=== PATIENT | male | born 1935 | race Caucasian/White ===

== ENCOUNTER → 2016-06-23 | Outpatient (CLI) | payer OTHER ==
[~2016-06-23] MED LIST: AGG PO; ATEN50TA8 PO; CLIN150C PO; EYE VITAMIN; FLUTICASONE; HYDR-5688 PO; HYDR25TA4 PO; MELA3TAB7 PO; METF1000 PO; MULTCAP33 PO; MULTTAB58 PO; NSP/500 PO; OMEG-112 PO; SIMV20TA5 PO; TAMS0.4C38 PO; WARF2TAB PO
== END | disposition home or self-care (01) ==
LOC: C.RDSM 14:56
PROVIDERS: ATTEND Physical Medicine & Rehabilitation Sports Medicine
DX: M16.9 Osteoarthritis of hip, unspecified (principal); Z96.643 Presence of artificial hip joint, bilateral

== ENCOUNTER → 2016-06-28 | Outpatient (CLI) | payer OTHER ==
[2016-06-28 10:27] LABS: BLOOD UREA NITROGEN 14 mg/dl (7-18); BUN/CREATININE RATIO 12.6 (10-20)
== END | disposition home or self-care (01) ==
LOC: C.LAB 09:27
PROVIDERS: ATTEND Urology
DX: N40.1 Benign prostatic hyperplasia with lower urinary tract symptoms (principal); R97.20 Elevated prostate specific antigen [PSA]

== ENCOUNTER 2016-07-24 15:08 | Emergency (ER) | payer OTHER ==
[~2016-07-24] VITALS: Ht 175.3 cm; Wt 89.2 kg
[~2016-07-24 15:08] MED LIST changes: -HYDR-5688 PO; -MULTCAP33 PO; -TAMS0.4C38 PO
[2016-07-24 15:12] VITALS: TEMP 36.3; Ht 175.3 cm; Wt 89.2 kg
[2016-07-24] MEDS ORDERED: TAMS0.4C38 PO (15:31)
[2016-07-24] MEDS ORDERED: MULTCAP33 PO (15:31)
--- NOTE | 2016-07-24 15:52 | DIAGNOSTIC IMAGING REPORT ---
RIGHT WRIST 2 VIEWS CLINICAL HISTORY: Fall with right wrist pain. FINDINGS: AP and lateral portable views of the right wrist are obtained. No prior studies are available for comparison at the time of dictation. The skeletal structures are osteopenic. There is an impacted and comminuted fracture of the distal radial metaphysis with intra-articular extension and posteriorly distracted fragments. There is apex volar angulation. There is also a small avulsion fracture of the ulnar styloid. No additional fracture is clearly seen. There is calcification of the triangular fibrocartilage. Arthritic change is noted at the first carpometacarpal articulation. Cystic degenerative change is seen in the scaphoid and capitate. Soft tissue swelling is present around the wrist. IMPRESSION: 1. There is an impacted, comminuted, and angulated fracture of the distal radial metaphysis with intra-articular extension and overlying soft tissue edema as above. 2. There is a small avulsion fracture of the ulnar styloid. Electronically signed by: Kevin Walker M.D. 07/24/2016 3:50 PM Dictated Date/Time: 07/24/2016 3:47 PM
--- NOTE | 2016-07-24 16:38 | EMERGENCY ROOM VISIT NOTE ---
ED Visit Note First contact with patient: 15:18 I saw this patient in conjunction with Jay Crawford PA-C. I agree with his decision-making and treatment plan.
[2016-07-24] MEDS ORDERED: XYLOCAINE 1%/SOD BICARB 20 ML VIAL INFIL ONE (16:45)
[2016-07-24] MEDS ORDERED: HYDR-5688 PO (17:35)
[2016-07-24 17:47] VITALS: BP 146/85; PULSE 87; O2SAT 94
--- NOTE | 2016-07-24 18:02 | ORTHOPEDIC CONSULTATION ---
DATE OF CONSULTATION: 07/24/2016 CHIEF COMPLAINT: Right wrist injury. HISTORY OF PRESENT ILLNESS: The patient is a 81-year-old male slipped and fell on the ice injuring his right wrist earlier today. He is right hand dominant. He has a prior history of thumb injury, but no wrist injuries. He has noticed numbness and tingling in the radial 3 digits. He denies other injury. He had a total hip done with Dr. Nagel about 4 years ago. 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 PAST SURGICAL HISTORY: Setting of a broken thumb, total hip and tonsils. ALLERGIES: None. MEDICATIONS: Aggrenox, atenolol, clindamycin, hydrochlorothiazide, Glucophage, multivitamin, niacin, omega-3, simvastatin, Flomax, PreserVision. PHYSICAL EXAMINATION: He is awake, alert and oriented and in no acute distress. The right upper extremity is examined. He is afebrile. His vital signs are stable. There is obvious deformity of the right wrist area. The elbow, forearm and hand are nontender. The wrist is tender. There is a superficial abrasion over the ulnar side of the wrist. There is a very minimal superficial break in the skin, but nothing that would constitute an open fracture. This is about 1 cm in diameter. He has decreased sensation, tingling and numbness rated 3/10 in the long, index and ring finger, normal sensation throughout the remainder of the hand. Radial pulses 1+. Cap refill is less than 2 seconds. Motor function is normal, perhaps a slight bit of weakness on finger abduction. DIAGNOSTIC IMAGING: Radiographs show a comminuted distal radius fracture with apex volar angulation. No intraarticular extension, no dislocation. Verbal informed consent is obtained, sterile technique is utilized to inject 10 mL of 1% lidocaine plain into the distal radius fracture site and distal ulna for a hematoma block. After adequate analgesia, a closed reduction maneuver was performed and then a well molded sugar tong splint was applied. Post-reduction radiographs show maintenance of radial height, neutral variance and neutral tilting, alignment generally is near anatomic. After reduction maneuver, numbness improved to a 2/10. IMPRESSION: Right ____ fracture, median nerve neuropraxia versus acute carpal tunnel syndrome. PLAN: Findings discussed with patient. If numbness and tingling and pain worsen dramatically, he should call the office or go to the Emergency Room. He is to follow up with someone in my office tomorrow either Dr. Nagel or his PA. Elevate, ice, sling, keep clean and dry, leave splint on. He can take Aleve for pain or Tylenol and the ER physician's nurse assistant Jay Arenas will give him a prescription for [place]. If there are any problems with severe pain, swelling, numbness and tingling, fevers or other issues, please call the office or go to the Emergency Room. He may wiggle his fingers. We discussed there may be a need for surgical treatment, but at this point, nonoperative management seems appropriate. We discussed the plan for care.
--- NOTE | 2016-07-24 21:20 | EMERGENCY ROOM VISIT NOTE ---
ED Visit Note First contact with patient: 15:18 Chief Complaint: Right wrist pain. History of Present Illness: Mr. Dinh is a 81-year-old white male who ambulates into the ED accompanied by his complaining of right wrist pain over the distal radius. Patient reports proximally 45 minutes ago he slipped on ice and fell onto his buttocks. As he was landing he reports he struck his wrist on the ground. Since that time he has noted pain and deformity of the distal radius. He does report at the time of the injury he did not strike his head, consciousness or any neurological symptoms since the injury. Currently he describes his wrist pain as a deep achy sensation. He rates his discomfort 2/10. The pain is nonradiating. Pain worsens with palpation and all attempts to flex, extend and read DVT the wrist. He has not identified any alleviating factors related to the pain. He has not taken any medications for pain prior to arrival at the hospital. He denies any associated symptoms including neck pain, shoulder pain, elbow pain, proximal forearm pain, buttocks pain, arm/hand weakness/numbness/tingling. Review of Systems: As noted above in history of present illness. 8 body systems were reviewed and found to be negative as noted above. 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 Current Medications: Medications Dose Route/Sig Max Daily Dose Days Date Category Dose Instructions Flomax (Tamsulosin Hcl) 0.4 Mg Cap 0.4 Mg PO DAILYBB 07/24/16 Reported Preservision Areds (Multiple Vitamins W/ Minerals) 1 Cap Cap 1 Cap PO BID 07/24/16 Reported Niaspan Ext Rel (Niacin) 500 Mg Tabcr 500 Mg PO DAILY 06/21/12 Reported Hctz (Hydrochlorothiazide) 25 Mg Tab 25 Mg PO DAILY 03/22/12 Reported Zocor (Simvastatin) 20 Mg Tab 20 Mg PO QPM 03/22/12 Reported [place]-3 (Unbut-0-Nxwa Ethyl Esters) 1 Cap Cap 1 Cap PO BID 03/22/12 Reported Multivitamin (Multiple Vitamin) 1 Tab Tab 1 Tab PO DAILY 03/22/12 Reported Glucophage (Metformin Hcl) 1,000 Mg Tab 1,000 Mg PO BID 03/22/12 Reported Cleocin (Clindamycin Hcl) 150 Mg Cap 4 Cap PO UD PRN 03/22/12 Reported Tenormin (Atenolol) 50 Mg Tab 50 Mg PO HS 03/22/12 Reported Aggrenox 200MG/25MG (Aspirin-Dipyridamole 25MG/200MG) 1 Cap Cap 1 Cap PO BID 03/22/12 Reported Allergies to Medications: Patient denies. Social History: Patient is currently retired and lives with his ; he feels safe in his home environment; he denies tobacco use. Physical Examination: Vital Signs: Date Time Temp Pulse Resp B/P Pulse Ox O2 Delivery O2 Flow Rate FiO2 07/24/16 17:47 87 18 146/85 94 07/24/16 15:12 36.3 86 18 151/82 93 Room Air GENERAL: 81-year-old male in mild distress due to pain, nontoxic-appearing, afebrile and hemodynamically stable. NEUROLOGICAL: Awake, alert and oriented to person, place and time. Answering questions appropriately and following commands. Normal gait. Good hand eye coordination. No focal motor sensory deficits. SKIN: Warm, dry and pink. Right Wrist: Superficial abrasion over the ulnar side of the wrist. This is not a deep wound and does not appear to be an open fracture. HEENT: Atraumatic and normocephalic. UPPER UPPER EXTREMITY: Obvious deformity noted over the right wrist. No tenderness throughout the shoulder, humerus, elbow, proximal wrist, hand and fingers. Soft tissue injury as noted above. With the risk stabilize patient has full range of motion in flexion and extension of the low in all movements of the shoulders. He was able to wiggle all the fingers against resistance. The fingers were warm and pink and capillary refill is brisk. He was able to distinguish light sensations through all dermatomes. ED Course: Patient is assessed as noted above. Patient was given ice for pain and swelling; he was offered pain medications and refused. Patient's abrasion was cleansed with antibacterial soap and water and cover with a bacitracin dressing. Left Wrist X-Rays: Were read by myself and the radiologist and shows an impacted , comminuted and angulated fracture of the distal radial metaphysis with intra- articular extension and localized swelling. There is also a small avulsion fracture on the ulnar styloid. Patient's case was reviewed with Dr. Zeng; she apparently assessed the patient we agreed on diagnostic approach, treatment, disposition and plan. Just before the arrival of orthopedics specialist patient reports he was started having some tingling sensations in the thumb, index and middle fingers. I did reassess him he was still able to distinguish light sensations, move his fingers at the MCP, PIP, DIP joint areas and capillary refill remained brisk.. Patient's case was consulted with Dr. Raygoza, [facility]; after reviewing his x-rays he came into the emergency department to improve anatomical alignment of the fracture and immobilize the fracture. Please see his notes and orders. Patient was educated about tonight's findings and instructed on his treatment plan; he verbalized understanding and agreement with this plan. Clinical Impression: Closed right radius fracture. Closed right ulnar styloid fracture. Disposition: Patient discharged home in stable condition accompanied by his ; prior to departure he was reassessed and subjectively reported he was pain and symptom-free. Plan: Comfort measures were discussed with the patient including rest, ice, elevation , splint and sling use and a sliding pain scale of acetaminophen and [place]; appropriate narcotic precautions were discussed with the patient. Patient was encouraged to follow-up with [facility] for definitive care and treatment. Patient was encouraged return the ED for uncontrolled pain, worsening swelling, worse this numbness/tingling of his fingers or any new/concerning symptoms.
--- NOTE | 2016-07-26 08:43 | DIAGNOSTIC IMAGING REPORT ---
RIGHT WRIST 2 VIEWS CLINICAL HISTORY: RIGHT WRIST FX Right trauma. Pain. COMPARISON: 07/24/2016 DISCUSSION: 2 image intensifier views show evidence for occlusion reduction there is a described fracture. Bony alignment is anatomic. There is no evidence for soft tissue swelling. IMPRESSION: Anatomic alignment status post closed reduction Electronically signed by: Turner Andino M.D. 07/26/2016 8:41 AM Dictated Date/Time: 07/26/2016 8:40 AM
== END 2016-07-24 17:48 | disposition home or self-care (01) ==
LOC: C.EDB 15:10 → C.EDD 17:48
DX: S52.501A Unspecified fracture of the lower end of right radius, initial encounter for closed fracture (principal); S52.611A Displaced fracture of right ulna styloid process, initial encounter for closed fracture; W00.0XXA Fall on same level due to ice and snow, initial encounter; I10 Essential (primary) hypertension; M19.90 Unspecified osteoarthritis, unspecified site; E11.9 Type 2 diabetes mellitus without complications; N40.0 Benign prostatic hyperplasia without lower urinary tract symptoms; E78.5 Hyperlipidemia, unspecified; Z96.641 Presence of right artificial hip joint; Z98.890 Other specified postprocedural states; Z79.02 Long term (current) use of antithrombotics/antiplatelets; Z79.82 Long term (current) use of aspirin; Z79.899 Other long term (current) drug therapy

== ENCOUNTER → 2016-07-28 | Outpatient (CLI) | payer OTHER ==
[~2016-07-28] MED LIST changes: -EYE VITAMIN; -FLUTICASONE; +HYDR-5688 PO; -MELA3TAB7 PO; +MULTCAP33 PO; +TAMS0.4C38 PO; -WARF2TAB PO
--- NOTE | 2016-07-28 14:16 | DIAGNOSTIC IMAGING REPORT ---
RIGHT WRIST MIN 3 VIEWS ROUTINE CLINICAL HISTORY: RIGHT WRIST PAIN Right pain. Trauma. COMPARISON: 2016. FINDINGS: Slight interval increase in impaction as well as an additional avulsed fragment from the metaphysis the distal radius. There continues to be no evidence of dislocation. All remaining osseous structures are remarkable for moderate degenerative change. IMPRESSION: Progressive impaction as well as bony distraction of the fracture of the distal radius. Study remains negative for dislocation. Electronically signed by: Turner Andino M.D. 07/28/2016 2:14 PM Dictated Date/Time: 07/28/2016 2:12 PM
== END ==
LOC: C.RDSM 13:45
PROVIDERS: ATTEND Physical Medicine & Rehabilitation Sports Medicine
DX: M25.531 Pain in right wrist (principal)

== ENCOUNTER → 2016-08-09 | Outpatient (CLI) | payer OTHER | END | disposition home or self-care (01) | LOC: C.RDSM 13:50 | PROVIDERS: ATTEND Physical Medicine & Rehabilitation Sports Medicine | DX: M25.531 Pain in right wrist (principal) ==

== ENCOUNTER → 2016-08-17 | Outpatient (CLI) | payer OTHER | END | disposition home or self-care (01) | LOC: C.RDSM 14:05 | PROVIDERS: ATTEND Physical Medicine & Rehabilitation Sports Medicine | DX: S52.531D Colles' fracture of right radius, subsequent encounter for closed fracture with routine healing (principal); X58.XXXD Exposure to other specified factors, subsequent encounter ==

== ENCOUNTER → 2016-09-09 | Outpatient (CLI) | payer OTHER | END | disposition home or self-care (01) | LOC: C.RDSM 10:05 | PROVIDERS: ATTEND Physical Medicine & Rehabilitation Sports Medicine | DX: S52.531D Colles' fracture of right radius, subsequent encounter for closed fracture with routine healing (principal); X58.XXXD Exposure to other specified factors, subsequent encounter ==

== ENCOUNTER → 2016-11-29 | Outpatient (CLI) | payer OTHER | END | disposition home or self-care (01) | LOC: C.RDSM 14:15 | PROVIDERS: ATTEND Physical Medicine & Rehabilitation Sports Medicine | DX: G56.01 Carpal tunnel syndrome, right upper limb (principal) ==

== ENCOUNTER → 2017-05-05 | Outpatient (CLI) | payer OTHER ==
[~2017-05-05] MED LIST changes: -HYDR-5688 PO
--- NOTE | 2017-05-05 11:18 | DIAGNOSTIC IMAGING REPORT ---
R HIP UNILATERAL MIN 2 VIEWS HISTORY: 82 years-old Male RIGHT HIP PAIN/DRAINAGE history of prior right hip arthroplasty 4 years ago. Patient reports new drainage from the chronic incision. COMPARISON: Pelvis and right hip radiographs 06/23/2016 TECHNIQUE: 2 views of the right hip FINDINGS: Right hip arthroplasty noted without periprosthetic fracture or malalignment. Imaged right hemipelvis appears intact. Heterotopic ossifications about the right hip redemonstrated. Peripheral vascular disease. Mild soft tissue prominence is suggested within the soft tissues superior to the right hip. IMPRESSION: 1. Right hip arthroplasty without complication identified. No acute fracture or dislocation. 2. Soft tissue prominence superior to the right proximal femur may be projectional. If concern for periarticular collection, ultrasound may be considered. 3. Peripheral vascular disease. The above report was generated using voice recognition software. It may contain grammatical, syntax or spelling errors. Electronically signed by: Giles Conner M.D. 05/05/2017 11:16 AM Dictated Date/Time: 05/05/2017 11:14 AM
== END | disposition home or self-care (01) ==
LOC: C.RDSM 13:27
PROVIDERS: ATTEND Physician Assistant
DX: M25.551 Pain in right hip (principal); Z96.641 Presence of right artificial hip joint; M79.9 Soft tissue disorder, unspecified; I73.9 Peripheral vascular disease, unspecified

== ENCOUNTER → 2017-05-30 | Day surgery (SDC) | payer OTHER ==
[2017-05-24 08:31] VITALS: Ht 177.8 cm; Wt 90.9 kg
[~2017-05-30] VITALS: Ht 177.8 cm; Wt 90.9 kg
[~2017-05-30] MED LIST changes: +ALLO300T2 PO; +ATROPINE SULFATE 0.1 MG/ML 5ML SYR IV PRN; +CEFAZOLIN 2000MG IV PUSH 10 ML IV SCH; +CEFTRIAXONE SOD 1 GM VIAL ONE; +CEFTRIAXONE SOD INJ 1,000 MG in DEXTROSE 5% 50ML 50 ML IV ONE; +DEXAMETHASONE SOD INJ 4 MG/ML VIAL ONE; +EpHEDrine SULFATE INJ 50 MG/ML AMP IV PRN; +EpHEDrine SULFATE INJ 50 MG/ML AMP ONE; +FENTANYL CITRATE INJ 50 MCG/1 ML 2 ML VIAL IV PRN; +FENTANYL CITRATE INJ 50 MCG/1 ML 2 ML VIAL ONE; +GLYCOPYRROLATE INJ 0.2 MG/ML VIAL ONE; +HYDROCODONE/ACETAMOPHEN 5/325MG TAB PO PRN; +LACTATED RINGER'S 1000ML 1,000 ML IV SCH; +LIDOCAINE HCL 2% 2 ML VIAL (20MG/ML) ONE; +NEOSTIGMINE METHYLSULFATE 5 MG/5 ML SYR ONE; +NIAC500T83 PO; -NSP/500 PO; +ONDANSETRON INJ 2 MG/ML 2 ML VIAL IV PRN; +ONDANSETRON INJ 2 MG/ML 2 ML VIAL ONE; +PROPOFOL IV EMULSION 10 MG/ML 20 ML VIAL IV ONE; +ROCURONIUM BROMIDE 10 MG/ML 5 ML VIAL IV ONE; +SODIUM CHLORIDE 0.9% 1000ML 1,000 ML IV SCH; +SODIUM CHLORIDE 0.9% INJ 10 ML VIAL ONE
--- NOTE | 2017-05-30 10:19 | History & Physical Bridge Note ---
H&P Re-Evaluation Bridge Note: I have examined the patient, reviewed the History & Physical and in the interval since the performance of the History & Physical I have noted the following changes of clinical significance:consent obtained. No changes noted
--- NOTE | 2017-05-30 10:21 | Discharge Instructions ---
Discharge Instructions Date of Service May 30, 2017. Visit Reason for Visit: Right Hip Chronic Bursitis Discharge Discharge Diagnosis / Problem: same Discharge Goals Goal(s): Improve function, Improve disease control Medications Stopped Medications Name(s): Metformin Restart Stopped Medication(s): resume all meds/check glucoses carefully. Activity Recommendations Activity Limitations: resume your previous activity Lifting Limitations: until after follow-up appointment Exercise/Sports Limitations: until after follow-up appointment May Resume Sexual Activity: after follow-up appointment Shower/Bathe: keep incision dry Driving or Machine Use: resume 1 day after discharge Weightbearing Status: Right weightbearing (as tolerated) Anesthesia . Post Anesthesia Instructions: If you have had General Anesthesia or IV Sedation: * Do not drive today. * Resume driving when surgeon permits. * Do not make important decisions or sign legal documents today. * Call surgeon for: 1. Temperature elevations greater than 101 degrees F. 2. Uncontrollable pain. 3. Excessive bleeding. 4. Persistent nausea and vomiting. 5. Medication intolerance (nausea, vomiting or rash). * For nausea and vomiting use only clear liquids such as: tea, soda, bouillon until nausea subsides, then gradually increase diet as tolerated. * If you have any concerns or questions, call your surgeon's office. If physician is unavailable and it is an emergency, call 911 or go to the nearest emergency room. . Instructions / Follow-Up Instructions / Follow-Up DIET: * Resume previous diet. MEDICATIONS: * Please take your prescriptions as instructed at your pre-op appointment and/ or see medication discharge instructions listed above. * If concerns develop, call your physician's office at . SPECIAL CARE INSTRUCTIONS: * Ice/Elevate as instructed. * Keep dressing clean, dry, intact. * Your surgical extremity may be discolored due to prepping agents used on the skin. A bluish-green tint is a normal variant and should not cause alarm. Call your doctor at [phone] if: * Temperature above 101 degrees * Pain not relieved by pain medicine ordered * There is increased drainage or redness from any incision * You have any unanswered questions, problems or concerns. FOLLOW UP VISIT: * If not already scheduled, please call the office at to schedule a follow-up appointment. Diet Recommendations Recommended Home Diet: resume previous diet Procedures Procedures Performed: see op note Pending Studies Studies pending at discharge: yes List of pending studies: [place] Medical Emergencies . Who to Call and When: Medical Emergencies: If at any time you feel your situation is an emergency, please call 911 immediately. . Non-Emergent Contact Non-Emergency issues call your: Specialist Call Non-Emergent contact if: temperature is above 101.5, wound has increased drainage, wound has increased redness, wound has increased pain, you have any medication questions . . "Provider Documentation" section prepared by Cooper Nagel. .
--- NOTE | 2017-05-30 11:27 | [facility] Post Operative Brief Note ---
Immediate Operative Summary Operative Date May 30, 2017. Pre-Operative Diagnosis Right hip open draining trochanteric bursitis Post-Operative Diagnosis Same as preop Procedure(s) Performed Right Hip Open Greater Trochanter Bursectomy Surgeon Dr. Nagel Final Dressing Cutter Surgeon(s) Brian Orona PA-C Estimated Blood Loss Trace Findings soft tissue mass possible crystalline vs infection/previous cultures negative Fluids (cc crystalloids) 700cc Specimens Culture #1 - right hip tissue for stat gram stain, aerobic and anaerobic and crystal analysis/pathology Drains none Anesthesia GET Complication(s) None Disposition Recovery Room / PACU
--- NOTE | 2017-05-30 11:46 | OPERATIVE REPORT ---
DATE OF OPERATION: 05/30/2017 Surgeon: Dr. Nagel. DIESEL LOCOMOTIVE FIRER: Yeyo. PREOPERATIVE DIAGNOSIS: Spontaneously draining wound following heavy friction massage PT for trochanteric bursitis, 4+ years out from total hip replacement. POSTOPERATIVE DIAGNOSIS: Permanent pathology pending, unclear diagnosis.bursitis r hip OPERATION PERFORMED: Excision of bursa of right hip. PERIOPERATIVE SITUATION: Medically cleared male with comorbidities ASA 3 who has presented with a several week history of a spontaneously draining wound following some heavy PT friction massage for trochanteric bursitis. He has never had no fever or chills, nausea, vomiting, his glucose has never really been out of control. He notes no hip pain. The area spontaneously started to drain. It was cultured immediately and the cultures did not grow anything after 5 days, so it was elected to follow this carefully with follow up every few days and then ultimately as it did not clear up, we elected to proceed with open bursectomy. He was informed that this could still represent infection and could require multiple procedures to eradicate the infection. OPERATION: bursectomy, right hip. PROCEDURE: The patient appropriately identified, site verified, consent verified, 2 grams of Ancef confirmed as being given. The right lower extremity was prepped and draped in usual routine fashion with the patient in left lateral decubitus position. The old distal third of the incision was opened where there was a small draining area. Immediately encountered with that was a significant bulky whitish amor tissue, which was all excised. This did extend into the fascial region which was all debrided. Following this, there was a hole into the fascia, this was all irrigated. This was all sent for permanent pathology including crystals, including culture and sensitivity, aerobic, anaerobic and fungal, including pathology to look for formed particles, etc. The wound was irrigated and closed with #1 Vicryl for the fascial layer, 2-0 plain for the subcutaneous layer and 3-0 Prolene for skin. A compressive soft tissue dressing applied. Permanent pathology is pending. Estimated blood loss was trace. Crystalloid was 900 mL. Ultimately, this may require additional procedures, the patient and family were made aware of that. Will proceed with caution based on culture and tissue pathology results. Empirically treat at this point in time with routine prophylactic antibiotic coverage until cultures are negative. If positive, he will go to inpatient surgery with appropriate excisional arthroplasty, etc. No DVT prophylaxis required for this procedure; weightbearing to tolerance. I attest to the content of the Intraoperative Record and any orders documented therein. Any exceptions are noted below. MTDD
--- NOTE | 2017-05-30 11:52 | [facility] Operative Report ---
Operative Report Operative Date May 30, 2017. Pre-Operative Diagnosis Right hip open draining trochanteric bursitis Post-Operative Diagnosis Right hip Same as preop Procedure(s) Performed Right Hip Open Greater Trochanter Bursectomy Surgeon Dr. Nagel Manager Revenue Surgeon(s) Brian Orona PA-C Estimated Blood Loss Trace Findings Bursal tissue Fluids (cc crystalloids) 700cc Specimens Culture #1 - right hip tissue for stat gram stain, aerobic and anaerobic and crystal analysis/pathology Drains none Complication(s) None Disposition Recovery Room / PACU Indications This 82-year-old white male presented to the office with complaints of an open wound over his previous total hip arthroplasty scar. Symptoms developed after having tissue massage for trochanteric bursitis. He failed conservative management including pressure dressings, oral prednisone, and activity modification. He did receive oral antibiotics as well without resolution of the drainage. He elected to proceed with surgical intervention after being educated about potential risks and outcomes. Preoperative wound cultures were negative for bacteria. Description of Procedure Patient was taken to the operating room where he was given general anesthesia. He was prepped and draped in usual sterile fashion. Please see Dr. Nagel's operative report for specifics of the procedure. I was present for the entire case from initial patient positioning through final wound closure. Assistance was provided in patient positioning, tissue traction, hemostasis, and final wound closure. Patient was taken to the recovery room in satisfactory condition. I attest to the content of the Intraoperative Record and any orders documented therein. Any exceptions are noted below.
--- NOTE | 2017-05-30 12:28 | Anesthesiology Progress Note ---
Anesthesia Post Op Note Date & Time May 30, 2017 at 12:27 Vital Signs Pain Intensity: 0 Vital Signs Past 12 Hours Date Time Temp Pulse Resp B/P (MAP) Pulse Ox O2 Delivery O2 Flow Rate FiO2 05/30/17 12:10 143/92 05/30/17 12:08 69 16 05/30/17 12:08 68 16 92 05/30/17 12:07 73 24 05/30/17 12:07 73 24 91 05/30/17 12:06 36.6 68 20 129/86 94 Room Air 05/30/17 12:05 129/86 05/30/17 12:02 68 18 05/30/17 12:02 67 18 93 05/30/17 12:01 151/80 05/30/17 11:59 72 14 05/30/17 11:59 71 14 94 05/30/17 11:55 117/83 05/30/17 11:54 70 17 05/30/17 11:54 70 17 91 05/30/17 11:52 154/82 05/30/17 11:50 144/108 05/30/17 11:49 69 20 98 05/30/17 11:49 70 20 05/30/17 11:46 145/86 05/30/17 11:44 71 18 98 05/30/17 11:44 71 18 05/30/17 11:40 160/93 05/30/17 11:39 73 18 05/30/17 11:39 73 18 98 05/30/17 11:35 173/103 05/30/17 11:34 79 14 05/30/17 11:34 79 14 98 05/30/17 11:34 36.6 80 16 179/98 97 Diffusion Mask 6 05/30/17 09:56 36.5 68 16 156/82 (106) 96 Room Air Notes Mental Status: alert / awake / arousable, participated in evaluation Pt Amnestic to Procedure: Yes Nausea / Vomiting: adequately controlled Pain: adequately controlled Airway Patency, RR, SpO2: stable & adequate BP & HR: stable & adequate Hydration State: stable & adequate Anesthetic Complications: no major complications apparent
[2017-05-30 12:55] VITALS: BP 154/86; PULSE 63; TEMP 36.6; O2SAT 94
== END | disposition home or self-care (01) ==
LOC: X.SURG 09:39
PROVIDERS: ATTEND Physical Medicine & Rehabilitation Sports Medicine
DX: T84.51XA Infection and inflammatory reaction due to internal right hip prosthesis, initial encounter (principal); Y83.1 Surgical operation with implant of artificial internal device as the cause of abnormal reaction of the patient, or of later complication, without mention of misadventure at the time of the procedure; M70.61 Trochanteric bursitis, right hip; I10 Essential (primary) hypertension; E11.9 Type 2 diabetes mellitus without complications; M19.90 Unspecified osteoarthritis, unspecified site; M10.9 Gout, unspecified; H35.30 Unspecified macular degeneration; Z96.643 Presence of artificial hip joint, bilateral; Z98.890 Other specified postprocedural states; Z79.899 Other long term (current) drug therapy

== ENCOUNTER 2017-06-21 10:26 | Emergency (ER) | payer OTHER ==
[~2017-06-21] VITALS: Ht 177.8 cm; Wt 88.0 kg
[~2017-06-21 10:26] MED LIST changes: -ATROPINE SULFATE 0.1 MG/ML 5ML SYR IV PRN; -CEFAZOLIN 2000MG IV PUSH 10 ML IV SCH; -CEFTRIAXONE SOD 1 GM VIAL ONE; -CEFTRIAXONE SOD INJ 1,000 MG in DEXTROSE 5% 50ML 50 ML IV ONE; -DEXAMETHASONE SOD INJ 4 MG/ML VIAL ONE; -EpHEDrine SULFATE INJ 50 MG/ML AMP IV PRN; -EpHEDrine SULFATE INJ 50 MG/ML AMP ONE; -FENTANYL CITRATE INJ 50 MCG/1 ML 2 ML VIAL IV PRN; -FENTANYL CITRATE INJ 50 MCG/1 ML 2 ML VIAL ONE; -GLYCOPYRROLATE INJ 0.2 MG/ML VIAL ONE; -HYDROCODONE/ACETAMOPHEN 5/325MG TAB PO PRN; -LACTATED RINGER'S 1000ML 1,000 ML IV SCH; -LIDOCAINE HCL 2% 2 ML VIAL (20MG/ML) ONE; -NEOSTIGMINE METHYLSULFATE 5 MG/5 ML SYR ONE; -ONDANSETRON INJ 2 MG/ML 2 ML VIAL IV PRN; -ONDANSETRON INJ 2 MG/ML 2 ML VIAL ONE; -PROPOFOL IV EMULSION 10 MG/ML 20 ML VIAL IV ONE; -ROCURONIUM BROMIDE 10 MG/ML 5 ML VIAL IV ONE; -SODIUM CHLORIDE 0.9% 1000ML 1,000 ML IV SCH; -SODIUM CHLORIDE 0.9% INJ 10 ML VIAL ONE
[2017-06-21 10:30] VITALS: TEMP 36.3; Ht 177.8 cm; Wt 88.0 kg
--- NOTE | 2017-06-21 11:16 | EMERGENCY ROOM VISIT NOTE ---
History Report prepared by Lona: Nona Bowling Under the Supervision of: Dr. Dewayne Diaz M.D. First contact with patient: 10:36 Chief Complaint: URINARY SYMPTOMS Stated Complaint: HICCUPS, URINATING Nursing Triage Summary: Pt states, "Mon night I developed a hiccup sx that comes and goes. I am on prednisone and Dr. Montes thinks it elevated by sugar and makes me urinate more often. They are running a culture, but I haven't heard anything. I have been up the past two nights hiccuping. I have burning when I urinate and sometimes nothing comes out. I have a wound vac." Decreased appetite, generalized weakness. History of Present Illness The patient is a 82 year old male who presents to the Emergency Room with complaints of worsening urinary symptoms for the past week. The patient had a right hip replacement 5 years ago. He recently had bursitis and gout in the hip which caused an infection. He currently has wound VAC in place and is following up with Dr. Nagel of [facility]. He is currently on prednisone and antibiotics prescribed by the orthopedist. He reports that for the past week he has increased urinary frequency and no hematuria or dysuria. PCP's office did a urine culture last week which revealed some hematuria. They still have not been called with the final results of the urine culture. Pt denies chest pain, shortness of breath, abdominal pain, melena, and hematuria. The patient also reports that for the past 2 days he has been experiencing hiccups intermittently. Each episode lasts for about 1 hour and then resolves on its own. Source of History: patient, spouse/significant other Onset: 1 week ago Position: abdomen (urinary) Timing: worsening Associated Symptoms: + urinary symptoms (increased frequency, dysuria, hematuria), No chest pain, No SOB, No abdominal pain, No melena, No hematochezia Note: Pt reports hiccups. Review of Systems See HPI for pertinent positives and negatives. A total of ten systems were reviewed and were otherwise negative. Past Medical & Surgical Medical Problems: (1) Bursitis (2) Gout Surgical Problems: (1) History of right hip replacement Family History Non-pertinent due to advanced age. Social History Smoking Status: Former Smoker Marital Status: Housing Status: lives with significant other Occupation Status: retired Current/Historical Medications Scheduled Allopurinol (Zyloprim), 300 MG PO QAM Amoxicillin (Amoxil), 500 MG PO DAILY Aspirin-Dipyridamole 25MG/200MG (Aggrenox 200MG/25MG), 1 CAP PO BID Atenolol (Tenormin), 50 MG PO HS Hydrochlorothiazide (Hctz), 25 MG PO QAM Melatonin (Melatonin), 3 MG PO HS Metformin Hcl (Glucophage), 1,000 MG PO BID Multiple Vitamin (Multivitamin), 1 TAB PO DAILY Niacin (Niaspan Ext Rel), 500 MG PO DAILY [id number] Ethyl Esters (Sterling-3), 1 CAP PO BID Rifampin (Rifampin), 300 MG PO DAILY Simvastatin (Zocor), 20 MG PO QPM Tamsulosin Hcl (Flomax), 0.4 MG PO QPM Scheduled PRN Chlorpromazine HCl (Chlorpromazine HCl), 25 MG OR TID PRN for Documentation Clindamycin Hcl (Cleocin), 4 CAP PO UD PRN for prior to dental work Allergies Coded Allergies: No Known Allergies (Unverified , 06/21/17) Physical Exam Vital Signs Date Time Temp Pulse Resp B/P (MAP) Pulse Ox O2 Delivery O2 Flow Rate FiO2 06/21/17 12:44 91 18 134/74 96 06/21/17 12:06 89 18 143/92 93 Room Air 06/21/17 10:30 36.3 97 16 130/78 95 Room Air Physical Exam Physical Exam GENERAL: He is oriented to person, place, and time. He appears well-developed and well-nourished. He does not appear distressed. HENT: Exam performed. Head: Normocephalic and atraumatic. Right Ear: External ear normal. No mastoid tenderness. Left Ear: External ear normal. No mastoid tenderness. Mouth/Throat: The oropharynx is clear and moist. No trismus in the jaw. No dental abscesses or uvula swelling. No oropharyngeal exudate or tonsillar abscesses. EYES: Conjunctivae and EOM are normal. Pupils are equal, round, and reactive to light. Right eye exhibits no discharge. Left eye exhibits no discharge. No scleral icterus. NECK: Normal range of motion. Neck supple. No JVD present. No spinous process tenderness present. No carotid bruit present. No rigidity. No tracheal deviation and normal range of motion present. No Brudzinski's sign and no Kernig 's sign noted. CV: Normal rate, regular rhythm, normal heart sounds and intact distal pulses. There is no peripheral edema. Palpable radial pulses bue. PULM/CHEST: Effort normal and breath sounds normal. No respiratory distress. No stridor. He has no wheezes. He has no rales. Chest Wall: He exhibits no tenderness. ABD: The abdomen is soft. Bowel sounds are normal. He has no distension. No mass is present. There is no tenderness. There is no rebound, no guarding, no Ribeiro's sign and no tenderness at McBurney's point. Rovsig negative MUSC/SKEL: Normal range of motion. There is no peripheral edema, tenderness or deformity. Wound VAC on right hip. Wound VAC is draining straw colored fluid, no purulence or blood, no erythema surrounding the wound VAC, no purulent drainage from the wound VAC. LYMPH: No cervical adenopathy. NEURO: He is alert and oriented to person, place, and time. He has normal strength. No cranial nerve deficit or sensory deficit. Coordination and gait normal. GCS eye subscore is 4. GCS verbal subscore is 5. GCS motor subscore is 6. cerbellar tests wnl. SKIN: Skin is warm and dry. He is not diaphoretic. PSYCH: He has a normal mood and affect. His behavior is normal. Judgment and thought content normal. Medical Decision & Procedures Laboratory Results 06/21/17 11:19 Red Blood Count 4.70, Mean Corpuscular Volume 87.9, Mean Corpuscular Hemoglobin 30.0, Mean Corpuscular Hemoglobin Concent 34.1, Mean Platelet Volume 9.9, Neutrophils (%) (Auto) 85.4, Lymphocytes (%) (Auto) 7.4, Monocytes (%) (Auto) 3.8, Eosinophils (%) (Auto) 2.7, Basophils (%) (Auto) 0.2, Neutrophils # (Auto) 12.74, Lymphocytes # (Auto) 1.10, Monocytes # (Auto) 0.57, Eosinophils # (Auto) 0.40, Basophils # (Auto) 0.03 06/21/17 11:19 Test 06/21/17 10:47 06/21/17 10:54 06/21/17 11:19 Urine Color DK YELLOW Urine Appearance CLEAR (CLEAR) Urine pH 5.5 (4.5-7.5) Urine Specific [place] 1.014 (1.000-1.030) Urine Protein 2+ (NEG) Urine Glucose (UA) NEG (NEG) Urine Ketones NEG (NEG) Urine Occult Blood NEG (NEG) Urine Nitrite NEG (NEG) Urine Bilirubin NEG (NEG) Urine Urobilinogen NEG (NEG) Urine Leukocyte Esterase NEG (NEG) Urine WBC (Auto) 1-5 /hpf (0-5) Urine RBC (Auto) 0-4 /hpf (0-4) Urine Hyaline Casts (Auto) 1-5 /lpf (0-5) Urine Epithelial Cells (Auto) 10-20 /lpf (0-5) Urine Bacteria (Auto) NEG (NEG) Bedside Glucose 188 mg/dl (70-99) White Blood Count 14.91 K/uL (4.8-10.8) Red Blood Count 4.70 M/uL (4.7-6.1) Hemoglobin 14.1 g/dL (14.0-18.0) Hematocrit 41.3 % (42-52) Mean Corpuscular Volume 87.9 fL (80-100) Mean Corpuscular Hemoglobin 30.0 pg (25-34) Mean Corpuscular Hemoglobin Concent 34.1 g/dl (32-36) Platelet Count 377 K/uL (130-400) Mean Platelet Volume 9.9 fL (7.4-10.4) Neutrophils (%) (Auto) 85.4 % Lymphocytes (%) (Auto) 7.4 % Monocytes (%) (Auto) 3.8 % Eosinophils (%) (Auto) 2.7 % Basophils (%) (Auto) 0.2 % Neutrophils # (Auto) 12.74 K/uL (1.4-6.5) Lymphocytes # (Auto) 1.10 K/uL (1.2-3.4) Monocytes # (Auto) 0.57 K/uL (0.11-0.59) Eosinophils # (Auto) 0.40 K/uL (0-0.5) Basophils # (Auto) 0.03 K/uL (0-0.2) RDW Standard Deviation 46.8 fL (36.4-46.3) RDW Coefficient of Variation 14.4 % (11.5-14.5) Immature Granulocyte % (Auto) 0.5 % Immature Granulocyte # (Auto) 0.07 K/uL (0.00-0.02) Anion Gap 10.0 mmol/L (3-11) Est Creatinine Clear Calc Drug Dose 56.3 ml/min Estimated GFR () 67.8 Estimated GFR (Non- 58.5 BUN/Creatinine Ratio 16.2 (10-20) Calcium Level 9.6 mg/dl (8.5-10.1) Laboratory results reviewed by me. ED Course 1036: The patient was evaluated in room C3. A complete history and physical exam was performed. 1103: I discussed the case with Dr. Navarro of [facility]. If the patient is admitted, he will see the patient as a consult in the hospital. If he is discharged, Dr. Navarro will see the patient for follow-up tomorrow as an outpatient. 1147: I updated the patient and his on his results. 1212: I spoke with Dr. Crews, the patient's PCP. He did not start the patient on prednisone and states that most likely the orthopedist group did. He recommends holding off on prednisone. He will follow-up with the patient in the office later this week. 1222: I reassessed the patient at this time. He is feeling better and resting comfortably. I discussed the results and treatment plan with the patient. I answered all pertaining questions that he had. He expressed understanding and verbalized agreement. The patient will be discharged home with medications for hiccups. Medical Decision Vital signs stable. His labs show a mildly elevated WBC most likely due to recent prednisone. Urine negative. Metabolic profile shows sodium 127. Patient is completely asymptomatic, neurologically intact. Discussed the patient's PCP, Dr. Crews, he states that he did not start the patient on prednisone and states that most likely the orthopedist group did. He recommends holding off on prednisone. He will follow-up with the patient in the office later this week. Patient will be discharged home with medications for hiccups. Medication Reconcilliation Current Medication List: was personally reviewed by me Blood Pressure Screening Patient's blood pressure: Elevated blood pressure Blood pressure disposition: Elevated BP felt to be situational Consults Time Called: 1100 Consulting Physician: Dr. Navarro Returned Call: 1103 I discussed the case with Dr. Navarro of [facility]. If the patient is admitted, he will see the patient as a consult in the hospital. If he is discharged, Dr. Navarro will see the patient for follow-up tomorrow as an outpatient. Additional Consults: Time Called: 1207 Consulted Physician: Dr. Crews Returned Call: 1212 Additional Comments: I spoke with Dr. Crews, the patient's PCP. He did not start the patient on prednisone and states that most likely the orthopedist group did. He recommends holding off on prednisone. He will follow-up with the patient in the office later this week. Impression Primary Impression: Polyuria Additional Impressions: Hyponatremia Hiccups Scribe Attestation The scribe's documentation has been prepared under my direction and personally reviewed by me in its entirety. I confirm that the note above accurately reflects all work, treatment, procedures, and medical decision making performed by me. The scribe's documentation has been prepared under my direction and personally reviewed by me in its entirety. I confirm that the note above accurately reflects all work, treatment, procedures, and medical decision making performed by me. Departure Information Dispostion Being Evaluated By Hospitalist Prescriptions Chlorpromazine HCl (Chlorpromazine HCl) 25 Mg Tab 25 MG OR TID Y for Documentation, #7 TABS take TID PRN hiccups Prov: Dewayne Diaz M.D. 06/21/17 Referrals Bobby Schuler D.O. (PCP) Cooper Nagel M.D. Forms HOME CARE DOCUMENTATION FORM, IMPORTANT VISIT INFORMATION Patient Instructions ED Hiccups, Hyponatremia Dc, My [facility] Additional Instructions stop taking prednisone Problem Qualifiers
[2017-06-21 11:27] LABS: BASO % 0.2 %; BASO ABS # 0.03 K/uL (0-0.2); EOS % 2.7 %; HEMATOCRIT 41.3 % (42-52); HEMOGLOBIN 14.1 g/dL (14.0-18.0); IG# 0.07 K/uL (0.00-0.02); LYMPH % 7.4 %; MEAN CELL VOLUME 87.9 fL (80-100); MEAN CORPUSCULAR HGB CONC 34.1 g/dl (32-36); MEAN PLATELET VOLUME 9.9 fL (7.4-10.4); MONO % 3.8 %; MONO ABS # 0.57 K/uL (0.11-0.59); NEUT % 85.4 %; NEUT ABS # 12.74 K/uL (1.4-6.5); PLATELET COUNT 377 K/uL (130-400); RED CELL DISTRIBUTION WIDTH CV 14.4 % (11.5-14.5); RED CELL DISTRIBUTION WIDTH SD 46.8 fL (36.4-46.3); WHITE BLOOD COUNT 14.91 K/uL (4.8-10.8)
[2017-06-21] MEDS ORDERED: PRED-301 PO (11:31)
[2017-06-21] MEDS ORDERED: MELA3TAB PO (11:31)
[2017-06-21] MEDS ORDERED: RFM300 PO (11:31)
[2017-06-21] MEDS ORDERED: AMOX500C3 PO (11:31)
[2017-06-21 11:43] LABS: CALCIUM 9.6 mg/dl (8.5-10.1); CREATININE 1.17 mg/dl (0.60-1.40); POTASSIUM 3.5 mmol/L (3.5-5.1)
[2017-06-21] MEDS ORDERED: THR25X OR (12:36)
[2017-06-21 12:44] VITALS: BP 134/74; PULSE 91; O2SAT 96
== END 2017-06-21 12:44 | disposition home or self-care (01) ==
LOC: C.EDB 10:29 → C.EDC 12:44
DX: R35.8 Other polyuria (principal); E87.1 Hypo-osmolality and hyponatremia; R06.6 Hiccough; Z96.641 Presence of right artificial hip joint; Z79.82 Long term (current) use of aspirin; Z79.84 Long term (current) use of oral hypoglycemic drugs; Z87.891 Personal history of nicotine dependence

== ENCOUNTER → 2017-06-26 | Outpatient (CLI) | payer OTHER ==
[~2017-06-26] MED LIST changes: +AMOX500C3 PO; +MELA3TAB PO; -MULTCAP33 PO; +RFM300 PO; +THR25X OR
[2017-06-26 16:08] LABS: BLOOD UREA NITROGEN 18 mg/dl (7-18); CREATININE 1.16 mg/dl (0.60-1.40)
== END | disposition home or self-care (01) ==
LOC: C.LAB1850 14:47
PROVIDERS: ATTEND Urology
DX: N40.1 Benign prostatic hyperplasia with lower urinary tract symptoms (principal)

== ENCOUNTER → 2017-07-10 | Outpatient (CLI) | payer OTHER | END | disposition home or self-care (01) | LOC: C.LABSPEC 11:59 | PROVIDERS: ATTEND Physical Medicine & Rehabilitation Sports Medicine | DX: M70.61 Trochanteric bursitis, right hip (principal) ==

== ENCOUNTER → 2017-07-12 | Outpatient (CLI) | payer OTHER ==
[2017-07-12 14:37] LABS: BASO % 0.1 %; BASO ABS # 0.02 K/uL (0-0.2); EOS % 0.1 %; EOS ABS # 0.02 K/uL (0-0.5); HEMATOCRIT 38.1 % (42-52); HEMOGLOBIN 12.7 g/dL (14.0-18.0); IG# 0.08 K/uL (0.00-0.02); LYMPH % 7.4 %; LYMPH ABS # 1.03 K/uL (1.2-3.4); MEAN CELL VOLUME 88.8 fL (80-100); MEAN CORPUSCULAR HEMOGLOBIN 29.6 pg (25-34); MEAN CORPUSCULAR HGB CONC 33.3 g/dl (32-36); MEAN PLATELET VOLUME 9.8 fL (7.4-10.4); MONO % 4.7 %; MONO ABS # 0.66 K/uL (0.11-0.59); NEUT % 87.1 %; NEUT ABS # 12.19 K/uL (1.4-6.5); PLATELET COUNT 325 K/uL (130-400); RED CELL DISTRIBUTION WIDTH SD 48.3 fL (36.4-46.3)
[2017-07-12 14:38] LABS: HEMOGLOBIN A1C 8.5 % (4.5-5.6)
[2017-07-12 14:50] LABS: INR 1.5 (0.9-1.1)
[2017-07-12 14:53] LABS: BLOOD UREA NITROGEN 22 mg/dl (7-18); CALCIUM 9.9 mg/dl (8.5-10.1); CARBON DIOXIDE 28 mmol/L (21-32); GLUCOSE 157 mg/dl (70-99); POTASSIUM 3.8 mmol/L (3.5-5.1); SODIUM 129 mmol/L (136-145)
[2017-07-12 15:10] LABS: PTT PATIENT 47.3 SECONDS (21.0-31.0)
== END | disposition home or self-care (01) ==
LOC: C.LAB1850 12:30
PROVIDERS: ATTEND Physician Assistant
DX: Z01.812 Encounter for preprocedural laboratory examination (principal); T84.51XA Infection and inflammatory reaction due to internal right hip prosthesis, initial encounter; X58.XXXA Exposure to other specified factors, initial encounter

== ENCOUNTER 2017-07-13 06:23 | Inpatient (IN) | payer OTHER ==
[2017-07-12 10:01] VITALS: BMI 26.0
--- NOTE | 2017-07-12 17:01 | HISTORY & PHYSICAL EXAMINATION ---
DATE OF ADMISSION: 07/13/2017 PREOPERATIVE HISTORY AND PHYSICAL CHIEF COMPLAINT: Right hip wound drainage. HISTORY OF PRESENT ILLNESS: This 82-year-old white male presents with his and son for his preoperative history and physical. He is scheduled to undergo a right hip irrigation and debridement, poly liner and femoral head exchange versus cement spacer placement, and application of antibiotic beads on 07/13/2017. The patient has been experiencing drainage from his hip wound since 05/04/2017. 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 He had done very well until this April. He was experiencing some trochanteric bursitis type symptoms in February and March and did receive some physical therapy. At one point, friction massage was performed over the bursa. He developed a draining wound on his hip while driving home on May 04. He was seen in the office on May 05. He denies any fevers until yesterday evening. His temperature at home was reportedly 100. He has been seen extensively in the office and has never had an elevated temperature. He does complain of some chills today. No numbness or tingling. He has been having increasing discomfort in the right hip since this past weekend. He did undergo a wound VAC application as well as a trial alginate dressing application along with surgical debridement of the bursa and fibrin on 05/30/2017, all without lasting improvement. He is on 7 weeks of oral antibiotics including rifampin, Cipro, Augmentin, and Levaquin, which was just started this past Monday. He does use occasional Aleve. Of note, the patient did have extensive dental surgery done last spring. He is unsure if this is related. He also has a history of heart murmur. There is also a recent history of UTI in May. He and his family elected to proceed with surgical intervention in hopes of alleviating his current pain. They understand the risks and benefits. Preoperative imaging has been obtained. PAST MEDICAL HISTORY: Significant for heart murmur, hypertension, osteoarthritis, enlarged prostate, poor dentition, diabetes, gout, macular degeneration, elevated cholesterol. PREVIOUS SURGERIES: Tonsillectomy, carpal tunnel release, right thumb ORIF, left hip ANIYA 2001, right hip ANIYA 06/21/2012, bilateral cataract surgery 2016, extensive dental surgery, previous colonoscopy x2, herniorrhaphy, shave biopsies. ALLERGIES: NKDA. CURRENT MEDICATIONS: Aggrenox 25/200 mg b.i.d., allopurinol 300 mg daily, atenolol 50 mg p.o. daily, chlorpromazine 25 mg p.o. t.i.d. p.r.n., cyclobenzaprine 5 mg p.o. t.i.d. p.r.n., fish oil 2000 mg p.o. b.i.d., Glucophage 1000 mg p.o. b.i.d., HCTZ 25 mg p.o. daily, Levaquin 750 mg p.o. daily, rifampin 300 mg p.o. daily, multivitamin daily, Niaspan ER 500 mg p.o. daily, PreserVision oral tablet b.i.d., simvastatin 20 mg p.o. at bedtime, and triamcinolone 0.1% cream topically b.i.d. FAMILY HISTORY: Significant for cirrhosis. Parents are . SOCIAL HISTORY: The patient is retired. . No tobacco use, quit in 2000. No ETOH use. REVIEW OF SYSTEMS: Significant for above-stated conditions, otherwise unremarkable. PHYSICAL EXAMINATION: VITAL SIGNS: Temperature is 98.1, orally. GENERAL: Well-developed, well-nourished elderly white male in no acute distress. Sitting on a bed. Alert and oriented. Does not appear toxic. SKIN: Warm and dry with fair turgor. No rashes. No ecchymosis or erythema. No edema. The patient does have an open wound present over his right greater trochanter. There is a surgical scar present as well. Part of the scar has and he now has a wound of approximately 1.5 cm long by 1 cm wide x 1.5 cm deep. There is purulent material draining from the wound. Fibrin is also visible. A pocket is palpable distal and anterior and does express further pus. HEENT: Normocephalic, atraumatic. Eyes PERRLA, EOMI. Nares patent bilaterally without turbinate enlargement. Oropharynx without erythema or exudate. No lesions noted. Uvula midline. Oral mucosa moist. Fair dentition. Dental caps are noted. Lower bridge is noted. EARS: Hearing aides are intact. Upon removal, TMs are intact with good light reflexes. No erythema or bulging. HEART: A 2/6 systolic ejection murmur noted. No gallops or rubs. Regular rhythm. LUNGS: Clear to auscultation bilaterally. No crackles, rhonchi or wheezing. Good air movement. ABDOMEN: Mildly obese. Bowel sounds present x4, soft, nontender. No organomegaly. No masses. MUSCULOSKELETAL: Right hip has intact motion for active flexion as well as internal and external rotation. He has right hip pain with weightbearing. Ambulates minimally and does require assistance with standing. No pain with palpation over the anterior flexion crease. He describes discomfort with palpation over the anterior thigh and around the wound opening. NEUROLOGIC: Gross sensation is intact across the lower extremities by soft touch. Peripheral pulses are 2+. DATA: Radiographic imaging obtained today of the hip shows a well-seated implant with no evidence of loosening. Subcutaneous area was present from the hip wound. 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 PLAN: Postoperative prescriptions for Percocet and Coumadin as well as an antibiotic will be provided at discharge from the hospital. He would like to go to [facility], postoperatively. He understands that this will be somewhat dictated by his insurance. Second option of home health for multiple days per week was also discussed. He already has a walker. Preoperative lab work and chest x-ray have been ordered. He already has an EKG from May. Wound cultures from 2 days ago shows Citrobacter koseri with broad sensitivity. He will need a PICC line. I have spoken with his PCP and they will be involved in his postoperative care. He will also require infectious disease consultation once admitted. Wound VAC was changed today. N.p.o. after midnight. He is aware of this. JERONIMO
[~2017-07-13] VITALS: Ht 177.8 cm; Wt 84.0 kg
[2017-07-13] VITALS (14 sets, daily range): BP systolic 81–135; BP diastolic 51–74; PULSE 81–103; TEMP 36.4–37.7; O2SAT 92–98; BMI 26.0
[~2017-07-13 06:23] MED LIST changes: +BUPIVACAINE 0.5 % 5 MG/1 ML PF 10ML VIAL ONE; +CEFAZOLIN 2000MG IV PUSH 15 ML IV SCH; +LACTATED RINGER'S 1000ML 1,000 ML IV SCH; +LACTATED RINGER'S 1000ML IV SCH; +TRANEXAMIC ACID INJ 1,000 MG x 1 Bag Preop IV SCH
--- NOTE | 2017-07-13 07:32 | History & Physical Bridge Note ---
H&P Re-Evaluation Bridge Note: I have examined the patient, reviewed the History & Physical and in the interval since the performance of the History & Physical I have noted the following changes of clinical significance:consent obtained...all questions answered.PT/INR pending. No changes noted
[2017-07-13] MEDS ORDERED: MIDAZOLAM HCL 1 MG/ML 2ML VIAL ONE (07:50)
[2017-07-13 08:01] LABS: INR 2.1 (0.9-1.1)
[2017-07-13] MEDS ORDERED: NEOSTIGMINE METHYLSULFATE 5 MG/5 ML SYR ONE (08:02)
[2017-07-13] MEDS ORDERED: DEXAMETHASONE SOD INJ 4 MG/ML VIAL ONE (08:02)
[2017-07-13] MEDS ORDERED: LIDOCAINE HCL 2% 2 ML VIAL (20MG/ML) ONE (08:02)
[2017-07-13] MEDS ORDERED: FENTANYL CITRATE INJ 50 MCG/1 ML 2 ML VIAL ONE ×2 (08:02→09:18)
[2017-07-13] MEDS ORDERED: ONDANSETRON INJ 2 MG/ML 2 ML VIAL ONE (08:02)
[2017-07-13] MEDS ORDERED: GLYCOPYRROLATE INJ 0.2 MG/ML VIAL ONE (08:02)
[2017-07-13] MEDS ORDERED: PROPOFOL IV EMULSION 10 MG/ML 20 ML VIAL IV ONE (08:02)
[2017-07-13] MEDS ORDERED: SUCCINYLCHOLINE CHLORIDE 20 MG/ML 10 ML VIAL IV ONE (08:04)
[2017-07-13] MEDS ORDERED: POVIDONE-IODINE OP SOLN 30 ML BTL ONE (08:05)
[2017-07-13] MEDS ORDERED: BUPIVACAINE/EPINEPHRINE 0.5% MPF 1:200,000 30 ML VIAL ONE (08:05)
[2017-07-13] MEDS ORDERED: BACITRACIN 50000 UNIT VIAL ONE (08:05)
[2017-07-13] MEDS ORDERED: VANCOMYCIN HCL 1000MG/20ML VIAL ONE ×2 (08:11→08:30)
[2017-07-13 08:14] LABS: CALCIUM 9.1 mg/dl (8.5-10.1); CREATININE 1.17 mg/dl (0.60-1.40); POTASSIUM 3.6 mmol/L (3.5-5.1)
[2017-07-13] MEDS ORDERED: GENTAMICIN SULFATE 40 MG/ML 2 ML VIAL ONE ×3 (08:17→08:36)
[2017-07-13] MEDS ORDERED: ALBUMIN HUMAN 5% 12.5 GM/250 ML VIAL IV ONE (08:30)
[2017-07-13] MEDS ORDERED: ATROPINE SULFATE 0.1 MG/ML 5ML SYR IV PRN (09:30)
[2017-07-13] MEDS ORDERED: NALOXONE HCL 0.4 MG/1 ML VIAL/CARP IV PRN (09:30)
[2017-07-13] MEDS ORDERED: FLUMAZENIL 0.1 MG/1 ML 10 ML VIAL IV PRN (09:30)
[2017-07-13] MEDS ORDERED: ONDANSETRON INJ 2 MG/ML 2 ML VIAL IV PRN ×2 (09:30→10:30)
[2017-07-13] MEDS ORDERED: LABETALOL HCL IV 5 MG/ML 20ML IV PRN (09:30)
[2017-07-13] MEDS ORDERED: EpHEDrine SULFATE INJ 50 MG/ML AMP IV PRN (09:30)
[2017-07-13] MEDS ORDERED: LARYING-O-JET KIT (LTA) ONE (09:55)
[2017-07-13] MEDS ORDERED: PHENYLEPHRINE 100MCG/ML 5ML SYR ONE (10:03)
--- NOTE | 2017-07-13 10:15 | [facility] Post Operative Brief Note ---
Immediate Operative Summary Operative Date Jul 13, 2017. 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 Nagel Industrial Locomotive Operator Surgeon(s) Brian Orona PA-C Estimated Blood Loss 100 ml Findings Consistent with Post-Op Diagnosis Fluids (cc crystalloids) 1350cc crystalloid/250cc albumin Specimens Microbiology 1. Right Hip Fluid- Routine culture and sensitivity, gram stain, aerobic and anerobic Permanent A. Explanted Hardware Drains None Anesthesia Type General Complication(s) none Disposition Accompanied Pt To Recover: no Disposition: Recovery Room / PACU
[2017-07-13] MEDS ORDERED: MAGNESIUM HYDROXIDE SUSP 30 ML UDC PO PRN (10:30)
[2017-07-13] MEDS ORDERED: DiphenhydrAMINE HCL 50 MG/ML VIAL IV PRN (10:30)
[2017-07-13] MEDS ORDERED: SOD PHOSPHATE/SOD BIPHOSPHATE ENEMA 132 ML BTL PR PRN (10:30)
[2017-07-13] MEDS ORDERED: ALUMINUM/MAGNESIUM/SIMETH (MAALOX MAX) 30 ML UDC PO PRN (10:30)
[2017-07-13] MEDS ORDERED: METOCLOPRAMIDE HCL INJ 5 MG/ML 2 ML VIAL IV PRN (10:30)
[2017-07-13] MEDS ORDERED: MoRPHine SULFATE 2 MG/ML CARP IV PRN (10:30)
[2017-07-13] MEDS ORDERED: BISACODYL 10 MG SUPP PR PRN (10:30)
[2017-07-13] MEDS ORDERED: KETOROLAC TROMETHAMINE 15 MG/ML VIAL IV. PRN (10:30)
--- NOTE | 2017-07-13 10:38 | OPERATIVE REPORT ---
DATE OF OPERATION: 07/13/2017 SURGEON: Dr. Nagel. SALES ROUTE DRIVER: Yeyo. No resident or fellow available. PREOPERATIVE DIAGNOSIS: Septic right total hip placement. POSTOPERATIVE DIAGNOSIS: Same. OPERATION PERFORMED: Irrigation and extensive debridement of right hip with poly exchange, hole eliminator exchange and femoral head exchange. Utilization of peroxide, Betadine and Versajet. PERIOPERATIVE SITUATION: Medically cleared male who has been followed very carefully almost on an every other day basis for a bursitic type process that occurred after heavy PT session with marked friction massage. He is roughly 5 years out from a hip replacement and had no prior problems. He does give a history of having dental cleaning done and dental work done 6-9 months prior. He had no real issues after that immediately. He has never been febrile. He just noted that the area of his lateral hip started to have a leaking area. He was treated conservatively with a culture, pathology, I&D locally in the outpatient center and antibiotics. He has not cured. At this point in time, he is here for definitive treatment when his third set of cultures finally grew bacteria, citrobacter. It was discussed in detail with him and his family regarding options including hip preservation with debridement, poly exchange, head exchange, antibiotic beads versus complete extraction of the hip that looked like it was loose. Of note, is that his x-rays looked like things were nice and stable. DESCRIPTION OF PROCEDURE: The patient was identified, site verified, consent verified, 2 grams of Ancef given by anesthesia without observation of the order that was placed to hold. The patient was placed in the left lateral decubitus position with the right lower extremity prepped and draped in usual routine fashion. The area of the draining area was marked in the incision sandy. Once it was prepped and draped, the area was opened up, the area of the drainage area was elliptically excised. The fascia was then opened. Things were quite fibrotic; however, of note is that there was a definite abductor tendonopathy lesion with a high grade partial tear to almost virtually complete tear posterior 2/3. This is consistent with his long history of gout as well as his diabetes. This area was all debrided of any bursitic tissue. There was light gross purulence noted throughout the wound. This was all debrided with a rongeur, irrigation Versajet. A complete capsulectomy was performed. Once this was done, the hip was dislocated, the femoral head was removed. There was some minimal trunnion type changes, this area was then Versajeted and cleaned with Betadine and cleaned with a diluted peroxide all around the prosthesis. All the membrane that was there that could be seen was removed. The liner was then removed using the extractor device. The hole eliminator was removed. The biomembrane all along the cup was then debrided with both gross removal, irrigation with Pulsavac cleaning with curette and cleaning with a Betadine-soaked sponge and a peroxide-soaked sponge and then irrigation again. All the membrane was removed. The hole eliminator was then reseated, the new liner exchange was then seated, the head was then seated and then the hip reduced, stimulon beads that had vancomycin and gentamicin in it were placed deep all around the hip joint and deep to the fascia. There was no placement in the subcutaneous layer since he is so thin. The fascial layer was then closed with #2 Vicryl [id number] sutures with excellent closure. It was elected not to use the drain based on the Stimulan beads trying to contain the antibiotics. The subcutaneous layer was then closed with 2-0 Vicryl and skin with horizontal 2-0 mattress Prolene sutures. The wound was then appropriately dressed. The patient will have a wound VAC placed on tomorrow. He has a regular soft dressing placed and also a drain into that. ESTIMATED BLOOD LOSS: Roughly 100 mL. IV FLUIDS: Crystalloid was roughly 1350 mL crystalloid and 250 mL of albumin. RECOMMENDATIONS: The stimulon beads was a 20 mL bead package that will need to be watched for hypercalcemia. We will place him on appropriate antibiotics per ID consult. We will give him either vancomycin or Rocephin to start with until they decide what they want to use. This will be decided per ID. Discussed in detail with the family, both preoperatively and postoperatively. Everyone is aware that this has a high failure rate. However, due to his comorbidities including soft tissue abductor issues and the potential for marked disability, it was elected to try to get this hip salvage. It is unclear exactly when the deep infection started as previous cultures and pathology were completely negative. The last 72 hours, things escalated and was acted upon quickly. Intraoperative culture pending. No other pathology really noted other than removal of the hardware. I attest to the content of the Intraoperative Record and any orders documented therein. Any exceptions are noted below. MTDD
[2017-07-13] MEDS: HYDROmorphone INJ 1 MG/ML SYR IV PRN ×2 (10:44→10:50)
--- NOTE | 2017-07-13 10:46 | [facility] Operative Report ---
Operative Report Operative Date Jul 13, 2017. 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 Nagel Applications Engineering Manager Surgeon(s) Brian Orona PA-C Estimated Blood Loss 100 ml Findings See operative report Fluids 1350cc crystalloid/250cc albumin Specimens Microbiology 1. Right Hip Fluid- Routine culture and sensitivity, gram stain, aerobic and anerobic Permanent A. Explanted Hardware Drains None Anesthesia Type General Complication(s) none Disposition no Recovery Room / PACU Indications This 82-year-old white male presented the office complaints of a draining right hip wound 5 years after previous right total hip arthroplasty. Conservative measures were attempted but were unsuccessful in managing the infection. Patient and his family elected to proceed with surgical intervention after extensive efforts at non-surgical management. Risks and benefits were discussed. Pre-operative imaging was obtained. Description of Procedure Patient was taken to the operating room where he was administered general anesthesia. He was prepped and draped in usual sterile fashion. Please see Dr. Nagel's operative report for specifics of the procedure. I was present for the entire case from initial patient positioning through final wound closure. Assistance was provided in tissue traction, hemostasis, hardware removal, hardware placement, and final wound closure. Patient was taken to the recovery room in satisfactory condition. I attest to the content of the Intraoperative Record and any orders documented therein. Any exceptions are noted below.
[2017-07-13] MEDS ORDERED: MEPERIDINE HCL 25 MG/ML CARP ONE (10:57)
[2017-07-13] MEDS ORDERED: GLUCOSE 10 TABS/TUBE PO PRN (11:00)
[2017-07-13] MEDS ORDERED: DEXTROSE 50% 50 ML SYR IV PRN (11:00)
[2017-07-13] MEDS ORDERED: GLUCOSE 40% GEL 15 GM TUBE PO PRN (11:00)
[2017-07-13] MEDS ORDERED: MEPERIDINE HCL 25 MG/ML CARP IV PRN (11:00)
[2017-07-13] MEDS ORDERED: GLUCAGON FOR INJ 1 MG VIAL SQ PRN (11:00)
--- NOTE | 2017-07-13 11:01 | PROGRESS NOTE ---
DATE: 07/13/2017 SUBJECTIVE: Postop check ,status post I&D poly exchange, head removal, hole eliminator removal of his septic right total hip replacement, remote from index procedure. At this point in time, he has tolerated the procedure well. He notes that he has no chest pain, shortness of breath, fever, chills, nausea, vomiting or headache. OBJECTIVE: Vital signs are stable. He is afebrile. Neurovascular check femoral sciatic nerve is normal. DATA: Postop x-rays are pending. ASSESSMENT AND PLAN: Doing well from the procedure. At this point in time, we will treat with IV Rocephin 2 grams q. 24 hours as the bug was sensitive to that based on previous specimens and will follow with ID consult and recommendations. Of note, had Stimulan beads with gentamicin and vancomycin placed. His liver functions are elevated, will need to have that worked up as well. Also, his PSA is high and need to have that worked up. It is unclear the source of this bacteria, but like it is a GI or oral source. JERONIMO
[2017-07-13] MEDS ORDERED: METOPROLOL TARTRATE 1 MG/ML VIAL ONE (11:27)
[2017-07-13] MEDS ORDERED: METOPROLOL TARTRATE 1 MG/ML VIAL IV STA (11:27)
--- NOTE | 2017-07-13 11:34 | DIAGNOSTIC IMAGING REPORT ---
PELVIS 1 OR 2 VIEW ROUTINE HISTORY: 82 years-old Male s/p Right hip head/liner exchange status post placement of right hip antibiotic beads COMPARISON: Right hip and pelvis radiographs 07/12/2017 TECHNIQUE: Single AP view of the pelvis FINDINGS: Bilateral hip arthroplasties redemonstrated with satisfactory alignment. No acute fracture or subluxation identified. The pelvic ring appears intact. Bilateral periarticular ossifications are unchanged. Peripheral vascular disease. Interval placement of antibiotic beats about the right hip with soft tissue swelling and deep tissue air noted about the right hip. IMPRESSION: 1. Status post placement of antibiotic beads about the right hip. 2. Bilateral hip arthroplasties in satisfactory alignment. The above report was generated using voice recognition software. It may contain grammatical, syntax or spelling errors. Electronically signed by: Giles Conner M.D. 07/13/2017 11:32 AM Dictated Date/Time: 07/13/2017 11:30 AM
[2017-07-13 12:10] LABS: HEMATOCRIT 34.5 % (42-52); HEMOGLOBIN 11.6 g/dL (14.0-18.0); MEAN CORPUSCULAR HEMOGLOBIN 29.6 pg (25-34); MEAN PLATELET VOLUME 9.6 fL (7.4-10.4); PLATELET COUNT 265 K/uL (130-400); RED CELL DISTRIBUTION WIDTH SD 48.1 fL (36.4-46.3); WHITE BLOOD COUNT 13.44 K/uL (4.8-10.8)
[2017-07-13 12:15] LABS: MEAN CORPUSCULAR HGB CONC 33.6 g/dl (32-36)
--- NOTE | 2017-07-13 12:19 | Anesthesiology Progress Note ---
Anesthesia Post Op Note Date & Time Jul 13, 2017 at 12:19 Vital Signs Pain Intensity: 2 Vital Signs Past 12 Hours Date Time Temp Pulse Resp B/P (MAP) Pulse Ox O2 Delivery O2 Flow Rate FiO2 07/13/17 12:13 130/59 07/13/17 12:10 118 21 07/13/17 12:10 117 21 96 07/13/17 12:09 36.9 118 20 125/81 (98) 97 Nasal Cannula 2 07/13/17 12:07 143/77 07/13/17 12:05 117 27 98 07/13/17 12:05 118 27 07/13/17 12:00 112 19 07/13/17 12:00 112 19 96 07/13/17 11:58 125/81 07/13/17 11:55 110 20 07/13/17 11:55 109 20 97 07/13/17 11:52 114/83 07/13/17 11:50 108 25 93 07/13/17 11:50 108 25 07/13/17 11:49 108 96 07/13/17 11:49 108 07/13/17 11:46 136/73 07/13/17 11:44 103 07/13/17 11:44 103 99 07/13/17 11:41 134/75 07/13/17 11:39 104 07/13/17 11:39 105 100 07/13/17 11:36 156/75 07/13/17 11:34 107 100 07/13/17 11:34 107 07/13/17 11:33 107 155/85 100 07/13/17 11:33 107 07/13/17 11:32 157/131 07/13/17 11:28 113 100 07/13/17 11:28 113 07/13/17 11:27 177/94 07/13/17 11:23 114 18 202/96 99 07/13/17 11:23 114 18 07/13/17 11:21 212/127 07/13/17 11:18 107 27 99 07/13/17 11:18 107 27 07/13/17 11:13 109 27 99 07/13/17 11:13 109 27 07/13/17 11:12 208/117 07/13/17 11:09 238/109 07/13/17 11:08 117 29 99 07/13/17 11:08 117 29 07/13/17 11:07 205/119 07/13/17 11:04 180/106 07/13/17 11:03 117 26 100 07/13/17 11:03 117 26 07/13/17 11:02 151/111 07/13/17 10:59 129/101 07/13/17 10:58 115 29 100 07/13/17 10:58 115 29 07/13/17 10:53 23 07/13/17 10:53 109 23 07/13/17 10:52 108 27 07/13/17 10:52 107 27 07/13/17 10:47 94 23 07/13/17 10:47 87 23 07/13/17 10:46 119/89 07/13/17 10:43 80 30 07/13/17 10:43 82 30 90 07/13/17 10:38 75 18 07/13/17 10:38 74 18 87 07/13/17 10:36 141/76 07/13/17 10:33 83 21 96 07/13/17 10:33 84 21 07/13/17 10:32 125/69 07/13/17 10:28 82 14 97 07/13/17 10:28 81 14 07/13/17 10:26 125/71 07/13/17 10:24 119/76 07/13/17 10:23 36.5 84 12 119/76 (89) 100 Oxymask 10 07/13/17 06:58 36.9 97 22 122/74 94 Room Air Notes Mental Status: alert / awake / arousable, participated in evaluation Pt Amnestic to Procedure: Yes Nausea / Vomiting: adequately controlled Pain: adequately controlled Airway Patency, RR, SpO2: stable & adequate BP & HR: stable & adequate Hydration State: stable & adequate Anesthetic Complications: no major complications apparent
[2017-07-13 12:29] LABS: ALBUMIN 2.7 gm/dl (3.4-5.0); TOTAL PROTEIN 7.3 gm/dl (6.4-8.2)
[2017-07-13] MEDS ORDERED: CEFTRIAXONE SOD INJ 2,000 MG in DEXTROSE 5% 50ML 50 ML IV SCH (12:30)
[2017-07-13 12:40] LABS: BASO % 0.1 %; BASO ABS # 0.01 K/uL (0-0.2); EOS % 0.1 %; EOS ABS # 0.01 K/uL (0-0.5); IG# 0.08 K/uL (0.00-0.02); LYMPH ABS # 0.27 K/uL (1.2-3.4); MONO % 2.2 %; NEUT ABS # 12.77 K/uL (1.4-6.5)
[2017-07-13] MEDS ORDERED: MEPERIDINE HCL 25 MG/ML CARP IV ONE (13:10)
[2017-07-13 13:25] LABS: INR 2.1 (0.9-1.1); PTT PATIENT 42.7 SECONDS (21.0-31.0)
--- NOTE | 2017-07-13 14:11 | Progress Note ---
Progress Note Date of Service Jul 13, 2017. Progress Note ID Consult Dictated #[id number] A/P: 1. Infected right hip -continue rocephin, will likely need 4-6 weeks, weekly cbc,cmp, esr -will follow post d/c -thank you
[2017-07-13] MEDS ORDERED: PHYTONADIONE INJ 5 MG in SODIUM CHLORIDE 0.9% 50ML 50 ML IV ONE (14:15)
[2017-07-13] MEDS: SODIUM CHLORIDE 0.9% 1000ML 1,000 ML IV SCH ×2 (14:31→22:35)
[2017-07-13] MEDS: ACETAMINOPHEN IV 1,000 MG in EMPTY BAG 0 ML IV SCH ×2 (14:36→21:35)
[2017-07-13] MEDS: INSULIN ASPART 100 UNITS/ML 3 ML PEN SC SCH ×3 (14:56→21:12)
--- NOTE | 2017-07-13 15:14 | DIAGNOSTIC IMAGING REPORT ---
CHEST ONE VIEW PORTABLE CLINICAL HISTORY: Fever. COMPARISON STUDY: Chest radiograph July 12, 2017. FINDINGS: There is no pneumothorax or pleural effusion. Left lower lung linear opacities are unchanged since prior studies. There is no consolidation to suggest pneumonia. Cardiomediastinal silhouette is stable. There is no evidence for pulmonary edema. Incidental note is made of arthritis of the right glenohumeral joint. IMPRESSION: 1. No acute cardiopulmonary findings. 2. No change in linear left basilar opacity from earlier studies which favor scarring. Electronically signed by: Arun Robert M.D. 07/13/2017 3:13 PM Dictated Date/Time: 07/13/2017 3:12 PM
--- NOTE | 2017-07-13 15:38 | INFECT. DISEASE CONSULTATION ---
DATE OF CONSULTATION: 07/13/2017 HISTORY OF PRESENT ILLNESS: This is an 82-year-old gentleman who presented for an elective right hip surgery after he had wound dehiscence in late April. He has been on multiple antibiotics, but has not had significant improvement in his drainage. Per the H&P, he has been on rifampin, Cipro, Augmentin and Levaquin without significant relief. He also has had a VAC placement in May, which did not have significant improvement in his wound. His initial surgery was in 2012 and he did not have any complications previously. He denies any fevers or chills associated with this. He did have a wound culture done on 07/10/2017, which grew a pansensitive citrobacter. Previous cultures on 05/30/2017 are negative and final, including a fungal culture. He was seen by orthopedics and a decision was made to admit patient to the hospital and undergo either a poly exchange or wash out with cement spacer. He did go to the OR earlier today and did undergo poly exchange which was successful. Intraoperative cultures were obtained and are pending. AFB smear is negative. Fungal smear is negative. Routine culture is pending in addition to blood cultures which are also pending. The patient was placed empirically on Rocephin and he also received a dose of vancomycin. He is currently afebrile. His is at the bedside. He states he is having some discomfort in the right hip but denies any pain. He denies any fevers, chills or shakes. He has no chest pain, cough, shortness of breath, nausea, vomiting or diarrhea. His remaining review of systems is unremarkable. PAST MEDICAL HISTORY: Significant for hypertension, osteoarthritis, enlarged prostate, poor dentition, type 2 diabetes, gout, macular degeneration, and hyperlipidemia. PAST SURGICAL HISTORY: Significant for tonsillectomy, carpal tunnel release, right thumb surgery, left total hip replacement in 2001, right total hip replacement in 2012, cataract surgery, multiple dental surgeries, colonoscopies. ALLERGIES: He has no known drug allergies. FAMILY HISTORY: Noncontributory. SOCIAL HISTORY: Negative for tobacco use, alcohol use or drug use. CURRENT MEDICATIONS: Include Tylenol, Rocephin, Protonix, allopurinol, hydrochlorothiazide, multivitamins, niacin, Colace, Aggrenox, atenolol, Zocor, Flomax, iron, insulin, morphine, Roxicodone, Toradol, milk of magnesia, Dulcolax, Fleet enema, Benadryl, Maalox, Zofran, Reglan, Thorazine, Dilaudid, labetalol. PHYSICAL EXAMINATION: VITAL SIGNS: He is afebrile, pulse 101, respiratory rate 18, blood pressure 109/67, oxygen saturation is 97% to 98% on 2 liters nasal cannula. GENERAL: He is awake, alert and oriented x3. He is in no acute distress. HEENT: Mucous membranes are dry. Extraocular muscles are intact. HEART: Regular. LUNGS: Clear bilaterally. ABDOMEN: Soft. EXTREMITIES: There is no lower extremity edema. LABORATORY STUDIES: CBC today reveals a white blood cell count of 13.4, hemoglobin 11.6, platelets are 265. Chemistry panel reveals a sodium of 128, potassium 3.6, chloride 91, bicarbonate 26, BUN 21, creatinine 1.1, glucose is 274. LFTs are within normal limits. Urinalysis was unremarkable on the 07/12/2017. Cultures are pending. AFB and fungal smears are negative. Previous right hip culture which is labeled a deep drainage culture from 07/10/2017 is growing pansensitive citrobacter. Chest x-ray on the 07/12/2017 showed mild atelectasis. ASSESSMENT AND PLAN: Postoperative infection of the right hip with previous cultures growing citrobacter. I agree with continuing on Rocephin. Additional antibiotic recommendations will be made based on culture results; however, if these cultures are negative secondary to previous Levaquin prior to admission, I would continue him on Rocephin to treat the previously diagnosed citrobacter infection for likely range of 4 weeks. He can also follow with infectious diseases post-discharge from the hospital.
--- NOTE | 2017-07-13 17:14 | Medical Consult ---
Consultation Date of Consultation: Jul 13, 2017. Attending Physician: Cooper Nagel M.D. Reason for Consultation: Medical management following surgery History of Present Illness João is a pleasant 82-year-old male whom I know well from the outpatient office. He underwent a successful right hip irrigation and debridement, poly- liner and femoral head exchange with application of antibiotic beads earlier today. Asked to see the patient today in consultation for medical management. 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 Sometime this fall, he began to experience symptoms consistent with a trochanteric bursitis. In mid to late April he developed drainage from the wound. He did have a wound VAC application as well as a trial of alginate dressing application, surgical to the private of the bursa in mid May 2017. He's been on several antibiotics including rifampin, ciprofloxacin, Augmentin , and Levaquin. Other than the pain over the hip, the patient had been feeling generally well until the last 4 or 5 days. The patient reports that became much weaker over the last several days; the reports that the patient had a low-grade fever ( 99F to 100F) earlier this week, and a more substantial fever on the evening prior to admission. A deep wound culture taken in the outpatient office and it grew a pansensitive Citrobacter. Earlier this week the patient had preoperative blood work which demonstrated marked elevation of both his sedimentation rate sees greater than 90) and CRP (31.4). Also of note the patient had an elevated INR (he is not on warfarin) of 1.5. Postoperatively, the patient was initially taken to the general medical floor. I received a call from nursing noting that the patient was tachycardic. When I assessed the patient, was actually feeling well all considering. He was alert and oriented with both his and son at bedside. The patient denied any significant distress; he was monitored tachycardic but otherwise hemodynamic stable. Additional blood work done postoperatively showed elevated fibrin degradation products and fibrinogen. Given the patient's condition and associate comorbidities, then elected with the patient to telemetry floor. Past Medical/Surgical History Non-insulin dependent diabetes Osteoarthritis BPH Hypertension Gout Macular degeneration Hyperlipidemia Family History Family history is noncontributory Social History Nonsmoker Smoking Status: Former Smoker Marital Status: Housing Status: lives with significant other Occupation Status: retired Allergies Coded Allergies: No Known Allergies (Verified , 07/13/17) Home Medications Active Chlorpromazine HCl 25 Mg Tab 25 Mg OR TID PRN take TID PRN hiccups Reported Rifampin 300 Mg Cap 300 Mg PO DAILY Melatonin 3 Mg Tab 3 Mg PO HS Zyloprim (Allopurinol) 300 Mg Tab 300 Mg PO QAM Flomax (Tamsulosin Hcl) 0.4 Mg Cap 0.4 Mg PO QPM Niaspan Ext Rel (Niacin) 500 Mg Tabcr 500 Mg PO DAILY Hctz (Hydrochlorothiazide) 25 Mg Tab 25 Mg PO QAM Zocor (Simvastatin) 20 Mg Tab 20 Mg PO QPM Wells-3 (Csiln-0-Ltkx Ethyl Esters) 1 Cap Cap 1 Cap PO BID Multivitamin (Multiple Vitamin) 1 Tab Tab 1 Tab PO DAILY Glucophage (Metformin Hcl) 1,000 Mg Tab 1,000 Mg PO BID Cleocin (Clindamycin Hcl) 150 Mg Cap 4 Cap PO UD PRN Tenormin (Atenolol) 50 Mg Tab 50 Mg PO HS Aggrenox 200MG/25MG (Aspirin-Dipyridamole 25MG/200MG) 1 Cap Cap 1 Cap PO BID Current Inpatient Medications Current Inpatient Medications Medications (Trade) Dose Ordered Sig/Oswaldo Route Start Time Stop Time Status Last Admin Dose Admin Lactated Ringer's 1,000 ml @ 15 mls/hr Q24H IV 07/13/17 06:00 07/14/17 05:59 07/13/17 07:39 15 MLS/HR Lactated Ringer's 1,000 ml @ 60 mls/hr [id number] IV 07/13/17 06:00 07/13/17 22:39 Cefazolin Sodium 15 ml @ 3.75 mls/ min PREOP IV 07/13/17 06:00 07/13/17 18:00 07/13/17 08:21 3.75 MLS/MIN Sodium Chloride 1,000 ml @ 100 mls/hr Q10H IV 07/13/17 13:00 07/14/17 12:59 07/13/17 14:31 100 MLS/HR Ketorolac Tromethamine (Toradol Inj) 15 mg Q6H PRN IV. 07/13/17 10:30 07/14/17 10:29 Oxycodone HCl (Roxicodone Immediate Rel Tab) 1 TABLET FOR PAIN RATING... Q4H PRN PO 07/13/17 10:30 07/27/17 10:29 Morphine Sulfate (MoRPHine SULFATE INJ) give 2mg for pain 3-6 g... Q1H PRN IV 07/13/17 10:30 07/27/17 10:29 Acetaminophen 1000 mg/Empty Bag 100 ml @ 400 mls/hr Q8H IV 07/13/17 14:00 07/14/17 13:59 07/13/17 14:36 400 MLS/HR Acetaminophen (Tylenol Tab) 650 mg Q6H PRN PO 07/14/17 14:00 08/13/17 13:59 Magnesium Hydroxide (Milk Of Magnesia Susp) 30 ml Q6H PRN PO 07/13/17 10:30 08/12/17 10:29 Bisacodyl (Dulcolax Supp) 10 mg DAILY PRN ME 07/13/17 10:30 08/12/17 10:29 Sodium Biphosphate/ Sodium Phosphate (Fleet Enema) 132 ml DAILY PRN ME 07/13/17 10:30 08/12/17 10:29 Docusate Sodium (coLACE CAP) 100 mg BID PO 07/13/17 21:00 08/12/17 20:59 Diphenhydramine HCl (Benadryl Inj) 25 mg Q8H PRN IV 07/13/17 10:30 08/12/17 10:29 Al Hydrox/Mg Hydrox/Simethicone (Maalox Max Susp) 15 ml Q4H PRN PO 07/13/17 10:30 08/12/17 10:29 Ondansetron HCl (Zofran Inj) 4 mg Q6H PRN IV 07/13/17 10:30 08/12/17 10:29 Metoclopramide HCl (Reglan Inj) 10 mg Q6H PRN IV 07/13/17 10:30 08/12/17 10:29 Ferrous Gluconate (Ferrous Gluconate Tab) 324 mg TIDM PO 07/13/17 16:45 08/12/17 17:44 Pantoprazole Sodium (Protonix Tab) 40 mg QAM PO 07/14/17 09:00 07/18/17 08:59 Tranexamic Acid 1000 mg/Sodium Chloride 110 ml @ 660 mls/hr 1800 ONCE IV 07/13/17 18:00 07/13/17 18:09 Allopurinol (Zyloprim Tab) 300 mg QAM PO 07/14/17 09:00 08/13/17 08:59 Dipyridamole/ Aspirin (Aggrenox 200MG/ 25MG Cap) 1 cap BID PO 07/13/17 21:00 08/12/17 20:59 Atenolol (Tenormin Tab) 50 mg HS PO 07/13/17 21:00 08/12/17 20:59 Chlorpromazine HCl (Thorazine Tab) 25 mg TID PRN PO 07/13/17 10:30 08/12/17 10:29 Hydrochlorothiazide (Hydrochlorothiazide Tab) 25 mg QAM PO 07/14/17 09:00 08/13/17 08:59 Multivitamins (Multivitamin Tab) 1 tab DAILY PO 07/14/17 09:00 08/13/17 08:59 Niacin (Niaspan Extended Rel Tab) 500 mg DAILY PO 07/14/17 09:00 08/13/17 08:59 Simvastatin (Zocor Tab) 20 mg QPM PO 07/13/17 21:00 08/12/17 20:59 Tamsulosin HCl (Flomax Cap) 0.4 mg QPM PO 07/13/17 21:00 08/12/17 20:59 Insulin Aspart (novoLOG ASPART) SLIDING SCALE G... ACHS SC 07/13/17 16:15 08/12/17 17:14 07/13/17 14:56 6 UNITS Ceftriaxone Sodium 2000 mg/ Dextrose 70 ml @ 100 mls/hr Q24H IV 07/14/17 14:00 07/24/17 13:59 Glucose (Glucose 40% Gel) 15-30 GRAMS 15 GRAMS... UD PRN PO 07/13/17 11:00 08/12/17 10:59 Glucose (Glucose Chew Tab) 4-8 Tablets 4 Tabl... UD PRN PO 07/13/17 11:00 08/12/17 10:59 Dextrose (Dextrose 50% 50ML Syringe) 25-50ML OF 50% DW IV FOR... UD PRN IV 07/13/17 11:00 08/12/17 10:59 Glucagon (Glucagon Inj) 1 mg UD PRN SQ 07/13/17 11:00 08/12/17 10:59 Review of Systems Constitutional: + fever, + chills, + sweats Eyes: No problem reported ENT: + hearing loss Respiratory: No cough, No wheezing, No shortness of breath, No dyspnea on exertion, No dyspnea at rest Cardiovascular: No chest pain, No orthopnea Abdomen: No nausea, No vomiting, No diarrhea, No constipation Musculoskeletal: + joint pain, No calf pain Genitourinary - Male: + urinary frequency, + urinary hesitancy, No hematuria, No dysuria, No urinary urgency Neurologic: No memory loss Psychiatric: No depression symptoms, No anxiety, No insomnia, No substance abuse Endocrine: + fatigue Hematologic / Lymphatic: No abnormal bleeding/bruising, No clotting problems, No swollen lymph nodes Physical Exam Date Time Temp Pulse Resp B/P (MAP) Pulse Ox O2 Delivery O2 Flow Rate FiO2 07/13/17 16:45 36.5 89 18 81/55 (64) 96 Nasal Cannula 2.0 07/13/17 16:00 36.5 92 16 105/67 (80) 97 Room Air 07/13/17 15:30 37.1 95 16 101/63 (76) 92 Nasal Cannula 3.0 07/13/17 15:20 37.0 101 20 97 2.0 07/13/17 14:37 37.0 101 20 108/68 (81) 97 Nasal Cannula 2.0 07/13/17 13:50 101 18 109/67 (81) 97 07/13/17 13:15 103 20 110/70 (83) 96 2.0 07/13/17 12:45 Nasal Cannula 07/13/17 12:45 Nasal Cannula 2.0 07/13/17 12:45 37.7 103 20 110/70 (83) 97 Nasal Cannula 2.0 07/13/17 12:29 114 98 07/13/17 12:29 38.4 07/13/17 12:29 114 07/13/17 12:26 120/67 07/13/17 12:24 115 07/13/17 12:24 115 96 07/13/17 12:21 108/74 07/13/17 12:19 116 17 97 07/13/17 12:19 115 17 07/13/17 12:17 114/67 07/13/17 12:14 117 16 97 07/13/17 12:14 117 16 07/13/17 12:13 130/59 07/13/17 12:10 118 21 07/13/17 12:10 117 21 96 07/13/17 12:09 36.9 118 20 125/81 (98) 97 Nasal Cannula 2 07/13/17 12:07 143/77 07/13/17 12:05 117 27 98 07/13/17 12:05 118 27 07/13/17 12:00 112 19 07/13/17 12:00 112 19 96 07/13/17 11:58 125/81 07/13/17 11:55 110 20 07/13/17 11:55 109 20 97 07/13/17 11:52 114/83 07/13/17 11:50 108 25 93 07/13/17 11:50 108 25 07/13/17 11:49 108 96 07/13/17 11:49 108 07/13/17 11:46 136/73 07/13/17 11:44 103 07/13/17 11:44 103 99 07/13/17 11:41 134/75 07/13/17 11:39 104 07/13/17 11:39 105 100 07/13/17 11:36 156/75 07/13/17 11:34 107 100 07/13/17 11:34 107 07/13/17 11:33 107 155/85 100 07/13/17 11:33 107 07/13/17 11:32 157/131 07/13/17 11:28 113 100 07/13/17 11:28 113 07/13/17 11:27 177/94 07/13/17 11:23 114 18 202/96 99 07/13/17 11:23 114 18 07/13/17 11:21 212/127 07/13/17 11:18 107 27 99 07/13/17 11:18 107 27 07/13/17 11:13 109 27 99 07/13/17 11:13 109 27 07/13/17 11:12 208/117 07/13/17 11:09 238/109 07/13/17 11:08 117 29 99 07/13/17 11:08 117 29 07/13/17 11:07 205/119 07/13/17 11:04 180/106 07/13/17 11:03 117 26 100 07/13/17 11:03 117 26 07/13/17 11:02 151/111 07/13/17 10:59 129/101 07/13/17 10:58 115 29 100 07/13/17 10:58 115 29 07/13/17 10:53 23 07/13/17 10:53 109 23 07/13/17 10:52 108 27 07/13/17 10:52 107 27 07/13/17 10:47 94 23 07/13/17 10:47 87 23 07/13/17 10:46 119/89 07/13/17 10:43 80 30 07/13/17 10:43 82 30 90 07/13/17 10:38 75 18 07/13/17 10:38 74 18 87 07/13/17 10:36 141/76 07/13/17 10:33 83 21 96 07/13/17 10:33 84 21 07/13/17 10:32 125/69 07/13/17 10:28 82 14 97 07/13/17 10:28 81 14 07/13/17 10:26 125/71 07/13/17 10:24 119/76 07/13/17 10:23 36.5 84 12 119/76 (89) 100 Oxymask 10 07/13/17 06:58 36.9 97 22 122/74 94 Room Air General Appearance: no apparent distress (he is alert and oriented. He has no complaints at present. 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 with background noise.) Neck: supple, no adenopathy, thyroid normal, no JVD Respiratory/Chest: chest non-tender, lungs clear, normal breath sounds, no respiratory distress, no accessory muscle use Cardiovascular: regular rate, rhythm, + systolic murmur (2/6), + gallop/S3 Abdomen/GI: normal bowel sounds, non tender, soft Extremities/Musculoskelatal: normal inspection (tenderness; case postoperative , range of motion testing was not completed) Neurologic/Psych: no motor/sensory deficits, alert, normal mood/affect, oriented x 3 Skin: normal color, warm/dry, no rash Laboratory Results Last 24 Hours Test 07/13/17 07:08 07/13/17 07:40 07/13/17 10:49 07/13/17 11:29 Bedside Glucose 231 mg/dl 212 mg/dl Prothrombin Time 21.3 SECONDS 21.7 SECONDS Prothromb Time International Ratio 2.1 2.1 Sodium Level 128 mmol/L Potassium Level 3.6 mmol/L Chloride Level 91 mmol/L Carbon Dioxide Level 26 mmol/L Anion Gap 10.0 mmol/L Blood Urea Nitrogen 21 mg/dl Creatinine 1.17 mg/dl Est Creatinine Clear Calc Drug Dose 52.0 ml/min Estimated GFR () 67.8 Estimated GFR (Non- 58.5 BUN/Creatinine Ratio 18.0 Random Glucose 214 mg/dl Calcium Level 9.1 mg/dl White Blood Count 13.44 K/uL Red Blood Count 3.92 M/uL Hemoglobin 11.6 g/dL Hematocrit 34.5 % Mean Corpuscular Volume 88.0 fL Mean Corpuscular Hemoglobin 29.6 pg Mean Corpuscular Hemoglobin Concent 33.6 g/dl Platelet Count 265 K/uL Mean Platelet Volume 9.6 fL Neutrophils (%) (Auto) 95.0 % Lymphocytes (%) (Auto) 2.0 % Monocytes (%) (Auto) 2.2 % Eosinophils (%) (Auto) 0.1 % Basophils (%) (Auto) 0.1 % Neutrophils # (Auto) 12.77 K/uL Lymphocytes # (Auto) 0.27 K/uL Monocytes # (Auto) 0.30 K/uL Eosinophils # (Auto) 0.01 K/uL Basophils # (Auto) 0.01 K/uL RDW Standard Deviation 48.1 fL RDW Coefficient of Variation 15.0 % Immature Granulocyte % (Auto) 0.6 % Immature Granulocyte # (Auto) 0.08 K/uL Echinocytes 2+ Activated Partial Thromboplast Time 42.7 SECONDS Partial Thromboplastin Ratio 1.6 Fibrinogen 750 mg/dl Fibrin Degradation Products 10-40 mcg/ml D-Dimer 1730 ug/L FEU Total Bilirubin 1.0 mg/dl Direct Bilirubin 0.7 mg/dl Aspartate Amino Transf (AST/SGOT) 32 U/L Alanine Aminotransferase (ALT/SGPT) 28 U/L Alkaline Phosphatase 132 U/L Total Protein 7.3 gm/dl Albumin 2.7 gm/dl Test 07/13/17 12:26 07/13/17 14:27 07/13/17 16:15 Bedside Glucose 274 mg/dl 299 mg/dl Urine Color DK YELLOW Urine Appearance CLOUDY Urine pH 5.5 Urine Specific [place] 1.021 Urine Protein 3+ Urine Glucose (UA) TRACE Urine Ketones TRACE Urine Occult Blood 2+ Urine Nitrite NEG Urine Bilirubin NEG Urine Urobilinogen NEG Urine Leukocyte Esterase TRACE Assessment & Plan 82-year-old male with right hip wound, suspect infected total hip arthroplasty, status post successful right hip irrigation and debridement, poly-liner and femoral head exchange with application of antibiotic beads earlier today. Deep wound culture from outpatient setting growing pansensitive Citrobacter species. Patient with marked elevation of inflammatory markers, an element of anticoagulation in the setting of normal hepatic transaminases, elevated fibrin degradation products, fibrinogen, and d-dimer. Significant past medical history related to this admission includes diabetes and BPH. PLAN 1) 5 mg IV vitamin K now 2) Doppler examination of lower extremity is bilaterally; this can be done at the bedside 3) CBC, fibrinogen, and INR every 6 hours. Recheck ESR and CRP in two days, then weekly. 4) portal chest x-ray 5) blood culture and urine culture 6) move to telemetry 7) consult infectious disease 8) glycemic consult 9) continue Aggrenox 10) hold metformin 11) increase Flomax to 0.8 mg nightly, as this represents his current home dose 12) consider starting subcutaneous heparin and am. 13) resting echocardiogram.
[2017-07-13] MEDS ORDERED: PHARMACY GLYCEMIC MGMT CONSULT SCH (17:19)
--- NOTE | 2017-07-13 17:21 | PROGRESS NOTE ---
DATE: 07/13/2017 The patient was seen in room 208. The patient was transferred based on some concerns regarding some potential sepsis. He is afebrile. At this point in time, his blood pressure is stable. He denies chest pain or shortness of breath. Notes his neurovascular check of his right lower extremity is normal. He has minimal if any pain. His abdomen is soft and nontender. Calves nontender. His femoral sciatic nerve is normal. Postoperative hematocrit is stable in the 30s. White count has decreased from 14and change to 13 and change.. ASSESSMENT: Overall, doing reasonably well. Medical management appreciated. Needs better diabetes control. Bladder scan and insert Buenrostro if retained greater than 600 mL. Otherwise, try to get by without the Buenrostro. Please keep an abduction pillow between knees when rolling the patient side to side to prevent bedsores and do not get him straight lateral. Can be weightbearing to tolerance when he is finally able to get up. Appreciate ID input. Will continue with Rocephin. Of note is that the patient never received any IV vancomycin. He had vancomycin in the beads, but nothing parenterally given by IV or oral. MTDD
[2017-07-13] MEDS: FERROUS GLUCONATE 324 MG TAB PO SCH (17:27)
[2017-07-13] MEDS ORDERED: TRANEXAMIC ACID INJ 1,000 MG in SODIUM CHLORIDE 0.9% 100ML 100 ML IV ONE (18:00)
[2017-07-13] MEDS ORDERED: INSULIN GLARGINE SOLOSTAR 100 UNITS/ML 3 ML PEN SC ONE (18:00)
[2017-07-13 18:10] LABS: HEMATOCRIT 29.1 % (42-52); HEMOGLOBIN 9.9 g/dL (14.0-18.0); MEAN CELL VOLUME 86.9 fL (80-100); MEAN CORPUSCULAR HEMOGLOBIN 29.6 pg (25-34); MEAN PLATELET VOLUME 9.2 fL (7.4-10.4); PLATELET COUNT 220 K/uL (130-400); RED CELL DISTRIBUTION WIDTH CV 14.8 % (11.5-14.5); RED CELL DISTRIBUTION WIDTH SD 47.1 fL (36.4-46.3); WHITE BLOOD COUNT 14.67 K/uL (4.8-10.8)
[2017-07-13 18:38] LABS: BASO % 0.1 %; BASO ABS # 0.01 K/uL (0-0.2); IG# 0.05 K/uL (0.00-0.02); LYMPH % 2.8 %; LYMPH ABS # 0.41 K/uL (1.2-3.4); MONO ABS # 1.17 K/uL (0.11-0.59); NEUT % 88.8 %; NEUT ABS # 13.03 K/uL (1.4-6.5)
[2017-07-13 19:16] LABS: INR 1.5 (0.9-1.1)
[2017-07-13] MEDS: CHLORPROMAZINE HCL 25 MG TAB PO PRN (20:02)
[2017-07-13] MEDS ORDERED: INSULIN GLARGINE SOLOSTAR 100 UNITS/ML 3 ML PEN SC SCH (21:00)
[2017-07-13] MEDS ORDERED: TAMSULOSIN HCL 0.4 MG CAP PO SCH (21:00)
[2017-07-13] MEDS: DOCUSATE SODIUM 100 MG CAP PO SCH (21:06)
[2017-07-13] MEDS: TAMSULOSIN HCL 0.4 MG CAP PO SCH (21:07)
[2017-07-13] MEDS: SIMVASTATIN 20 MG TAB PO SCH (21:08)
--- NOTE | 2017-07-13 21:13 | Pharmacy Progress Note ---
Glycemic Control Intl Consult Date of Service Jul 13, 2017. Scope Glycemic Pharmacist consulted by Dr Schuler on 07/13/17 for glycemic control and to write orders per [facility] inpatient glycemic control protocol Objective Weight (Kilograms): 81.820 Accuchecks BSG (last 24hrs): Test 07/13/17 07:08 07/13/17 07:40 07/13/17 10:49 07/13/17 12:26 Bedside Glucose 231 mg/dl (70-99) 212 mg/dl (70-99) 274 mg/dl (70-99) Random Glucose 214 mg/dl (70-99) Test 07/13/17 14:27 07/13/17 16:12 07/13/17 20:22 Bedside Glucose 299 mg/dl (70-99) 257 mg/dl (70-99) 233 mg/dl (70-99) Laboratory Data (last 24hrs) Test 07/13/17 07:40 07/13/17 11:29 07/13/17 17:55 Anion Gap 10.0 mmol/L BUN/Creatinine Ratio 18.0 Blood Urea Nitrogen 21 mg/dl Creatinine 1.17 mg/dl Potassium Level 3.6 mmol/L Sodium Level 128 mmol/L White Blood Count 13.44 K/uL 14.67 K/uL Red Blood Count 3.92 M/uL 3.35 M/uL Hemoglobin 11.6 g/dL 9.9 g/dL Hematocrit 34.5 % 29.1 % Mean Corpuscular Volume 88.0 fL 86.9 fL Mean Corpuscular Hemoglobin 29.6 pg 29.6 pg Mean Corpuscular Hemoglobin Concent 33.6 g/dl 34.0 g/dl Platelet Count 265 K/uL 220 K/uL Mean Platelet Volume 9.6 fL 9.2 fL Neutrophils (%) (Auto) 95.0 % 88.8 % Lymphocytes (%) (Auto) 2.0 % 2.8 % Monocytes (%) (Auto) 2.2 % 8.0 % Eosinophils (%) (Auto) 0.1 % 0.0 % Basophils (%) (Auto) 0.1 % 0.1 % Neutrophils # (Auto) 12.77 K/uL 13.03 K/uL Lymphocytes # (Auto) 0.27 K/uL 0.41 K/uL Monocytes # (Auto) 0.30 K/uL 1.17 K/uL Eosinophils # (Auto) 0.01 K/uL 0.00 K/uL Basophils # (Auto) 0.01 K/uL 0.01 K/uL Recent Pertinent Medications Outpatient Anti-diabetic Regimen: * Metformin 1 gm BID * A1c = 8.5 % 07/12/17 Risk Factors for Insulin Resistance: * Steroids: Decadron 4 mg intraop * Infection: on Rocephin * Recent Surgery: POD 0 * Diet: type 1 diabetes Assessment & Plan ASSESSMENT: * 82 y/o male s/p R hip irrigation and debridement * BSGs elevated preop and received Decadron intraop * Patient only on metformin as an outpatient but will require high dose SQ insulin s/p steroids and infection * Will initially start with Lantus based on stress of 3 using insulin calculator estimates - full 24 hour dose now * Novolog CF and CR based upon stress of 3 as well. Will add overnight accuchecks for additional coverage. PLAN FOR INPATIENT GLYCEMIC CONTROL: * Lantus 40 units x 1 now, then 14 units BID starting 3/2 AM (20 units if BSG 150 or greater) * Novolog ACHS * Goal 110-150 * CF 20 * CR 7 * Please note that the plan above was derived based on current level of insulin resistance and hospital stress. These recommendations are appropriate for inpatient admission only. Plan of care upon discharge will need to be reassessed to avoid potential outpatient hypo/hyperglycemia. Thank you.
[2017-07-13] MEDS: OXYCODONE HCL IR 5 MG TAB (IMMEDIATE RELEASE) PO PRN (21:34)
--- NOTE | 2017-07-13 21:45 | DIAGNOSTIC IMAGING REPORT ---
VENOUS DOPPLER LWR EXT BILA CLINICAL HISTORY: 82 years-old Male presenting with fever, tachycardia. TECHNIQUE: Real-time grayscale and color and spectral Doppler ultrasound imaging of the veins of the bilateral lower extremities was performed. Compression and augmentation were also utilized. COMPARISON: None. FINDINGS: Right: Common femoral vein: Patent. Greater saphenous vein: Patent. Deep femoral vein: Patent. Femoral vein: Patent. Popliteal vein: Not visualized. Calf veins: Limited visualization. Left: Common femoral vein: Patent. Greater saphenous vein: Patent. Deep femoral vein: Patent. Femoral vein: Patent. Popliteal vein: Not visualized. Calf veins: Patent. Other: None. IMPRESSION: No evidence of deep venous thrombosis. Electronically signed by: Eldon Yan M.D. 07/13/2017 9:44 PM Dictated Date/Time: 07/13/2017 9:43 PM
[2017-07-13] MEDS: DIPYRIDAMOLE/ASPIRIN CAP PO SCH (22:02)
[2017-07-14] VITALS (22 sets, daily range): BP systolic 79–140; BP diastolic 41–91; PULSE 80–167; TEMP 36.5–37.1; O2SAT 95–96; Ht 177.8 cm; Wt 84.0 kg
[2017-07-14] MEDS: INSULIN ASPART 100 UNITS/ML 3 ML PEN SC SCH ×6 (00:04→21:13)
[2017-07-14 00:57] LABS: BASO % 0.1 %; BASO ABS # 0.01 K/uL (0-0.2); EOS % 0.5 %; EOS ABS # 0.05 K/uL (0-0.5); HEMATOCRIT 27.2 % (42-52); HEMOGLOBIN 9.1 g/dL (14.0-18.0); IG# 0.05 K/uL (0.00-0.02); LYMPH % 4.3 %; LYMPH ABS # 0.46 K/uL (1.2-3.4); MEAN CELL VOLUME 87.5 fL (80-100); MEAN CORPUSCULAR HEMOGLOBIN 29.3 pg (25-34); MEAN CORPUSCULAR HGB CONC 33.5 g/dl (32-36); MEAN PLATELET VOLUME 9.4 fL (7.4-10.4); MONO % 10.1 %; MONO ABS # 1.07 K/uL (0.11-0.59); NEUT % 84.5 %; NEUT ABS # 8.96 K/uL (1.4-6.5); PLATELET COUNT 228 K/uL (130-400); RED CELL DISTRIBUTION WIDTH CV 14.8 % (11.5-14.5); RED CELL DISTRIBUTION WIDTH SD 47.4 fL (36.4-46.3)
[2017-07-14 01:55] LABS: INR 1.2 (0.9-1.1)
[2017-07-14] MEDS: ACETAMINOPHEN IV 1,000 MG in EMPTY BAG 0 ML IV SCH (06:04)
[2017-07-14 06:37] LABS: BASO % 0.1 %; BASO ABS # 0.01 K/uL (0-0.2); EOS % 0.4 %; EOS ABS # 0.04 K/uL (0-0.5); HEMATOCRIT 27.8 % (42-52); HEMOGLOBIN 9.2 g/dL (14.0-18.0); IG# 0.05 K/uL (0.00-0.02); LYMPH % 6.3 %; LYMPH ABS # 0.57 K/uL (1.2-3.4); MEAN CORPUSCULAR HEMOGLOBIN 29.1 pg (25-34); MEAN CORPUSCULAR HGB CONC 33.1 g/dl (32-36); MEAN PLATELET VOLUME 9.4 fL (7.4-10.4); MONO % 7.9 %; MONO ABS # 0.71 K/uL (0.11-0.59); NEUT % 84.7 %; PLATELET COUNT 218 K/uL (130-400); RED CELL DISTRIBUTION WIDTH CV 14.9 % (11.5-14.5); RED CELL DISTRIBUTION WIDTH SD 48.3 fL (36.4-46.3); WHITE BLOOD COUNT 8.98 K/uL (4.8-10.8)
--- NOTE | 2017-07-14 06:47 | Progress Note ---
Progress Note Date of Service Jul 14, 2017. Progress Note Postop day #1 status post I&D debridement Stimulon bead insertion and exchange of mobile implants. This point of time the patient is lying in bed comfortable. He denies chest pain shortness of breath fever chills nausea vomiting or headache. Vital signs are stable. He is afebrile. Abdomen soft nontender. Wound dressing clean dry and intact. Femoral /sciatic nerve is normal. Calves nontender. Laboratory work is normalizing. Hematocrit drifting down based on hydration and multiple blood draws. There is no active bleeding. Fibrinogen is normalizing. Chest x-ray yesterday was without change. Assessment: Status post extensive debridement and exchange of femoral head hole eliminator and polyliner with insertion of Stimulon beats. At this point in time he is making progress. Will need to be on DVT prophylaxis per medicine. Continue subcu heparin or Lovenox 40 mg subcutaneously daily. I will leave that decision up to medicine. Can also use aspirin 81 mg twice daily. Will return later today to apply wound VAC dressing.
[2017-07-14 07:06] LABS: CALCIUM 8.2 mg/dl (8.5-10.1); CREATININE 1.01 mg/dl (0.60-1.40); POTASSIUM 3.3 mmol/L (3.5-5.1)
[2017-07-14 07:13] LABS: INR 1.1 (0.9-1.1); TOTAL PROTEIN 5.9 gm/dl (6.4-8.2)
[2017-07-14] MEDS: DIPYRIDAMOLE/ASPIRIN CAP PO SCH ×2 (08:00→21:11)
[2017-07-14] MEDS: NIASPAN 500 MG TABCR PO SCH (08:00)
[2017-07-14] MEDS: MULTIVITAMIN TAB PO SCH (08:00)
[2017-07-14] MEDS: ALLOPURINOL 300 MG TAB PO SCH (08:00)
[2017-07-14] MEDS: HYDROCHLOROTHIAZIDE 25 MG TAB PO SCH (08:01)
[2017-07-14] MEDS: DOCUSATE SODIUM 100 MG CAP PO SCH ×2 (08:01→21:11)
[2017-07-14] MEDS: PANTOprazole SOD 40 MG TAB PO SCH (08:01)
[2017-07-14] MEDS: FERROUS GLUCONATE 324 MG TAB PO SCH ×3 (08:01→17:07)
[2017-07-14] MEDS: SODIUM CHLORIDE 0.9% 1000ML 1,000 ML IV SCH (08:02)
[2017-07-14] MEDS: INSULIN GLARGINE SOLOSTAR 100 UNITS/ML 3 ML PEN SC SCH ×2 (08:06→21:12)
--- NOTE | 2017-07-14 08:17 | Anesthesiology Progress Note ---
Anesthesia Post Op Note Date & Time Jul 14, 2017 at 08:17 Vital Signs Pain Intensity: 0.0 Vital Signs Past 12 Hours Date Time Temp Pulse Resp B/P (MAP) Pulse Ox O2 Delivery O2 Flow Rate FiO2 07/14/17 08:06 37.1 82 20 89/48 (62) 96 07/14/17 04:00 Nasal Cannula 2.0 07/14/17 03:40 36.5 82 23 116/68 (84) 96 Nasal Cannula 2.0 07/14/17 00:00 Nasal Cannula 2.0 07/13/17 23:43 36.4 81 19 101/55 (70) 95 Nasal Cannula 1.0 07/13/17 21:30 91 15 135/63 (87) Notes Mental Status: alert / awake / arousable, participated in evaluation Pt Amnestic to Procedure: Yes Nausea / Vomiting: adequately controlled Pain: adequately controlled Airway Patency, RR, SpO2: stable & adequate BP & HR: stable & adequate Hydration State: stable & adequate Anesthetic Complications: no major complications apparent
[2017-07-14] MEDS ORDERED: MULTIVITAMIN TAB PO SCH (09:00)
[2017-07-14 12:15] LABS: BASO % 0.2 %; BASO ABS # 0.02 K/uL (0-0.2); EOS % 0.8 %; EOS ABS # 0.08 K/uL (0-0.5); HEMATOCRIT 29.7 % (42-52); IG# 0.04 K/uL (0.00-0.02); LYMPH % 7.9 %; LYMPH ABS # 0.81 K/uL (1.2-3.4); MEAN CELL VOLUME 88.1 fL (80-100); MEAN CORPUSCULAR HEMOGLOBIN 29.7 pg (25-34); MEAN CORPUSCULAR HGB CONC 33.7 g/dl (32-36); MEAN PLATELET VOLUME 9.2 fL (7.4-10.4); MONO % 6.1 %; MONO ABS # 0.63 K/uL (0.11-0.59); NEUT % 84.6 %; NEUT ABS # 8.73 K/uL (1.4-6.5); PLATELET COUNT 245 K/uL (130-400); RED CELL DISTRIBUTION WIDTH SD 48.6 fL (36.4-46.3); WHITE BLOOD COUNT 10.31 K/uL (4.8-10.8)
[2017-07-14 12:48] LABS: INR 1.1 (0.9-1.1)
--- NOTE | 2017-07-14 12:55 | ECHOCARDIOGRAM REPORT ---
*NOTICE TO RECEIVING [employer] [employer]ENCY This information is strictly Confidential and protected under [place] law. [place] law prohibits you from making any further disclosure of this information unless further disclosure is expressly permitted by the written consent of the person to whom it pertains or is authorized by law. A general authorization for the release of medical or other information is not sufficient for this purpose. Hospital accepts no responsibility if the information is made available to any other person, INCLUDING THE PATIENT. Interpretation Summary * Name: CAROLE COY Study Date: 07/14/2017 09:09 AM BP: 116/68 mmHg * Patient Location: [id number].3E\S\E306\S\1 HR: 82 * : 1935 (M/d/yyyy) Gender: Male Height: 70 in * Age: 82 yrs Ethnicity: CA Weight: 180 lb * Ordering Physician: Bobby Schuler * Referring Physician: Cooper Nagel * Performed By: Cassi Wright RDCS * * Reason For Study: Murmurs * BSA: 2.0 m2 * -- Conclusions -- * There is mild concentric left ventricular hypertrophy. * Left ventricular systolic function is low normal. * The left atrium is mildly dilated. * Mild to moderate aortic regurgitation. * Mild valvular aortic stenosis. Procedure Details * A complete two-dimensional transthoracic echocardiogram was performed (2D, M-mode, Doppler and color flow Doppler). Left Ventricle * The left ventricle is normal in size. * There is mild concentric left ventricular hypertrophy. * Ejection Fraction = 60-65%. * Left ventricular systolic function is low normal. * The left ventricular wall motion is normal. Right Ventricle * The right ventricle is normal in size and function. * The right ventricular systolic function is normal as assessed by tricuspid annular plane systolic excursion (TAPSE) (normal >1.5 cm). Atria * The left atrium is mildly dilated. * Right atrial size is normal. Mitral Valve * The mitral valve anatomy is normal. * Significant mitral regurgitation is absent. Tricuspid Valve * The tricuspid valve anatomy is normal. * Significant tricuspid regurgitation is absent. Aortic Valve * The right coronary cusp is immobile * Mild valvular aortic stenosis. * Mild to moderate aortic regurgitation. Great Vessels * The aortic root is normal size. Pericardium/Pleural * There is no pericardial effusion. MMode 2D Measurements and Calculations IVSd 1.4 cm IVSs 1.4 cm LVIDd 4.9 cm LVIDs 3.3 cm LVPWd 1.3 cm LVPWs 1.9 cm IVS/LVPW 1.1 FS 31.3 % EDV(Teich) 110.8 ml ESV(Teich) 45.4 ml EF(Teich) 59.0 % EDV(cubed) 114.9 ml ESV(cubed) 37.3 ml EF(cubed) 67.6 % % IVS thick 0.95 % % LVPW thick 46.0 % LV mass(C)d 270.2 grams LV mass(C)dI 135.4 grams/m\S\2 LV mass(C)s 220.5 grams LV mass(C)sI 110.5 grams/m\S\2 SV(Teich) 65.3 ml SI(Teich) 32.7 ml/m\S\2 SV(cubed) 77.6 ml SI(cubed) 38.9 ml/m\S\2 Ao root diam 3.2 cm Ao root area 8.1 cm\S\2 ACS 1.4 cm LA dimension 4.2 cm LA/Ao 1.3 LVOT diam 2.0 cm LVOT area 3.2 cm\S\2 LVAd ap4 35.0 cm\S\2 LVLd ap4 9.3 cm EDV(MOD-sp4) 111.0 ml EDV(sp4-el) 112.0 ml LVAs ap4 19.2 cm\S\2 LVLs ap4 8.5 cm ESV(MOD-sp4) 35.6 ml ESV(sp4-el) 36.6 ml EF(MOD-sp4) 67.9 % EF(sp4-el) 67.3 % LVAd ap2 38.1 cm\S\2 LVLd ap2 9.6 cm EDV(MOD-sp2) 132.3 ml EDV(sp2-el) 128.2 ml LVAs ap2 22.3 cm\S\2 LVLs ap2 8.6 cm ESV(MOD-sp2) 54.6 ml ESV(sp2-el) 48.9 ml EF(MOD-sp2) 58.7 % EF(sp2-el) 61.8 % LVLd %diff 3.2 % EDV(MOD-bp) 121.3 ml LVLs %diff 1.2 % ESV(MOD-bp) 42.2 ml EF(MOD-bp) 65.2 % SV(MOD-sp4) 75.4 ml SI(MOD-sp4) 37.8 ml/m\S\2 SV(MOD-sp2) 77.7 ml SI(MOD-sp2) 38.9 ml/m\S\2 SV(MOD-bp) 79.1 ml SI(MOD-bp) 39.6 ml/m\S\2 SV(sp4-el) 75.4 ml SI(sp4-el) 37.8 ml/m\S\2 SV(sp2-el) 79.3 ml SI(sp2-el) 39.7 ml/m\S\2 Doppler Measurements and Calculations MV E max chago 47.5 cm/sec MV A max chago 63.8 cm/sec MV E/A 0.74 MV dec time 0.36 sec Ao V2 max 288.6 cm/sec Ao max PG 33.3 mmHg Ao max PG (full) 29.1 mmHg Ao V2 mean 177.1 cm/sec Ao mean PG 14.9 mmHg Ao mean PG (full) 12.8 mmHg Ao V2 VTI 48.8 cm MIKAYLA(I,A) 1.3 cm\S\2 MIKAYLA(I,D) 1.3 cm\S\2 MIKAYLA(V,A) 1.2 cm\S\2 MIKAYLA(V,D) 1.2 cm\S\2 AI max chago 384.4 cm/sec AI max PG 59.1 mmHg AI dec slope 255.0 cm/sec\S\2 AI P1/2t 441.6 msec LV V1 max PG 4.2 mmHg LV V1 mean PG 2.1 mmHg LV V1 max 102.2 cm/sec LV V1 mean 66.9 cm/sec LV V1 VTI 20.1 cm SV(Ao) 395.6 ml SI(Ao) 198.2 ml/m\S\2 SV(LVOT) 65.4 ml SI(LVOT) 32.7 ml/m\S\2 PA V2 max 112.2 cm/sec PA max PG 5.0 mmHg
[2017-07-14] MEDS ORDERED: ENOXAPARIN 40 MG/0.4 ML SYR SQ ONE (14:00)
--- NOTE | 2017-07-14 14:26 | Pharmacy Progress Note ---
Pharmacy Glycemic Short Note 2 Date of Service Jul 14, 2017. OUTPATIENT ANTIDIABETIC REGIMEN: * Metformin 1,000mg PO BIDM * A1c = 8.5% on 07/12/17 ASSESSMENT: * 82 y/o male s/p R hip irrigation and debridement * BSGs elevated preop and post op secondary to infection, poor outpatient control, held oral agents prior to surgery, and decadron intraop * Patient only on metformin as an outpatient but requiring high dose SQ insulin s/p steroids and infection * Started with weight and high stress (level 3) for dexamethasone. Now that we are 24hrs past dexamethasone will start tapering insulin regimen but still strive for BSG <200 mg/dl (ideally BSG <150 mg/dl) to prevent post op infectious complications. * Pt has received ~67 units of insulin on 07/13/17 * BSGs 231, 212, 274, 257, 299, 233, 185, 165, 150, 160 * BSGs in goal range after the addition of SQ basal bolus insulin regimen PLAN FOR INPATIENT GLYCEMIC CONTROL: * Basal insulin * Lantus 10-15 units SQ BID based on BSG * If BSG below 180 mg/dl --> 10 units * If BSG 180mg.dl or above --> 15 units * Novolog ACHS * Goal 110-150 * CF 20 * CR 7
[2017-07-14] MEDS ORDERED: DILTIAZEM BOLUS / DRIP IV STA ×2 (15:35→15:38)
[2017-07-14] MEDS: CEFTRIAXONE SOD INJ 2,000 MG in DEXTROSE 5% 50ML 50 ML IV SCH (15:41)
[2017-07-14] MEDS ORDERED: DILTIAZEM HCL 5 MG/ML 5 ML VIAL ONE (15:47)
[2017-07-14] MEDS ORDERED: DILTIAZEM HCL 5 MG/ML 5 ML VIAL BOLUS/OMNI IV SCH (15:47)
--- NOTE | 2017-07-14 15:55 | DIAGNOSTIC IMAGING REPORT ---
CHEST ONE VIEW PORTABLE HISTORY: 82 years-old Male new onset AFib new onset atrial fibrillation COMPARISON: Chest radiograph 07/13/2017 TECHNIQUE: Portable AP view of the chest FINDINGS: Cardiomediastinal and hilar silhouettes are within normal limits. Atherosclerosis of the aorta. No pneumothorax, large pleural effusion or new focal airspace consolidation. Linear subsegmental lateral left midlung and left lung base opacities are noted. Severe degenerative changes about the right shoulder. IMPRESSION: 1. No acute process. 2. Unchanged linear subsegmental left basilar opacities suggesting atelectasis or scarring. The above report was generated using voice recognition software. It may contain grammatical, syntax or spelling errors. Electronically signed by: Giles Conner M.D. 07/14/2017 3:54 PM Dictated Date/Time: 07/14/2017 3:52 PM
[2017-07-14] MEDS: CHLORPROMAZINE HCL 25 MG TAB PO PRN (15:56)
[2017-07-14] MEDS: DILTIAZEM HCL INJ 125 MG in DEXTROSE 5% 100ML IV PRN ×2 (16:43→19:48)
--- NOTE | 2017-07-14 17:26 | Family Medicine Progress Note ---
Progress Note Date of Service Jul 14, 2017. Subjective Pt evaluation today including: conversation w/ patient, conversation w/ family , physical exam, chart review, lab review, review of studies, conversation w/ outbound sales consultant Pt seen and examined at bedside. Presently reports minimal pain in the right hip at rest and some with movement, but participated well in PT today. At bedside, tachycardia to the 180s on monitor without symptoms aside from some flushing. Family reports no h/o AF, patient reports ?remote history of irregular heartbeat without detail. Reports no QUINTANILLA, lightheadedness, CP/SOB, n/v/ d/c, vision/hearing changes. Constitutional: No fever, No chills, No sweats Eyes: No worsening of vision, No diplopia Respiratory: No cough, No wheezing, No shortness of breath Cardiovascular: No chest pain, No edema, No palpitations Abdomen: No pain, No nausea, No vomiting, No diarrhea Musculoskeletal: + joint pain, + muscle pain, + swelling Neurologic: No memory loss, No weakness, No numbness/tingling Medications Current Inpatient Medications Medications (Trade) Dose Ordered Sig/Oswaldo Route Start Time Stop Time Status Last Admin Dose Admin Oxycodone HCl (Roxicodone Immediate Rel Tab) 1 TABLET FOR PAIN RATING... Q4H PRN PO 07/13/17 10:30 07/27/17 10:29 07/13/17 21:34 5 MG Morphine Sulfate (MoRPHine SULFATE INJ) give 2mg for pain 3-6 g... Q1H PRN IV 07/13/17 10:30 07/27/17 10:29 Acetaminophen (Tylenol Tab) 650 mg Q6H PRN PO 07/14/17 14:00 08/13/17 13:59 Magnesium Hydroxide (Milk Of Magnesia Susp) 30 ml Q6H PRN PO 07/13/17 10:30 08/12/17 10:29 Bisacodyl (Dulcolax Supp) 10 mg DAILY PRN KS 07/13/17 10:30 08/12/17 10:29 Sodium Biphosphate/ Sodium Phosphate (Fleet Enema) 132 ml DAILY PRN KS 07/13/17 10:30 08/12/17 10:29 Docusate Sodium (coLACE CAP) 100 mg BID PO 07/13/17 21:00 3/31/18 20:59 07/14/17 08:01 100 MG Diphenhydramine HCl (Benadryl Inj) 25 mg Q8H PRN IV 07/13/17 10:30 08/12/17 10:29 Al Hydrox/Mg Hydrox/Simethicone (Maalox Max Susp) 15 ml Q4H PRN PO 07/13/17 10:30 08/12/17 10:29 Ondansetron HCl (Zofran Inj) 4 mg Q6H PRN IV 07/13/17 10:30 08/12/17 10:29 Metoclopramide HCl (Reglan Inj) 10 mg Q6H PRN IV 07/13/17 10:30 08/12/17 10:29 Ferrous Gluconate (Ferrous Gluconate Tab) 324 mg TIDM PO 07/13/17 16:45 08/12/17 17:44 07/14/17 17:07 324 MG Pantoprazole Sodium (Protonix Tab) 40 mg QAM PO 07/14/17 09:00 07/18/17 08:59 07/14/17 08:01 40 MG Allopurinol (Zyloprim Tab) 300 mg QAM PO 07/14/17 09:00 08/13/17 08:59 07/14/17 08:00 300 MG Dipyridamole/ Aspirin (Aggrenox 200MG/ 25MG Cap) 1 cap BID PO 07/13/17 21:00 08/12/17 20:59 07/14/17 08:00 1 CAP Atenolol (Tenormin Tab) 50 mg HS PO 07/13/17 21:00 08/12/17 20:59 07/13/17 21:34 50 MG Chlorpromazine HCl (Thorazine Tab) 25 mg TID PRN PO 07/13/17 10:30 08/12/17 10:29 07/14/17 15:56 25 MG Hydrochlorothiazide (Hydrochlorothiazide Tab) 25 mg QAM PO 07/14/17 09:00 08/13/17 08:59 07/14/17 08:01 25 MG Multivitamins (Multivitamin Tab) 1 tab DAILY PO 07/14/17 09:00 08/13/17 08:59 07/14/17 08:00 1 TAB Niacin (Niaspan Extended Rel Tab) 500 mg DAILY PO 07/14/17 09:00 08/13/17 08:59 07/14/17 08:00 500 MG Simvastatin (Zocor Tab) 20 mg QPM PO 07/13/17 21:00 08/12/17 20:59 07/13/17 21:08 20 MG Insulin Aspart (novoLOG ASPART) SLIDING SCALE G... ACHS SC 07/13/17 16:15 08/12/17 17:14 07/14/17 12:23 2 UNITS Ceftriaxone Sodium 2000 mg/ Dextrose 70 ml @ 100 mls/hr Q24H IV 07/14/17 14:00 07/24/17 13:59 07/14/17 15:41 100 MLS/HR Glucose (Glucose 40% Gel) 15-30 GRAMS 15 GRAMS... UD PRN PO 07/13/17 11:00 08/12/17 10:59 Glucose (Glucose Chew Tab) 4-8 Tablets 4 Tabl... UD PRN PO 07/13/17 11:00 08/12/17 10:59 Dextrose (Dextrose 50% 50ML Syringe) 25-50ML OF 50% DW IV FOR... UD PRN IV 07/13/17 11:00 08/12/17 10:59 Glucagon (Glucagon Inj) 1 mg UD PRN SQ 07/13/17 11:00 08/12/17 10:59 Miscellaneous Information (Consult Glycemic Management Pharmacy) 1 ea UD N/A 07/13/17 17:19 08/12/17 17:18 Tamsulosin HCl (Flomax Cap) 0.8 mg QPM PO 07/13/17 21:00 08/12/17 20:59 07/13/17 21:07 0.8 MG Insulin Glargine (Lantus Solostar Pen) SEE PROTOCOL TEXT BID SC 07/14/17 09:00 08/13/17 08:59 07/14/17 08:06 20 UNITS Enoxaparin Sodium (Lovenox Inj) 40 mg QAM SQ 07/15/17 09:00 08/14/17 08:59 Diltiazem HCl 125 mg/Dextrose 125 ml @ 0 mls/hr Q0M PRN IV 07/14/17 16:00 08/13/17 15:59 07/14/17 16:43 10 MLS/HR Objective Vital Signs Date Time Temp Pulse Resp B/P (MAP) Pulse Ox O2 Delivery O2 Flow Rate FiO2 07/14/17 12:00 Nasal Cannula 2.0 07/14/17 11:54 36.6 80 16 106/55 (72) 95 07/14/17 08:06 37.1 82 20 89/48 (62) 96 07/14/17 08:00 Nasal Cannula 2.0 07/14/17 04:00 Nasal Cannula 2.0 07/14/17 03:40 36.5 82 23 116/68 (84) 96 Nasal Cannula 2.0 07/14/17 00:00 Nasal Cannula 2.0 07/13/17 23:43 36.4 81 19 101/55 (70) 95 Nasal Cannula 1.0 07/13/17 21:30 91 15 135/63 (87) 07/13/17 20:00 93 Nasal Cannula 2.0 07/13/17 19:57 36.7 96 20 108/69 (82) 93 Nasal Cannula 2.0 07/13/17 17:28 86 19 100/51 (67) 95 Nasal Cannula 2.0 Physical Exam General Appearance: WD/WN, no apparent distress Eyes: normal inspection, PERRL, EOMI ENT: normal ENT inspection, hearing grossly normal Neck: supple, no adenopathy, thyroid normal Respiratory/Chest: chest non-tender, lungs clear, normal breath sounds Cardiovascular: regular rate, rhythm, no edema, no murmur Abdomen: normal bowel sounds, non tender, soft Neurologic/Psychiatric: deputy editor in chief II-XII nml as tested, alert, normal mood/affect, oriented x 3 Laboratory Results 07/14/17 12:00 Red Blood Count 3.37, Mean Corpuscular Volume 88.1, Mean Corpuscular Hemoglobin 29.7, Mean Corpuscular Hemoglobin Concent 33.7, Mean Platelet Volume 9.2, Neutrophils (%) (Auto) 84.6, Lymphocytes (%) (Auto) 7.9, Monocytes (%) (Auto) 6.1, Eosinophils (%) (Auto) 0.8, Basophils (%) (Auto) 0.2, Neutrophils # (Auto) 8.73, Lymphocytes # (Auto) 0.81, Monocytes # (Auto) 0.63, Eosinophils # (Auto) 0.08, Basophils # (Auto) 0.02 07/14/17 05:52 Test 07/13/17 17:55 07/14/17 05:52 07/14/17 12:00 07/14/17 16:02 Large Platelets 1+ Hypochromasia PRESENT Echinocytes 2+ Anion Gap 8.0 mmol/L (3-11) Est Creatinine Clear Calc Drug Dose 60.2 ml/min Estimated GFR () 81.0 Estimated GFR (Non- 69.9 BUN/Creatinine Ratio 14.5 (10-20) Calcium Level 8.2 mg/dl (8.5-10.1) Total Bilirubin 1.0 mg/dl (0.2-1) Aspartate Amino Transf (AST/SGOT) 49 U/L (15-37) Alanine Aminotransferase (ALT/SGPT) 34 U/L (12-78) Alkaline Phosphatase 143 U/L (45-117) Total Protein 5.9 gm/dl (6.4-8.2) Albumin 2.0 gm/dl (3.4-5.0) Globulin 3.9 gm/dl (2.5-4.0) Albumin/Globulin Ratio 0.5 (0.9-2) White Blood Count 10.31 K/uL (4.8-10.8) Red Blood Count 3.37 M/uL (4.7-6.1) Hemoglobin 10.0 g/dL (14.0-18.0) Hematocrit 29.7 % (42-52) Mean Corpuscular Volume 88.1 fL (80-100) Mean Corpuscular Hemoglobin 29.7 pg (25-34) Mean Corpuscular Hemoglobin Concent 33.7 g/dl (32-36) Platelet Count 245 K/uL (130-400) Mean Platelet Volume 9.2 fL (7.4-10.4) Neutrophils (%) (Auto) 84.6 % Lymphocytes (%) (Auto) 7.9 % Monocytes (%) (Auto) 6.1 % Eosinophils (%) (Auto) 0.8 % Basophils (%) (Auto) 0.2 % Neutrophils # (Auto) 8.73 K/uL (1.4-6.5) Lymphocytes # (Auto) 0.81 K/uL (1.2-3.4) Monocytes # (Auto) 0.63 K/uL (0.11-0.59) Eosinophils # (Auto) 0.08 K/uL (0-0.5) Basophils # (Auto) 0.02 K/uL (0-0.2) RDW Standard Deviation 48.6 fL (36.4-46.3) RDW Coefficient of Variation 15.0 % (11.5-14.5) Immature Granulocyte % (Auto) 0.4 % Immature Granulocyte # (Auto) 0.04 K/uL (0.00-0.02) Prothrombin Time 11.9 SECONDS (9.0-12.0) Prothromb Time International Ratio 1.1 (0.9-1.1) Fibrinogen 721 mg/dl (184-400) Troponin I 0.114 ng/ml (0-0.045) Thyroid Stimulating Hormone (TSH) 0.406 uIu/ml (0.300-4.500) Test 07/14/17 16:17 Bedside Glucose 160 mg/dl (70-99) Assessment and Plan 82 y/o male h/o w/ suspicion of right infected hip s/p arthroplasty and irrigation and debridement, poly-liner and femoral head exchange with application of antibiotic beads Atrial fibrillation - presently on lovenox 40mg SQ daily 2/ post-op bleeding risk - diltiazem drip - telemetry monitoring - repeat EKG in AM, echo pending Right hip infection - infectious disease consultation - continue IV rocephin, f/ u BCx/UCx - CBC, fibrinogen and INR stable. Repeat ESR/CRP on 07.15.17 DMII - glycemic consultation - hold home metformin HTN - stable at present, on dilt drip HLD - continue statin therapy On aggrenox FULL CODE VTE PPX - lovenox
[2017-07-14] MEDS: ACETAMINOPHEN 325 MG TAB PO PRN (17:55)
[2017-07-14] MEDS ORDERED: AMIODARONE IV BOLUS / DRIP IV STA (18:05)
[2017-07-14] MEDS ORDERED: AMIODARONE 150MG / 100ML D5W ONE (18:05)
[2017-07-14] MEDS ORDERED: AMIODARONE / D5W 200 ML IV SCH (18:30)
[2017-07-14] MEDS ORDERED: METOPROLOL TARTRATE 1 MG/ML VIAL IV STA (20:50)
[2017-07-14 20:58] LABS: BASO % 0.1 %; BASO ABS # 0.01 K/uL (0-0.2); EOS % 0.5 %; EOS ABS # 0.05 K/uL (0-0.5); HEMATOCRIT 28.8 % (42-52); HEMOGLOBIN 9.6 g/dL (14.0-18.0); IG# 0.04 K/uL (0.00-0.02); LYMPH % 8.1 %; LYMPH ABS # 0.87 K/uL (1.2-3.4); MEAN CELL VOLUME 87.5 fL (80-100); MEAN CORPUSCULAR HEMOGLOBIN 29.2 pg (25-34); MEAN CORPUSCULAR HGB CONC 33.3 g/dl (32-36); MEAN PLATELET VOLUME 9.5 fL (7.4-10.4); MONO % 6.9 %; MONO ABS # 0.74 K/uL (0.11-0.59); NEUT ABS # 9.06 K/uL (1.4-6.5); PLATELET COUNT 239 K/uL (130-400); RED CELL DISTRIBUTION WIDTH CV 14.8 % (11.5-14.5); RED CELL DISTRIBUTION WIDTH SD 47.5 fL (36.4-46.3); WHITE BLOOD COUNT 10.77 K/uL (4.8-10.8)
--- NOTE | 2017-07-14 20:59 | DIAGNOSTIC IMAGING REPORT ---
CHEST ONE VIEW PORTABLE HISTORY: 82 years-old Male a fibb acute atrial fibrillation COMPARISON: Chest radiograph 07/14/2017 and 07/13/2017 TECHNIQUE: Portable AP view of the chest FINDINGS: Cardiac silhouette is within normal limits in size. Atherosclerosis of the aorta. Unchanged linear subsegmental left lung base and lateral left midlung opacities. Blunting of the left costophrenic angle is unchanged. The right lung is generally clear. No pneumothorax or overt pulmonary edema. Degenerative changes are seen within the shoulders and spine. IMPRESSION: 1. No acute process of the chest. 2. Unchanged linear subsegmental lateral left midlung and left lung base opacities suggesting atelectasis or scarring. 3. Chronic blunting of the left costophrenic angle without large pleural effusion identified. The above report was generated using voice recognition software. It may contain grammatical, syntax or spelling errors. Electronically signed by: Giles Conner M.D. 07/14/2017 8:58 PM Dictated Date/Time: 07/14/2017 8:56 PM
[2017-07-14] MEDS: TAMSULOSIN HCL 0.4 MG CAP PO SCH (21:00)
[2017-07-14] MEDS ORDERED: DIGOXIN IV 250 MCG in SYRINGE 9 ML IV ONE (21:00)
[2017-07-14] MEDS: SIMVASTATIN 20 MG TAB PO SCH (21:11)
[2017-07-14 21:16] LABS: INR 1.2 (0.9-1.1)
[2017-07-14 21:18] LABS: CALCIUM 8.4 mg/dl (8.5-10.1); CREATININE 0.94 mg/dl (0.60-1.40); POTASSIUM 2.9 mmol/L (3.5-5.1)
[2017-07-14] MEDS ORDERED: SODIUM CHLORIDE 0.9% 500ML 500 ML IV ONE (21:30)
[2017-07-14] MEDS ORDERED: POTASSIUM CHLORIDE 20 MEQ TABCR PO ONE (21:30)
[2017-07-14] MEDS ORDERED: HEPARIN IV LOW DOSE NO BOLUS STA (21:33)
[2017-07-14] MEDS: MAGNESIUM SULFATE 1GM / D5W 1 GM in PREMIXED IN D5W 100 ML IV SCH ×2 (21:58→22:44)
[2017-07-14] MEDS: POTASSIUM CHLORIDE INJ 40 MEQ in SODIUM CHLORIDE 0.9% 1000ML 1,000 ML IV SCH (22:31)
[2017-07-14] MEDS: HEPARIN 25,000 UNIT/500ML D5W 500 ML IV PRN (22:32)
--- NOTE | 2017-07-14 23:30 | Progress Note ---
Progress Note Date of Service Jul 14, 2017. Progress Note contacted as the patient remained HR > 130 with BP in 80s systolic A fibb with RVR noted D/C diltiazem completely and did not tolerate 2.5 mg of Metoprolol 500 cc bolus and maintenance to 150 cc/h of NSS with 40 K, adjust accordingly with am labs 60 Meq of KCL PO for a K of 2.9 and 2 Gm of Mg for 1.5 mg - pm dose of Atenolol decreased to 25 mg and digoxin .25 IV and patient's bp remained 100 systolic and HR slightly improved - I do not feel the patient is currently septic and patient's MAP has been appropriate, if patient becomes hemodynamically unstable will send to ICU for cardioversion - did discuss case with Dr Nagel and will start heparin low dose no bolus in case of need for cardioversion; lovenox DVT prophylaxis held discussed case with Dr Kirkland and career technical education instructor
[2017-07-15] VITALS (7 sets, daily range): BP systolic 104–133; BP diastolic 61–90; PULSE 90–130; TEMP 36.5–37.1; O2SAT 91–95
[2017-07-15] MEDS: AMIODARONE / D5W 200 ML IV SCH ×3 (00:16→22:54)
[2017-07-15] MEDS: POTASSIUM CHLORIDE INJ 40 MEQ in SODIUM CHLORIDE 0.9% 1000ML 1,000 ML IV SCH ×2 (05:36→12:43)
[2017-07-15 06:57] LABS: PTT PATIENT 45.3 SECONDS (21.0-31.0)
[2017-07-15 07:04] LABS: ALBUMIN 1.9 gm/dl (3.4-5.0); CALCIUM 8.4 mg/dl (8.5-10.1); CREATININE 0.93 mg/dl (0.60-1.40); POTASSIUM 4.1 mmol/L (3.5-5.1)
[2017-07-15 07:14] LABS: TOTAL PROTEIN 6.2 gm/dl (6.4-8.2)
[2017-07-15] MEDS: DOCUSATE SODIUM 100 MG CAP PO SCH ×2 (08:17→20:04)
[2017-07-15] MEDS: ALLOPURINOL 300 MG TAB PO SCH (08:18)
[2017-07-15] MEDS: FERROUS GLUCONATE 324 MG TAB PO SCH ×3 (08:18→17:52)
[2017-07-15] MEDS: MULTIVITAMIN TAB PO SCH (08:19)
[2017-07-15] MEDS: PANTOprazole SOD 40 MG TAB PO SCH (08:19)
[2017-07-15] MEDS: NIASPAN 500 MG TABCR PO SCH (08:19)
[2017-07-15] MEDS: INSULIN GLARGINE SOLOSTAR 100 UNITS/ML 3 ML PEN SC SCH ×3 (08:20→17:56)
[2017-07-15] MEDS: HYDROCHLOROTHIAZIDE 25 MG TAB PO SCH (08:20)
[2017-07-15] MEDS: INSULIN ASPART 100 UNITS/ML 3 ML PEN SC SCH ×4 (08:26→21:33)
[2017-07-15 08:49] LABS: BASO % 0.1 %; BASO ABS # 0.01 K/uL (0-0.2); EOS % 0.7 %; EOS ABS # 0.08 K/uL (0-0.5); HEMATOCRIT 28.9 % (42-52); HEMOGLOBIN 9.8 g/dL (14.0-18.0); IG# 0.06 K/uL (0.00-0.02); LYMPH ABS # 0.46 K/uL (1.2-3.4); MEAN CORPUSCULAR HEMOGLOBIN 29.5 pg (25-34); MEAN CORPUSCULAR HGB CONC 33.9 g/dl (32-36); MEAN PLATELET VOLUME 9.9 fL (7.4-10.4); MONO % 9.2 %; MONO ABS # 1.06 K/uL (0.11-0.59); NEUT % 85.5 %; NEUT ABS # 9.83 K/uL (1.4-6.5); PLATELET COUNT 279 K/uL (130-400); RED CELL DISTRIBUTION WIDTH CV 15.1 % (11.5-14.5)
[2017-07-15] MEDS ORDERED: ENOXAPARIN 40 MG/0.4 ML SYR SQ SCH (09:00)
--- NOTE | 2017-07-15 09:44 | PROGRESS NOTE ---
DATE: 07/15/2017 SUBJECTIVE: Postop day #2. Orthopedics. At this point in time, the patient is resting comfortably. He notes he has no chest pain, shortness of breath, fever, chills, nausea, vomiting or headache. OBJECTIVE: VITAL SIGNS: His vital signs are improved. Pulse is now in the 90s. His temperature is below 37. His blood pressure is stable in the 105/80 range. His room air oxygenation is excellent. LABORATORY WORK: Reveals electrolytes to be stable. Potassium is 4.1, sodium 133. His random glucoses are well controlled. His troponin is decreased. His calcium is stable in the 8.4 range. His heparin drip is keeping him below 60, which is ideal. I would continue to not use any boluses. H&H is stable in the 29 range /hematocrit. Wound dressing is clean, dry and intact. Pump is working well, keeping good pressure on the wound. Neurovascular check femoral sciatic nerve is normal. Hip is located. Pain is well managed. ASSESSMENT: Overall, doing reasonably well. Plan is to continue maximum medical management, continue with Rocephin per ID recommendations. A PICC line per internal medicine and per ID recommendation. We will need chronic antibiotic management to try to salvage this hip. He will be high risk for any other types of procedure. His atrial fibrillation at this point in time is reasonably controlled. Anticoagulation per medicine on this. Please be cognizant of the recent surgery and do not over anticoagulate. PLAN: Plan is to follow up with inpatient type care based on social needs and inability to care for him independently. JERONIMO
[2017-07-15] MEDS: DIPYRIDAMOLE/ASPIRIN CAP PO SCH ×2 (11:14→21:27)
[2017-07-15] MEDS: CEFTRIAXONE SOD INJ 2,000 MG in DEXTROSE 5% 50ML 50 ML IV SCH (14:41)
[2017-07-15 15:21] LABS: PTT PATIENT 51.6 SECONDS (21.0-31.0)
--- NOTE | 2017-07-15 17:59 | Family Medicine Progress Note ---
Progress Note Date of Service Jul 15, 2017. Subjective Pt evaluation today including: conversation w/ patient, physical exam, chart review, lab review, review of inpatient medication list Pain: No pain reported PO Intake: Tolerating PO intake Voiding: cruz catheter in place Mr. Dinh reports he feels well today. He reports his right hip pain is well controlled. He denies feeling chest pain, palpitations or shortness of breath, even with his rapid afib. He had two bowel movements earlier today and reports he feels much better after that. Constitutional: No fever, No chills Respiratory: No cough, No sputum, No shortness of breath Cardiovascular: No chest pain, No edema, No palpitations Abdomen: No pain, No nausea, No vomiting All Other Systems: Reviewed and Negative Medications Current Inpatient Medications Medications (Trade) Dose Ordered Sig/Oswaldo Route Start Time Stop Time Status Last Admin Dose Admin Oxycodone HCl (Roxicodone Immediate Rel Tab) 1 TABLET FOR PAIN RATING... Q4H PRN PO 07/13/17 10:30 07/27/17 10:29 07/13/17 21:34 5 MG Morphine Sulfate (MoRPHine SULFATE INJ) give 2mg for pain 3-6 g... Q1H PRN IV 07/13/17 10:30 07/27/17 10:29 Acetaminophen (Tylenol Tab) 650 mg Q6H PRN PO 07/14/17 14:00 08/13/17 13:59 07/15/17 18:34 650 MG Magnesium Hydroxide (Milk Of Magnesia Susp) 30 ml Q6H PRN PO 07/13/17 10:30 08/12/17 10:29 Bisacodyl (Dulcolax Supp) 10 mg DAILY PRN NC 07/13/17 10:30 08/12/17 10:29 Sodium Biphosphate/ Sodium Phosphate (Fleet Enema) 132 ml DAILY PRN NC 07/13/17 10:30 08/12/17 10:29 Docusate Sodium (coLACE CAP) 100 mg BID PO 07/13/17 21:00 08/12/17 20:59 07/14/17 21:11 100 MG Diphenhydramine HCl (Benadryl Inj) 25 mg Q8H PRN IV 07/13/17 10:30 08/12/17 10:29 Al Hydrox/Mg Hydrox/Simethicone (Maalox Max Susp) 15 ml Q4H PRN PO 07/13/17 10:30 08/12/17 10:29 Ondansetron HCl (Zofran Inj) 4 mg Q6H PRN IV 07/13/17 10:30 08/12/17 10:29 Metoclopramide HCl (Reglan Inj) 10 mg Q6H PRN IV 07/13/17 10:30 08/12/17 10:29 Ferrous Gluconate (Ferrous Gluconate Tab) 324 mg TIDM PO 07/13/17 16:45 08/12/17 17:44 07/15/17 17:52 324 MG Pantoprazole Sodium (Protonix Tab) 40 mg QAM PO 07/14/17 09:00 07/18/17 08:59 07/15/17 08:19 40 MG Allopurinol (Zyloprim Tab) 300 mg QAM PO 07/14/17 09:00 08/13/17 08:59 07/15/17 08:18 300 MG Dipyridamole/ Aspirin (Aggrenox 200MG/ 25MG Cap) 1 cap BID PO 07/13/17 21:00 08/12/17 20:59 07/15/17 11:14 1 CAP Chlorpromazine HCl (Thorazine Tab) 25 mg TID PRN PO 07/13/17 10:30 08/12/17 10:29 07/14/17 15:56 25 MG Hydrochlorothiazide (Hydrochlorothiazide Tab) 25 mg QAM PO 07/14/17 09:00 08/13/17 08:59 07/15/17 08:20 25 MG Multivitamins (Multivitamin Tab) 1 tab DAILY PO 07/14/17 09:00 08/13/17 08:59 07/15/17 08:19 1 TAB Niacin (Niaspan Extended Rel Tab) 500 mg DAILY PO 07/14/17 09:00 08/13/17 08:59 07/15/17 08:19 500 MG Simvastatin (Zocor Tab) 20 mg QPM PO 07/13/17 21:00 08/12/17 20:59 07/14/17 21:11 20 MG Insulin Aspart (novoLOG ASPART) SLIDING SCALE G... ACHS SC 07/13/17 16:15 08/12/17 17:14 07/15/17 17:55 7 UNITS Ceftriaxone Sodium 2000 mg/ Dextrose 70 ml @ 100 mls/hr Q24H IV 07/14/17 14:00 07/24/17 13:59 07/15/17 14:41 100 MLS/HR Glucose (Glucose 40% Gel) 15-30 GRAMS 15 GRAMS... UD PRN PO 07/13/17 11:00 08/12/17 10:59 Glucose (Glucose Chew Tab) 4-8 Tablets 4 Tabl... UD PRN PO 07/13/17 11:00 08/12/17 10:59 Dextrose (Dextrose 50% 50ML Syringe) 25-50ML OF 50% DW IV FOR... UD PRN IV 07/13/17 11:00 08/12/17 10:59 Glucagon (Glucagon Inj) 1 mg UD PRN SQ 07/13/17 11:00 08/12/17 10:59 Miscellaneous Information (Consult Glycemic Management Pharmacy) 1 ea UD N/A 07/13/17 17:19 08/12/17 17:18 Tamsulosin HCl (Flomax Cap) 0.8 mg QPM PO 07/13/17 21:00 08/12/17 20:59 07/13/17 21:07 0.8 MG Insulin Glargine (Lantus Solostar Pen) SEE PROTOCOL TEXT BID SC 07/14/17 09:00 08/13/17 08:59 07/15/17 17:56 15 UNITS Amiodarone HCL/ Dextrose 200 ml @ 16.7 mls/hr [id number] IV 07/15/17 00:30 08/14/17 00:29 07/15/17 11:14 16.7 MLS/HR Heparin Sodium/ Dextrose 500 ml @ 20 mls/hr Q24H PRN IV 07/14/17 21:45 08/13/17 21:44 07/14/17 22:32 18 MLS/HR Atenolol (Tenormin Tab) 50 mg HS PO 07/15/17 21:00 08/12/17 20:59 Objective Vital Signs Date Time Temp Pulse Resp B/P (MAP) Pulse Ox O2 Delivery O2 Flow Rate FiO2 07/15/17 16:00 Room Air 07/15/17 15:48 37.0 90 20 118/65 (82) 94 Room Air 07/15/17 12:13 37.0 105 16 128/77 (94) 94 07/15/17 12:00 Room Air 07/15/17 08:37 36.8 93 18 107/84 (92) 94 07/15/17 08:00 Room Air 07/15/17 04:00 Room Air 07/15/17 03:08 36.8 91 20 113/61 (78) 93 Room Air 07/15/17 00:11 36.8 111 22 104/62 (76) 91 Room Air 07/15/17 00:00 Room Air 07/14/17 23:16 106 07/14/17 23:00 95/56 (69) 07/14/17 22:45 107 23 98/60 (73) 07/14/17 22:02 102 24 95/52 (66) 07/14/17 21:57 107 109/62 07/14/17 21:33 119 24 93/61 (72) 07/14/17 20:00 Room Air Physical Exam General Appearance: WD/WN, no apparent distress Respiratory/Chest: lungs clear, normal breath sounds, no respiratory distress, no accessory muscle use Cardiovascular: no edema, + irregularly irregular Abdomen: non tender, soft Extremities: + pertinent finding (right hip dressing c/d/i with pressure pump) Neurologic/Psychiatric: alert, normal mood/affect Laboratory Results Last 24 Hours Test 07/14/17 20:38 07/14/17 20:53 07/14/17 21:36 07/15/17 06:09 White Blood Count 10.77 K/uL 11.50 K/uL Red Blood Count 3.29 M/uL 3.32 M/uL Hemoglobin 9.6 g/dL 9.8 g/dL Hematocrit 28.8 % 28.9 % Mean Corpuscular Volume 87.5 fL 87.0 fL Mean Corpuscular Hemoglobin 29.2 pg 29.5 pg Mean Corpuscular Hemoglobin Concent 33.3 g/dl 33.9 g/dl Platelet Count 239 K/uL 279 K/uL Mean Platelet Volume 9.5 fL 9.9 fL Neutrophils (%) (Auto) 84.0 % 85.5 % Lymphocytes (%) (Auto) 8.1 % 4.0 % Monocytes (%) (Auto) 6.9 % 9.2 % Eosinophils (%) (Auto) 0.5 % 0.7 % Basophils (%) (Auto) 0.1 % 0.1 % Neutrophils # (Auto) 9.06 K/uL 9.83 K/uL Lymphocytes # (Auto) 0.87 K/uL 0.46 K/uL Monocytes # (Auto) 0.74 K/uL 1.06 K/uL Eosinophils # (Auto) 0.05 K/uL 0.08 K/uL Basophils # (Auto) 0.01 K/uL 0.01 K/uL RDW Standard Deviation 47.5 fL 48.0 fL RDW Coefficient of Variation 14.8 % 15.1 % Immature Granulocyte % (Auto) 0.4 % 0.5 % Immature Granulocyte # (Auto) 0.04 K/uL 0.06 K/uL Prothrombin Time 12.4 SECONDS Prothromb Time International Ratio 1.2 Activated Partial Thromboplast Time 49.0 SECONDS 45.3 SECONDS Partial Thromboplastin Ratio 1.9 1.7 Sodium Level 131 mmol/L 133 mmol/L Potassium Level 2.9 mmol/L 4.1 mmol/L Chloride Level 97 mmol/L 101 mmol/L Carbon Dioxide Level 26 mmol/L 23 mmol/L Anion Gap 9.0 mmol/L 9.0 mmol/L Blood Urea Nitrogen 12 mg/dl 9 mg/dl Creatinine 0.94 mg/dl 0.93 mg/dl Est Creatinine Clear Calc Drug Dose 64.7 ml/min 65.4 ml/min Estimated GFR () 88.4 89.5 Estimated GFR (Non- 76.3 77.3 BUN/Creatinine Ratio 13.0 10.1 Random Glucose 181 mg/dl 157 mg/dl Calcium Level 8.4 mg/dl 8.4 mg/dl Magnesium Level 1.5 mg/dl Troponin I 0.113 ng/ml Bedside Glucose 173 mg/dl Lactic Acid Level 1.6 mmol/L Procalcitonin 4.47 ng/ml Erythrocyte Sedimentation Rate > 90 mm/hr Total Bilirubin 0.5 mg/dl Aspartate Amino Transf (AST/SGOT) 34 U/L Alanine Aminotransferase (ALT/SGPT) 28 U/L Alkaline Phosphatase 138 U/L C-Reactive Protein 30.80 mg/dl Total Protein 6.2 gm/dl Albumin 1.9 gm/dl Globulin 4.3 gm/dl Albumin/Globulin Ratio 0.4 Test 07/15/17 06:28 07/15/17 07:15 07/15/17 12:45 07/15/17 14:18 Bedside Glucose 162 mg/dl 211 mg/dl Troponin I 0.056 ng/ml Activated Partial Thromboplast Time 51.6 SECONDS Partial Thromboplastin Ratio 2.0 Test 07/15/17 15:52 Bedside Glucose 166 mg/dl Assessment and Plan Mr. Dinh is an 82 year old male with suspected right infected hip s/p arthroplasty and irrigation and debridement, poly-liner and femoral head exchange with application of antibiotic beads. He was also noted to be in new onset afib. 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 - continue atenolol 50 mg - d/c IVF - d/c diltiazem drip - on heparin drip w/out bolus given recent surgery - ECHO -> LVH, mild-mod AR, mild - K optimized at 4.1 - Mg 1.5 -> given 1g IV Mg and will recheck Right hip infection - thank you to ID for consult - continue IV rocephin -> will likely need 4 weeks of treatment - joint fluid grew citrobacter - afebrile, Bcx negative - WCC 11.5 DMII - glycemic consultation - hold home metformin HTN - stable at present - continue 50mg atenolol HLD - continue statin therapy On aggrenox Code: FULL DVT Prophylaxis: on heparin drip Assessment/Plan Resident Physician Supervision Note: I was present with Dr. Dan during the history and exam. I discussed the case with the resident and agree with the findings and plan as documented in the note. Any exceptions or clarifications are listed here. Pt remains asymptomatic with HR in the 90s on monitor. At present, rate control improving with amiodarone drip. Hopefully to convert to PO starting tomorrow. Cardiology consultation, input appreciated. Continued DMII management and monitoring of BP. Resident Tracking Resident Involvement: Resident Care Provided Care Provided: Adult [facility]
--- NOTE | 2017-07-15 18:00 | CARDIOLOGY CONSULTATION ---
DATE OF CONSULTATION: 07/15/2017 CAREER TRANSITION SPECIALIST: Finn Kirkland DO, [facility] [address] [facility]. REQUESTING PHYSICIAN: Mike Manning MD REASON FOR CONSULTATION: Atrial fibrillation with a rapid ventricular response. Dear Dr. Manning: Thank you for requesting cardiology consultation on João with regards to his asymptomatic atrial fibrillation. As you know, his history has been well documented. He underwent right hip irrigation and debridement with a poly liner and femoral head exchange due to infection of his right hip since April. He went to the OR on 07/13/2017. He did well in the operating room. Yesterday, while up on the floor at approximately 3:00 in the afternoon, he went into atrial fibrillation with a rapid ventricular response with rates as fast as 166 beats per minute. Even with his rates that fast, he was asymptomatic. He denied any palpitations or fluttering or feeling his heart racing. He denied any lightheadedness or dizziness. He was mildly hypotensive last evening with it, but with a fluid bolus and the use of amiodarone, slowing his heart rate down, he did not require emergent cardioversion. This morning, he remains in atrial fibrillation and remains asymptomatic. He denies any chest pain or chest pressure. He denies any lightheaded or dizziness. He has no lower extremity edema. He denies any abdominal pain. He notes before his hip issue, he was going to [employer] almost every day and was able to work out there without any cardiac symptoms. He is unaware of having atrial fibrillation in the past. His appetite has been so-so of late. He denies any bleeding, bruising, dark stools or black stools. The rest of review of systems are negative. PAST MEDICAL HISTORY: 1. Asymptomatic paroxysmal atrial fibrillation. 2. 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 3. 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 4. Preserved left ventricular systolic function. 5. Mild aortic stenosis with [id number] aortic insufficiency. 6. Osteoarthritis. 7. Hypertension. 8. Macular degeneration. 9. Hyperlipidemia. FAMILY HISTORY: Noncontributory. SOCIAL HISTORY: He is currently a nonsmoker. He smoked in the past. He is . He lives with his . He is retired. ALLERGIES: No known drug allergies. MEDICATIONS: Reviewed in the electronic medical record. PHYSICAL EXAMINATION: GENERAL: He is awake, alert, oriented x3. He is in no acute distress. VITAL SIGNS: His heart rate is currently 90-100 beats per minute, in atrial fibrillation. His blood pressure is 128/77. His pulse oximetry is 94% on room air. His respirations are 16. HEENT: 2+ carotid upstrokes. He has bilateral carotid bruits, likely radiating from his heart. His sclerae was anicteric. His hearing is mildly diminished. LUNGS: Clear to auscultation bilaterally. No rales, rhonchi or wheezing. HEART: Irregular rate and rhythm. He has a soft systolic ejection murmur 2/6, which is early peaking. I could not appreciate a diastolic murmur. ABDOMEN: Soft, nontender, nondistended. Positive bowel sounds. EXTREMITIES: No clubbing, cyanosis or edema. PSYCHIATRIC: His affect appeared appropriate. Echocardiogram: Normal LV size and function, mild left atrial enlargement, [id number] aortic regurgitation, mild aortic stenosis. Normal RV size and function. LABORATORY STUDIES: White count of 11.5, hemoglobin 9.8, platelet count is 279. His sed rate was greater than 90. Sodium 133, potassium 4.1, BUN 9, creatinine 0.93. His troponin peaked at 0.113 and dropped to 0.056. IMPRESSION: 1. Postoperative atrial fibrillation with a rapid ventricular response. 2. Infected right total hip replacement. 3. Normal left ventricular systolic function. 4. Mild aortic stenosis with [id number] aortic insufficiency. 5. Hypertension. With regards to João's atrial fibrillation, at this point, amiodarone is being used to slow him down without affecting his blood pressure, but hopefully it will allow him to convert back to sinus rhythm. I would continue his atenolol 50 mg. Likely some of his hypotension was a combination of venodilation from anesthesia, and with fluids his blood pressure has come up nicely. If he does not convert from atrial fibrillation, I would recommend a rate control strategy given the fact that he is asymptomatic. He is currently on heparin without a bolus to reduce his risk of bleeding into his hip, status post surgery. nursing home, he will need anticoagulation as it is quite possible he has been having asymptomatic atrial fibrillation at home and just not knowing it. If his rates remain difficult to control, depending on his blood pressure we can either up titrate his beta blockers or add a calcium channel erick to his medical regimen. We will continue to follow him with you. I would be judicious with his fluids, now that his blood pressure has improved and he has a good urine output, and watch for any potential symptoms of diastolic heart failure due to excess volume. Thank you for allowing us to participate in his care. JERONIMO
[2017-07-15] MEDS ORDERED: AMIODARONE / D5W 100 ML IV SCH (18:05)
[2017-07-15] MEDS: ACETAMINOPHEN 325 MG TAB PO PRN (18:34)
[2017-07-15] MEDS: TAMSULOSIN HCL 0.4 MG CAP PO SCH (21:28)
[2017-07-15] MEDS: SIMVASTATIN 20 MG TAB PO SCH (21:28)
[2017-07-15] MEDS: HEPARIN 25,000 UNIT/500ML D5W 500 ML IV PRN (22:53)
[2017-07-15] MEDS: OXYCODONE HCL IR 5 MG TAB (IMMEDIATE RELEASE) PO PRN (23:22)
[2017-07-16 03:56] VITALS: BP 117/68; PULSE 101; TEMP 36.9; O2SAT 93
[2017-07-16 06:12] LABS: BASO % 0.1 %; BASO ABS # 0.01 K/uL (0-0.2); EOS % 0.9 %; EOS ABS # 0.12 K/uL (0-0.5); HEMATOCRIT 29.3 % (42-52); IG# 0.07 K/uL (0.00-0.02); LYMPH % 4.5 %; LYMPH ABS # 0.61 K/uL (1.2-3.4); MEAN CELL VOLUME 85.9 fL (80-100); MEAN CORPUSCULAR HEMOGLOBIN 29.3 pg (25-34); MEAN CORPUSCULAR HGB CONC 34.1 g/dl (32-36); MEAN PLATELET VOLUME 9.8 fL (7.4-10.4); MONO % 5.4 %; MONO ABS # 0.74 K/uL (0.11-0.59); NEUT % 88.6 %; NEUT ABS # 12.09 K/uL (1.4-6.5); PLATELET COUNT 288 K/uL (130-400); RED CELL DISTRIBUTION WIDTH CV 14.7 % (11.5-14.5); RED CELL DISTRIBUTION WIDTH SD 46.4 fL (36.4-46.3); WHITE BLOOD COUNT 13.64 K/uL (4.8-10.8)
[2017-07-16 06:51] LABS: ALBUMIN 1.7 gm/dl (3.4-5.0); CALCIUM 8.7 mg/dl (8.5-10.1); CREATININE 0.88 mg/dl (0.60-1.40); POTASSIUM 3.3 mmol/L (3.5-5.1); TOTAL PROTEIN 5.9 gm/dl (6.4-8.2)
[2017-07-16] MEDS: PANTOprazole SOD 40 MG TAB PO SCH (07:41)
[2017-07-16] MEDS: FERROUS GLUCONATE 324 MG TAB PO SCH ×3 (07:41→16:30)
[2017-07-16] MEDS: MULTIVITAMIN TAB PO SCH (07:41)
[2017-07-16] MEDS: DIPYRIDAMOLE/ASPIRIN CAP PO SCH ×2 (07:42→20:53)
[2017-07-16] MEDS: HYDROCHLOROTHIAZIDE 25 MG TAB PO SCH (07:42)
[2017-07-16] MEDS: CHLORPROMAZINE HCL 25 MG TAB PO PRN (07:43)
[2017-07-16] MEDS: NIASPAN 500 MG TABCR PO SCH (07:43)
[2017-07-16] MEDS: ALLOPURINOL 300 MG TAB PO SCH (07:43)
[2017-07-16] MEDS ORDERED: POTASSIUM CHLORIDE 20 MEQ TABCR PO STA (07:47)
[2017-07-16] MEDS: INSULIN ASPART 100 UNITS/ML 3 ML PEN SC SCH ×4 (07:49→20:55)
[2017-07-16] MEDS: DOCUSATE SODIUM 100 MG CAP PO SCH ×2 (07:50→21:00)
[2017-07-16] MEDS: INSULIN GLARGINE SOLOSTAR 100 UNITS/ML 3 ML PEN SC SCH ×2 (07:50→20:56)
[2017-07-16 07:53] LABS: PTT PATIENT 50.6 SECONDS (21.0-31.0)
[2017-07-16 08:23] VITALS: BP 121/79; PULSE 105; TEMP 36.9; O2SAT 92
[2017-07-16] MEDS: AMIODARONE / D5W 200 ML IV SCH (08:47)
--- NOTE | 2017-07-16 09:07 | PROGRESS NOTE ---
DATE: 07/16/2017 Postop day #3 status post I&D of right hip with exchange of poly and femoral head and hole eliminator and application of Stimulan beads. At this point in time, the patient recalls him being confused, thinking that he was in [place], was more than likely a dream. He notes that he is alert and oriented now and has no issues. He recalls the details vividly. He denies any chest pain, shortness of breath, fever, chills, nausea, vomiting or headache. Vital signs are stable. He is afebrile. Physical exam reveals no abdominal pain, no calf pain. Hip dressing clean, dry and intact. No collection in the hip. Supple movement of the hip is pain free. Femoral sciatic nerve is normal. Again calves are nontender. Hematology reveals white count at 13.6, hematocrit stable at 29.3. APTT is in good range at 50.6. Chemistry reveals glucoses are controlled below 200. Potassium is little low at 3.3. Blood cultures remain negative. Wound hip culture is consistent with citrobacter sensitive to ceftriaxone. Of note, is that per nursing reports, the patient had some loose stool and she send it for C. diff. We will await the culture on that. ASSESSMENT: At this point in time, continues to slowly improve. He has been afebrile. Elevated white count is returning more towards what he was at baseline; however, will need to continue to observe that. C. diff culture pending. Atrial fibrillation continues to be present but rate is controlled. We will try to resume PT, OT. We will discontinue Buenrostro. Straight cath p.r.n. Try PT, OT to mobilize. At this point in time, social studies department chair will need to be finalizing transfer to appropriate facility for chcf and PT. Home environment not appropriate. Due to the complexity of medical conditions at this point in time, the patient should be transferred to medical service. We will continue to follow daily.
--- NOTE | 2017-07-16 11:08 | Cardiology Follow-Up ---
Subjective General Date of Service: Jul 16, 2017. Pt evaluation today including: conversation w/ patient, conversation w/ family , chart review, lab review, review of studies History of Present Illness The patient is a 82 year old male Allergies Coded Allergies: No Known Allergies (Verified , 07/13/17) Social History Smoking Status: Former Smoker Hx Tobacco Use In Past Year?: No (QUIT SMOKING OCTOBER 2000) Hx Alcohol Use - Type And Amou: Yes (RARELY) Hx Substance Use - Type And Am: No Problem List Medical Problems: (1) Hiccups Status: Acute (2) Hyponatremia Status: Acute (3) Polyuria Status: Acute (4) Right radial fracture Status: Acute Review of Systems Additional ROS Details: Patient sleeping soundly, son in room and notes he seems more confused Physical Exam Vital Signs Last Vital Signs Documentation Date Time Temp Pulse Resp B/P (MAP) Pulse Ox O2 Delivery O2 Flow Rate FiO2 07/16/17 08:23 36.9 105 21 121/79 (93) 92 Room Air 07/14/17 16:00 2.0 Physical Exam Constitutional: Level of Distress: NAD Lungs: Respiratory effort: no dyspnea Auscultation: breath sounds normal, no wheezing, no rales/crackles, no rhonchi Cardiovascular: Heart Auscultation: II/ LEXI, irregular rate rhythm Abdomen: Bowel Sounds: normal Inspection & Palpation: soft, non-distended, no tenderness, guarding & rebound Extremities: no edema Assessment and Plan Assessment and Plan IMPRESSION: 1. Postoperative atrial fibrillation with a rapid ventricular response. 2. Infected right total hip replacement. 3. Normal left ventricular systolic function. 4. Mild aortic stenosis with [id number] aortic insufficiency. 5. Hypertension. It doesn't look like amio has converted him I would d/c and add dose of atenolol 25mg in the am to the 50mg in the PM IF we run out of BP room then add digoxin heparin to coumadin or NOAC watch for signs of CHF Laboratory Results Last 24 Hours Test 07/15/17 12:45 07/15/17 14:18 07/15/17 15:52 07/15/17 21:28 Bedside Glucose 211 mg/dl 166 mg/dl 168 mg/dl Activated Partial Thromboplast Time 51.6 SECONDS Partial Thromboplastin Ratio 2.0 Test 07/16/17 05:36 07/16/17 06:38 07/16/17 06:57 White Blood Count 13.64 K/uL Red Blood Count 3.41 M/uL Hemoglobin 10.0 g/dL Hematocrit 29.3 % Mean Corpuscular Volume 85.9 fL Mean Corpuscular Hemoglobin 29.3 pg Mean Corpuscular Hemoglobin Concent 34.1 g/dl Platelet Count 288 K/uL Mean Platelet Volume 9.8 fL Neutrophils (%) (Auto) 88.6 % Lymphocytes (%) (Auto) 4.5 % Monocytes (%) (Auto) 5.4 % Eosinophils (%) (Auto) 0.9 % Basophils (%) (Auto) 0.1 % Neutrophils # (Auto) 12.09 K/uL Lymphocytes # (Auto) 0.61 K/uL Monocytes # (Auto) 0.74 K/uL Eosinophils # (Auto) 0.12 K/uL Basophils # (Auto) 0.01 K/uL RDW Standard Deviation 46.4 fL RDW Coefficient of Variation 14.7 % Immature Granulocyte % (Auto) 0.5 % Immature Granulocyte # (Auto) 0.07 K/uL Erythrocyte Sedimentation Rate > 90 mm/hr Sodium Level 131 mmol/L Potassium Level 3.3 mmol/L Chloride Level 96 mmol/L Carbon Dioxide Level 23 mmol/L Anion Gap 12.0 mmol/L Blood Urea Nitrogen 10 mg/dl Creatinine 0.88 mg/dl Est Creatinine Clear Calc Drug Dose 75.5 ml/min Estimated GFR () 94.0 Estimated GFR (Non- 81.1 BUN/Creatinine Ratio 11.1 Random Glucose 171 mg/dl Calcium Level 8.7 mg/dl Magnesium Level 1.4 mg/dl Total Bilirubin 0.5 mg/dl Aspartate Amino Transf (AST/SGOT) 25 U/L Alanine Aminotransferase (ALT/SGPT) 26 U/L Alkaline Phosphatase 145 U/L Total Protein 5.9 gm/dl Albumin 1.7 gm/dl Globulin 4.2 gm/dl Albumin/Globulin Ratio 0.4 Procalcitonin 2.28 ng/ml Bedside Glucose 181 mg/dl Activated Partial Thromboplast Time 50.6 SECONDS Partial Thromboplastin Ratio 1.9
[2017-07-16 12:20] VITALS: BP 101/66; PULSE 95; TEMP 36.8; O2SAT 93
[2017-07-16] MEDS: CEFTRIAXONE SOD INJ 2,000 MG in DEXTROSE 5% 50ML 50 ML IV SCH (13:30)
[2017-07-16] MEDS: OXYCODONE HCL IR 5 MG TAB (IMMEDIATE RELEASE) PO PRN (13:52)
--- NOTE | 2017-07-16 13:55 | Pharmacy Progress Note ---
Glycemic: Assessment & Plan Date of Service Jul 16, 2017. Assessment & Plan The patient is currently receiving ~50 units of insulin per day. BSGs ranging 162 - 225 mg/dl over the past 24hrs. Using SQ basal bolus insulin regimen while outpatient oral antidiabetic medications on hold for admission. * Basal insulin: Lantus 15 units every 12 hours * Correctional Insulin: Novolog Correction per scale ACHS Goal Range: Low 110 mg/dL - High 150 mg/dL Correction Factor: 20 mg/dL/unit * Prandial insulin: Per carb ratio of 1 unit per 7 grams CHO consumed BSGs continue to improve, no changes needed to inpatient regimen at this time. Pharmacy will continue to monitor patient daily and write orders per [facility] inpatient glycemic control protocol. Thanks. * Please note that the plan above was derived based on current level of insulin resistance and hospital stress. These recommendations are appropriate for inpatient admission only. Plan of care upon discharge will need to be reassessed to avoid potential outpatient hypo/hyperglycemia.
--- NOTE | 2017-07-16 15:18 | Family Medicine Progress Note ---
Progress Note Date of Service Jul 16, 2017. Subjective Pt evaluation today including: conversation w/ patient, physical exam, chart review, lab review, review of inpatient medication list Pain: No pain reported PO Intake: Tolerating PO intake Voiding: cruz catheter in place Mr. Dinh reports he has had episodes of confusion since yesterday, where he forgot why he was in the hospital. At the present time, he reports being able to recall recent events. He denies chest pain, shortness of breath, palpitations , n/v, fever or chills. He notes he is comfortable at rest and that the pain in his right hip only bothers him when he tries to walk. Constitutional: No fever, No chills Respiratory: No cough, No sputum, No shortness of breath Cardiovascular: No chest pain Abdomen: No pain, No nausea, No vomiting All Other Systems: Reviewed and Negative Medications Current Inpatient Medications Medications (Trade) Dose Ordered Sig/Oswaldo Route Start Time Stop Time Status Last Admin Dose Admin Oxycodone HCl (Roxicodone Immediate Rel Tab) 1 TABLET FOR PAIN RATING... Q4H PRN PO 07/13/17 10:30 07/27/17 10:29 07/16/17 13:52 5 MG Morphine Sulfate (MoRPHine SULFATE INJ) give 2mg for pain 3-6 g... Q1H PRN IV 07/13/17 10:30 07/27/17 10:29 Acetaminophen (Tylenol Tab) 650 mg Q6H PRN PO 07/14/17 14:00 08/13/17 13:59 07/15/17 18:34 650 MG Magnesium Hydroxide (Milk Of Magnesia Susp) 30 ml Q6H PRN PO 07/13/17 10:30 08/12/17 10:29 Bisacodyl (Dulcolax Supp) 10 mg DAILY PRN [place] 07/13/17 10:30 08/12/17 10:29 Sodium Biphosphate/ Sodium Phosphate (Fleet Enema) 132 ml DAILY PRN IA 07/13/17 10:30 08/12/17 10:29 Docusate Sodium (coLACE CAP) 100 mg BID PO 07/13/17 21:00 08/12/17 20:59 07/14/17 21:11 100 MG Diphenhydramine HCl (Benadryl Inj) 25 mg Q8H PRN IV 07/13/17 10:30 08/12/17 10:29 Al Hydrox/Mg Hydrox/Simethicone (Maalox Max Susp) 15 ml Q4H PRN PO 07/13/17 10:30 08/12/17 10:29 Ondansetron HCl (Zofran Inj) 4 mg Q6H PRN IV 07/13/17 10:30 08/12/17 10:29 Metoclopramide HCl (Reglan Inj) 10 mg Q6H PRN IV 07/13/17 10:30 08/12/17 10:29 Ferrous Gluconate (Ferrous Gluconate Tab) 324 mg TIDM PO 07/13/17 16:45 08/12/17 17:44 07/16/17 12:02 324 MG Pantoprazole Sodium (Protonix Tab) 40 mg QAM PO 07/14/17 09:00 07/18/17 08:59 07/16/17 07:41 40 MG Allopurinol (Zyloprim Tab) 300 mg QAM PO 07/14/17 09:00 08/13/17 08:59 07/16/17 07:43 300 MG Dipyridamole/ Aspirin (Aggrenox 200MG/ 25MG Cap) 1 cap BID PO 07/13/17 21:00 08/12/17 20:59 07/16/17 07:42 1 CAP Chlorpromazine HCl (Thorazine Tab) 25 mg TID PRN PO 07/13/17 10:30 08/12/17 10:29 07/16/17 07:43 25 MG Hydrochlorothiazide (Hydrochlorothiazide Tab) 25 mg QAM PO 07/14/17 09:00 08/13/17 08:59 07/16/17 07:42 25 MG Multivitamins (Multivitamin Tab) 1 tab DAILY PO 07/14/17 09:00 08/13/17 08:59 07/16/17 07:41 1 TAB Niacin (Niaspan Extended Rel Tab) 500 mg DAILY PO 07/14/17 09:00 08/13/17 08:59 07/16/17 07:43 500 MG Simvastatin (Zocor Tab) 20 mg QPM PO 07/13/17 21:00 08/12/17 20:59 07/15/17 21:28 20 MG Insulin Aspart (novoLOG ASPART) SLIDING SCALE G... ACHS SC 07/13/17 16:15 08/12/17 17:14 07/16/17 12:05 8 UNITS Ceftriaxone Sodium 2000 mg/ Dextrose 70 ml @ 100 mls/hr Q24H IV 07/14/17 14:00 07/24/17 13:59 07/16/17 13:30 100 MLS/HR Glucose (Glucose 40% Gel) 15-30 GRAMS 15 GRAMS... UD PRN PO 07/13/17 11:00 08/12/17 10:59 Glucose (Glucose Chew Tab) 4-8 Tablets 4 Tabl... UD PRN PO 07/13/17 11:00 08/12/17 10:59 Dextrose (Dextrose 50% 50ML Syringe) 25-50ML OF 50% DW IV FOR... UD PRN IV 07/13/17 11:00 08/12/17 10:59 Glucagon (Glucagon Inj) 1 mg UD PRN SQ 07/13/17 11:00 08/12/17 10:59 Miscellaneous Information (Consult Glycemic Management Pharmacy) 1 ea UD N/A 07/13/17 17:19 08/12/17 17:18 Tamsulosin HCl (Flomax Cap) 0.8 mg QPM PO 07/13/17 21:00 08/12/17 20:59 07/15/17 21:28 0.8 MG Insulin Glargine (Lantus Solostar Pen) SEE PROTOCOL TEXT BID SC 07/14/17 09:00 08/13/17 08:59 07/16/17 07:50 15 UNITS Heparin Sodium/ Dextrose 500 ml @ 20 mls/hr Q24H PRN IV 07/14/17 21:45 08/13/17 21:44 07/15/17 22:53 20 MLS/HR Atenolol (Tenormin Tab) 50 mg HS PO 07/15/17 21:00 08/12/17 20:59 07/15/17 21:28 50 MG Atenolol (Tenormin Tab) 25 mg QAM PO 07/16/17 11:30 08/15/17 11:29 07/16/17 12:20 25 MG Objective Vital Signs Date Time Temp Pulse Resp B/P (MAP) Pulse Ox O2 Delivery O2 Flow Rate FiO2 07/16/17 12:20 36.8 95 24 101/66 (78) 93 Room Air 07/16/17 12:00 Room Air 07/16/17 08:23 36.9 105 21 121/79 (93) 92 Room Air 07/16/17 08:00 Room Air 07/16/17 04:00 Room Air 07/16/17 03:56 36.9 101 18 117/68 (84) 93 Room Air 07/16/17 00:00 Room Air 07/15/17 23:39 37.1 97 17 128/90 (103) 95 Room Air 07/15/17 21:16 36.7 130 20 133/86 (102) 93 Room Air 07/15/17 20:00 Room Air 07/15/17 16:00 Room Air 07/15/17 15:48 37.0 90 20 118/65 (82) 94 Room Air Physical Exam General Appearance: WD/WN, no apparent distress Respiratory/Chest: lungs clear, normal breath sounds Cardiovascular: no edema, + irregularly irregular Abdomen: non tender, soft Extremities: no calf tenderness, + pertinent finding (right hip with pressure dressing that is c/d/i) Neurologic/Psychiatric: alert, normal mood/affect, oriented x 3 Laboratory Results Last 24 Hours Test 07/15/17 15:52 07/15/17 21:28 07/16/17 05:36 07/16/17 06:38 Bedside Glucose 166 mg/dl 168 mg/dl 181 mg/dl White Blood Count 13.64 K/uL Red Blood Count 3.41 M/uL Hemoglobin 10.0 g/dL Hematocrit 29.3 % Mean Corpuscular Volume 85.9 fL Mean Corpuscular Hemoglobin 29.3 pg Mean Corpuscular Hemoglobin Concent 34.1 g/dl Platelet Count 288 K/uL Mean Platelet Volume 9.8 fL Neutrophils (%) (Auto) 88.6 % Lymphocytes (%) (Auto) 4.5 % Monocytes (%) (Auto) 5.4 % Eosinophils (%) (Auto) 0.9 % Basophils (%) (Auto) 0.1 % Neutrophils # (Auto) 12.09 K/uL Lymphocytes # (Auto) 0.61 K/uL Monocytes # (Auto) 0.74 K/uL Eosinophils # (Auto) 0.12 K/uL Basophils # (Auto) 0.01 K/uL RDW Standard Deviation 46.4 fL RDW Coefficient of Variation 14.7 % Immature Granulocyte % (Auto) 0.5 % Immature Granulocyte # (Auto) 0.07 K/uL Erythrocyte Sedimentation Rate > 90 mm/hr Sodium Level 131 mmol/L Potassium Level 3.3 mmol/L Chloride Level 96 mmol/L Carbon Dioxide Level 23 mmol/L Anion Gap 12.0 mmol/L Blood Urea Nitrogen 10 mg/dl Creatinine 0.88 mg/dl Est Creatinine Clear Calc Drug Dose 75.5 ml/min Estimated GFR () 94.0 Estimated GFR (Non- 81.1 BUN/Creatinine Ratio 11.1 Random Glucose 171 mg/dl Calcium Level 8.7 mg/dl Magnesium Level 1.4 mg/dl Total Bilirubin 0.5 mg/dl Aspartate Amino Transf (AST/SGOT) 25 U/L Alanine Aminotransferase (ALT/SGPT) 26 U/L Alkaline Phosphatase 145 U/L Total Protein 5.9 gm/dl Albumin 1.7 gm/dl Globulin 4.2 gm/dl Albumin/Globulin Ratio 0.4 Procalcitonin 2.28 ng/ml Test 07/16/17 06:57 07/16/17 11:48 Activated Partial Thromboplast Time 50.6 SECONDS Partial Thromboplastin Ratio 1.9 Bedside Glucose 225 mg/dl Assessment and Plan Mr. Dinh is an 82 year old male with suspected right infected hip s/p arthroplasty and irrigation and debridement, poly-liner and femoral head exchange with application of antibiotic beads. He was also noted to be in new onset afib. Atrial fibrillation - remains asymptomatic - thank you to cardiology for consult - did not convert to sinus on the amiodarone drip overnight - d/c drip - aiming for rate control -> add 25mg of atenolol to his regimen in addition to 50mg atenolol at night - if his BP drops -> can try digoxin - anticoagulation: - given the fact that he is entirely asymptomatic, he may have been having episodes of afib prior to this without realizing and will need skilled nursing anticoagulation - on heparin drip w/out bolus given recent surgery - start warfarin 2.5mg daily - will monitor INR -> not a good candidate for NOACs given recent surgery & fall risk - ECHO -> LVH, mild-mod AR, mild - K 3.3 -> 40 mEq oral potassium given today and will recheck tomorrow. Aiming for >4 - Mg 1.5 -> given 1g IV Mg on 07/14 and will recheck tomorrow. Aiming for >2 Right hip infection - thank you to ID for consult - continue IV rocephin -> will likely need 4 weeks of treatment - joint fluid grew citrobacter - PICC line consent done and in patient's chart - afebrile, Bcx negative - WCC 13.6, increased from 11.5 yesterday DMII - glycemic consultation - hold home metformin HTN - stable at present - continue atenolol HLD - continue statin therapy On aggrenox Code: FULL DVT Prophylaxis: on heparin drip Resident Tracking Resident Involvement: Resident Care Provided Care Provided: Adult Hospital Medicine Assessment/Plan Resident Physician Supervision Note: I was present with Dr. Dan during the history and exam. I discussed the case with the resident and agree with the findings and plan as documented in the note. Any exceptions or clarifications are listed here. Pt continues to be asymptomatic with stable HR and well controlled right hip pain. Per cardiology recommendation, will transition from amiodarone to trial of atenolol and potential addition of digoxin. Continued DMII management and monitoring of BP. Repleted Mg+ and K+ today.
[2017-07-16 16:16] VITALS: BP 101/65; PULSE 91; TEMP 38.5; O2SAT 92
[2017-07-16] MEDS: WARFARIN SOD 2.5 MG TAB PO SCH (16:29)
[2017-07-16] MEDS: ACETAMINOPHEN 325 MG TAB PO PRN (16:30)
[2017-07-16 18:20] VITALS: TEMP 36.6
[2017-07-16 20:51] VITALS: BP 105/76; PULSE 87; TEMP 36.4; O2SAT 92
[2017-07-16] MEDS: TAMSULOSIN HCL 0.4 MG CAP PO SCH (20:53)
[2017-07-16] MEDS: SIMVASTATIN 20 MG TAB PO SCH (20:53)
[2017-07-17] VITALS: BP 102/65; PULSE 82; TEMP 36.4; O2SAT 92
[2017-07-17] MEDS: HEPARIN 25,000 UNIT/500ML D5W 500 ML IV PRN (00:06)
[2017-07-17] MEDS: OXYCODONE HCL IR 5 MG TAB (IMMEDIATE RELEASE) PO PRN ×2 (01:42→02:44)
[2017-07-17 03:26] VITALS: BP 93/61; PULSE 96; TEMP 36.7; O2SAT 91
--- NOTE | 2017-07-17 07:08 | ORTHOPEDICS PROGRESS NOTE ---
DATE: 07/17/2017 At this point in time, the patient is lying in bed comfortable. He did have an elevated temperature at one point yesterday, 38.5, after receiving his Rocephin and getting out of bed. It is hard to know what that means at this point. He defervesced quickly. He denies any increased pain in the hip. He did have some neck and back pain which is likely based on positioning. He states he feels better when he moves a little bit. He did respond well to the pain medication. At present, he is without any chest pain, shortness of breath, fever, chills, nausea, vomiting or headache. Vital signs are stable, he is afebrile. Last 3 temperatures have been 37 or below. Abdomen soft, nontender. Neurovascular check upper and lower extremities normal. Calves nontender. Hip located. Wound VAC is in place; minimal, if any, drainage noted. Does not have any significant thigh pain. There is no subcutaneous crepitation. Range of motion is supple and pain free. All a.m. laboratory work is pending. ASSESSMENT: Overall, continues to be frail, however, is not in any significant pain. Trialing out of bed yesterday with no problems with his atrial fibrillation. Suggest continue PT/OT, mobilize to tolerance. Continue wound VAC. Continue IV Rocephin. Atrial fibrillation management per hospitalist coverage and cardiology. PICC line should be placed today. Will definitely need placement. Continue close supervision.
[2017-07-17 07:11] LABS: BASO % 0.1 %; BASO ABS # 0.01 K/uL (0-0.2); EOS % 1.3 %; EOS ABS # 0.18 K/uL (0-0.5); HEMATOCRIT 28.8 % (42-52); IG# 0.14 K/uL (0.00-0.02); LYMPH % 5.4 %; LYMPH ABS # 0.75 K/uL (1.2-3.4); MEAN CELL VOLUME 84.7 fL (80-100); MEAN CORPUSCULAR HEMOGLOBIN 29.4 pg (25-34); MEAN CORPUSCULAR HGB CONC 34.7 g/dl (32-36); MEAN PLATELET VOLUME 9.7 fL (7.4-10.4); MONO % 7.2 %; NEUT ABS # 11.84 K/uL (1.4-6.5); PLATELET COUNT 338 K/uL (130-400); RED CELL DISTRIBUTION WIDTH CV 14.9 % (11.5-14.5); RED CELL DISTRIBUTION WIDTH SD 46.4 fL (36.4-46.3); WHITE BLOOD COUNT 13.92 K/uL (4.8-10.8)
[2017-07-17 07:15] VITALS: BP 93/59; PULSE 101; TEMP 36.9; O2SAT 92
[2017-07-17 07:20] LABS: INR 1.7 (0.9-1.1)
[2017-07-17 07:27] LABS: PTT PATIENT 52.7 SECONDS (21.0-31.0)
[2017-07-17 07:37] LABS: CALCIUM 8.8 mg/dl (8.5-10.1); CREATININE 1.1 mg/dl (0.60-1.40); POTASSIUM 3.3 mmol/L (3.5-5.1)
--- NOTE | 2017-07-17 08:33 | Family Medicine Progress Note ---
Progress Note Date of Service Jul 17, 2017. Subjective Pt evaluation today including: conversation w/ patient Found patient resting comfortably, later up in his chair. Says he feels "not too bad" and is "comfortable". Denies any CP, SOB, palpitations. Says hip pain is well-controlled. Has no acute concerns. Nursing notes his stools are becoming more formed (from prior watery). Constitutional: + fever, No chills Respiratory: No cough, No shortness of breath Cardiovascular: No chest pain, No edema Abdomen: No pain, No nausea, No vomiting Medications Current Inpatient Medications Medications (Trade) Dose Ordered Sig/Oswaldo Route Start Time Stop Time Status Last Admin Dose Admin Oxycodone HCl (Roxicodone Immediate Rel Tab) 1 TABLET FOR PAIN RATING... Q4H PRN PO 07/13/17 10:30 07/27/17 10:29 07/17/17 02:44 5 MG Morphine Sulfate (MoRPHine SULFATE INJ) give 2mg for pain 3-6 g... Q1H PRN IV 07/13/17 10:30 07/27/17 10:29 Acetaminophen (Tylenol Tab) 650 mg Q6H PRN PO 07/14/17 14:00 08/13/17 13:59 07/16/17 16:30 650 MG Magnesium Hydroxide (Milk Of Magnesia Susp) 30 ml Q6H PRN PO 07/13/17 10:30 08/12/17 10:29 Bisacodyl (Dulcolax Supp) 10 mg DAILY PRN ME 07/13/17 10:30 08/12/17 10:29 Sodium Biphosphate/ Sodium Phosphate (Fleet Enema) 132 ml DAILY PRN ME 07/13/17 10:30 08/12/17 10:29 Docusate Sodium (coLACE CAP) 100 mg BID PO 07/13/17 21:00 08/12/17 20:59 07/14/17 21:11 100 MG Diphenhydramine HCl (Benadryl Inj) 25 mg Q8H PRN IV 07/13/17 10:30 08/12/17 10:29 Al Hydrox/Mg Hydrox/Simethicone (Maalox Max Susp) 15 ml Q4H PRN PO 07/13/17 10:30 08/12/17 10:29 Ondansetron HCl (Zofran Inj) 4 mg Q6H PRN IV 07/13/17 10:30 08/12/17 10:29 Metoclopramide HCl (Reglan Inj) 10 mg Q6H PRN IV 07/13/17 10:30 08/12/17 10:29 Ferrous Gluconate (Ferrous Gluconate Tab) 324 mg TIDM PO 07/13/17 16:45 08/12/17 17:44 07/16/17 16:30 324 MG Pantoprazole Sodium (Protonix Tab) 40 mg QAM PO 07/14/17 09:00 07/18/17 08:59 07/16/17 07:41 40 MG Allopurinol (Zyloprim Tab) 300 mg QAM PO 07/14/17 09:00 08/13/17 08:59 07/16/17 07:43 300 MG Dipyridamole/ Aspirin (Aggrenox 200MG/ 25MG Cap) 1 cap BID PO 07/13/17 21:00 08/12/17 20:59 07/16/17 20:53 1 CAP Chlorpromazine HCl (Thorazine Tab) 25 mg TID PRN PO 07/13/17 10:30 08/12/17 10:29 07/16/17 07:43 25 MG Hydrochlorothiazide (Hydrochlorothiazide Tab) 25 mg QAM PO 07/14/17 09:00 08/13/17 08:59 07/16/17 07:42 25 MG Multivitamins (Multivitamin Tab) 1 tab DAILY PO 07/14/17 09:00 08/13/17 08:59 07/16/17 07:41 1 TAB Niacin (Niaspan Extended Rel Tab) 500 mg DAILY PO 07/14/17 09:00 08/13/17 08:59 07/16/17 07:43 500 MG Simvastatin (Zocor Tab) 20 mg QPM PO 07/13/17 21:00 08/12/17 20:59 07/16/17 20:53 20 MG Insulin Aspart (novoLOG ASPART) SLIDING SCALE G... ACHS SC 07/13/17 16:15 08/12/17 17:14 07/16/17 20:55 4 UNITS Ceftriaxone Sodium 2000 mg/ Dextrose 70 ml @ 100 mls/hr Q24H IV 07/14/17 14:00 07/24/17 13:59 07/16/17 13:30 100 MLS/HR Glucose (Glucose 40% Gel) 15-30 GRAMS 15 GRAMS... UD PRN PO 07/13/17 11:00 08/12/17 10:59 Glucose (Glucose Chew Tab) 4-8 Tablets 4 Tabl... UD PRN PO 07/13/17 11:00 08/12/17 10:59 Dextrose (Dextrose 50% 50ML Syringe) 25-50ML OF 50% DW IV FOR... UD PRN IV 07/13/17 11:00 08/12/17 10:59 Glucagon (Glucagon Inj) 1 mg UD PRN SQ 07/13/17 11:00 08/12/17 10:59 Miscellaneous Information (Consult Glycemic Management Pharmacy) 1 ea UD N/A 07/13/17 17:19 08/12/17 17:18 Tamsulosin HCl (Flomax Cap) 0.8 mg QPM PO 07/13/17 21:00 08/12/17 20:59 07/16/17 20:53 0.8 MG Insulin Glargine (Lantus Solostar Pen) SEE PROTOCOL TEXT BID SC 07/14/17 09:00 08/13/17 08:59 07/16/17 20:56 15 UNITS Heparin Sodium/ Dextrose 500 ml @ 20 mls/hr Q24H PRN IV 07/14/17 21:45 08/13/17 21:44 07/17/17 00:06 20 MLS/HR Atenolol (Tenormin Tab) 50 mg HS PO 07/15/17 21:00 08/12/17 20:59 07/16/17 20:53 50 MG Atenolol (Tenormin Tab) 25 mg QAM PO 07/16/17 11:30 08/15/17 11:29 07/16/17 12:20 25 MG Warfarin Sodium (Coumadin Tab) 2.5 mg DAILY@16 PO 07/16/17 16:00 08/15/17 15:59 07/16/17 16:29 2.5 MG Objective Vital Signs Date Time Temp Pulse Resp B/P (MAP) Pulse Ox O2 Delivery O2 Flow Rate FiO2 07/17/17 07:15 36.9 101 18 93/59 (70) 92 Room Air 07/17/17 04:00 Room Air 07/17/17 03:26 36.7 96 18 93/61 (72) 91 07/17/17 00:00 Room Air 07/17/17 00:00 36.4 82 18 102/65 (77) 92 Room Air 07/16/17 20:51 36.4 87 20 105/76 (86) 92 07/16/17 20:00 Room Air 07/16/17 18:20 36.6 07/16/17 16:16 38.5 91 20 101/65 (77) 92 Room Air 07/16/17 16:00 Room Air 07/16/17 12:20 36.8 95 24 101/66 (78) 93 Room Air 07/16/17 12:00 Room Air Physical Exam Notes: General Appearance: Awake, alert, oriented x 3, comfortable, NAD CV: +S1S2 irregularly irregular. No peripheral edema. Pulm: Clear to auscultation throughout. Abdomen: +BS, soft, non-tender, non-distended. Extremities: Right lateral hip pressure dressing in place, c/d/i. Moving toes about easily. No calf tenderness. Bilateral leg compression stockings in place. Neuro: Distal LE sensation intact. Lines: Left PIV. Right arm PIV. Condom cath. Laboratory Results 07/17/17 06:09 Red Blood Count 3.40, Mean Corpuscular Volume 84.7, Mean Corpuscular Hemoglobin 29.4, Mean Corpuscular Hemoglobin Concent 34.7, Mean Platelet Volume 9.7, Neutrophils (%) (Auto) 85.0, Lymphocytes (%) (Auto) 5.4, Monocytes (%) (Auto) 7.2, Eosinophils (%) (Auto) 1.3, Basophils (%) (Auto) 0.1, Neutrophils # (Auto) 11.84, Lymphocytes # (Auto) 0.75, Monocytes # (Auto) 1.00, Eosinophils # (Auto) 0.18, Basophils # (Auto) 0.01 07/17/17 06:09 Test 07/17/17 06:09 07/17/17 06:59 White Blood Count 13.92 K/uL (4.8-10.8) Red Blood Count 3.40 M/uL (4.7-6.1) Hemoglobin 10.0 g/dL (14.0-18.0) Hematocrit 28.8 % (42-52) Mean Corpuscular Volume 84.7 fL (80-100) Mean Corpuscular Hemoglobin 29.4 pg (25-34) Mean Corpuscular Hemoglobin Concent 34.7 g/dl (32-36) Platelet Count 338 K/uL (130-400) Mean Platelet Volume 9.7 fL (7.4-10.4) Neutrophils (%) (Auto) 85.0 % Lymphocytes (%) (Auto) 5.4 % Monocytes (%) (Auto) 7.2 % Eosinophils (%) (Auto) 1.3 % Basophils (%) (Auto) 0.1 % Neutrophils # (Auto) 11.84 K/uL (1.4-6.5) Lymphocytes # (Auto) 0.75 K/uL (1.2-3.4) Monocytes # (Auto) 1.00 K/uL (0.11-0.59) Eosinophils # (Auto) 0.18 K/uL (0-0.5) Basophils # (Auto) 0.01 K/uL (0-0.2) RDW Standard Deviation 46.4 fL (36.4-46.3) RDW Coefficient of Variation 14.9 % (11.5-14.5) Immature Granulocyte % (Auto) 1.0 % Immature Granulocyte # (Auto) 0.14 K/uL (0.00-0.02) Prothrombin Time 17.5 SECONDS (9.0-12.0) Prothromb Time International Ratio 1.7 (0.9-1.1) Activated Partial Thromboplast Time 52.7 SECONDS (21.0-31.0) Partial Thromboplastin Ratio 2.0 Anion Gap 11.0 mmol/L (3-11) Est Creatinine Clear Calc Drug Dose 55.3 ml/min Estimated GFR () 73.1 Estimated GFR (Non- 63.1 BUN/Creatinine Ratio 10.8 (10-20) Calcium Level 8.8 mg/dl (8.5-10.1) Magnesium Level 1.4 mg/dl (1.8-2.4) Bedside Glucose 141 mg/dl (70-99) Assessment and Plan 82 year old male admitted on for infected right total hip arthroplasty, now POD #4. PMH: Afib, osteoarthritis, HTN, HLD, macular degeneration, enlarged prostate, DM2, gout. Right hip infection: S/p surgery, ortho following, rec'd continue wound vac and PT/OT to mobilize, will need placement. Last fever 04Mar. WBC 13.9, stable. 01Mar joint space Cx positive for citrobacter koseri. ID onboard. On rocephin daily (started 02Mar), likely needs x4 weeks of treatment. PICC placed 05Mar. 01Mar BCx x 4 negative to date. Wound vac in place. Atrial fibrillation: Briefly in RVR, but most recent rates in 90's. Asymptomatic. Unknown duration of afib. Cardiology onboard. 02Mar TTE noted EF 60-65% with mild LVH, mild-mod AR, mild . Did not convert with amiodarone. Now on metoprolol 25 mg PO q6h, stopped atenolol. Started digoxin. On heparin, started coumadin, INR today 1.7. - Watch for signs of CHF. Encourage incentive spirometry. - Watching blood pressure. Urinary retention: Hx of enlarged prostate. Has required multiple straight- cath as inpatient. On flomax. Would like to avoid placing cruz if possible. - Will add proscar. Electrolytes: - Na 130. Monitoring. - K 3.3. Repleting, goal > 2. - Mag 1.4. Repleting, goal > 2. DM2: Hx of same. Glycemic consultation. Holding home metformin. HTN: Hx of same, presently stable. On metoprolol as noted in "afib" above. HLD: Hx of same. On zocor. Code status: Full code. DVT prophy: Heparin, coumadin. PT/OT: 05Mar PT ongoing, recommends rehab. 03Mar OT note says,"Pt will require continued in patient therapies after discharge from [facility]." ? [facility]. Disbo: Admit med/surg. Likely needs placement per ortho. Resident Physician Supervision Note: I interviewed and examined the patient. Discussed with Dr. Stevenson and agree with findings and plan as documented in the note. Any exceptions or clarifications are listed here: None this pt is doing well will have picc line placed and will have arrangement for home antibiotics. is still having issues with low potassium and magnesium that maybe influencing his afib. recovering well after poly and hip replacement exchange some episodes of higher heart rates cardiology is adding digoxin following INR for coumadin diabetes on basal bolus cardiac is irregular but not very much over 100 lungs are clear afib, will have on diltiazem and digoxin, and anticoagulation Documented By: Romero Crain Resident Tracking Resident Involvement: Resident Care Provided Care Provided: Adult Hospital Medicine (inpatient)
[2017-07-17] MEDS: HYDROCHLOROTHIAZIDE 25 MG TAB PO SCH (09:00)
[2017-07-17] MEDS: DOCUSATE SODIUM 100 MG CAP PO SCH ×2 (09:00→21:10)
--- NOTE | 2017-07-17 09:03 | Cardiology Follow-Up ---
Subjective General Date of Service: Jul 17, 2017. Pt evaluation today including: conversation w/ patient, chart review, lab review, review of studies History of Present Illness The patient is a 82 year old male Allergies Coded Allergies: No Known Allergies (Verified , 07/13/17) Social History Smoking Status: Former Smoker Hx Tobacco Use In Past Year?: No (QUIT SMOKING OCTOBER 2000) Hx Alcohol Use - Type And Amou: Yes (RARELY) Hx Substance Use - Type And Am: No Problem List Medical Problems: (1) Hiccups Status: Acute (2) Hyponatremia Status: Acute (3) Polyuria Status: Acute (4) Right radial fracture Status: Acute Review of Systems Respiratory: No cough, No shortness of breath, No dyspnea at rest Cardiac: No chest pain, No edema, No palpitations Physical Exam Vital Signs Last Vital Signs Documentation Date Time Temp Pulse Resp B/P (MAP) Pulse Ox O2 Delivery O2 Flow Rate FiO2 07/17/17 07:15 36.9 101 18 93/59 (70) 92 Room Air 07/14/17 16:00 2.0 Physical Exam Constitutional: Level of Distress: NAD Lungs: Respiratory effort: no dyspnea Auscultation: no wheezing, no rhonchi, wet rales/crackles (base b/l) Cardiovascular: Heart Auscultation: II/ LEXI, irregular rate rhythm Abdomen: Bowel Sounds: normal Inspection & Palpation: soft, non-distended, no tenderness, guarding & rebound Extremities: no edema Assessment and Plan Assessment and Plan IMPRESSION: 1. Postoperative atrial fibrillation with a rapid ventricular response. 2. Infected right total hip replacement. 3. Normal left ventricular systolic function. 4. Mild aortic stenosis with [id number] aortic insufficiency. 5. Hypertension. Afib rates still fast change to metoprolol 25 Q6 D/c atenolol --renally excreted and long acting Dig load 0.25 x3 doses then 0.125 daily heparin to coumadin or NOAC watch for signs of CHF with Crackles--may be atelectasis but also with slight rise in WBC watch for pneumonia D/w nursing--incentive spirometry Laboratory Results Last 24 Hours Test 07/16/17 11:48 07/16/17 16:20 07/16/17 20:49 07/17/17 06:09 Bedside Glucose 225 mg/dl 160 mg/dl 167 mg/dl White Blood Count 13.92 K/uL Red Blood Count 3.40 M/uL Hemoglobin 10.0 g/dL Hematocrit 28.8 % Mean Corpuscular Volume 84.7 fL Mean Corpuscular Hemoglobin 29.4 pg Mean Corpuscular Hemoglobin Concent 34.7 g/dl Platelet Count 338 K/uL Mean Platelet Volume 9.7 fL Neutrophils (%) (Auto) 85.0 % Lymphocytes (%) (Auto) 5.4 % Monocytes (%) (Auto) 7.2 % Eosinophils (%) (Auto) 1.3 % Basophils (%) (Auto) 0.1 % Neutrophils # (Auto) 11.84 K/uL Lymphocytes # (Auto) 0.75 K/uL Monocytes # (Auto) 1.00 K/uL Eosinophils # (Auto) 0.18 K/uL Basophils # (Auto) 0.01 K/uL RDW Standard Deviation 46.4 fL RDW Coefficient of Variation 14.9 % Immature Granulocyte % (Auto) 1.0 % Immature Granulocyte # (Auto) 0.14 K/uL Prothrombin Time 17.5 SECONDS Prothromb Time International Ratio 1.7 Activated Partial Thromboplast Time 52.7 SECONDS Partial Thromboplastin Ratio 2.0 Sodium Level 130 mmol/L Potassium Level 3.3 mmol/L Chloride Level 93 mmol/L Carbon Dioxide Level 26 mmol/L Anion Gap 11.0 mmol/L Blood Urea Nitrogen 12 mg/dl Creatinine 1.10 mg/dl Est Creatinine Clear Calc Drug Dose 55.3 ml/min Estimated GFR () 73.1 Estimated GFR (Non- 63.1 BUN/Creatinine Ratio 10.8 Random Glucose 142 mg/dl Calcium Level 8.8 mg/dl Magnesium Level 1.4 mg/dl Test 07/17/17 06:59 Bedside Glucose 141 mg/dl
[2017-07-17] MEDS: NIASPAN 500 MG TABCR PO SCH (09:38)
[2017-07-17] MEDS: DIGOXIN IV 250 MCG in SYRINGE 9 ML IV SCH ×3 (09:38→21:10)
[2017-07-17] MEDS: DIPYRIDAMOLE/ASPIRIN CAP PO SCH ×2 (09:38→21:10)
[2017-07-17] MEDS: FERROUS GLUCONATE 324 MG TAB PO SCH ×3 (09:38→16:19)
[2017-07-17] MEDS: ALLOPURINOL 300 MG TAB PO SCH (09:39)
[2017-07-17] MEDS: MULTIVITAMIN TAB PO SCH (09:39)
[2017-07-17] MEDS: PANTOprazole SOD 40 MG TAB PO SCH (09:39)
[2017-07-17] MEDS: INSULIN ASPART 100 UNITS/ML 3 ML PEN SC SCH ×4 (09:42→21:00)
[2017-07-17] MEDS: INSULIN GLARGINE SOLOSTAR 100 UNITS/ML 3 ML PEN SC SCH ×2 (09:43→21:13)
[2017-07-17] MEDS: POTASSIUM CHLR 10 MEQ / WTR 10 MEQ in PREMIXED WATER 100 ML IV SCH ×3 (11:33→14:36)
[2017-07-17 11:36] VITALS: BP 107/60; PULSE 92; O2SAT 95
[2017-07-17] MEDS: MAGNESIUM SULFATE 1GM / D5W 1 GM in PREMIXED IN D5W 100 ML IV SCH ×2 (11:36→12:48)
[2017-07-17] MEDS: METOPROLOL TARTRATE 25 MG TAB PO SCH ×3 (11:36→17:24)
--- NOTE | 2017-07-17 13:42 | Pharmacy Progress Note ---
Glycemic Control Progress Note Date of Service Jul 17, 2017. Scope Glycemic Pharmacist consulted for glycemic control to write orders per [facility] inpatient glycemic control protocol. Objective Accuchecks BSG (last 24hrs): Test 07/16/17 16:20 07/16/17 20:49 07/17/17 06:09 07/17/17 06:59 Bedside Glucose 160 mg/dl (70-99) 167 mg/dl (70-99) 141 mg/dl (70-99) Random Glucose 142 mg/dl (70-99) Test 07/17/17 11:14 Bedside Glucose 168 mg/dl (70-99) HbA1c: 8.5% 07/12/17/ Recent Pertinent Medications The patient is currently receiving: * Basal insulin: Lantus SQ BID; 10 units if BSG less than 150, 15 units if BSG 150 or greater * Correctional Insulin: Novolog Correction per scale ACHS Goal Range: Low 110 mg/dL - High 150 mg/dL Correction Factor: 20 mg/dL/unit * Prandial insulin: Per carb ratio of 1 unit per 7 grams CHO consumed Assessment & Plan ASSESSMENT: 07/17/17 * BSGs have ranged 141-225 over the last 24 hours * He has received 48 units of insulin over the last 24 hours while tolerating a diet * Fasting BSG 141 this AM w/ 30 units of Lantus on board. Will continue the same dose, a scale is likely unnecessary at this point * Post-prandial BSGs usually controlled w/ current CR. On occasion the pre- lunch is elevated. Will continue the same CR for now. May consider a larger prandial dose w/ breakfast in the future if pre-lunch hyperglycemia is a recurring trend PLAN FOR INPATIENT GLYCEMIC CONTROL: * Continuing Lantus 15 units SQ BID * Continuing correction factor of 20 mg/dl/unit * Continuing carb ratio of 1 unit per 7 grams CHO consumed * Continuing goal range of Low 110 mg/dL - High 150 mg/dL * Please note that the plan above was derived based on current level of insulin resistance and hospital stress. These recommendations are appropriate for inpatient admission only. Plan of care upon discharge will need to be reassessed to avoid potential outpatient hypo/hyperglycemia. Thank you.
--- NOTE | 2017-07-17 14:49 | DIAGNOSTIC IMAGING REPORT ---
CHEST ONE VIEW PORTABLE HISTORY: 82 years-old Male picc placement status post placement of a right-sided PICC COMPARISON: Chest radiograph 07/14/2017 TECHNIQUE: Portable AP view of the chest FINDINGS: Cardiac silhouette is within normal limits in size. Atherosclerosis of the aorta. Unchanged linear subsegmental lateral left midlung and left lung base opacities with chronic blunting of the left costophrenic angle suggesting areas of atelectasis/scarring. Right lung appears generally clear. Status post placement of a right-sided PICC with distal tip overlying the expected region of the mid SVC. There is no postprocedural pneumothorax identified. Severe degenerative changes about the right shoulder. IMPRESSION: 1. Status post placement of a right-sided PICC with distal tip overlying the expected region of the mid SVC. No postprocedural pneumothorax. 2. Unchanged linear subsegmental lateral left midlung and left lung base opacities suggesting atelectasis or scarring. The above report was generated using voice recognition software. It may contain grammatical, syntax or spelling errors. Electronically signed by: Giles Conner M.D. 07/17/2017 2:48 PM Dictated Date/Time: 07/17/2017 2:46 PM
[2017-07-17] MEDS: CEFTRIAXONE SOD INJ 2,000 MG in DEXTROSE 5% 50ML 50 ML IV SCH (15:16)
[2017-07-17 16:00] VITALS: BP 112/66; PULSE 100; TEMP 36.8; O2SAT 92
[2017-07-17] MEDS: WARFARIN SOD 2.5 MG TAB PO SCH (16:19)
[2017-07-17 19:57] VITALS: BP 111/74; PULSE 83; TEMP 36.7; O2SAT 95
[2017-07-17] MEDS: BOOST GLUCOSE CONTROL PO SCH (21:00)
[2017-07-17] MEDS: SIMVASTATIN 20 MG TAB PO SCH (21:10)
[2017-07-17] MEDS: TAMSULOSIN HCL 0.4 MG CAP PO SCH (21:11)
[2017-07-18] VITALS (8 sets, daily range): BP systolic 84–130; BP diastolic 58–73; PULSE 81–100; TEMP 36.5–37.8; O2SAT 91–94
[2017-07-18] MEDS: METOPROLOL TARTRATE 25 MG TAB PO SCH ×5 (00:15→23:58)
[2017-07-18] MEDS: HEPARIN 25,000 UNIT/500ML D5W 500 ML IV PRN (03:56)
[2017-07-18 06:34] LABS: HEMOGLOBIN 9.9 g/dL (14.0-18.0); MEAN CELL VOLUME 85.3 fL (80-100); MEAN CORPUSCULAR HEMOGLOBIN 29.1 pg (25-34); MEAN CORPUSCULAR HGB CONC 34.1 g/dl (32-36); MEAN PLATELET VOLUME 9.3 fL (7.4-10.4); PLATELET COUNT 408 K/uL (130-400); RED CELL DISTRIBUTION WIDTH CV 14.8 % (11.5-14.5); RED CELL DISTRIBUTION WIDTH SD 46.2 fL (36.4-46.3); WHITE BLOOD COUNT 17.18 K/uL (4.8-10.8)
[2017-07-18 06:54] LABS: PTT PATIENT 64.6 SECONDS (21.0-31.0)
[2017-07-18 07:03] LABS: CALCIUM 8.9 mg/dl (8.5-10.1); CREATININE 1.01 mg/dl (0.60-1.40); POTASSIUM 3.2 mmol/L (3.5-5.1)
[2017-07-18 07:23] LABS: BASO % 0.2 %; BASO ABS # 0.03 K/uL (0-0.2); EOS % 0.9 %; EOS ABS # 0.15 K/uL (0-0.5); IG# 0.45 K/uL (0.00-0.02); LYMPH % 4.9 %; LYMPH ABS # 0.84 K/uL (1.2-3.4); MONO % 6.3 %; MONO ABS # 1.08 K/uL (0.11-0.59); NEUT % 85.1 %; NEUT ABS # 14.63 K/uL (1.4-6.5)
--- NOTE | 2017-07-18 07:52 | Family Medicine Progress Note ---
Progress Note Date of Service Jul 18, 2017. Subjective Pt evaluation today including: conversation w/ patient, conversation w/ family Found patient early this morning awake, alert, says that he is comfortable and feeling "pretty good." Notes some urinary incontinence after condom cath removed. Later on formal rounds he noted some loose (not watery) stool but still says he's doing well. He denies much pain, which is controlled with pain meds. Denies any other acute concerns. Son in room later in morning had no acute concerns either. Constitutional: No fever, No chills Respiratory: No cough, No shortness of breath Cardiovascular: No chest pain Abdomen: + diarrhea (loose stools), No pain, No nausea, No vomiting Musculoskeletal: + joint pain (right hip) Male : + incontinence, No dysuria Medications Current Inpatient Medications Medications (Trade) Dose Ordered Sig/Oswaldo Route Start Time Stop Time Status Last Admin Dose Admin Oxycodone HCl (Roxicodone Immediate Rel Tab) 1 TABLET FOR PAIN RATING... Q4H PRN PO 07/13/17 10:30 07/27/17 10:29 07/17/17 02:44 5 MG Morphine Sulfate (MoRPHine SULFATE INJ) give 2mg for pain 3-6 g... Q1H PRN IV 07/13/17 10:30 07/27/17 10:29 Acetaminophen (Tylenol Tab) 650 mg Q6H PRN PO 07/14/17 14:00 08/13/17 13:59 07/16/17 16:30 650 MG Magnesium Hydroxide (Milk Of Magnesia Susp) 30 ml Q6H PRN PO 07/13/17 10:30 08/12/17 10:29 Bisacodyl (Dulcolax Supp) 10 mg DAILY PRN [place] 07/13/17 10:30 08/12/17 10:29 Sodium Biphosphate/ Sodium Phosphate (Fleet Enema) 132 ml DAILY PRN W[place] 07/13/17 10:30 08/12/17 10:29 Docusate Sodium (coLACE CAP) 100 mg BID PO 07/13/17 21:00 08/12/17 20:59 07/17/17 21:10 100 MG Diphenhydramine HCl (Benadryl Inj) 25 mg Q8H PRN IV 07/13/17 10:30 08/12/17 10:29 Al Hydrox/Mg Hydrox/Simethicone (Maalox Max Susp) 15 ml Q4H PRN PO 07/13/17 10:30 08/12/17 10:29 Ondansetron HCl (Zofran Inj) 4 mg Q6H PRN IV 07/13/17 10:30 08/12/17 10:29 Metoclopramide HCl (Reglan Inj) 10 mg Q6H PRN IV 07/13/17 10:30 08/12/17 10:29 Ferrous Gluconate (Ferrous Gluconate Tab) 324 mg TIDM PO 07/13/17 16:45 08/12/17 17:44 07/17/17 16:19 324 MG Pantoprazole Sodium (Protonix Tab) 40 mg QAM PO 07/14/17 09:00 07/18/17 08:59 07/17/17 09:39 40 MG Allopurinol (Zyloprim Tab) 300 mg QAM PO 07/14/17 09:00 08/13/17 08:59 07/17/17 09:39 300 MG Dipyridamole/ Aspirin (Aggrenox 200MG/ 25MG Cap) 1 cap BID PO 07/13/17 21:00 08/12/17 20:59 07/17/17 21:10 1 CAP Chlorpromazine HCl (Thorazine Tab) 25 mg TID PRN PO 07/13/17 10:30 08/12/17 10:29 07/16/17 07:43 25 MG Hydrochlorothiazide (Hydrochlorothiazide Tab) 25 mg QAM PO 07/14/17 09:00 08/13/17 08:59 07/16/17 07:42 25 MG Multivitamins (Multivitamin Tab) 1 tab DAILY PO 07/14/17 09:00 08/13/17 08:59 07/17/17 09:39 1 TAB Niacin (Niaspan Extended Rel Tab) 500 mg DAILY PO 07/14/17 09:00 08/13/17 08:59 07/17/17 09:38 500 MG Simvastatin (Zocor Tab) 20 mg QPM PO 07/13/17 21:00 08/12/17 20:59 07/17/17 21:10 20 MG Insulin Aspart (novoLOG ASPART) SLIDING SCALE G... ACHS SC 07/13/17 16:15 08/12/17 17:14 07/17/17 17:22 6 UNITS Ceftriaxone Sodium 2000 mg/ Dextrose 70 ml @ 100 mls/hr Q24H IV 07/14/17 14:00 07/24/17 13:59 07/17/17 15:16 100 MLS/HR Glucose (Glucose 40% Gel) 15-30 GRAMS 15 GRAMS... UD PRN PO 07/13/17 11:00 08/12/17 10:59 Glucose (Glucose Chew Tab) 4-8 Tablets 4 Tabl... UD PRN PO 07/13/17 11:00 08/12/17 10:59 Dextrose (Dextrose 50% 50ML Syringe) 25-50ML OF 50% DW IV FOR... UD PRN IV 07/13/17 11:00 08/12/17 10:59 Glucagon (Glucagon Inj) 1 mg UD PRN SQ 07/13/17 11:00 08/12/17 10:59 Miscellaneous Information (Consult Glycemic Management Pharmacy) 1 ea UD N/A 07/13/17 17:19 08/12/17 17:18 Tamsulosin HCl (Flomax Cap) 0.8 mg QPM PO 07/13/17 21:00 08/12/17 20:59 07/17/17 21:11 0.8 MG Heparin Sodium/ Dextrose 500 ml @ 20 mls/hr Q24H PRN IV 07/14/17 21:45 08/13/17 21:44 07/18/17 03:56 20 MLS/HR Warfarin Sodium (Coumadin Tab) 2.5 mg DAILY@16 PO 07/16/17 16:00 08/15/17 15:59 07/17/17 16:19 2.5 MG Metoprolol Tartrate (Lopressor Tab) 25 mg Q6 PO 07/17/17 09:00 08/16/17 08:59 07/18/17 05:57 25 MG Digoxin (Lanoxin Tab) 0.125 mg DAILY@16 PO 07/18/17 16:00 08/17/17 15:59 Insulin Glargine (Lantus Solostar Pen) 15 units BID SC 07/17/17 21:00 08/16/17 20:59 07/17/17 21:13 15 UNITS Heparin Sodium (Porcine) (Heparin 10 Unit/ ml 5 ml Flush) 5 ml PRN PRN FLUSH 07/17/17 14:45 08/16/17 14:44 Finasteride (Proscar Tab) 5 mg QAM PO 07/18/17 09:00 08/17/17 08:59 Enteral Nutritional Formula (Boost Glucose Control) 1 can BID@1000,2100 PO 07/17/17 21:00 08/16/17 20:59 Objective Vital Signs Date Time Temp Pulse Resp B/P (MAP) Pulse Ox O2 Delivery O2 Flow Rate FiO2 07/18/17 04:00 Room Air 07/18/17 03:55 36.8 100 18 116/69 (85) 92 Room Air 07/18/17 00:28 37.8 97 24 118/68 (85) 93 07/17/17 23:59 Room Air 07/17/17 21:10 88 07/17/17 20:00 Room Air 07/17/17 19:57 36.7 83 20 111/74 (86) 95 Room Air 07/17/17 16:00 Room Air 07/17/17 16:00 36.8 100 22 112/66 (81) 92 Room Air 07/17/17 14:36 96 07/17/17 12:00 Room Air 07/17/17 11:36 92 24 107/60 (76) 95 Room Air 07/17/17 09:38 104 07/17/17 08:00 Room Air Physical Exam Notes: General Appearance: Awake, alert, oriented x 3, comfortable, NAD CV: +S1S2 irregularly irregular. No peripheral edema. Pulm: Clear to auscultation throughout. Abdomen: +BS, soft, non-tender, non-distended. Extremities: Right lateral hip wound vac in place, c/d/i. Moving toes about easily. No calf tenderness. Bilateral leg compression stockings in place. Neuro: Distal LE sensation intact. Lines: Right PICC (placed 05Mar). Left PIV. Right arm PIV. Laboratory Results 07/18/17 06:04 Red Blood Count 3.40, Mean Corpuscular Volume 85.3, Mean Corpuscular Hemoglobin 29.1, Mean Corpuscular Hemoglobin Concent 34.1, Mean Platelet Volume 9.3, Neutrophils (%) (Auto) 85.1, Lymphocytes (%) (Auto) 4.9, Monocytes (%) (Auto) 6.3, Eosinophils (%) (Auto) 0.9, Basophils (%) (Auto) 0.2, Neutrophils # (Auto) 14.63, Lymphocytes # (Auto) 0.84, Monocytes # (Auto) 1.08, Eosinophils # (Auto) 0.15, Basophils # (Auto) 0.03 07/18/17 06:04 Test 07/18/17 06:04 07/18/17 06:11 White Blood Count 17.18 K/uL (4.8-10.8) Red Blood Count 3.40 M/uL (4.7-6.1) Hemoglobin 9.9 g/dL (14.0-18.0) Hematocrit 29.0 % (42-52) Mean Corpuscular Volume 85.3 fL (80-100) Mean Corpuscular Hemoglobin 29.1 pg (25-34) Mean Corpuscular Hemoglobin Concent 34.1 g/dl (32-36) Platelet Count 408 K/uL (130-400) Mean Platelet Volume 9.3 fL (7.4-10.4) Neutrophils (%) (Auto) 85.1 % Lymphocytes (%) (Auto) 4.9 % Monocytes (%) (Auto) 6.3 % Eosinophils (%) (Auto) 0.9 % Basophils (%) (Auto) 0.2 % Neutrophils # (Auto) 14.63 K/uL (1.4-6.5) Lymphocytes # (Auto) 0.84 K/uL (1.2-3.4) Monocytes # (Auto) 1.08 K/uL (0.11-0.59) Eosinophils # (Auto) 0.15 K/uL (0-0.5) Basophils # (Auto) 0.03 K/uL (0-0.2) RDW Standard Deviation 46.2 fL (36.4-46.3) RDW Coefficient of Variation 14.8 % (11.5-14.5) Immature Granulocyte % (Auto) 2.6 % Immature Granulocyte # (Auto) 0.45 K/uL (0.00-0.02) Hypersegmented Polys 1+ Echinocytes 1+ Activated Partial Thromboplast Time 64.6 SECONDS (21.0-31.0) Partial Thromboplastin Ratio 2.5 Anion Gap 10.0 mmol/L (3-11) Est Creatinine Clear Calc Drug Dose 60.2 ml/min Estimated GFR () 81.0 Estimated GFR (Non- 69.9 BUN/Creatinine Ratio 13.6 (10-20) Calcium Level 8.9 mg/dl (8.5-10.1) Magnesium Level 1.7 mg/dl (1.8-2.4) Bedside Glucose 148 mg/dl (70-99) Assessment and Plan 82 year old male admitted on [id number] for infected right total hip arthroplasty, now POD #5. PMH: Afib, osteoarthritis, HTN, HLD, macular degeneration, enlarged prostate, DM2, gout. Right hip infection: S/p surgery, ortho following, rec'd continue wound vac and PT/OT to mobilize, will need placement. Last fever 04Mar. WBC 17.9, a bit worse. 06Mar CXR showed no acute findings (as part of leukocytosis workup). ID onboard. Stopped rocephin (3d given) and started ertapenem daily today ( ) for likely 4-6 weeks followed by oral abx. PICC placed 05Mar. - Mar BCx x 4 negative to date. Mar joint space Cx positive for citrobacter koseri. Sent 06Jul hip cultures s/p wound vac change this morning after ortho noted small seroma. Atrial fibrillation: Briefly in RVR, but most recent rates in 90's. Asymptomatic. Unknown duration of afib. Cardiology onboard. 02Mar TTE noted EF 60-65% with mild LVH, mild-mod AR, mild . Did not convert with amiodarone. Now on metoprolol 25 mg PO q6h and digoxin 0.125 mg daily. On heparin and coumadin 2.5 mg. However INR today jumped to 2.8, so holding coumadin for now. - Watch for signs of CHF. Encourage incentive spirometry. - Watching blood pressure. Urinary retention: Hx of enlarged prostate. Has required multiple straight- cath as inpatient. On flomax, added proscar. Would like to avoid placing cruz if possible. Electrolytes: - Hyponatremia: Na 127, trending downwards. Began 1500 mL fluid restriction today. Stopped home HCTZ. Monitoring. - Hypokalemia: K 3.2. Repleting, goal > 2. - Hypomagnesemia: Mag 1.7. Repleting, goal > 2. Loose stools: 04Mar C diff negative. Monitoring. Anemia: Hb 9.9. Monitoring. DM2: Hx of same. Glycemic consultation, on novolog and lantus. Holding home metformin. HTN: Hx of same, presently stable. On metoprolol as noted in "afib" above. HLD: Hx of same. On zocor. Gout: Hx of same. On allopurinol. Code status: Full code. Diet: DM2, fluid restrict 1500 mL, with boost supplementation. DVT prophy: Heparin, coumadin. Also aggrenox. PT/OT: PT ongoing, recommends rehab. OT note says,"Pt will require continued in patient therapies after discharge from [facility]bo: Admit med/surg. Likely needs placement per ortho. Resident Physician Supervision Note: I interviewed and examined the patient. Discussed with Dr. Stevenson and agree with findings and plan as documented in the note. Any exceptions or clarifications are listed here: None Patient is doing fair after his poly-exchange for a chronic right hip replacement infection he continues to have low-grade temperatures mild confusion and lethargy his atrial fibrillation is better controlled. He continues with persistent hypokalemia hypomagnesemia now worsening hyponatremia Vital signs 37 8 pulse 97 rest was 18 BP 116/69 of note C. difficile testing was negative on 16 July his cardiac exam is irregularly irregular his lungs are clear with good air movement abdomen normoactive bowel sounds as mentioned he falls asleep easily during exam despite not having any opiates or benzodiazepines Patient is here for poly-exchange for chronic hip infection with Citrobacter, infectious diseases changed him to ertapenem. For his atrial fibrillation he is on metoprolol digoxin and heparin with conversion to Coumadin For his hyponatremia were suspecting this is likely mediated from both SIADH and possibly his hydrochlorothiazide, hydrochlorothiazide is held and we are fluid restricting him. We are attempting to also replete his potassium and magnesium Documented By: Romero Crain Resident Tracking Resident Involvement: Resident Care Provided Care Provided: Adult Hospital Medicine (inpatient)
[2017-07-18] MEDS ORDERED: POTASSIUM CHLORIDE 20 MEQ TABCR PO STA (07:54)
--- NOTE | 2017-07-18 08:04 | Progress Note ---
Progress Note Date of Service Jul 18, 2017. Progress Note Postop day #5 status post I&D septic right total hip replacement. Patient's comfortable. Denies shortness of breath fever chills nausea vomiting or headache. Denies numbness in his legs. As his appetite today. Chung to 37 8 yesterday did not get any Tylenol and defervesced to normal temperature. Vital signs are stable still in A. fib. Abdomen soft nontender. Calves nontender. Left arm IV site with slight infiltration has some slight peau d'orange and some thickness but no drainage. No ascending lymphangitis or cellulitis. Wound VAC exchange. Slight subcutaneous collection of fluid (small seroma). No pain with palpation no subcutaneous air. With patient's permission verbal consent obtained for aspiration of this area. I will performed area cleaned with alcohol and aspirated for 3 cc of serosanguineous fluid no gross purulence. Specimen sent for Gram stain and culture. Remaining wound looks excellent. No pain with palpation or no subcutaneous air is noted. Detailed neurologic examination reveals intact sensation to the feet and both posterior tibial and deep peroneal superficial peroneal distribution. Motor exam in [place] is within normal limits. Hip range of motion produces no pain. Overall clinically looking like he is improving however elevated white count is of concern. At this point in time there is no obvious source from the hip with him not having increased pain in the wound the wound looking as good as it has. Area of subcutaneous fluid was aspirated and fluid sent for culture. Left arm IV site needs continued surveillance. Obviously must look for other sources of temperature continues to increase in white count continues to increase. Will order chest x-ray today. There is no sign of any paraspinal process based on physical exam and history of no increased back pain or neck pain. I will be traveling but will be in contact by phone. My partners will be covering. Today's exam and wound change was performed in the presence of physician's technical administrative assistant Brian Orona. Dictated not read.
[2017-07-18 08:13] LABS: INR 2.8 (0.9-1.1)
[2017-07-18] MEDS ORDERED: MAGNESIUM SULFATE 1GM / D5W 1 GM in PREMIXED IN D5W 100 ML IV SCH (08:15)
[2017-07-18] MEDS: DOCUSATE SODIUM 100 MG CAP PO SCH ×2 (08:17→20:48)
[2017-07-18] MEDS: NIASPAN 500 MG TABCR PO SCH (08:18)
[2017-07-18] MEDS: ALLOPURINOL 300 MG TAB PO SCH (08:18)
[2017-07-18] MEDS: MULTIVITAMIN TAB PO SCH (08:18)
[2017-07-18] MEDS: FINASTERIDE 5 MG TAB PO SCH (08:19)
[2017-07-18] MEDS: FERROUS GLUCONATE 324 MG TAB PO SCH ×3 (08:19→16:57)
[2017-07-18] MEDS: DIPYRIDAMOLE/ASPIRIN CAP PO SCH ×2 (08:20→20:49)
[2017-07-18] MEDS: HYDROCHLOROTHIAZIDE 25 MG TAB PO SCH (08:20)
[2017-07-18] MEDS: INSULIN ASPART 100 UNITS/ML 3 ML PEN SC SCH ×4 (08:25→20:55)
[2017-07-18] MEDS: INSULIN GLARGINE SOLOSTAR 100 UNITS/ML 3 ML PEN SC SCH ×2 (08:25→20:53)
--- NOTE | 2017-07-18 08:49 | Cardiology Follow-Up ---
Subjective General Date of Service: Jul 18, 2017. Pt evaluation today including: conversation w/ patient, chart review, lab review History of Present Illness The patient is a 82 year old male Allergies Coded Allergies: No Known Allergies (Verified , 07/13/17) Social History Smoking Status: Former Smoker Hx Tobacco Use In Past Year?: No (QUIT SMOKING OCTOBER 2000) Hx Alcohol Use - Type And Amou: Yes (RARELY) Hx Substance Use - Type And Am: No Problem List Medical Problems: (1) Hiccups Status: Acute (2) Hyponatremia Status: Acute (3) Polyuria Status: Acute (4) Right radial fracture Status: Acute Review of Systems Respiratory: No cough, No shortness of breath, No dyspnea at rest Cardiac: No chest pain, No edema, No palpitations Physical Exam Vital Signs Last Vital Signs Documentation Date Time Temp Pulse Resp B/P (MAP) Pulse Ox O2 Delivery O2 Flow Rate FiO2 07/18/17 08:00 37.1 96 22 114/66 (82) 94 Room Air 07/14/17 16:00 2.0 Physical Exam Constitutional: Level of Distress: NAD Lungs: Respiratory effort: no dyspnea Auscultation: no wheezing, no rhonchi, wet rales/crackles (base b/l) Cardiovascular: Heart Auscultation: II/ LEXI, irregular rate rhythm Abdomen: Bowel Sounds: normal Inspection & Palpation: soft, non-distended, no tenderness, guarding & rebound Extremities: no edema Assessment and Plan Assessment and Plan IMPRESSION: 1. Postoperative atrial fibrillation with a rapid ventricular response. 2. Infected right total hip replacement. 3. Normal left ventricular systolic function. 4. Mild aortic stenosis with [id number] aortic insufficiency. 5. Hypertension. Afib rates improved changed to metoprolol 25 Q6 Dig load 0.125 daily heparin to coumadin or NOAC watch for signs of CHF with Crackles--may be atelectasis but also with slight rise in WBC watch for pneumonia D/w nursing- Keep K+ > 4.0 with dig and Mg >2.0 Replete K+ serum NA is worse --fluid restrict and follow closely; D/c HCTZ Laboratory Results Last 24 Hours Test 07/17/17 11:14 07/17/17 16:15 07/17/17 20:00 07/18/17 06:04 Bedside Glucose 168 mg/dl 151 mg/dl 147 mg/dl White Blood Count 17.18 K/uL Red Blood Count 3.40 M/uL Hemoglobin 9.9 g/dL Hematocrit 29.0 % Mean Corpuscular Volume 85.3 fL Mean Corpuscular Hemoglobin 29.1 pg Mean Corpuscular Hemoglobin Concent 34.1 g/dl Platelet Count 408 K/uL Mean Platelet Volume 9.3 fL Neutrophils (%) (Auto) 85.1 % Lymphocytes (%) (Auto) 4.9 % Monocytes (%) (Auto) 6.3 % Eosinophils (%) (Auto) 0.9 % Basophils (%) (Auto) 0.2 % Neutrophils # (Auto) 14.63 K/uL Lymphocytes # (Auto) 0.84 K/uL Monocytes # (Auto) 1.08 K/uL Eosinophils # (Auto) 0.15 K/uL Basophils # (Auto) 0.03 K/uL RDW Standard Deviation 46.2 fL RDW Coefficient of Variation 14.8 % Immature Granulocyte % (Auto) 2.6 % Immature Granulocyte # (Auto) 0.45 K/uL Hypersegmented Polys 1+ Echinocytes 1+ Prothrombin Time 28.9 SECONDS Prothromb Time International Ratio 2.8 Activated Partial Thromboplast Time 64.6 SECONDS Partial Thromboplastin Ratio 2.5 Sodium Level 127 mmol/L Potassium Level 3.2 mmol/L Chloride Level 91 mmol/L Carbon Dioxide Level 26 mmol/L Anion Gap 10.0 mmol/L Blood Urea Nitrogen 14 mg/dl Creatinine 1.01 mg/dl Est Creatinine Clear Calc Drug Dose 60.2 ml/min Estimated GFR () 81.0 Estimated GFR (Non- 69.9 BUN/Creatinine Ratio 13.6 Random Glucose 151 mg/dl Calcium Level 8.9 mg/dl Magnesium Level 1.7 mg/dl Test 07/18/17 06:11 Bedside Glucose 148 mg/dl
--- NOTE | 2017-07-18 09:07 | DIAGNOSTIC IMAGING REPORT ---
CHEST 2 VIEWS ROUTINE CLINICAL HISTORY: crackles COMPARISON STUDY: 07/17/2017 FINDINGS: The right-sided PICC catheter remains unchanged in position. The tip projects over the superior vena cava. The cardiac and mediastinal contours remain stable. The right lung is essentially clear. Linear opacities are again visualized in the left lower lung zone. There is blunting of the left lateral costophrenic angle.[ IMPRESSION: 1. No acute findings 2. Stable linear opacities at the left lung base, likely representing subsegmental atelectasis or scar. Electronically signed by: Steffen Jiménez M.D. 07/18/2017 9:05 AM Dictated Date/Time: 07/18/2017 9:04 AM
[2017-07-18] MEDS: BOOST GLUCOSE CONTROL PO SCH ×2 (09:31→20:53)
--- NOTE | 2017-07-18 10:46 | Infectious Disease Progress Nt ---
Progress Note Date of Service Jul 18, 2017. Subjective Pt evaluation today including: conversation w/ patient, physical exam, chart review, lab review, review of studies, conversation w/ analysis consultant, review of inpatient medication list Patient offering no new specific complaints today. Wound VAC changed today, culture taken of small amount of fluid. Remains afebrile. Cultures now growing Citrobacter and anaerobic streptococcal species. All Other Systems: Reviewed and Negative Medications Current Inpatient Medications Medications (Trade) Dose Ordered Sig/Oswaldo Route Start Time Stop Time Status Last Admin Dose Admin Oxycodone HCl (Roxicodone Immediate Rel Tab) 1 TABLET FOR PAIN RATING... Q4H PRN PO 07/13/17 10:30 07/27/17 10:29 07/17/17 02:44 5 MG Morphine Sulfate (MoRPHine SULFATE INJ) give 2mg for pain 3-6 g... Q1H PRN IV 07/13/17 10:30 07/27/17 10:29 Acetaminophen (Tylenol Tab) 650 mg Q6H PRN PO 07/14/17 14:00 08/13/17 13:59 07/16/17 16:30 650 MG Magnesium Hydroxide (Milk Of Magnesia Susp) 30 ml Q6H PRN PO 07/13/17 10:30 08/12/17 10:29 Bisacodyl (Dulcolax Supp) 10 mg DAILY PRN [place] 07/13/17 10:30 08/12/17 10:29 Sodium Biphosphate/ Sodium Phosphate (Fleet Enema) 132 ml DAILY PRN [place] 07/13/17 10:30 08/12/17 10:29 Docusate Sodium (coLACE CAP) 100 mg BID PO 07/13/17 21:00 08/12/17 20:59 07/18/17 08:17 100 MG Diphenhydramine HCl (Benadryl Inj) 25 mg Q8H PRN IV 07/13/17 10:30 08/12/17 10:29 Al Hydrox/Mg Hydrox/Simethicone (Maalox Max Susp) 15 ml Q4H PRN PO 07/13/17 10:30 08/12/17 10:29 Ondansetron HCl (Zofran Inj) 4 mg Q6H PRN IV 07/13/17 10:30 08/12/17 10:29 Metoclopramide HCl (Reglan Inj) 10 mg Q6H PRN IV 07/13/17 10:30 08/12/17 10:29 Ferrous Gluconate (Ferrous Gluconate Tab) 324 mg TIDM PO 07/13/17 16:45 08/12/17 17:44 07/18/17 08:19 324 MG Allopurinol (Zyloprim Tab) 300 mg QAM PO 07/14/17 09:00 08/13/17 08:59 07/18/17 08:18 300 MG Dipyridamole/ Aspirin (Aggrenox 200MG/ 25MG Cap) 1 cap BID PO 07/13/17 21:00 08/12/17 20:59 07/18/17 08:20 1 CAP Chlorpromazine HCl (Thorazine Tab) 25 mg TID PRN PO 07/13/17 10:30 08/12/17 10:29 07/16/17 07:43 25 MG Multivitamins (Multivitamin Tab) 1 tab DAILY PO 07/14/17 09:00 08/13/17 08:59 07/18/17 08:18 1 TAB Niacin (Niaspan Extended Rel Tab) 500 mg DAILY PO 07/14/17 09:00 08/13/17 08:59 07/18/17 08:18 500 MG Simvastatin (Zocor Tab) 20 mg QPM PO 07/13/17 21:00 08/12/17 20:59 07/17/17 21:10 20 MG Insulin Aspart (novoLOG ASPART) SLIDING SCALE G... ACHS SC 07/13/17 16:15 08/12/17 17:14 07/18/17 08:25 7 UNITS Ceftriaxone Sodium 2000 mg/ Dextrose 70 ml @ 100 mls/hr Q24H IV 07/14/17 14:00 07/24/17 13:59 07/17/17 15:16 100 MLS/HR Glucose (Glucose 40% Gel) 15-30 GRAMS 15 GRAMS... UD PRN PO 07/13/17 11:00 08/12/17 10:59 Glucose (Glucose Chew Tab) 4-8 Tablets 4 Tabl... UD PRN PO 07/13/17 11:00 08/12/17 10:59 Dextrose (Dextrose 50% 50ML Syringe) 25-50ML OF 50% DW IV FOR... UD PRN IV 07/13/17 11:00 08/12/17 10:59 Glucagon (Glucagon Inj) 1 mg UD PRN SQ 07/13/17 11:00 08/12/17 10:59 Miscellaneous Information (Consult Glycemic Management Pharmacy) 1 ea UD N/A 07/13/17 17:19 08/12/17 17:18 Tamsulosin HCl (Flomax Cap) 0.8 mg QPM PO 07/13/17 21:00 08/12/17 20:59 07/17/17 21:11 0.8 MG Warfarin Sodium (Coumadin Tab) 2.5 mg DAILY@16 PO 07/16/17 16:00 08/15/17 15:59 07/17/17 16:19 2.5 MG Metoprolol Tartrate (Lopressor Tab) 25 mg Q6 PO 07/17/17 09:00 08/16/17 08:59 07/18/17 05:57 25 MG Digoxin (Lanoxin Tab) 0.125 mg DAILY@16 PO 07/18/17 16:00 08/17/17 15:59 Insulin Glargine (Lantus Solostar Pen) 15 units BID SC 07/17/17 21:00 08/16/17 20:59 07/18/17 08:25 15 UNITS Heparin Sodium (Porcine) (Heparin 10 Unit/ ml 5 ml Flush) 5 ml PRN PRN FLUSH 07/17/17 14:45 08/16/17 14:44 Finasteride (Proscar Tab) 5 mg QAM PO 07/18/17 09:00 08/17/17 08:59 07/18/17 08:19 5 MG Enteral Nutritional Formula (Boost Glucose Control) 1 can BID@1000,2100 PO 07/17/17 21:00 08/16/17 20:59 07/18/17 09:31 1 CAN Objective Vital Signs Date Time Temp Pulse Resp B/P (MAP) Pulse Ox O2 Delivery O2 Flow Rate FiO2 07/18/17 08:00 37.1 96 22 114/66 (82) 94 Room Air 07/18/17 04:00 Room Air 07/18/17 03:55 36.8 100 18 116/69 (85) 92 Room Air 07/18/17 00:28 37.8 97 24 118/68 (85) 93 07/17/17 23:59 Room Air 07/17/17 21:10 88 07/17/17 20:00 Room Air 07/17/17 19:57 36.7 83 20 111/74 (86) 95 Room Air 07/17/17 16:00 Room Air 07/17/17 16:00 36.8 100 22 112/66 (81) 92 Room Air 07/17/17 14:36 96 07/17/17 12:00 Room Air 07/17/17 11:36 92 24 107/60 (76) 95 Room Air Physical Exam General Appearance: WD/WN, no apparent distress Eyes: normal inspection, EOMI, sclerae normal ENT: normal ENT inspection, hearing grossly normal, pharynx normal Neck: supple, no adenopathy, thyroid normal, trachea midline Respiratory/Chest: chest non-tender, lungs clear, normal breath sounds, no respiratory distress Cardiovascular: regular rate, rhythm, no gallop, no murmur Abdomen: normal bowel sounds, non tender, soft, no organomegaly Extremities: non-tender, no calf tenderness Neurologic/Psychiatric: alert, oriented x 3 Skin: normal color, warm/dry, no rash, + pertinent finding (wound VAC in placae , no surrounding cellulitis) Lymphatic: no adenopathy Laboratory Results Date/Time Source Procedure Growth Status 07/18/17 07:48 Joint Fluid/Space (Synovial) Hip , Right Gram Stain Pending Received 07/18/17 07:48 Joint Fluid/Space (Synovial) Hip , Right Bacterial Culture Pending Received Last 24 Hours Test 07/17/17 11:14 07/17/17 16:15 07/17/17 20:00 07/18/17 06:04 Bedside Glucose 168 mg/dl 151 mg/dl 147 mg/dl White Blood Count 17.18 K/uL Red Blood Count 3.40 M/uL Hemoglobin 9.9 g/dL Hematocrit 29.0 % Mean Corpuscular Volume 85.3 fL Mean Corpuscular Hemoglobin 29.1 pg Mean Corpuscular Hemoglobin Concent 34.1 g/dl Platelet Count 408 K/uL Mean Platelet Volume 9.3 fL Neutrophils (%) (Auto) 85.1 % Lymphocytes (%) (Auto) 4.9 % Monocytes (%) (Auto) 6.3 % Eosinophils (%) (Auto) 0.9 % Basophils (%) (Auto) 0.2 % Neutrophils # (Auto) 14.63 K/uL Lymphocytes # (Auto) 0.84 K/uL Monocytes # (Auto) 1.08 K/uL Eosinophils # (Auto) 0.15 K/uL Basophils # (Auto) 0.03 K/uL RDW Standard Deviation 46.2 fL RDW Coefficient of Variation 14.8 % Immature Granulocyte % (Auto) 2.6 % Immature Granulocyte # (Auto) 0.45 K/uL Hypersegmented Polys 1+ Echinocytes 1+ Prothrombin Time 28.9 SECONDS Prothromb Time International Ratio 2.8 Activated Partial Thromboplast Time 64.6 SECONDS Partial Thromboplastin Ratio 2.5 Sodium Level 127 mmol/L Potassium Level 3.2 mmol/L Chloride Level 91 mmol/L Carbon Dioxide Level 26 mmol/L Anion Gap 10.0 mmol/L Blood Urea Nitrogen 14 mg/dl Creatinine 1.01 mg/dl Est Creatinine Clear Calc Drug Dose 60.2 ml/min Estimated GFR () 81.0 Estimated GFR (Non- 69.9 BUN/Creatinine Ratio 13.6 Random Glucose 151 mg/dl Calcium Level 8.9 mg/dl Magnesium Level 1.7 mg/dl Test 07/18/17 06:11 Bedside Glucose 148 mg/dl Assessment and Plan Infected right ANIYA with Citrobacter and Peptostreptococcus s/p debridement and poly-exchange. Will change to IV ertapenem 1 gram daily, likely 4-6 weeks followed by oral Rx.
[2017-07-18] MEDS: ACETAMINOPHEN 325 MG TAB PO PRN ×3 (10:52→23:58)
[2017-07-18] MEDS: ERTAPENEM IV 1,000 MG in SODIUM CHLORIDE 0.9% 50ML 50 ML IV SCH (11:57)
--- NOTE | 2017-07-18 12:28 | Pharmacy Progress Note ---
Glycemic Control Progress Note Date of Service Jul 18, 2017. Scope Glycemic Pharmacist consulted for glycemic control to write orders per [facility] inpatient glycemic control protocol. Objective Accuchecks BSG (last 24hrs): Test 07/17/17 16:15 07/17/17 20:00 07/18/17 06:04 07/18/17 06:11 Bedside Glucose 151 mg/dl (70-99) 147 mg/dl (70-99) 148 mg/dl (70-99) Random Glucose 151 mg/dl (70-99) Test 07/18/17 11:02 Bedside Glucose 195 mg/dl (70-99) HbA1c: 8.5% 07/12/17 Recent Pertinent Medications The patient is currently receiving: * Basal insulin: Lantus 15 units SQ BID * Correctional Insulin: Novolog Correction per scale ACHS Goal Range: Low 110 mg/dL - High 150 mg/dL Correction Factor: 20 mg/dL/unit * Prandial insulin: Per carb ratio of 1 unit per 7 grams CHO consumed Outpatient Anti-Diabetic Meds Metformin 1gm PO BID A1c 8.5% 07/12/17 Assessment & Plan ASSESSMENT: 07/17/17 * BSGs have ranged 141-225 over the last 24 hours * He has received 48 units of insulin over the last 24 hours while tolerating a diet * Fasting BSG 141 this AM w/ 30 units of Lantus on board. Will continue the same dose, a scale is likely unnecessary at this point * Post-prandial BSGs usually controlled w/ current CR. On occasion the pre- lunch is elevated. Will continue the same CR for now. May consider a larger prandial dose w/ breakfast in the future if pre-lunch hyperglycemia is a recurring trend 07/18/17 * Glycemic control acceptable over the last 24 hours * Fasting BSG 148 this AM w/ 25 units Lantus on board. Current Lantus dose will provide 30 units per day. Would anticipate improved fasting BSGs going forward. * Novolog CF and CR have performed well on most occasions * Pt is ordered Boost Glucose Control at 1000 and 2100. The pre-lunch BSGs will likely be falsely elevated due to CHO intake during and just prior to BSG check. Will need to interpret pre-lunch BSGs with this in mind. He may be at risk for hypoglycemia pre-dinner if the Boost prior to lunch-time accucheck leads to extra correctional insulin being given. PLAN FOR INPATIENT GLYCEMIC CONTROL: * Continuing Lantus 15 units SQ BID * Continuing correction factor of 20 mg/dl/unit * Continuing carb ratio of 1 unit per 7 grams CHO consumed * Continuing goal range of Low 110 mg/dL - High 150 mg/dL * Please note that the plan above was derived based on current level of insulin resistance and hospital stress. These recommendations are appropriate for inpatient admission only. Plan of care upon discharge will need to be reassessed to avoid potential outpatient hypo/hyperglycemia. Thank you.
--- NOTE | 2017-07-18 15:40 | PROGRESS NOTE ---
DATE: 07/18/2017 PM rounds;This patient at this point in time is resting comfortably. He still requires straight cathing. At about 550-600 mL. OBJECTIVE: Vital signs are stable. He is afebrile. Wound is clean, dry and intact. No subcutaneous air. Neurovascular check distally within normal limits femoral sciatic nerve. IMPRESSION AND PLAN: Appreciate ID input change from Rocephin to ertapenem. Continue with close observation and clinical examinations at this point in time, other than his white count things overall are going in the right direction. Will continue with close observation daily. MTDD
[2017-07-18] MEDS: DIGOXIN 0.125 MG TAB PO SCH (16:57)
[2017-07-18] MEDS: SIMVASTATIN 20 MG TAB PO SCH (20:48)
[2017-07-18] MEDS: TAMSULOSIN HCL 0.4 MG CAP PO SCH (20:50)
[2017-07-19] VITALS (7 sets, daily range): BP systolic 114–135; BP diastolic 51–89; PULSE 88–94; TEMP 36.3–36.9; O2SAT 90–95
[2017-07-19 04:30] LABS: HEMATOCRIT 29.8 % (42-52); MEAN CELL VOLUME 85.9 fL (80-100); MEAN CORPUSCULAR HEMOGLOBIN 28.8 pg (25-34); MEAN CORPUSCULAR HGB CONC 33.6 g/dl (32-36); MEAN PLATELET VOLUME 9.4 fL (7.4-10.4); PLATELET COUNT 453 K/uL (130-400); RED CELL DISTRIBUTION WIDTH CV 14.4 % (11.5-14.5); RED CELL DISTRIBUTION WIDTH SD 44.7 fL (36.4-46.3); WHITE BLOOD COUNT 25.52 K/uL (4.8-10.8)
[2017-07-19 04:38] LABS: INR 3.4 (0.9-1.1)
[2017-07-19 04:48] LABS: CALCIUM 9.2 mg/dl (8.5-10.1); CREATININE 0.98 mg/dl (0.60-1.40); POTASSIUM 3.3 mmol/L (3.5-5.1)
[2017-07-19 04:54] LABS: BASO % 0.2 %; BASO ABS # 0.05 K/uL (0-0.2); EOS % 0.9 %; EOS ABS # 0.24 K/uL (0-0.5); IG# 0.84 K/uL (0.00-0.02); LYMPH % 3.3 %; LYMPH ABS # 0.85 K/uL (1.2-3.4); MONO % 6.5 %; MONO ABS # 1.66 K/uL (0.11-0.59); NEUT % 85.8 %; NEUT ABS # 21.88 K/uL (1.4-6.5)
[2017-07-19] MEDS: METOPROLOL TARTRATE 25 MG TAB PO SCH ×4 (05:53→23:40)
--- NOTE | 2017-07-19 07:46 | Family Medicine Progress Note ---
Progress Note Date of Service Jul 19, 2017. Subjective Pt evaluation today including: conversation w/ patient Found patient sitting up, eating his breakfast. Says his right hip is "not quite as sore" as yesterday. Otherwise he denies any other physical concerns, including any cough, SOB, CP, abd pain, or other acute concerns. Does say he continues to have loose stools, though. Constitutional: No fever, No chills Respiratory: No cough, No shortness of breath Cardiovascular: No chest pain, No edema Abdomen: + diarrhea (loose stools), No pain, No nausea, No vomiting Musculoskeletal: + joint pain Medications Current Inpatient Medications Medications (Trade) Dose Ordered Sig/Oswaldo Route Start Time Stop Time Status Last Admin Dose Admin Oxycodone HCl (Roxicodone Immediate Rel Tab) 1 TABLET FOR PAIN RATING... Q4H PRN PO 07/13/17 10:30 07/27/17 10:29 07/17/17 02:44 5 MG Morphine Sulfate (MoRPHine SULFATE INJ) give 2mg for pain 3-6 g... Q1H PRN IV 07/13/17 10:30 07/27/17 10:29 Acetaminophen (Tylenol Tab) 650 mg Q6H PRN PO 07/14/17 14:00 08/13/17 13:59 07/18/17 23:58 650 MG Magnesium Hydroxide (Milk Of Magnesia Susp) 30 ml Q6H PRN PO 07/13/17 10:30 08/12/17 10:29 Bisacodyl (Dulcolax Supp) 10 mg DAILY PRN SC 07/13/17 10:30 08/12/17 10:29 Sodium Biphosphate/ Sodium Phosphate (Fleet Enema) 132 ml DAILY PRN SC 07/13/17 10:30 08/12/17 10:29 Docusate Sodium (coLACE CAP) 100 mg BID PO 07/13/17 21:00 08/12/17 20:59 07/18/17 20:48 100 MG Diphenhydramine HCl (Benadryl Inj) 25 mg Q8H PRN IV 07/13/17 10:30 08/12/17 10:29 Al Hydrox/Mg Hydrox/Simethicone (Maalox Max Susp) 15 ml Q4H PRN PO 07/13/17 10:30 08/12/17 10:29 Ondansetron HCl (Zofran Inj) 4 mg Q6H PRN IV 07/13/17 10:30 08/12/17 10:29 Metoclopramide HCl (Reglan Inj) 10 mg Q6H PRN IV 07/13/17 10:30 08/12/17 10:29 Ferrous Gluconate (Ferrous Gluconate Tab) 324 mg TIDM PO 07/13/17 16:45 08/12/17 17:44 07/18/17 16:57 324 MG Allopurinol (Zyloprim Tab) 300 mg QAM PO 07/14/17 09:00 08/13/17 08:59 07/18/17 08:18 300 MG Dipyridamole/ Aspirin (Aggrenox 200MG/ 25MG Cap) 1 cap BID PO 07/13/17 21:00 08/12/17 20:59 07/18/17 20:49 1 CAP Chlorpromazine HCl (Thorazine Tab) 25 mg TID PRN PO 07/13/17 10:30 08/12/17 10:29 07/16/17 07:43 25 MG Multivitamins (Multivitamin Tab) 1 tab DAILY PO 07/14/17 09:00 08/13/17 08:59 07/18/17 08:18 1 TAB Niacin (Niaspan Extended Rel Tab) 500 mg DAILY PO 07/14/17 09:00 08/13/17 08:59 07/18/17 08:18 500 MG Simvastatin (Zocor Tab) 20 mg QPM PO 07/13/17 21:00 08/12/17 20:59 07/18/17 20:48 20 MG Insulin Aspart (novoLOG ASPART) SLIDING SCALE G... ACHS SC 07/13/17 16:15 08/12/17 17:14 07/18/17 20:55 4 UNITS Glucose (Glucose 40% Gel) 15-30 GRAMS 15 GRAMS... UD PRN PO 07/13/17 11:00 08/12/17 10:59 Glucose (Glucose Chew Tab) 4-8 Tablets 4 Tabl... UD PRN PO 07/13/17 11:00 08/12/17 10:59 Dextrose (Dextrose 50% 50ML Syringe) 25-50ML OF 50% DW IV FOR... UD PRN IV 07/13/17 11:00 08/12/17 10:59 Glucagon (Glucagon Inj) 1 mg UD PRN SQ 07/13/17 11:00 08/12/17 10:59 Miscellaneous Information (Consult Glycemic Management Pharmacy) 1 ea UD N/A 07/13/17 17:19 08/12/17 17:18 Tamsulosin HCl (Flomax Cap) 0.8 mg QPM PO 07/13/17 21:00 08/12/17 20:59 07/18/17 20:50 0.8 MG Warfarin Sodium (Coumadin Tab) 2.5 mg DAILY@16 PO 07/16/17 16:00 08/15/17 15:59 Future Hold 07/17/17 16:19 2.5 MG Metoprolol Tartrate (Lopressor Tab) 25 mg Q6 PO 07/17/17 09:00 08/16/17 08:59 07/19/17 05:53 25 MG Digoxin (Lanoxin Tab) 0.125 mg DAILY@16 PO 07/18/17 16:00 08/17/17 15:59 07/18/17 16:57 0.125 MG Insulin Glargine (Lantus Solostar Pen) 15 units BID SC 07/17/17 21:00 08/16/17 20:59 07/18/17 20:53 15 UNITS Heparin Sodium (Porcine) (Heparin 10 Unit/ ml 5 ml Flush) 5 ml PRN PRN FLUSH 07/17/17 14:45 08/16/17 14:44 Finasteride (Proscar Tab) 5 mg QAM PO 07/18/17 09:00 08/17/17 08:59 07/18/17 08:19 5 MG Enteral Nutritional Formula (Boost Glucose Control) 1 can BID@1000,2100 PO 07/17/17 21:00 08/16/17 20:59 07/18/17 09:31 1 CAN Ertapenem 1000 mg/ Sodium Chloride 60 ml @ 120 mls/hr Q24H IV 07/18/17 12:00 08/29/17 11:59 07/18/17 11:57 120 MLS/HR Objective Vital Signs Date Time Temp Pulse Resp B/P (MAP) Pulse Ox O2 Delivery O2 Flow Rate FiO2 3/7/18 04:00 Room Air 07/19/17 02:56 36.6 94 20 114/72 (86) 94 Room Air 07/19/17 00:00 Room Air 07/18/17 22:58 36.6 86 19 101/58 (72) 91 Room Air 07/18/17 20:00 Room Air 07/18/17 19:22 37.8 91 14 130/62 (84) 94 Room Air 07/18/17 17:51 91 110/73 (85) 07/18/17 16:57 93 07/18/17 16:00 Room Air 07/18/17 15:32 36.7 81 20 119/68 (85) 93 Room Air 07/18/17 12:10 36.5 95 26 84/60 (68) 93 Room Air 07/18/17 12:00 Room Air 07/18/17 08:00 Room Air 07/18/17 08:00 37.1 96 22 114/66 (82) 94 Room Air Physical Exam Notes: General Appearance: Awake, alert, oriented x 3, comfortable, NAD CV: +S1S2 irregularly irregular. No peripheral edema. Pulm: Clear to auscultation throughout. Abdomen: +BS, soft, non-tender, non-distended. Extremities: Right lateral hip wound vac in place, c/d/i. Moving toes about easily. No calf tenderness. Bilateral leg compression stockings in place. Neuro: Distal LE sensation intact. Lines: Right PICC (placed 05Mar). Left PIV. Right arm PIV. Laboratory Results 07/19/17 04:10 Red Blood Count 3.47, Mean Corpuscular Volume 85.9, Mean Corpuscular Hemoglobin 28.8, Mean Corpuscular Hemoglobin Concent 33.6, Mean Platelet Volume 9.4, Neutrophils (%) (Auto) 85.8, Lymphocytes (%) (Auto) 3.3, Monocytes (%) (Auto) 6.5, Eosinophils (%) (Auto) 0.9, Basophils (%) (Auto) 0.2, Neutrophils # (Auto) 21.88, Lymphocytes # (Auto) 0.85, Monocytes # (Auto) 1.66, Eosinophils # (Auto) 0.24, Basophils # (Auto) 0.05 07/19/17 04:10 Test 07/19/17 04:10 07/19/17 06:50 White Blood Count 25.52 K/uL (4.8-10.8) Red Blood Count 3.47 M/uL (4.7-6.1) Hemoglobin 10.0 g/dL (14.0-18.0) Hematocrit 29.8 % (42-52) Mean Corpuscular Volume 85.9 fL (80-100) Mean Corpuscular Hemoglobin 28.8 pg (25-34) Mean Corpuscular Hemoglobin Concent 33.6 g/dl (32-36) Platelet Count 453 K/uL (130-400) Mean Platelet Volume 9.4 fL (7.4-10.4) Neutrophils (%) (Auto) 85.8 % Lymphocytes (%) (Auto) 3.3 % Monocytes (%) (Auto) 6.5 % Eosinophils (%) (Auto) 0.9 % Basophils (%) (Auto) 0.2 % Neutrophils # (Auto) 21.88 K/uL (1.4-6.5) Lymphocytes # (Auto) 0.85 K/uL (1.2-3.4) Monocytes # (Auto) 1.66 K/uL (0.11-0.59) Eosinophils # (Auto) 0.24 K/uL (0-0.5) Basophils # (Auto) 0.05 K/uL (0-0.2) RDW Standard Deviation 44.7 fL (36.4-46.3) RDW Coefficient of Variation 14.4 % (11.5-14.5) Immature Granulocyte % (Auto) 3.3 % Immature Granulocyte # (Auto) 0.84 K/uL (0.00-0.02) Hypersegmented Polys 1+ Prothrombin Time 34.4 SECONDS (9.0-12.0) Prothromb Time International Ratio 3.4 (0.9-1.1) Anion Gap 10.0 mmol/L (3-11) Est Creatinine Clear Calc Drug Dose 62.1 ml/min Estimated GFR () 84.1 Estimated GFR (Non- 72.5 BUN/Creatinine Ratio 16.5 (10-20) Calcium Level 9.2 mg/dl (8.5-10.1) Magnesium Level 1.7 mg/dl (1.8-2.4) Bedside Glucose 158 mg/dl (70-99) Assessment and Plan 82 year old male admitted on [id number] for infected right total hip arthroplasty, now POD #6. PMH: Afib, osteoarthritis, HTN, HLD, macular degeneration, enlarged prostate, DM2, gout. Right hip infection: S/p surgery, ortho is primary team, rec'd continue wound vac and PT/OT to mobilize, will need placement. Last fever . WBC 25, continuing to worsen. CXR showed no acute findings (as part of leukocytosis workup) and no reported respiratory difficulties. ID onboard. Stopped rocephin (3d given) and started ertapenem daily on for likely 4-6 weeks followed by oral antibiotics. PICC placed . - BCx x 4 negative (final). joint space Cx positive for citrobacter koseri. hip cultures pending. - will re-send C diff due to ongoing loose stools. If negative and WBC continues to rise, would likely investigate a bone marrow issue as well. Atrial fibrillation: Briefly in RVR, but most recent rates in 's. Asymptomatic. Unknown duration of afib. Cardiology onboard. TTE noted EF 60-65% with mild LVH, mild-mod AR, mild . Did not convert with amiodarone. Now on metoprolol 25 mg PO q6h and digoxin 0.125 mg daily. On heparin. Was started on coumadin 2.5 mg but his INR continues to rise, today 3.4., so holding coumadin for now. - Watch for signs of CHF. Encourage incentive spirometry. - Watching blood pressure. Urinary retention: Hx of enlarged prostate. Has required multiple straight- cath as inpatient. On flomax, added proscar. Would like to avoid placing cruz if possible. Electrolytes: - Hyponatremia: Na 126, continuing to trend downwards. 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 Began 1500 mL fluid restriction on . Stopped home HCTZ. Monitoring. - Hypokalemia: K 3.3. Repleting, goal > 4. - Hypomagnesemia: Mag 1.7. Repleting, goal > 2. Loose stools: Ongoing. C diff negative. Re-sending c diff on . Anemia: Hb 10. Monitoring. DM2: Hx of same. Glycemic consultation, on novolog and lantus. Holding home metformin. HTN: Hx of same, presently stable. On metoprolol as noted in "afib" above. HLD: Hx of same. On zocor. Gout: Hx of same. On allopurinol. Code status: Full code. Diet: DM2, fluid restrict 1500 mL, with boost supplementation. DVT prophy: Heparin. Coumadin on hold. Also aggrenox. PT/OT: PT ongoing, recommends rehab. OT note says,"Pt will require continued in patient therapies after discharge from [facility]." Case management working with Consuelo Guerrero. Disbo: Admit med/surg. Likely needs placement per ortho. Resident Physician Supervision Note: I interviewed and examined the patient. Discussed with Dr. Stevenson and agree with findings and plan as documented in the note. Any exceptions or clarifications are listed here: None Patient is transferred off telemetry floor and transferred to our service at per orthopedic request Patient is doing well slightly lethargic it is noted that he has a markedly elevated white blood cell count which has been creeping up over the last few days persistent hypokalemia hypomagnesemia and now is a coagulopathy from Coumadin with an INR of 3.4 His vital signs however are stable 36 3 8822 and 135/89 his cardiac exam shows him to be an irregular heartbeat his lungs are clear his hip site looks clean dry and intact with a wound VAC in place Patient is here status post a clean out for a persistent hip infection having perioperative atrial fibrillation is now rate controlled and anticoagulated which has slightly overshot our therapeutic range. The persistent elevation of his white count despite lack of clinical signs and associated with some diarrhea is concerning for C. difficile infection. His initial C. difficile however was negative on 16 July. We will continue rate control with digoxin and metoprolol and continue using Coumadin as his anticoagulant both for DVT prevention and thrombotic prevention from atrial fibrillation he is likewise also predicted by being on Aggrenox twice daily which does contain aspirin twice a day who continue to pursue rehabilitation for this gentleman from a daily basis Documented By: Romero Crain Resident Tracking Resident Involvement: Resident Care Provided Care Provided: Adult Hospital Medicine (inpatient)
[2017-07-19] MEDS: DIPYRIDAMOLE/ASPIRIN CAP PO SCH ×2 (07:48→20:54)
[2017-07-19] MEDS: MULTIVITAMIN TAB PO SCH (07:48)
[2017-07-19] MEDS: NIASPAN 500 MG TABCR PO SCH (07:49)
[2017-07-19] MEDS: FERROUS GLUCONATE 324 MG TAB PO SCH ×3 (07:49→19:01)
[2017-07-19] MEDS: DOCUSATE SODIUM 100 MG CAP PO SCH ×2 (07:49→20:55)
[2017-07-19] MEDS: ALLOPURINOL 300 MG TAB PO SCH (07:50)
[2017-07-19] MEDS: FINASTERIDE 5 MG TAB PO SCH (07:50)
[2017-07-19] MEDS: INSULIN ASPART 100 UNITS/ML 3 ML PEN SC SCH ×5 (07:52→22:13)
[2017-07-19] MEDS: INSULIN GLARGINE SOLOSTAR 100 UNITS/ML 3 ML PEN SC SCH ×2 (07:53→22:11)
[2017-07-19] MEDS ORDERED: MAGNESIUM SULFATE 1GM / D5W 1 GM in PREMIXED IN D5W 100 ML IV ONE (08:00)
--- NOTE | 2017-07-19 08:06 | PROGRESS NOTE ---
DATE: 07/19/2017 SUBJECTIVE: At this point in time, the patient is sitting up in bed. He states that he is not having any significant pain. He is on the bedpan. He had 1 formed bowel movement and 1 loose bowel movement. His last Tylenol dose was at 2300. His temperature after that at 3:59 was 36.6 and this morning at roughly 7:30, was 97.4. Denies any chest pain, shortness of breath, fever, chills, nausea, vomiting or headache. OBJECTIVE: VITAL SIGNS: Stable. Maximum pulse is in the mid 90s. He is well, oxygenating on room air. ABDOMEN: Reveals no pain. EXTREMITIES: Upper extremity exam reveals the area of infiltration is consolidating and redder but there is no drainage. There is no increased pain there. Distally, neurovascular check both upper extremities normal. Detailed examination of both lower extremities reveals no calf tenderness, intact extensor and flexor function of the feet. Intact sensation. No sign of any epidural process. Detailed examination of the right thigh reveals no subcutaneous air. No increased pain with palpation. No drainage from the wound VAC. No increased swelling noted. LABORATORY DATA: Today reveals increased white count to 25,000, increased hematocrit to 29.8, increased platelet count of 453,000. He has lot of marrow activity going on the immature side. INR is elevated at 3.4 despite holding Coumadin. Chemistry reveals well controlled glucoses. Of note, is that calcium was also up to 9.2. ASSESSMENT: Clinically continues to look like he is improving despite the elevated white count. He has been afebrile and below 38 degrees centigrade for close to 48 hours despite minimal use of Tylenol. His last Tylenol dose again was at 2300 and roughly 7-1/2-8 hours later, he is still below 37 degrees centigrade. We will continue to watch carefully. At this point in time, I see nothing clinically to be drained surgically. White count could be related to medications, potentially Stimulan beads or other forms of medication or just hyperactive marrow based on chronic disease patterns. In addition, his INR is elevated. We will need to watch that carefully. There is no sign of clinical DIC. No signs of clinical sepsis. Also need to watch serum calcium based on Stimulan beads producing hypercalcemia. Would suggest repeating that again later today. If starts to get symptoms from hypercalcemia, may need to treat appropriately. MTDD
[2017-07-19] MEDS: POTASSIUM CHLR 10 MEQ / WTR 10 MEQ in PREMIXED WATER 100 ML IV SCH ×4 (08:21→11:50)
--- NOTE | 2017-07-19 09:53 | Cardiology Follow-Up ---
Subjective General Date of Service: Jul 19, 2017. Pt evaluation today including: conversation w/ patient, conversation w/ family , chart review, lab review, review of studies History of Present Illness The patient is a 82 year old male Allergies Coded Allergies: No Known Allergies (Verified , 07/13/17) Social History Smoking Status: Former Smoker Hx Tobacco Use In Past Year?: No (QUIT SMOKING OCTOBER 2000) Hx Alcohol Use - Type And Amou: Yes (RARELY) Hx Substance Use - Type And Am: No Problem List Medical Problems: (1) Hiccups Status: Acute (2) Hyponatremia Status: Acute (3) Polyuria Status: Acute (4) Right radial fracture Status: Acute Review of Systems Respiratory: No cough, No shortness of breath, No dyspnea at rest Cardiac: No chest pain, No edema, No palpitations Physical Exam Vital Signs Last Vital Signs Documentation Date Time Temp Pulse Resp B/P (MAP) Pulse Ox O2 Delivery O2 Flow Rate FiO2 07/19/17 08:00 93 Room Air 2.0 07/19/17 07:48 36.3 88 22 135/89 (104) Physical Exam Constitutional: Level of Distress: NAD Lungs: Respiratory effort: no dyspnea Auscultation: no wheezing, no rhonchi, wet rales/crackles (base b/l) Cardiovascular: Heart Auscultation: II/ LEXI, irregular rate rhythm Abdomen: Bowel Sounds: normal Inspection & Palpation: soft, non-distended, no tenderness, guarding & rebound Extremities: no edema Assessment and Plan Assessment and Plan IMPRESSION: 1. Postoperative atrial fibrillation with a rapid ventricular response. 2. Infected right total hip replacement. 3. Normal left ventricular systolic function. 4. Mild aortic stenosis with adug-ks-luwwzcoi aortic insufficiency. 5. Hypertension. Afib rates and BP improved metoprolol 25 Q6 Dig 0.125 daily Eventual coumadin or NOAC Keep K+ > 4.0 with dig and Mg >2.0 Replete K+ serum NA is stable--fluid restrict and follow closely; off HCTZ WBC is up Laboratory Results Last 24 Hours Test 07/18/17 11:02 07/18/17 16:13 07/18/17 20:24 07/19/17 04:10 Bedside Glucose 195 mg/dl 163 mg/dl 215 mg/dl White Blood Count 25.52 K/uL Red Blood Count 3.47 M/uL Hemoglobin 10.0 g/dL Hematocrit 29.8 % Mean Corpuscular Volume 85.9 fL Mean Corpuscular Hemoglobin 28.8 pg Mean Corpuscular Hemoglobin Concent 33.6 g/dl Platelet Count 453 K/uL Mean Platelet Volume 9.4 fL Neutrophils (%) (Auto) 85.8 % Lymphocytes (%) (Auto) 3.3 % Monocytes (%) (Auto) 6.5 % Eosinophils (%) (Auto) 0.9 % Basophils (%) (Auto) 0.2 % Neutrophils # (Auto) 21.88 K/uL Lymphocytes # (Auto) 0.85 K/uL Monocytes # (Auto) 1.66 K/uL Eosinophils # (Auto) 0.24 K/uL Basophils # (Auto) 0.05 K/uL RDW Standard Deviation 44.7 fL RDW Coefficient of Variation 14.4 % Immature Granulocyte % (Auto) 3.3 % Immature Granulocyte # (Auto) 0.84 K/uL Hypersegmented Polys 1+ Prothrombin Time 34.4 SECONDS Prothromb Time International Ratio 3.4 Sodium Level 126 mmol/L Potassium Level 3.3 mmol/L Chloride Level 90 mmol/L Carbon Dioxide Level 26 mmol/L Anion Gap 10.0 mmol/L Blood Urea Nitrogen 16 mg/dl Creatinine 0.98 mg/dl Est Creatinine Clear Calc Drug Dose 62.1 ml/min Estimated GFR () 84.1 Estimated GFR (Non- 72.5 BUN/Creatinine Ratio 16.5 Random Glucose 164 mg/dl Calcium Level 9.2 mg/dl Magnesium Level 1.7 mg/dl Test 07/19/17 06:50 Bedside Glucose 158 mg/dl
[2017-07-19] MEDS: BOOST GLUCOSE CONTROL PO SCH ×2 (10:00→20:54)
[2017-07-19] MEDS: ACETAMINOPHEN 325 MG TAB PO PRN (10:07)
[2017-07-19] MEDS ORDERED: NURSING VERBAL MED ORDER ONE (11:45)
[2017-07-19] MEDS: ERTAPENEM IV 1,000 MG in SODIUM CHLORIDE 0.9% 50ML 50 ML IV SCH (11:46)
--- NOTE | 2017-07-19 12:00 | Pharmacy Progress Note ---
Glycemic Control Progress Note Date of Service Jul 19, 2017. Scope Glycemic Pharmacist consulted for glycemic control to write orders per [facility] inpatient glycemic control protocol. Objective Accuchecks BSG (last 24hrs): Test 07/18/17 16:13 07/18/17 20:24 07/19/17 04:10 07/19/17 06:50 Bedside Glucose 163 mg/dl (70-99) 215 mg/dl (70-99) 158 mg/dl (70-99) Random Glucose 164 mg/dl (70-99) Recent Pertinent Medications The patient is currently receiving: * Basal insulin: Lantus 15 units SQ BID * Correctional Insulin: Novolog Correction per scale ACHS Goal Range: Low 110 mg/dL - High 150 mg/dL Correction Factor: 20 mg/dL/unit * Prandial insulin: Per carb ratio of 1 unit per 7 grams CHO consumed Outpatient Anti-Diabetic Meds Metformin 1gm PO BID A1c 8.5% 07/12/17 Assessment & Plan ASSESSMENT: 07/17/17 * BSGs have ranged 141-225 over the last 24 hours * He has received 48 units of insulin over the last 24 hours while tolerating a diet * Fasting BSG 141 this AM w/ 30 units of Lantus on board. Will continue the same dose, a scale is likely unnecessary at this point * Post-prandial BSGs usually controlled w/ current CR. On occasion the pre- lunch is elevated. Will continue the same CR for now. May consider a larger prandial dose w/ breakfast in the future if pre-lunch hyperglycemia is a recurring trend 07/18/17 * Glycemic control acceptable over the last 24 hours * Fasting BSG 148 this AM w/ 25 units Lantus on board. Current Lantus dose will provide 30 units per day. Would anticipate improved fasting BSGs going forward. * Novolog CF and CR have performed well on most occasions * Pt is ordered Boost Glucose Control at 1000 and 2100. The pre-lunch BSGs will likely be falsely elevated due to CHO intake during and just prior to BSG check. Will need to interpret pre-lunch BSGs with this in mind. He may be at risk for hypoglycemia pre-dinner if the Boost prior to lunch-time accucheck leads to extra correctional insulin being given. 07/19/17 * BSGs have ranged 148-215 over the last 24 hours and he has received 55 units SQ insulin * Fasting BSG 158 this AM w/ 30 units Lantus on board. This is higher than goal. Will continue current dose one more day, but will titrate up tomorrow if still elevated. * 2 of 3 post-prandial BSGs elevated yesterday. One elevation may have been secondary to Boost GC supplement just prior to pre-lunch BSG check. I increase prandial insulin dose slightly. PLAN FOR INPATIENT GLYCEMIC CONTROL: * Continuing Lantus 15 units SQ BID * Continuing correction factor of 20 mg/dl/unit * Changing carb ratio to 1 unit per 6 grams CHO consumed * Changing goal range to Low 110 mg/dL - High 140 mg/dL to allow for an extra unit of correction when elevated * Please note that the plan above was derived based on current level of insulin resistance and hospital stress. These recommendations are appropriate for inpatient admission only. Plan of care upon discharge will need to be reassessed to avoid potential outpatient hypo/hyperglycemia. Thank you.
--- NOTE | 2017-07-19 12:12 | Progress Note ---
Progress Note Date of Service Jul 19, 2017. Progress Note Afternoon rounds. Patient sitting up in the chair conversing with the son. He is awake and alert. Underwent physical therapy. Vital signs are stable he is afebrile. Wound dressing clean dry and intact no drainage. Right thigh is without subcutaneous air, increased pain ,or increased redness or swelling. Detail neurovascular check both upper and lower extremities within normal limits. Assessment continues to improve clinically. Plan at this point time is to continue close supervision of wound, calcium level, potassium level, sodium level, and white blood cell count. At this point in time due to the complex nature of his admission I have requested transfer to the hospitalist service. He will follow-up with me after discharge in 1 week for wound VAC dressing change. All of this was discussed in detail with the patient and his son. Dictated not read.
[2017-07-19] MEDS: DIGOXIN 0.125 MG TAB PO SCH (16:16)
[2017-07-19] MEDS: TAMSULOSIN HCL 0.4 MG CAP PO SCH (20:55)
[2017-07-19] MEDS: SIMVASTATIN 20 MG TAB PO SCH (20:56)
[2017-07-20 05:50] LABS: HEMOGLOBIN 9.9 g/dL (14.0-18.0); MEAN CELL VOLUME 86.3 fL (80-100); MEAN CORPUSCULAR HEMOGLOBIN 29.5 pg (25-34); MEAN CORPUSCULAR HGB CONC 34.1 g/dl (32-36); MEAN PLATELET VOLUME 9.2 fL (7.4-10.4); PLATELET COUNT 559 K/uL (130-400); RED CELL DISTRIBUTION WIDTH CV 14.6 % (11.5-14.5); RED CELL DISTRIBUTION WIDTH SD 45.6 fL (36.4-46.3); WHITE BLOOD COUNT 33.91 K/uL (4.8-10.8)
[2017-07-20 05:51] LABS: INR 3.4 (0.9-1.1)
[2017-07-20 06:10] LABS: ALBUMIN 1.8 gm/dl (3.4-5.0); CALCIUM 9.5 mg/dl (8.5-10.1); POTASSIUM 3.3 mmol/L (3.5-5.1)
[2017-07-20 06:13] VITALS: BP 128/77; PULSE 90
[2017-07-20 06:13] LABS: TOTAL PROTEIN 6.4 gm/dl (6.4-8.2)
[2017-07-20] MEDS: METOPROLOL TARTRATE 25 MG TAB PO SCH ×3 (06:15→18:48)
[2017-07-20 07:09] VITALS: BP 127/69; PULSE 78; TEMP 36.5; O2SAT 95
--- NOTE | 2017-07-20 08:02 | Family Medicine Progress Note ---
Progress Note Date of Service Jul 20, 2017. Subjective Pt evaluation today including: conversation w/ patient, conversation w/ family (son) Found patient resting comfortably in his bed early this morning. Said he was "coming along" and denied any pain, including at his hip. Spoke with patient and son again later in the morning on formal rounds, again patient stating he felt "not bad". He denied any particular acute concerns, including difficulty breathing, abdominal pain, or other focal extremity pains. He continues to have loose stools. No particular acute questions from his son other than asking for a status update. Constitutional: No fever, No chills ENT: + hearing loss Respiratory: No cough, No shortness of breath Cardiovascular: No chest pain, No edema Abdomen: + diarrhea, No pain, No nausea, No vomiting Musculoskeletal: + joint pain (minimal/none this morning) Medications Current Inpatient Medications Medications (Trade) Dose Ordered Sig/Oswaldo Route Start Time Stop Time Status Last Admin Dose Admin Oxycodone HCl (Roxicodone Immediate Rel Tab) 1 TABLET FOR PAIN RATING... Q4H PRN PO 07/13/17 10:30 07/27/17 10:29 07/17/17 02:44 5 MG Morphine Sulfate (MoRPHine SULFATE INJ) give 2mg for pain 3-6 g... Q1H PRN IV 07/13/17 10:30 07/27/17 10:29 Acetaminophen (Tylenol Tab) 650 mg Q6H PRN PO 07/14/17 14:00 08/13/17 13:59 07/19/17 10:07 650 MG Magnesium Hydroxide (Milk Of Magnesia Susp) 30 ml Q6H PRN PO 07/13/17 10:30 08/12/17 10:29 Bisacodyl (Dulcolax Supp) 10 mg DAILY PRN [place] 07/13/17 10:30 08/12/17 10:29 Sodium Biphosphate/ Sodium Phosphate (Fleet Enema) 132 ml DAILY PRN [place] 07/13/17 10:30 08/12/17 10:29 Docusate Sodium (coLACE CAP) 100 mg BID PO 07/13/17 21:00 08/12/17 20:59 07/19/17 07:49 100 MG Diphenhydramine HCl (Benadryl Inj) 25 mg Q8H PRN IV 07/13/17 10:30 08/12/17 10:29 Al Hydrox/Mg Hydrox/Simethicone (Maalox Max Susp) 15 ml Q4H PRN PO 07/13/17 10:30 08/12/17 10:29 Ondansetron HCl (Zofran Inj) 4 mg Q6H PRN IV 07/13/17 10:30 08/12/17 10:29 Metoclopramide HCl (Reglan Inj) 10 mg Q6H PRN IV 07/13/17 10:30 08/12/17 10:29 Ferrous Gluconate (Ferrous Gluconate Tab) 324 mg TIDM PO 07/13/17 16:45 08/12/17 17:44 07/19/17 19:01 324 MG Allopurinol (Zyloprim Tab) 300 mg QAM PO 07/14/17 09:00 08/13/17 08:59 07/19/17 07:50 300 MG Dipyridamole/ Aspirin (Aggrenox 200MG/ 25MG Cap) 1 cap BID PO 07/13/17 21:00 08/12/17 20:59 07/19/17 20:54 1 CAP Chlorpromazine HCl (Thorazine Tab) 25 mg TID PRN PO 07/13/17 10:30 08/12/17 10:29 07/16/17 07:43 25 MG Multivitamins (Multivitamin Tab) 1 tab DAILY PO 07/14/17 09:00 08/13/17 08:59 07/19/17 07:48 1 TAB Niacin (Niaspan Extended Rel Tab) 500 mg DAILY PO 07/14/17 09:00 08/13/17 08:59 07/19/17 07:49 500 MG Simvastatin (Zocor Tab) 20 mg QPM PO 07/13/17 21:00 08/12/17 20:59 07/19/17 20:56 20 MG Insulin Aspart (novoLOG ASPART) SLIDING SCALE G... ACHS SC 07/13/17 16:15 08/12/17 17:14 07/19/17 22:13 3 UNITS Glucose (Glucose 40% Gel) 15-30 GRAMS 15 GRAMS... UD PRN PO 07/13/17 11:00 08/12/17 10:59 Glucose (Glucose Chew Tab) 4-8 Tablets 4 Tabl... UD PRN PO 07/13/17 11:00 08/12/17 10:59 Dextrose (Dextrose 50% 50ML Syringe) 25-50ML OF 50% DW IV FOR... UD PRN IV 07/13/17 11:00 08/12/17 10:59 Glucagon (Glucagon Inj) 1 mg UD PRN SQ 07/13/17 11:00 08/12/17 10:59 Miscellaneous Information (Consult Glycemic Management Pharmacy) 1 ea UD N/A 07/13/17 17:19 08/12/17 17:18 Tamsulosin HCl (Flomax Cap) 0.8 mg QPM PO 07/13/17 21:00 08/12/17 20:59 07/19/17 20:55 0.8 MG Warfarin Sodium (Coumadin Tab) 2.5 mg DAILY@16 PO 07/16/17 16:00 08/15/17 15:59 Future Hold 07/17/17 16:19 2.5 MG Metoprolol Tartrate (Lopressor Tab) 25 mg Q6 PO 07/17/17 09:00 08/16/17 08:59 07/20/17 06:15 25 MG Digoxin (Lanoxin Tab) 0.125 mg DAILY@16 PO 07/18/17 16:00 08/17/17 15:59 07/19/17 16:16 0.125 MG Heparin Sodium (Porcine) (Heparin 10 Unit/ ml 5 ml Flush) 5 ml PRN PRN FLUSH 07/17/17 14:45 08/16/17 14:44 07/20/17 05:13 5 ML Finasteride (Proscar Tab) 5 mg QAM PO 07/18/17 09:00 08/17/17 08:59 07/19/17 07:50 5 MG Enteral Nutritional Formula (Boost Glucose Control) 1 can BID@1000,2100 PO 07/17/17 21:00 08/16/17 20:59 07/19/17 20:54 1 CAN Ertapenem 1000 mg/ Sodium Chloride 60 ml @ 120 mls/hr Q24H IV 07/18/17 12:00 08/29/17 11:59 07/19/17 11:46 120 MLS/HR Insulin Glargine (Lantus Solostar Pen) 18 units BID SC 07/20/17 09:00 08/19/17 08:59 Objective Vital Signs Date Time Temp Pulse Resp B/P (MAP) Pulse Ox O2 Delivery O2 Flow Rate FiO2 07/20/17 06:13 90 128/77 (94) 07/19/17 23:42 Room Air 07/19/17 23:04 36.9 92 16 130/68 (88) 90 Room Air 07/19/17 19:00 89 134/51 (78) 07/19/17 16:16 81 07/19/17 16:15 Room Air 07/19/17 15:03 36.9 89 18 127/79 (95) 95 Room Air 07/19/17 11:34 88 126/68 (87) 07/19/17 11:10 Room Air 07/19/17 10:59 36.3 88 22 93 2.0 Physical Exam Notes: General Appearance: Awake, alert, oriented x 3, comfortable, NAD CV: +S1S2 irregularly irregular. No peripheral edema. Pulm: Clear to auscultation throughout. Abdomen: +BS, soft, non-tender, non-distended. Extremities: Right lateral hip wound vac in place, c/d/i. Moving toes about easily. No calf tenderness. Bilateral leg compression stockings in place. Neuro: Distal LE sensation intact. Lines: Right PICC (placed 05Mar). Left PIV. Right arm PIV. Laboratory Results 07/20/17 05:13 Red Blood Count 3.36, Mean Corpuscular Volume 86.3, Mean Corpuscular Hemoglobin 29.5, Mean Corpuscular Hemoglobin Concent 34.1, Mean Platelet Volume 9.2 07/20/17 05:13 Test 07/19/17 22:00 07/20/17 05:13 Bedside Glucose 196 mg/dl (70-99) White Blood Count 33.91 K/uL (4.8-10.8) Red Blood Count 3.36 M/uL (4.7-6.1) Hemoglobin 9.9 g/dL (14.0-18.0) Hematocrit 29.0 % (42-52) Mean Corpuscular Volume 86.3 fL (80-100) Mean Corpuscular Hemoglobin 29.5 pg (25-34) Mean Corpuscular Hemoglobin Concent 34.1 g/dl (32-36) Platelet Count 559 K/uL (130-400) Mean Platelet Volume 9.2 fL (7.4-10.4) RDW Standard Deviation 45.6 fL (36.4-46.3) RDW Coefficient of Variation 14.6 % (11.5-14.5) Prothrombin Time 35.2 SECONDS (9.0-12.0) Prothromb Time International Ratio 3.4 (0.9-1.1) Anion Gap 10.0 mmol/L (3-11) Est Creatinine Clear Calc Drug Dose 60.8 ml/min Estimated GFR () 82.0 Estimated GFR (Non- 70.8 BUN/Creatinine Ratio 17.8 (10-20) Calcium Level 9.5 mg/dl (8.5-10.1) Magnesium Level 1.8 mg/dl (1.8-2.4) Total Bilirubin 0.8 mg/dl (0.2-1) Aspartate Amino Transf (AST/SGOT) 38 U/L (15-37) Alanine Aminotransferase (ALT/SGPT) 41 U/L (12-78) Alkaline Phosphatase 303 U/L (45-117) Total Protein 6.4 gm/dl (6.4-8.2) Albumin 1.8 gm/dl (3.4-5.0) Globulin 4.6 gm/dl (2.5-4.0) Albumin/Globulin Ratio 0.4 (0.9-2) Assessment and Plan 82 year old male admitted on [id number] for infected right total hip arthroplasty, now POD #7. PMH: Afib, osteoarthritis, HTN, HLD, macular degeneration, enlarged prostate, DM2, gout. Right hip infection: S/p surgery, rec'd continue wound vac and PT/OT to mobilize , will need placement. Last fever 04Mar. Leukocytosis as noted below. Mar joint space Cx positive for Citrobacter koseri and Finegoldia magna. ID onboard. Stopped rocephin (3d given) and started ertapenem daily on 06Mar for likely 4-6 weeks followed by oral antibiotics. PICC placed 05Mar. Leukocytosis: Progressive increase, now WBC 33 with blasts 0.31. Known infection in right hip as above, on ertapenem. 06Mar CXR showed no acute findings (as part of leukocytosis workup). Patient continues not to c/o any respiratory difficulties. BCx x 4 negative (final). hip cultures no growth to date. Does have ongoing diarrhea but C diff negative on both and . UCx no growth. Denies acute urinary symptoms, but re- sent UCx on as a precaution. He has a known systolic ejection murmur but no other overt exam signs of endocarditis. [id number] TTE did not note any evidence of vegetations. - Discussed this leukocytosis with ID. See their note for specifics. Considering LISA +/- bone marrow evaluation in near future if continued increase. Atrial fibrillation: Briefly in RVR, but most recent rates in s. Asymptomatic. Unknown duration of afib. Cardiology onboard. TTE noted EF 60-65% with mild LVH, mild-mod AR, mild . Did not convert with amiodarone. Now on metoprolol 25 mg PO q6h and digoxin 0.125 mg daily. On heparin. Was started on coumadin 2.5 mg but his INR is elevated, today 3.4., so holding coumadin for now. - Watch for signs of CHF. Encourage incentive spirometry. Watching blood pressure. Urinary retention: Hx of enlarged prostate. Has required multiple straight- cath as inpatient. On flomax, added proscar. Would like to avoid placing cruz if possible. Electrolytes: Nephrology onboard, see their recommendations. - Hyponatremia: Na 126, stable over past 24 hours. 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 Began 1500 mL PO fluid restriction on . Stopped home HCTZ. Started on NS IVF. Urine osm 268. Checking random urine sodium. Monitoring. - Hypokalemia: K 3.3. Repleting, goal > 4. - Hypomagnesemia: Mag 1.8. Repleting, goal > 2. - Hypercalcemia: Ca 9.5, trending upwards. May partially be due to resorption of antibiotic beads s/p right hip surgery. Monitoring. Diarrhea: Ongoing. and C diff negative. Started on immodium. Anemia: Hb 9.9. Monitoring. DM2: Hx of same. Glycemic consultation, on novolog and lantus. Holding home metformin. HTN: Hx of same, presently stable. On metoprolol as noted in "afib" above. HLD: Hx of same. On zocor. Gout: Hx of same. On allopurinol. Code status: Full code. Diet: DM2, fluid restrict 1500 mL, with boost supplementation. Encouraging protein intake. DVT prophy: Heparin. Coumadin on hold. Also aggrenox. PT/OT: PT ongoing, recommends rehab. 03Jul OT note says,"Pt will require continued in patient therapies after discharge from [facility]." Case management working with Consuelo Guerrero. Disbo: Admit med/surg. Now on medicine service. Resident Physician Supervision Note: I interviewed and examined the patient. Discussed with Dr. Stevenson and agree with findings and plan as documented in the note. Any exceptions or clarifications are listed here: None This patient is actually improving however his leukocytosis is worsening his hyponatremia is worsening. I personally spoke to Dr. Nagel today and we discussed this case at length although his C. difficile is negative if this testing is incorrect a C. difficile infection would be implicated in this rising leukocytosis we have empirically started vancomycin as the patient was asking for loperamide I do not want a wrist toxic megacolon. The hyponatremia is worsening despite fluid restriction stopping hydrochlorthiazide using isotonic saline nephrology consult is on board Vital signs however are stable heart is regular lungs are clear abdomen normoactive bowel sounds wound is clean dry and intact with wound VAC in place Unexplained leukocytosis certainly the differential is an untreated infection such as C. difficile, leukemoid reaction from medications, occult bone marrow dyscrasia which would be unlikely as this seems to be an acute event. 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
--- NOTE | 2017-07-20 08:17 | Orthopedic Progress Note ---
Orthopedic Progress Note Date of Service Jul 20, 2017. Subjective Post OP Day: 7 Reports: complaints (mouth is dry), Denies: chest pain, SOB, nausea / vomiting, light headedness, calf pain Additional Notes: sitting up in bed, states he did pretty well overnight. Objective calves soft nontender, N/V intact, hip located, capillary refill less than 2 sec., dressing C/D/I, A&O x3, toes mobile, CMS intact Prevena intact, mild ecchymosis around distal hip wound, no redness or warmth. Left forearm has increased redness and is more firm at previous IV site. Nontender to touch. No pain with hand/wrist motion. Afebrile with morning temp of 36.5. Date Time Temp Pulse Resp B/P (MAP) Pulse Ox O2 Delivery O2 Flow Rate FiO2 07/20/17 06:13 90 128/77 (94) 07/19/17 23:42 Room Air 07/19/17 23:04 36.9 92 16 130/68 (88) 90 Room Air 07/19/17 19:00 89 134/51 (78) 07/19/17 16:16 81 07/19/17 16:15 Room Air 07/19/17 15:03 36.9 89 18 127/79 (95) 95 Room Air 07/19/17 11:34 88 126/68 (87) 07/19/17 11:10 Room Air 07/19/17 10:59 36.3 88 22 93 2.0 07/19/17 08:00 93 Room Air 2.0 Laboratory Results 24 Hours: Test 07/20/17 05:13 White Blood Count 33.91 K/uL Red Blood Count 3.36 M/uL Hemoglobin 9.9 g/dL Hematocrit 29.0 % Mean Corpuscular Volume 86.3 fL Mean Corpuscular Hemoglobin 29.5 pg Mean Corpuscular Hemoglobin Concent 34.1 g/dl Platelet Count 559 K/uL Mean Platelet Volume 9.2 fL Prothromb Time International Ratio 3.4 Prothrombin Time 35.2 SECONDS Assessment & Plan Assessment: Post op day 7 Right hip I&D, poly/head/button exchange. leukocytosis afib hypokalemia/hyponatremia Loose stools Plan: Will continue to follow closely continue PT/OT c.diff results pending hip aspirate without any growth apply moist heat to Left arm to improve IV site Discharge Planning Discharge Planning: uncertain Pain Management: PO Tylenol DVT Prophylaxis: TEDs, SCDs Therapy: Physical Therapy, Occupational Therapy
[2017-07-20] MEDS: DOCUSATE SODIUM 100 MG CAP PO SCH ×2 (09:00→20:08)
[2017-07-20] MEDS: FINASTERIDE 5 MG TAB PO SCH (09:02)
[2017-07-20] MEDS: NIASPAN 500 MG TABCR PO SCH (09:02)
[2017-07-20] MEDS: BOOST GLUCOSE CONTROL PO SCH ×2 (09:02→20:10)
[2017-07-20] MEDS: ALLOPURINOL 300 MG TAB PO SCH (09:02)
[2017-07-20] MEDS: FERROUS GLUCONATE 324 MG TAB PO SCH ×3 (09:02→18:48)
[2017-07-20] MEDS: MULTIVITAMIN TAB PO SCH (09:02)
[2017-07-20] MEDS: DIPYRIDAMOLE/ASPIRIN CAP PO SCH ×2 (09:02→20:09)
[2017-07-20] MEDS: INSULIN ASPART 100 UNITS/ML 3 ML PEN SC SCH ×4 (09:06→22:14)
[2017-07-20] MEDS: INSULIN GLARGINE SOLOSTAR 100 UNITS/ML 3 ML PEN SC SCH ×2 (09:07→22:15)
[2017-07-20] MEDS ORDERED: MAGNESIUM SULFATE 1GM / D5W 1 GM in PREMIXED IN D5W 100 ML IV ONE (09:30)
[2017-07-20] MEDS: POTASSIUM CHLR 10 MEQ / WTR 10 MEQ in PREMIXED WATER 100 ML IV SCH ×4 (10:33→14:02)
[2017-07-20] MEDS ORDERED: SODIUM CHLORIDE 0.9% 1000ML 1,000 ML IV SCH (11:00)
--- NOTE | 2017-07-20 11:25 | Progress Note ---
Subjective Date of Service: Jul 20, 2017. Subjective Pt evaluation today including: conversation w/ patient, conversation w/ family , physical exam, chart review, lab review, conversation w/ salon sales consultant Patient seen in follow-up. He is accompanied by his son at the bedside. He is currently out of bed to chair. He was started on meropenem and appears to be tolerating this well. His initial or cultures are finalized with Citrobacter. His blood cultures from admission are negative and final. He remains afebrile. His leukocytosis continues to climb. Today it is 33.9. His son does state that he is having some loose stools intermittently he did have a C diff obtained on the which was negative and again today which is also negative. He was followed by Orthopedic surgery and hip aspirate was performed on the 6. Cultures from this are negative to date. He is tolerating antibiotics well. He is eating. He states he has no abdominal pain. He denies any chest pain cough for shortness of breath. His remaining review of systems is unremarkable. He did have a transthoracic echo which was unremarkable for vegetation. Did speak with his primary service regarding elevated white blood cell count. His only complaint on my examination is fatigue and some discomfort in his hip but he states he just was working with physical therapy and he attributes his fatigue and pain to exertion during physical therapy. All remaining review of systems are reviewed and are unremarkable except for as noted. Problem List Medical Problems: (1) Hiccups Status: Acute (2) Hyponatremia Status: Acute (3) Polyuria Status: Acute (4) Right radial fracture Status: Acute Objective Vital Signs Date Time Temp Pulse Resp B/P (MAP) Pulse Ox O2 Delivery O2 Flow Rate FiO2 07/20/17 08:07 Room Air 07/20/17 07:09 36.5 78 15 127/69 (88) 95 Room Air 07/20/17 06:13 90 128/77 (94) 07/19/17 23:42 Room Air 07/19/17 23:04 36.9 92 16 130/68 (88) 90 Room Air 07/19/17 19:00 89 134/51 (78) 07/19/17 16:16 81 07/19/17 16:15 Room Air 07/19/17 15:03 36.9 89 18 127/79 (95) 95 Room Air 07/19/17 11:34 88 126/68 (87) Physical Exam General Appearance: WD/WN, no apparent distress Eyes: normal inspection, EOMI Neck: supple Respiratory/Chest: lungs clear, normal breath sounds, no respiratory distress Cardiovascular: regular rate, rhythm, no edema Abdomen: soft Extremities: no pedal edema Neurologic/Psychiatric: alert, oriented x 3 Skin: normal color Laboratory Results Item Value Date Time Gram Stain - Final Complete 07/13/17 0900 Joint Fluid/Space (Synovial) Hip , Right Blood Culture - Final Complete 07/13/17 1129 Blood NO GROWTH Blood Culture - Final Complete 07/13/17 1141 Blood NO GROWTH Blood Culture - Final Complete 07/13/17 1429 Blood NO GROWTH Blood Culture - Final Complete 07/13/17 1430 Blood NO GROWTH C.difficile Toxin B Gene (PCR) - Final Complete 07/16/17 0811 Stool No C. difficile toxin B gene detected Gram Stain - Final Resulted 07/18/17 0748 Joint Fluid/Space (Synovial) Hip , Right C.difficile Toxin B Gene (PCR) - Final Complete 07/20/17 0745 Stool No C. difficile toxin B gene detected Last 24 Hours Test 07/19/17 11:51 07/19/17 19:12 07/19/17 22:00 07/20/17 05:13 Bedside Glucose 169 mg/dl 156 mg/dl 196 mg/dl White Blood Count 33.91 K/uL Red Blood Count 3.36 M/uL Hemoglobin 9.9 g/dL Hematocrit 29.0 % Mean Corpuscular Volume 86.3 fL Mean Corpuscular Hemoglobin 29.5 pg Mean Corpuscular Hemoglobin Concent 34.1 g/dl Platelet Count 559 K/uL Mean Platelet Volume 9.2 fL RDW Standard Deviation 45.6 fL RDW Coefficient of Variation 14.6 % Neutrophils % (Manual) 90.4 % Lymphocytes % (Manual) 1.7 % Monocytes % (Manual) 7.0 % Blast Cells % 0.9 % Neutrophils # (Manual) 30.65 K/uL Total Absolute Neutrophils 30.65 K/uL Lymphocytes # (Manual) 0.58 K/uL Total Absolute Lymphocytes 0.58 K/uL Monocytes # (Manual) 2.37 K/uL Hypersegmented Polys 1+ Blast Cells # 0.31 K/uL Blood Smear Review Polychromasia 1+ Prothrombin Time 35.2 SECONDS Prothromb Time International Ratio 3.4 Sodium Level 126 mmol/L Potassium Level 3.3 mmol/L Chloride Level 89 mmol/L Carbon Dioxide Level 27 mmol/L Anion Gap 10.0 mmol/L Blood Urea Nitrogen 18 mg/dl Creatinine 1.00 mg/dl Est Creatinine Clear Calc Drug Dose 60.8 ml/min Estimated GFR () 82.0 Estimated GFR (Non- 70.8 BUN/Creatinine Ratio 17.8 Random Glucose 166 mg/dl Calcium Level 9.5 mg/dl Magnesium Level 1.8 mg/dl Total Bilirubin 0.8 mg/dl Aspartate Amino Transf (AST/SGOT) 38 U/L Alanine Aminotransferase (ALT/SGPT) 41 U/L Alkaline Phosphatase 303 U/L Total Protein 6.4 gm/dl Albumin 1.8 gm/dl Globulin 4.6 gm/dl Albumin/Globulin Ratio 0.4 Test 07/20/17 08:07 07/20/17 11:12 Bedside Glucose 166 mg/dl Assessment and Plan (1) Infected orthopedic implant Assessment & Plan: I he will continue with meropenem. He appears to be tolerating this well. He will likely need 4-6 weeks of intravenous antibiotics. (2) Leukocytosis Assessment & Plan: Unclear etiology. It does not appear that he has any worsening hip infection as his most recent aspirate from the 18 of July it has been negative to date. Urine culture is also negative. He is having some intermittent loose stool but is C diff is-2 separate occasions July 16 and again today July 20. I doubt C diff is involved. He is currently on a probiotic and hopefully this will with diarrhea. Certainly this could be a reactive leukocytosis but does continue to increase which is of concern. If there is no infectious etiology to be explained of certainly a bone marrow reactive abnormality would be on the differential. I did discuss with his primary service regarding LISA. If he continues to elevated white blood cell count LISA would be warranted however he did not grow any organisms from his culture that would be common etiology for infectious endocarditis. Additionally he is afebrile and otherwise hemodynamically stable. We continue to follow
[2017-07-20] MEDS: ERTAPENEM IV 1,000 MG in SODIUM CHLORIDE 0.9% 50ML 50 ML IV SCH (12:43)
[2017-07-20] MEDS: VANCOMYCIN HCL 125 MG/2.5ML SOLN PO SCH ×2 (13:03→18:48)
[2017-07-20] MEDS: RASPBERRY SYRUP 5 ML UDP PO SCH ×2 (13:03→18:48)
[2017-07-20 14:55] VITALS: BP 133/69; PULSE 77; TEMP 36.9; O2SAT 93
[2017-07-20] MEDS ORDERED: LOPERAMIDE HCL 2 MG CAP PO PRN (15:00)
--- NOTE | 2017-07-20 15:24 | Nephrology Consultation ---
Nephrology Consultation Date & Providers Date of Consultation: Jul 20, 2017. Primary Care Provider: Bobby Schuler D.O. Referring Provider: Reason for Consultation Evaluation management for hyponatremia. History of Present Illness Mr. Dinh is a 82-year-old gentlemen with past medical history significant for hypertension, history of degenerative joint disease admitted to the hospital for elective right hip joint drainage and debridement. During his hospital course is found to have hyponatremia which has been slowly worsening. Nephrologic consult was requested for the for further management of hyponatremia. Electronic medical records including labs and imaging were reviewed in detail during patient's visit. was admitted to the hospital on 07/04/2017 for elective right he deep treatment and drainage. Had the procedure done and he has been on antibiotic for septic joint. His hospital course was complicated by hyponatremia. On admission sodium was 128 which slightly improved to 133 however has been again decreasing and staying around 126. Urine osmolality is pending. No hypotensive episode during hospital course. No nausea, vomiting however he has been having diarrhea over last few days and p.o. intake has been poor. He was on hydrochlorothiazide which was discontinued, lost dose was on 07/18/2017. He was started on IV normal saline at 100 per hour this morning. Prior record showed had another episode of hyponatremia in 2012 when sodium was 127. He has been otherwise in relatively good health except the right hip joint issue. He had right hip more arthroplasty in 2012 and has been asymptomatic until few months ago when he started having pain in his right hip joint and then started having some drainage since April 2017 and admitted to the hospital for elective drainage and debridement. Has history of hypertension, seems to be well controlled, was on hydrochlorothiazide which was just discontinued. Diabetes seems to be well controlled. No personal history of malignancy. Ex smoker, recent chest x-ray was unremarkable. Previously had multiple colonoscopy and had polyp removed, last 1 was several years ago and he mentioned that he is due for another colonoscopy sometime this year. No history of adrenal insufficiency or hypothyroidism. TSH was normal. Allergies Coded Allergies: No Known Allergies (Verified , 07/13/17) Inpatient Medications Current Inpatient Medications Medications (Trade) Dose Ordered Sig/Oswaldo Route Start Time Stop Time Status Last Admin Dose Admin Oxycodone HCl (Roxicodone Immediate Rel Tab) 1 TABLET FOR PAIN RATING... Q4H PRN PO 07/13/17 10:30 07/27/17 10:29 07/17/17 02:44 5 MG Morphine Sulfate (MoRPHine SULFATE INJ) give 2mg for pain 3-6 g... Q1H PRN IV 07/13/17 10:30 07/27/17 10:29 Acetaminophen (Tylenol Tab) 650 mg Q6H PRN PO 07/14/17 14:00 08/13/17 13:59 07/19/17 10:07 650 MG Magnesium Hydroxide (Milk Of Magnesia Susp) 30 ml Q6H PRN PO 07/13/17 10:30 08/12/17 10:29 Bisacodyl (Dulcolax Supp) 10 mg DAILY PRN NC 07/13/17 10:30 08/12/17 10:29 Sodium Biphosphate/ Sodium Phosphate (Fleet Enema) 132 ml DAILY PRN NC 07/13/17 10:30 08/12/17 10:29 Docusate Sodium (coLACE CAP) 100 mg BID PO 07/13/17 21:00 08/12/17 20:59 07/19/17 07:49 100 MG Diphenhydramine HCl (Benadryl Inj) 25 mg Q8H PRN IV 07/13/17 10:30 08/12/17 10:29 Al Hydrox/Mg Hydrox/Simethicone (Maalox Max Susp) 15 ml Q4H PRN PO 07/13/17 10:30 08/12/17 10:29 Ondansetron HCl (Zofran Inj) 4 mg Q6H PRN IV 07/13/17 10:30 08/12/17 10:29 Metoclopramide HCl (Reglan Inj) 10 mg Q6H PRN IV 07/13/17 10:30 08/12/17 10:29 Ferrous Gluconate (Ferrous Gluconate Tab) 324 mg TIDM PO 07/13/17 16:45 08/12/17 17:44 07/20/17 09:02 324 MG Allopurinol (Zyloprim Tab) 300 mg QAM PO 07/14/17 09:00 08/13/17 08:59 07/20/17 09:02 300 MG Dipyridamole/ Aspirin (Aggrenox 200MG/ 25MG Cap) 1 cap BID PO 07/13/17 21:00 08/12/17 20:59 07/20/17 09:02 1 CAP Chlorpromazine HCl (Thorazine Tab) 25 mg TID PRN PO 07/13/17 10:30 08/12/17 10:29 07/16/17 07:43 25 MG Multivitamins (Multivitamin Tab) 1 tab DAILY PO 07/14/17 09:00 08/13/17 08:59 07/20/17 09:02 1 TAB Niacin (Niaspan Extended Rel Tab) 500 mg DAILY PO 07/14/17 09:00 08/13/17 08:59 07/20/17 09:02 500 MG Simvastatin (Zocor Tab) 20 mg QPM PO 07/13/17 21:00 08/12/17 20:59 07/19/17 20:56 20 MG Insulin Aspart (novoLOG ASPART) SLIDING SCALE G... ACHS SC 07/13/17 16:15 08/12/17 17:14 07/20/17 09:06 14 UNITS Glucose (Glucose 40% Gel) 15-30 GRAMS 15 GRAMS... UD PRN PO 07/13/17 11:00 08/12/17 10:59 Glucose (Glucose Chew Tab) 4-8 Tablets 4 Tabl... UD PRN PO 07/13/17 11:00 08/12/17 10:59 Dextrose (Dextrose 50% 50ML Syringe) 25-50ML OF 50% DW IV FOR... UD PRN IV 07/13/17 11:00 08/12/17 10:59 Glucagon (Glucagon Inj) 1 mg UD PRN SQ 07/13/17 11:00 08/12/17 10:59 Miscellaneous Information (Consult Glycemic Management Pharmacy) 1 ea UD N/A 07/13/17 17:19 08/12/17 17:18 Tamsulosin HCl (Flomax Cap) 0.8 mg QPM PO 07/13/17 21:00 08/12/17 20:59 07/19/17 20:55 0.8 MG Warfarin Sodium (Coumadin Tab) 2.5 mg DAILY@16 PO 07/16/17 16:00 08/15/17 15:59 Future Hold 07/17/17 16:19 2.5 MG Metoprolol Tartrate (Lopressor Tab) 25 mg Q6 PO 07/17/17 09:00 08/16/17 08:59 07/20/17 06:15 25 MG Digoxin (Lanoxin Tab) 0.125 mg DAILY@16 PO 07/18/17 16:00 08/17/17 15:59 07/19/17 16:16 0.125 MG Heparin Sodium (Porcine) (Heparin 10 Unit/ ml 5 ml Flush) 5 ml PRN PRN FLUSH 07/17/17 14:45 08/16/17 14:44 07/20/17 05:13 5 ML Finasteride (Proscar Tab) 5 mg QAM PO 07/18/17 09:00 08/17/17 08:59 07/20/17 09:02 5 MG Enteral Nutritional Formula (Boost Glucose Control) 1 can BID@1000,2100 PO 07/17/17 21:00 08/16/17 20:59 07/20/17 09:02 1 CAN Ertapenem 1000 mg/ Sodium Chloride 60 ml @ 120 mls/hr Q24H IV 07/18/17 12:00 08/29/17 11:59 07/19/17 11:46 120 MLS/HR Insulin Glargine (Lantus Solostar Pen) 18 units BID SC 07/20/17 09:00 08/19/17 08:59 07/20/17 09:07 18 UNITS Potassium Chloride 10 meq/ Prmx 100 ml @ 100 mls/hr Q1H IV 07/20/17 09:30 07/20/17 13:29 07/20/17 10:33 100 MLS/HR Sodium Chloride 1,000 ml @ 100 mls/hr Q10H IV 07/20/17 11:00 07/21/17 06:59 Family History No f/h of malignancy, hypertension runs in the family. Social History Smoking Status: Former Smoker Marital Status: Occupation: retired Review of Systems A complete review of systems was performed. Pertinent positives are noted above. All other systems are negative. Physical Exam Date Time Temp Pulse Resp B/P (MAP) Pulse Ox O2 Delivery O2 Flow Rate FiO2 07/20/17 08:07 Room Air 07/20/17 07:09 36.5 78 15 127/69 (88) 95 Room Air 07/20/17 06:13 90 128/77 (94) 07/19/17 23:42 Room Air 07/19/17 23:04 36.9 92 16 130/68 (88) 90 Room Air 07/19/17 19:00 89 134/51 (78) 07/19/17 16:16 81 07/19/17 16:15 Room Air 07/19/17 15:03 36.9 89 18 127/79 (95) 95 Room Air 07/19/17 11:34 88 126/68 (87) GENERAL: Elderly male, AAA x 3, pleasant, ill appearing, not in any distress. HEENT: Atraumatic, normocephalic. NECK: Supple, no JVD, no carotid bruit appreciated. ENT: No sinus tenderness MOUTH and THROAT: Moist oral mucosa, no oral ulcer or pharyngeal erythema RESPIRATORY: Normal breathing efforts, no accessory muscle use, clear to auscultation bilaterally, no wheezes or rales. CARDIOVASCULAR: S1, S2 normal, rate rhythm regular. ABDOMEN: Soft, nontender, positive bowel sound. MUSCULOSKELETAL: No joint swelling, erythema or tenderness. Decrease range of motion of right hip. SKIN: No skin rash EXTREMITY: No lower extremity edema NEURO: No gross focal neurological deficit, speech fluent. PSYCHIATRY: Normal mood and judgment Laboratory Results Last 24 Hours Test 07/19/17 11:51 07/19/17 19:12 07/19/17 22:00 07/20/17 05:13 Bedside Glucose 169 mg/dl 156 mg/dl 196 mg/dl White Blood Count 33.91 K/uL Red Blood Count 3.36 M/uL Hemoglobin 9.9 g/dL Hematocrit 29.0 % Mean Corpuscular Volume 86.3 fL Mean Corpuscular Hemoglobin 29.5 pg Mean Corpuscular Hemoglobin Concent 34.1 g/dl Platelet Count 559 K/uL Mean Platelet Volume 9.2 fL RDW Standard Deviation 45.6 fL RDW Coefficient of Variation 14.6 % Neutrophils % (Manual) 90.4 % Lymphocytes % (Manual) 1.7 % Monocytes % (Manual) 7.0 % Blast Cells % 0.9 % Neutrophils # (Manual) 30.65 K/uL Total Absolute Neutrophils 30.65 K/uL Lymphocytes # (Manual) 0.58 K/uL Total Absolute Lymphocytes 0.58 K/uL Monocytes # (Manual) 2.37 K/uL Hypersegmented Polys 1+ Blast Cells # 0.31 K/uL Blood Smear Review Polychromasia 1+ Prothrombin Time 35.2 SECONDS Prothromb Time International Ratio 3.4 Sodium Level 126 mmol/L Potassium Level 3.3 mmol/L Chloride Level 89 mmol/L Carbon Dioxide Level 27 mmol/L Anion Gap 10.0 mmol/L Blood Urea Nitrogen 18 mg/dl Creatinine 1.00 mg/dl Est Creatinine Clear Calc Drug Dose 60.8 ml/min Estimated GFR () 82.0 Estimated GFR (Non- 70.8 BUN/Creatinine Ratio 17.8 Random Glucose 166 mg/dl Calcium Level 9.5 mg/dl Magnesium Level 1.8 mg/dl Total Bilirubin 0.8 mg/dl Aspartate Amino Transf (AST/SGOT) 38 U/L Alanine Aminotransferase (ALT/SGPT) 41 U/L Alkaline Phosphatase 303 U/L Total Protein 6.4 gm/dl Albumin 1.8 gm/dl Globulin 4.6 gm/dl Albumin/Globulin Ratio 0.4 Test 07/20/17 08:07 07/20/17 11:12 Bedside Glucose 166 mg/dl Impression (1) Hyponatremia (2) Hypertension (3) Leukocytosis (4) Infected orthopedic implant 82 old gentlemen with acute hyponatremia in the setting of hospital admission for septic joint, had debridement and drainage. Blood pressure well controlled , no sign of volume depletion although he has been having some diarrhea and poor p.o. intake. Was on hydrochlorothiazide which was stopped 2 days ago. Serum sodium remained low around 126-127. Urine osmolality pending. Pain related to the septic joint seems to be well controlled. Denies headache, confusion, dizziness lightheadedness. Hyponatremia could be due to combination of high ADH state with the pain, thiazide diuretics use and decrease free water clearance with low solute intake with history of poor oral intake last few days. Recommendations --check urine osmolality, repeat beat serum sodium, check random cortisol --avoid thiazide diuretics going forward --continue IV fluid for now --encourage protein intake --further recommendation pending above labs Thank you for allowing me to participate in your patient's care. It was a pleasure to see Mr. Dinh
[2017-07-20] MEDS: DIGOXIN 0.125 MG TAB PO SCH (16:11)
[2017-07-20 18:45] VITALS: BP 114/58; PULSE 84
[2017-07-20] MEDS: SIMVASTATIN 20 MG TAB PO SCH (20:08)
[2017-07-20] MEDS: OXYCODONE HCL IR 5 MG TAB (IMMEDIATE RELEASE) PO PRN (20:08)
[2017-07-20] MEDS: TAMSULOSIN HCL 0.4 MG CAP PO SCH (20:09)
[2017-07-20] MEDS ORDERED: SODIUM CHLORIDE 1 GM TAB PO STA (22:42)
[2017-07-20 23:12] VITALS: BP 109/68; PULSE 83; TEMP 36.7; O2SAT 91
[2017-07-21] VITALS (8 sets, daily range): BP systolic 97–117; BP diastolic 56–67; PULSE 81–90; TEMP 36.7–37.1; O2SAT 94–95
[2017-07-21] MEDS: RASPBERRY SYRUP 5 ML UDP PO SCH ×5 (00:31→23:56)
[2017-07-21] MEDS: METOPROLOL TARTRATE 25 MG TAB PO SCH ×5 (00:31→23:57)
[2017-07-21] MEDS: VANCOMYCIN HCL 125 MG/2.5ML SOLN PO SCH ×5 (00:33→23:57)
[2017-07-21 06:13] LABS: ALBUMIN 1.8 gm/dl (3.4-5.0); CALCIUM 9.4 mg/dl (8.5-10.1); CREATININE 1.02 mg/dl (0.60-1.40); POTASSIUM 3.5 mmol/L (3.5-5.1)
[2017-07-21 06:14] LABS: PHOSPHORUS 3.7 mg/dl (2.5-4.9)
[2017-07-21 07:27] LABS: HEMATOCRIT 27.5 % (42-52); HEMOGLOBIN 9.3 g/dL (14.0-18.0); MEAN CELL VOLUME 86.2 fL (80-100); MEAN CORPUSCULAR HEMOGLOBIN 29.2 pg (25-34); MEAN CORPUSCULAR HGB CONC 33.8 g/dl (32-36); MEAN PLATELET VOLUME 8.3 fL (7.4-10.4); PLATELET COUNT 564 K/uL (130-400); RED CELL DISTRIBUTION WIDTH CV 14.9 % (11.5-14.5); RED CELL DISTRIBUTION WIDTH SD 46.7 fL (36.4-46.3); WHITE BLOOD COUNT 27.73 K/uL (4.8-10.8)
[2017-07-21 07:34] LABS: INR 2.4 (0.9-1.1)
[2017-07-21 08:15] LABS: BASO % 0.1 %; BASO ABS # 0.03 K/uL (0-0.2); EOS % 0.4 %; EOS ABS # 0.11 K/uL (0-0.5); IG# 1.01 K/uL (0.00-0.02); LYMPH % 5.9 %; LYMPH ABS # 1.64 K/uL (1.2-3.4); MONO % 3.5 %; MONO ABS # 0.98 K/uL (0.11-0.59); NEUT % 86.5 %; NEUT ABS # 23.96 K/uL (1.4-6.5)
--- NOTE | 2017-07-21 08:48 | Family Medicine Progress Note ---
Progress Note Date of Service Jul 21, 2017. Subjective Pt evaluation today including: conversation w/ patient Found patient resting in bed. Continues to say that he feels well. When asked specifically (again) if he feels any different he says he overall feels well, including controlled hip pain. Has ongoing loose stools without abdominal pain. Has required straight-cath three times this morning. No CP, SOB, N/V. No other acute c/o. Constitutional: No fever, No chills Respiratory: No cough, No shortness of breath Cardiovascular: No chest pain, No edema Abdomen: + diarrhea, No pain, No nausea, No vomiting Musculoskeletal: No joint pain (mild right hip s/p surgery) Male : No dysuria Medications Current Inpatient Medications Medications (Trade) Dose Ordered Sig/Oswaldo Route Start Time Stop Time Status Last Admin Dose Admin Oxycodone HCl (Roxicodone Immediate Rel Tab) 1 TABLET FOR PAIN RATING... Q4H PRN PO 07/13/17 10:30 07/27/17 10:29 07/20/17 20:08 5 MG Morphine Sulfate (MoRPHine SULFATE INJ) give 2mg for pain 3-6 g... Q1H PRN IV 07/13/17 10:30 07/27/17 10:29 Acetaminophen (Tylenol Tab) 650 mg Q6H PRN PO 07/14/17 14:00 08/13/17 13:59 07/19/17 10:07 650 MG Magnesium Hydroxide (Milk Of Magnesia Susp) 30 ml Q6H PRN PO 07/13/17 10:30 08/12/17 10:29 Bisacodyl (Dulcolax Supp) 10 mg DAILY PRN NV 07/13/17 10:30 08/12/17 10:29 Sodium Biphosphate/ Sodium Phosphate (Fleet Enema) 132 ml DAILY PRN NV 07/13/17 10:30 08/12/17 10:29 Docusate Sodium (coLACE CAP) 100 mg BID PO 07/13/17 21:00 08/12/17 20:59 07/20/17 20:08 100 MG Diphenhydramine HCl (Benadryl Inj) 25 mg Q8H PRN IV 07/13/17 10:30 08/12/17 10:29 Al Hydrox/Mg Hydrox/Simethicone (Maalox Max Susp) 15 ml Q4H PRN PO 07/13/17 10:30 08/12/17 10:29 Ondansetron HCl (Zofran Inj) 4 mg Q6H PRN IV 07/13/17 10:30 08/12/17 10:29 Metoclopramide HCl (Reglan Inj) 10 mg Q6H PRN IV 07/13/17 10:30 08/12/17 10:29 Ferrous Gluconate (Ferrous Gluconate Tab) 324 mg TIDM PO 07/13/17 16:45 08/12/17 17:44 07/20/17 18:48 324 MG Allopurinol (Zyloprim Tab) 300 mg QAM PO 07/14/17 09:00 08/13/17 08:59 07/20/17 09:02 300 MG Dipyridamole/ Aspirin (Aggrenox 200MG/ 25MG Cap) 1 cap BID PO 07/13/17 21:00 08/12/17 20:59 07/20/17 20:09 1 CAP Chlorpromazine HCl (Thorazine Tab) 25 mg TID PRN PO 07/13/17 10:30 08/12/17 10:29 07/16/17 07:43 25 MG Multivitamins (Multivitamin Tab) 1 tab DAILY PO 07/14/17 09:00 08/13/17 08:59 07/20/17 09:02 1 TAB Niacin (Niaspan Extended Rel Tab) 500 mg DAILY PO 07/14/17 09:00 08/13/17 08:59 07/20/17 09:02 500 MG Simvastatin (Zocor Tab) 20 mg QPM PO 07/13/17 21:00 08/12/17 20:59 07/20/17 20:08 20 MG Insulin Aspart (novoLOG ASPART) SLIDING SCALE G... ACHS SC 07/13/17 16:15 08/12/17 17:14 07/20/17 18:45 7 UNITS Glucose (Glucose 40% Gel) 15-30 GRAMS 15 GRAMS... UD PRN PO 07/13/17 11:00 08/12/17 10:59 Glucose (Glucose Chew Tab) 4-8 Tablets 4 Tabl... UD PRN PO 07/13/17 11:00 08/12/17 10:59 Dextrose (Dextrose 50% 50ML Syringe) 25-50ML OF 50% DW IV FOR... UD PRN IV 07/13/17 11:00 08/12/17 10:59 Glucagon (Glucagon Inj) 1 mg UD PRN SQ 07/13/17 11:00 08/12/17 10:59 Miscellaneous Information (Consult Glycemic Management Pharmacy) 1 ea UD N/A 07/13/17 17:19 08/12/17 17:18 Tamsulosin HCl (Flomax Cap) 0.8 mg QPM PO 07/13/17 21:00 08/12/17 20:59 07/20/17 20:09 0.8 MG Warfarin Sodium (Coumadin Tab) 2.5 mg DAILY@16 PO 07/16/17 16:00 08/15/17 15:59 Future Hold 07/17/17 16:19 2.5 MG Metoprolol Tartrate (Lopressor Tab) 25 mg Q6 PO 07/17/17 09:00 08/16/17 08:59 07/21/17 00:31 25 MG Digoxin (Lanoxin Tab) 0.125 mg DAILY@16 PO 07/18/17 16:00 08/17/17 15:59 07/20/17 16:11 0.125 MG Heparin Sodium (Porcine) (Heparin 10 Unit/ ml 5 ml Flush) 5 ml PRN PRN FLUSH 07/17/17 14:45 08/16/17 14:44 07/20/17 19:48 5 ML Finasteride (Proscar Tab) 5 mg QAM PO 07/18/17 09:00 08/17/17 08:59 07/20/17 09:02 5 MG Enteral Nutritional Formula (Boost Glucose Control) 1 can BID@1000,2100 PO 07/17/17 21:00 08/16/17 20:59 07/20/17 09:02 1 CAN Ertapenem 1000 mg/ Sodium Chloride 60 ml @ 120 mls/hr Q24H IV 07/18/17 12:00 08/29/17 11:59 07/20/17 12:43 120 MLS/HR Insulin Glargine (Lantus Solostar Pen) 18 units BID SC 07/20/17 09:00 08/19/17 08:59 07/20/17 22:15 18 UNITS Vancomycin HCl (Vancomycin Oral Soln) 125 mg Q6 PO 07/20/17 12:30 07/30/17 12:29 07/21/17 05:37 125 MG Raspberry (Raspberry Syrup 5ml Cup) 5 ml Q6 PO 07/20/17 12:30 08/03/17 12:29 07/21/17 05:37 5 ML Loperamide HCl (Imodium Cap) 2 mg UD PRN PO 07/20/17 15:00 08/19/17 14:59 Sodium Chloride (Sodium Chloride Tab) 2 gm BID PO 07/21/17 09:00 08/20/17 08:59 Objective Vital Signs Date Time Temp Pulse Resp B/P (MAP) Pulse Ox O2 Delivery O2 Flow Rate FiO2 07/21/17 07:43 36.7 81 18 104/56 (72) 94 Room Air 07/21/17 05:28 85 97/59 (72) 07/21/17 00:30 Room Air 07/20/17 23:12 36.7 83 17 109/68 (82) 91 Room Air 07/20/17 18:45 84 114/58 (76) 07/20/17 16:11 80 07/20/17 15:50 Room Air 07/20/17 14:55 36.9 77 17 133/69 (90) 93 Room Air Physical Exam Notes: General Appearance: Awake, alert, oriented x 3, comfortable, NAD CV: +S1S2 irregularly irregular. No peripheral edema. Pulm: Clear to auscultation throughout. Abdomen: +BS, soft, non-tender, non-distended. Extremities: Right lateral hip wound vac in place, c/d/i. Moving toes about easily. No calf tenderness. Bilateral leg compression stockings in place. Neuro: Distal LE sensation intact. Lines: Right PICC (placed 05Mar). Left PIV. Right arm PIV. Laboratory Results 07/21/17 07:15 Red Blood Count 3.19, Mean Corpuscular Volume 86.2, Mean Corpuscular Hemoglobin 29.2, Mean Corpuscular Hemoglobin Concent 33.8, Mean Platelet Volume 8.3, Neutrophils (%) (Auto) 86.5, Lymphocytes (%) (Auto) 5.9, Monocytes (%) (Auto) 3.5, Eosinophils (%) (Auto) 0.4, Basophils (%) (Auto) 0.1, Neutrophils # (Auto) 23.96, Lymphocytes # (Auto) 1.64, Monocytes # (Auto) 0.98, Eosinophils # (Auto) 0.11, Basophils # (Auto) 0.03 07/21/17 05:29 Test 07/20/17 11:49 07/20/17 15:27 07/20/17 20:47 07/21/17 00:36 Osmolality 268 mOsm/kg (280-300) Random Cortisol 27.59 mcg/dl Bedside Glucose 138 mg/dl (70-99) Urine Osmolality 474 mOms/kg (500-800) Urine Random Sodium 22 mEq/L Test 07/21/17 05:29 07/21/17 07:15 Anion Gap 10.0 mmol/L (3-11) Est Creatinine Clear Calc Drug Dose 59.6 ml/min Estimated GFR () 80.1 Estimated GFR (Non- 69.1 BUN/Creatinine Ratio 20.8 (10-20) Calcium Level 9.4 mg/dl (8.5-10.1) Phosphorus Level 3.7 mg/dl (2.5-4.9) Albumin 1.8 gm/dl (3.4-5.0) White Blood Count 27.73 K/uL (4.8-10.8) Red Blood Count 3.19 M/uL (4.7-6.1) Hemoglobin 9.3 g/dL (14.0-18.0) Hematocrit 27.5 % (42-52) Mean Corpuscular Volume 86.2 fL (80-100) Mean Corpuscular Hemoglobin 29.2 pg (25-34) Mean Corpuscular Hemoglobin Concent 33.8 g/dl (32-36) Platelet Count 564 K/uL (130-400) Mean Platelet Volume 8.3 fL (7.4-10.4) Neutrophils (%) (Auto) 86.5 % Lymphocytes (%) (Auto) 5.9 % Monocytes (%) (Auto) 3.5 % Eosinophils (%) (Auto) 0.4 % Basophils (%) (Auto) 0.1 % Neutrophils # (Auto) 23.96 K/uL (1.4-6.5) Lymphocytes # (Auto) 1.64 K/uL (1.2-3.4) Monocytes # (Auto) 0.98 K/uL (0.11-0.59) Eosinophils # (Auto) 0.11 K/uL (0-0.5) Basophils # (Auto) 0.03 K/uL (0-0.2) RDW Standard Deviation 46.7 fL (36.4-46.3) RDW Coefficient of Variation 14.9 % (11.5-14.5) Immature Granulocyte % (Auto) 3.6 % Immature Granulocyte # (Auto) 1.01 K/uL (0.00-0.02) Polychromasia 1+ Prothrombin Time 24.7 SECONDS (9.0-12.0) Prothromb Time International Ratio 2.4 (0.9-1.1) Magnesium Level 1.9 mg/dl (1.8-2.4) Assessment and Plan 82 year old male admitted on [id number] for infected right total hip arthroplasty, now POD #8. PMH: Afib, osteoarthritis, HTN, HLD, macular degeneration, enlarged prostate, DM2, gout. Right hip infection: S/p surgery, rec'd continue wound vac and PT/OT to mobilize , will need placement. Last fever 04Mar. Leukocytosis as noted below. 01Mar joint space Cx positive for Citrobacter koseri and Finegoldia magna. ID onboard. Stopped rocephin (3d given) and started ertapenem daily on 06Mar for planned four weeks since date of surgery. PICC placed 05Mar. Leukocytosis: Progressive increase to max WBC 33 with blasts 0.31. Known infection in right hip as above, on ertapenem. Patient continues to say he feels well and without acute respiratory, urinary, abdominal, or other concerns. Cultures besides hip have been negative. C diff x 2 negative, but was started empirically on oral vancomycin on 08Mar. Since WBC down to 27. ID onboard, recommended remain on vanc for 21 total days. - Will need weekly CBC, CMP, ESR while on therapy. Atrial fibrillation: Briefly in RVR, but most recent rates in 90's. Asymptomatic. Unknown duration of afib. Cardiology onboard. 02Mar TTE noted EF 60-65% with mild LVH, mild-mod AR, mild . Did not convert with amiodarone. Now on metoprolol 25 mg PO q6h and digoxin 0.125 mg daily. On heparin. Was started on coumadin 2.5 mg but his INR remains elevated, today 2.4 , so holding coumadin for now. - Checking digoxin level in AM. Urinary retention: Hx of enlarged prostate, did talk with urology just before his hip surgery. On flomax, added proscar. Would like to avoid placing cruz if possible. UCx pending. - With patient's permission, starting scheduled straight-cath q8h. Electrolytes: Nephrology onboard, see their recommendations. - Hyponatremia: Na 127, stable over past 48 hours. 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 Began 1500 mL PO fluid restriction on . Stopped home HCTZ. Now on sodium tabs BID. Monitoring. - Hypokalemia: K 3.5. Repleting, goal > 4. - Hypomagnesemia: Mag 1.9. Repleting, goal > 2. - Hypercalcemia: Ca 9.5, trending upwards. When corrected for albumin 1.8, Ca is 11.2. May partially be due to resorption of antibiotic beads s/p right hip surgery. Monitoring. Diarrhea: Ongoing. and C diff negative. On immodium as well as vancomycin. Anemia: Hb 9.3. Monitoring. DM2: Hx of same. Glycemic consultation, on novolog and lantus. Holding home metformin. HTN: Hx of same, presently stable. On metoprolol as noted in "afib" above. HLD: Hx of same. On zocor. Gout: Hx of same. On allopurinol. Code status: Full code. Diet: DM2, fluid restrict 1500 mL, with boost supplementation. Encouraging protein intake. DVT prophy: Heparin. Coumadin on hold. Also aggrenox. PT/OT: PT ongoing, recommends rehab. OT note says,"Pt will require continued in patient therapies after discharge from [facility] [place]." Case management working with Consuelo Guerrero. Disbo: Admit med/surg. Now on medicine service. Resident Physician Supervision Note: I interviewed and examined the patient. Discussed with Dr. Stevenson and agree with findings and plan as documented in the note. Any exceptions or clarifications are listed here: None Patient clinically looks improved his white count was taken a turn for the better his sodium is at least stabilized son is at the bedside and updated Vital signs are stable his heart rate seems to be controlled in the 80s although at times he sounds slightly faster than that His heart cardiac exam is irregularly irregular lungs are clear his abdomen is normal active bowel sounds and soft is no significant lower extremity edema Patient is here with a infected right hip prosthesis status post poly-exchange femoral head exchange and wound VAC placement he maintains on ertapenem there was some concern he had profuse diarrhea and a markedly elevated white blood cell count despite negative C. difficile testing he was placed on oral vancomycin with some transient mild improvement he also was calculated elevation of his calcium that is likely from the stimulant beads that are placed in his hip to deliver antibiotics to his infection will continue to support him hopefully his calcium will not rise any higher and he is not having any CODING ANALYST changes from Documented By: Romero Crain Resident Tracking Resident Involvement: Resident Care Provided Care Provided: Adult Hospital Medicine (inpatient)
[2017-07-21] MEDS: FERROUS GLUCONATE 324 MG TAB PO SCH ×3 (08:57→18:41)
[2017-07-21] MEDS: DIPYRIDAMOLE/ASPIRIN CAP PO SCH ×2 (08:58→22:08)
[2017-07-21] MEDS: DOCUSATE SODIUM 100 MG CAP PO SCH ×2 (08:58→22:08)
[2017-07-21] MEDS: MULTIVITAMIN TAB PO SCH (08:58)
[2017-07-21] MEDS: FINASTERIDE 5 MG TAB PO SCH (08:59)
[2017-07-21] MEDS: NIASPAN 500 MG TABCR PO SCH (08:59)
[2017-07-21] MEDS: ALLOPURINOL 300 MG TAB PO SCH (09:00)
[2017-07-21] MEDS: SODIUM CHLORIDE 1 GM TAB PO SCH ×2 (09:00→22:08)
[2017-07-21] MEDS: INSULIN ASPART 100 UNITS/ML 3 ML PEN SC SCH ×4 (09:07→22:25)
[2017-07-21] MEDS: INSULIN GLARGINE SOLOSTAR 100 UNITS/ML 3 ML PEN SC SCH ×2 (09:08→22:12)
[2017-07-21] MEDS: BOOST GLUCOSE CONTROL PO SCH (10:00)
--- NOTE | 2017-07-21 10:40 | Nephrology Progress Note ---
Nephrology Progress Note Date of Service Jul 21, 2017. Chief Complaint Evaluation management for hyponatremia. Subjective Mr. Moyer was seen and examined in his room this morning. Overall he is feeling well, appetite better. Has been participating in physical therapy. Blood pressure relatively soft but asymptomatic. Serum sodium has been improving 127 this morning. Urine osmolality was high. Review of Systems A complete review of systems was performed. Pertinent positives are noted above. All other systems are negative. Vital Signs Last 8 Hrs Date Time Temp Pulse Resp B/P (MAP) Pulse Ox O2 Delivery O2 Flow Rate FiO2 07/21/17 07:43 36.7 81 18 104/56 (72) 94 Room Air 07/21/17 05:28 85 97/59 (72) Last Recorded Weight Weight (Kilograms): 84.000 Physical Exam GENERAL:Elderly male, AAA x 3, not in any distress. NECK: Supple, no JVD. RESPIRATORY: clear to auscultation bilaterally, no wheezes or rales. CARDIOVASCULAR: S1, S2 normal, rate rhythm regular. EXTREMITY: No lower extremity edema NEURO: speech fluent. PSYCHIATRY: Normal mood and judgment Family History No f/h of malignancy, hypertension runs in the family. Social History Smoking Status: Former smoker Marital Status: Occupation: retired Laboratory Results Past 24 Hours 07/21/17 07:15 Red Blood Count 3.19, Mean Corpuscular Volume 86.2, Mean Corpuscular Hemoglobin 29.2, Mean Corpuscular Hemoglobin Concent 33.8, Mean Platelet Volume 8.3, Neutrophils (%) (Auto) 86.5, Lymphocytes (%) (Auto) 5.9, Monocytes (%) (Auto) 3.5, Eosinophils (%) (Auto) 0.4, Basophils (%) (Auto) 0.1, Neutrophils # (Auto) 23.96, Lymphocytes # (Auto) 1.64, Monocytes # (Auto) 0.98, Eosinophils # (Auto) 0.11, Basophils # (Auto) 0.03 07/20/17 15:27 07/20/17 19:02 07/21/17 05:29 Test 07/20/17 11:49 07/20/17 12:43 07/20/17 15:27 07/20/17 17:01 Osmolality 268 mOsm/kg (280-300) Bedside Glucose 171 mg/dl (70-99) 119 mg/dl (70-99) Random Cortisol 27.59 mcg/dl Test 07/20/17 20:47 07/21/17 00:36 07/21/17 05:29 07/21/17 07:15 Bedside Glucose 138 mg/dl (70-99) Urine Osmolality 474 mOms/kg (500-800) Urine Random Sodium 22 mEq/L Anion Gap 10.0 mmol/L (3-11) Est Creatinine Clear Calc Drug Dose 59.6 ml/min Estimated GFR () 80.1 Estimated GFR (Non- 69.1 BUN/Creatinine Ratio 20.8 (10-20) Calcium Level 9.4 mg/dl (8.5-10.1) Phosphorus Level 3.7 mg/dl (2.5-4.9) Albumin 1.8 gm/dl (3.4-5.0) White Blood Count 27.73 K/uL (4.8-10.8) Red Blood Count 3.19 M/uL (4.7-6.1) Hemoglobin 9.3 g/dL (14.0-18.0) Hematocrit 27.5 % (42-52) Mean Corpuscular Volume 86.2 fL (80-100) Mean Corpuscular Hemoglobin 29.2 pg (25-34) Mean Corpuscular Hemoglobin Concent 33.8 g/dl (32-36) Platelet Count 564 K/uL (130-400) Mean Platelet Volume 8.3 fL (7.4-10.4) Neutrophils (%) (Auto) 86.5 % Lymphocytes (%) (Auto) 5.9 % Monocytes (%) (Auto) 3.5 % Eosinophils (%) (Auto) 0.4 % Basophils (%) (Auto) 0.1 % Neutrophils # (Auto) 23.96 K/uL (1.4-6.5) Lymphocytes # (Auto) 1.64 K/uL (1.2-3.4) Monocytes # (Auto) 0.98 K/uL (0.11-0.59) Eosinophils # (Auto) 0.11 K/uL (0-0.5) Basophils # (Auto) 0.03 K/uL (0-0.2) RDW Standard Deviation 46.7 fL (36.4-46.3) RDW Coefficient of Variation 14.9 % (11.5-14.5) Immature Granulocyte % (Auto) 3.6 % Immature Granulocyte # (Auto) 1.01 K/uL (0.00-0.02) Polychromasia 1+ Prothrombin Time 24.7 SECONDS (9.0-12.0) Prothromb Time International Ratio 2.4 (0.9-1.1) Magnesium Level 1.9 mg/dl (1.8-2.4) Allergies Coded Allergies: No Known Allergies (Verified , 07/13/17) Medications Current Inpatient Medications Medications (Trade) Dose Ordered Sig/Oswaldo Route Start Time Stop Time Status Last Admin Dose Admin Oxycodone HCl (Roxicodone Immediate Rel Tab) 1 TABLET FOR PAIN RATING... Q4H PRN PO 07/13/17 10:30 07/27/17 10:29 07/20/17 20:08 5 MG Morphine Sulfate (MoRPHine SULFATE INJ) give 2mg for pain 3-6 g... Q1H PRN IV 07/13/17 10:30 07/27/17 10:29 Acetaminophen (Tylenol Tab) 650 mg Q6H PRN PO 07/14/17 14:00 08/13/17 13:59 07/19/17 10:07 650 MG Magnesium Hydroxide (Milk Of Magnesia Susp) 30 ml Q6H PRN PO 07/13/17 10:30 08/12/17 10:29 Bisacodyl (Dulcolax Supp) 10 mg DAILY PRN MO 07/13/17 10:30 08/12/17 10:29 Sodium Biphosphate/ Sodium Phosphate (Fleet Enema) 132 ml DAILY PRN MO 07/13/17 10:30 08/12/17 10:29 Docusate Sodium (coLACE CAP) 100 mg BID PO 07/13/17 21:00 08/12/17 20:59 07/20/17 20:08 100 MG Diphenhydramine HCl (Benadryl Inj) 25 mg Q8H PRN IV 07/13/17 10:30 08/12/17 10:29 Al Hydrox/Mg Hydrox/Simethicone (Maalox Max Susp) 15 ml Q4H PRN PO 07/13/17 10:30 08/12/17 10:29 Ondansetron HCl (Zofran Inj) 4 mg Q6H PRN IV 07/13/17 10:30 08/12/17 10:29 Metoclopramide HCl (Reglan Inj) 10 mg Q6H PRN IV 07/13/17 10:30 08/12/17 10:29 Ferrous Gluconate (Ferrous Gluconate Tab) 324 mg TIDM PO 07/13/17 16:45 08/12/17 17:44 07/20/17 18:48 324 MG Allopurinol (Zyloprim Tab) 300 mg QAM PO 07/14/17 09:00 08/13/17 08:59 07/20/17 09:02 300 MG Dipyridamole/ Aspirin (Aggrenox 200MG/ 25MG Cap) 1 cap BID PO 07/13/17 21:00 08/12/17 20:59 07/20/17 20:09 1 CAP Chlorpromazine HCl (Thorazine Tab) 25 mg TID PRN PO 07/13/17 10:30 08/12/17 10:29 07/16/17 07:43 25 MG Multivitamins (Multivitamin Tab) 1 tab DAILY PO 07/14/17 09:00 08/13/17 08:59 07/20/17 09:02 1 TAB Niacin (Niaspan Extended Rel Tab) 500 mg DAILY PO 07/14/17 09:00 08/13/17 08:59 07/20/17 09:02 500 MG Simvastatin (Zocor Tab) 20 mg QPM PO 07/13/17 21:00 08/12/17 20:59 07/20/17 20:08 20 MG Insulin Aspart (novoLOG ASPART) SLIDING SCALE G... ACHS SC 07/13/17 16:15 08/12/17 17:14 07/20/17 18:45 7 UNITS Glucose (Glucose 40% Gel) 15-30 GRAMS 15 GRAMS... UD PRN PO 07/13/17 11:00 08/12/17 10:59 Glucose (Glucose Chew Tab) 4-8 Tablets 4 Tabl... UD PRN PO 07/13/17 11:00 08/12/17 10:59 Dextrose (Dextrose 50% 50ML Syringe) 25-50ML OF 50% DW IV FOR... UD PRN IV 07/13/17 11:00 08/12/17 10:59 Glucagon (Glucagon Inj) 1 mg UD PRN SQ 07/13/17 11:00 08/12/17 10:59 Miscellaneous Information (Consult Glycemic Management Pharmacy) 1 ea UD N/A 07/13/17 17:19 08/12/17 17:18 Tamsulosin HCl (Flomax Cap) 0.8 mg QPM PO 07/13/17 21:00 08/12/17 20:59 07/20/17 20:09 0.8 MG Warfarin Sodium (Coumadin Tab) 2.5 mg DAILY@16 PO 07/16/17 16:00 08/15/17 15:59 Future Hold 07/17/17 16:19 2.5 MG Metoprolol Tartrate (Lopressor Tab) 25 mg Q6 PO 07/17/17 09:00 08/16/17 08:59 07/21/17 00:31 25 MG Digoxin (Lanoxin Tab) 0.125 mg DAILY@16 PO 07/18/17 16:00 08/17/17 15:59 07/20/17 16:11 0.125 MG Heparin Sodium (Porcine) (Heparin 10 Unit/ ml 5 ml Flush) 5 ml PRN PRN FLUSH 07/17/17 14:45 08/16/17 14:44 07/20/17 19:48 5 ML Finasteride (Proscar Tab) 5 mg QAM PO 07/18/17 09:00 08/17/17 08:59 07/20/17 09:02 5 MG Enteral Nutritional Formula (Boost Glucose Control) 1 can BID@1000,2100 PO 07/17/17 21:00 08/16/17 20:59 07/20/17 09:02 1 CAN Ertapenem 1000 mg/ Sodium Chloride 60 ml @ 120 mls/hr Q24H IV 07/18/17 12:00 08/29/17 11:59 07/20/17 12:43 120 MLS/HR Insulin Glargine (Lantus Solostar Pen) 18 units BID SC 07/20/17 09:00 08/19/17 08:59 07/20/17 22:15 18 UNITS Vancomycin HCl (Vancomycin Oral Soln) 125 mg Q6 PO 07/20/17 12:30 07/30/17 12:29 07/21/17 05:37 125 MG Raspberry (Raspberry Syrup 5ml Cup) 5 ml Q6 PO 07/20/17 12:30 08/03/17 12:29 07/21/17 05:37 5 ML Loperamide HCl (Imodium Cap) 2 mg UD PRN PO 07/20/17 15:00 08/19/17 14:59 Sodium Chloride (Sodium Chloride Tab) 2 gm BID PO 07/21/17 09:00 08/20/17 08:59 Impression (1) Hyponatremia (2) Hypertension (3) Leukocytosis (4) Infected orthopedic implant 82 old gentlemen with acute hyponatremia in the setting of hospital admission for septic joint, had debridement and drainage. Blood pressure well controlled , no sign of volume depletion although he has been having some diarrhea and poor p.o. intake. Was on hydrochlorothiazide which was stopped 2 days ago. Serum sodium remained low around 126-127. Urine osmolality pending. Pain related to the septic joint seems to be well controlled. Denies headache, confusion, dizziness lightheadedness. Hyponatremia could be due to combination of high ADH state with the pain, thiazide diuretics use and decrease free water clearance with low solute intake with history of poor oral intake last few days. Recommendations --normal saline was discontinued last night as serum sodium was dropping, dropped to 125, started on oral sodium chloride and serum sodium started to improve, 127 this morning. Avoid NS --avoid thiazide diuretics going forward --encourage protein intake --continue to restrict free water to less than 1500 mL per day Will follow
[2017-07-21] MEDS: POTASSIUM CHLR 10 MEQ / WTR 10 MEQ in PREMIXED WATER 100 ML IV SCH ×4 (10:41→14:01)
--- NOTE | 2017-07-21 10:59 | Progress Note ---
Subjective Date of Service: Jul 21, 2017. Subjective Pt evaluation today including: conversation w/ patient, conversation w/ family , physical exam, chart review, lab review pt resting comfortably, son at bedside. Pt denies pain, no f/c. denies abd pain , diarrhea this am. remains on ertapenem, tolerating well. no pain in hip, no drainage. aspirate culture negative, urine culture negative, blood cultures negative and final. c diff negative x 2. Son states he was having diarrhea at home [employer], was on abx at that time as well. Pt was started emperically on po vanco yesterday, and wbc somewhat better today. All remaining ros reviewed and are negative. Problem List Medical Problems: (1) Hiccups Status: Acute (2) Hyponatremia Status: Acute (3) Polyuria Status: Acute (4) Right radial fracture Status: Acute Objective Vital Signs Date Time Temp Pulse Resp B/P (MAP) Pulse Ox O2 Delivery O2 Flow Rate FiO2 07/21/17 07:50 Room Air 07/21/17 07:43 36.7 81 18 104/56 (72) 94 Room Air 07/21/17 05:28 85 97/59 (72) 07/21/17 00:30 Room Air 07/20/17 23:12 36.7 83 17 109/68 (82) 91 Room Air 07/20/17 18:45 84 114/58 (76) 07/20/17 16:11 80 07/20/17 15:50 Room Air 07/20/17 14:55 36.9 77 17 133/69 (90) 93 Room Air Physical Exam General Appearance: WD/WN, no apparent distress Eyes: normal inspection, EOMI Neck: supple Respiratory/Chest: lungs clear, normal breath sounds, no respiratory distress Cardiovascular: regular rate, rhythm, no edema Abdomen: non tender, soft Extremities: non-tender, no pedal edema Neurologic/Psychiatric: alert, oriented x 3 Skin: normal color Laboratory Results Item Value Date Time C.difficile Toxin B Gene (PCR) - Final Complete 07/20/17 0745 Stool No C. difficile toxin B gene detected Gram Stain - Final Resulted 07/18/17 0748 Joint Fluid/Space (Synovial) Hip , Right Urine Culture - Final Complete 07/13/17 1615 Urine , Clean Catch NO GROWTH - LESS THAN 1,000 COLONIES/ML Blood Culture - Final Complete 07/13/17 1430 Blood NO GROWTH Blood Culture - Final Complete 07/13/17 1429 Blood NO GROWTH C.difficile Toxin B Gene (PCR) - Final Complete 07/16/17 0811 Stool No C. difficile toxin B gene detected Gram Stain - Final Complete 07/13/17 0900 Joint Fluid/Space (Synovial) Hip , Right Last 24 Hours Test 07/20/17 11:49 07/20/17 12:43 07/20/17 15:27 07/20/17 17:01 Osmolality 268 mOsm/kg Bedside Glucose 171 mg/dl 119 mg/dl Sodium Level 125 mmol/L Random Cortisol 27.59 mcg/dl Test 07/20/17 19:02 07/20/17 20:47 07/21/17 00:36 07/21/17 05:29 Sodium Level 125 mmol/L 127 mmol/L Bedside Glucose 138 mg/dl Urine Osmolality 474 mOms/kg Urine Random Sodium 22 mEq/L Potassium Level 3.5 mmol/L Chloride Level 91 mmol/L Carbon Dioxide Level 26 mmol/L Anion Gap 10.0 mmol/L Blood Urea Nitrogen 21 mg/dl Creatinine 1.02 mg/dl Est Creatinine Clear Calc Drug Dose 59.6 ml/min Estimated GFR () 80.1 Estimated GFR (Non- 69.1 BUN/Creatinine Ratio 20.8 Random Glucose 135 mg/dl Calcium Level 9.4 mg/dl Phosphorus Level 3.7 mg/dl Albumin 1.8 gm/dl Test 07/21/17 07:15 White Blood Count 27.73 K/uL Red Blood Count 3.19 M/uL Hemoglobin 9.3 g/dL Hematocrit 27.5 % Mean Corpuscular Volume 86.2 fL Mean Corpuscular Hemoglobin 29.2 pg Mean Corpuscular Hemoglobin Concent 33.8 g/dl Platelet Count 564 K/uL Mean Platelet Volume 8.3 fL Neutrophils (%) (Auto) 86.5 % Lymphocytes (%) (Auto) 5.9 % Monocytes (%) (Auto) 3.5 % Eosinophils (%) (Auto) 0.4 % Basophils (%) (Auto) 0.1 % Neutrophils # (Auto) 23.96 K/uL Lymphocytes # (Auto) 1.64 K/uL Monocytes # (Auto) 0.98 K/uL Eosinophils # (Auto) 0.11 K/uL Basophils # (Auto) 0.03 K/uL RDW Standard Deviation 46.7 fL RDW Coefficient of Variation 14.9 % Immature Granulocyte % (Auto) 3.6 % Immature Granulocyte # (Auto) 1.01 K/uL Polychromasia 1+ Prothrombin Time 24.7 SECONDS Prothromb Time International Ratio 2.4 Magnesium Level 1.9 mg/dl Assessment and Plan (1) Infected orthopedic implant Assessment & Plan: I he will continue with meropenem. He appears to be tolerating this well. He will likely need 4 weeks of intravenous antibiotics from time of OR. will need weekly, cbc,cmp, esr while on therapy. (2) Leukocytosis Assessment & Plan: improved today, unclear if due to vanco as c diff is negative, but would suggest emperic course of 21 days.
[2017-07-21] MEDS ORDERED: NURSING VERBAL MED ORDER ONE (11:00)
[2017-07-21] MEDS: ERTAPENEM IV 1,000 MG in SODIUM CHLORIDE 0.9% 50ML 50 ML IV SCH (12:53)
--- NOTE | 2017-07-21 14:03 | Pharmacy Progress Note ---
Pharmacy Glycemic Short Note 2 Date of Service Jul 20, 2017. OUTPATIENT ANTIDIABETIC REGIMEN: * Metformin 1,000mg PO BIDM * A1c = 8.5% on 07/12/17 ASSESSMENT: * Mr Dinh is an 82 y/o M with a PMH of heart murmur, HTN, OA, gout, macular degeneration, and poorly controlled diabetes (according to Elements of Diabetes Care Scoring Scale the patient's goal if 7.6-8.0). The patient was admitted for a washout of a right total hip infection. He has had a complicated post- surgical course including Afib with RVR. * Yesterday, the patient's blood sugar was [phone] mg/dL and received 60 units of insulin (30 units of which was basal). The patient's fasting today was 166 mg/dL which has been steadily increasing. Increased basal by 20% to 18 units twice daily. Post-prandial blood sugars are well controlled with slightly tightened carbohydrate ratio. Continue current regimen. PLAN FOR INPATIENT GLYCEMIC CONTROL: * Basal insulin * Lantus 18 units SQ BID * Novolog ACHS * Goal 110-140 * Correction factor of 20 mg/dL/unit * Carbohydrate ratio of 1 unit for 6 grams of carbohydrates consumed
--- NOTE | 2017-07-21 14:06 | Pharmacy Progress Note ---
Pharmacy Glycemic Short Note 2 Date of Service Jul 21, 2017. OUTPATIENT ANTIDIABETIC REGIMEN: * Metformin 1,000mg PO BIDM * A1c = 8.5% on 07/12/17 Test 07/20/17 17:01 07/20/17 20:47 07/21/17 05:29 07/21/17 11:56 Bedside Glucose 119 mg/dl (70-99) 138 mg/dl (70-99) 223 mg/dl (70-99) Random Glucose 135 mg/dl (70-99) ASSESSMENT: * 82 y/o male s/p R hip irrigation and debridement, IV ertapenem * BSGs at goal since increasing Lantus yesterday, except pre-lunch today, will tighten CR * Pt is using his own protein shakes that he is bringing in, each only only contains 5grams CHO per carton, which likely won't need covered with Novolog. PLAN FOR INPATIENT GLYCEMIC CONTROL: * Basal insulin * Lantus 18 units SQ BID * Novolog ACHS * Goal 110-140 * CF 20mg/dl/unit * TIGHTEN: CR 1 unit per 5 grams CHO consumed
--- NOTE | 2017-07-21 14:14 | Orthopedic Progress Note ---
Orthopedic Progress Note Date of Service Jul 21, 2017. Subjective Post OP Day: 8 Reports: feeling well, complaints (Right buttock pain from sitting in one position too long), pain controlled w PO medications (Last Oxy IR 8pm last evening), Denies: chest pain, SOB, nausea / vomiting, light headedness, calf pain Objective calves soft nontender, N/V intact, hip located, capillary refill less than 2 sec., dressing C/D/I, A&O x3, toes mobile, CMS intact Afebrile. Prevena intact and working. wound looks very good. Ecchymosis is resolving. No edema. Pt is slightly more sluggish this morning. States he is not sure if he slept much last night. H&H slightly worse, platelets continue to elevate WBCs improving Date Time Temp Pulse Resp B/P (MAP) Pulse Ox O2 Delivery O2 Flow Rate FiO2 07/21/17 07:50 Room Air 07/21/17 07:43 36.7 81 18 104/56 (72) 94 Room Air 07/21/17 05:28 85 97/59 (72) 07/21/17 00:30 Room Air 07/20/17 23:12 36.7 83 17 109/68 (82) 91 Room Air 07/20/17 18:45 84 114/58 (76) 07/20/17 16:11 80 07/20/17 15:50 Room Air 07/20/17 14:55 36.9 77 17 133/69 (90) 93 Room Air Laboratory Results 24 Hours: Test 07/21/17 07:15 White Blood Count 27.73 K/uL Red Blood Count 3.19 M/uL Hemoglobin 9.3 g/dL Hematocrit 27.5 % Mean Corpuscular Volume 86.2 fL Mean Corpuscular Hemoglobin 29.2 pg Mean Corpuscular Hemoglobin Concent 33.8 g/dl Platelet Count 564 K/uL Mean Platelet Volume 8.3 fL Neutrophils (%) (Auto) 86.5 % Lymphocytes (%) (Auto) 5.9 % Monocytes (%) (Auto) 3.5 % Eosinophils (%) (Auto) 0.4 % Basophils (%) (Auto) 0.1 % Neutrophils # (Auto) 23.96 K/uL Lymphocytes # (Auto) 1.64 K/uL Monocytes # (Auto) 0.98 K/uL Eosinophils # (Auto) 0.11 K/uL Basophils # (Auto) 0.03 K/uL Prothromb Time International Ratio 2.4 Prothrombin Time 24.7 SECONDS Assessment & Plan Assessment: Post op day 8 Right hip I&D, poly/head/button exchange. leukocytosis afib hypokalemia/hyponatremia Loose stools Plan: Will continue to follow closely continue PT/OT c.diff results negative x2 INR improving 2. WBCs improving hip aspirate without any growth apply moist heat to Left arm to improve IV site (1) Infected orthopedic implant Chronic (2) Leukocytosis Acute Discharge Planning Discharge Planning: uncertain Pain Management: PO Tylenol, Oxy IR DVT Prophylaxis: TEDs, SCDs Therapy: Physical Therapy, Occupational Therapy
[2017-07-21] MEDS: OXYCODONE HCL IR 5 MG TAB (IMMEDIATE RELEASE) PO PRN (14:44)
--- NOTE | 2017-07-21 15:43 | PROGRESS NOTE ---
DATE: 07/21/2017 SUBJECTIVE: Covering for Dr. Nagel. Spoken with Brian Orona and seen and evaluated Mr. Dinh. His white blood cell count is down compared to yesterday. He has been started on some oral vancomycin. He is sleeping this afternoon. His thigh is not notably swollen or red. There is no significant drainage from the wound VAC. His lower leg is not swollen. He remains afebrile. He does have an area of erythema and induration about 3-4 cm in diameter distal to the left antecubital fossa. This looks like an infiltrated IV site with some inflammation. There is subcutaneous edema, but no drainable abscess or fluctuance is present. He has a low albumin and would benefit from some increased caloric and protein intake. Nutrition consult could be considered if necessary. Shakes have been ordered and p.o. intake encouraged. Dr. Nagel will be back tomorrow evening.
[2017-07-21] MEDS: DIGOXIN 0.125 MG TAB PO SCH (16:17)
[2017-07-21] MEDS ORDERED: WARFARIN SOD 1 MG TAB PO ONE (18:00)
[2017-07-21] MEDS: SIMVASTATIN 20 MG TAB PO SCH (22:08)
[2017-07-21] MEDS: TAMSULOSIN HCL 0.4 MG CAP PO SCH (22:08)
[2017-07-21] MEDS: PROTEIN SHAKE PO SCH (22:16)
[2017-07-22 05:43] LABS: HEMATOCRIT 25.3 % (42-52); HEMOGLOBIN 8.5 g/dL (14.0-18.0); MEAN CELL VOLUME 86.9 fL (80-100); MEAN CORPUSCULAR HEMOGLOBIN 29.2 pg (25-34); MEAN CORPUSCULAR HGB CONC 33.6 g/dl (32-36); MEAN PLATELET VOLUME 8.3 fL (7.4-10.4); PLATELET COUNT 591 K/uL (130-400); RED CELL DISTRIBUTION WIDTH CV 15.1 % (11.5-14.5); RED CELL DISTRIBUTION WIDTH SD 46.9 fL (36.4-46.3); WHITE BLOOD COUNT 26.42 K/uL (4.8-10.8)
[2017-07-22 05:51] VITALS: BP 123/66; PULSE 96
[2017-07-22 05:52] LABS: INR 2.4 (0.9-1.1)
[2017-07-22] MEDS: METOPROLOL TARTRATE 25 MG TAB PO SCH ×3 (05:53→19:01)
[2017-07-22] MEDS: VANCOMYCIN HCL 125 MG/2.5ML SOLN PO SCH ×3 (05:53→19:03)
[2017-07-22] MEDS: RASPBERRY SYRUP 5 ML UDP PO SCH ×3 (05:54→19:03)
[2017-07-22 06:00] LABS: ALBUMIN 1.6 gm/dl (3.4-5.0); CALCIUM 9.1 mg/dl (8.5-10.1); CREATININE 0.93 mg/dl (0.60-1.40); PHOSPHORUS 3.4 mg/dl (2.5-4.9); POTASSIUM 3.5 mmol/L (3.5-5.1)
[2017-07-22 06:13] LABS: BASO % 0.1 %; BASO ABS # 0.03 K/uL (0-0.2); EOS % 0.6 %; EOS ABS # 0.15 K/uL (0-0.5); IG# 0.68 K/uL (0.00-0.02); LYMPH % 2.8 %; LYMPH ABS # 0.75 K/uL (1.2-3.4); MONO ABS # 1.85 K/uL (0.11-0.59); NEUT % 86.9 %; NEUT ABS # 22.96 K/uL (1.4-6.5)
[2017-07-22] MEDS: OXYCODONE HCL IR 5 MG TAB (IMMEDIATE RELEASE) PO PRN ×3 (06:15→20:44)
[2017-07-22 07:53] VITALS: BP 124/65; PULSE 85; TEMP 36.4; O2SAT 94
[2017-07-22] MEDS ORDERED: MAGNESIUM SULFATE 1GM / D5W 1 GM in PREMIXED IN D5W 100 ML IV ONE (08:30)
--- NOTE | 2017-07-22 08:36 | Family Medicine Progress Note ---
Progress Note Date of Service Jul 22, 2017. Subjective Pt evaluation today including: conversation w/ patient, conversation w/ family Found patient sitting in his chair, son at bedside. Says "I feel okay" and continues to deny any focal concerns to include CP, SOB, N/V, or abdominal pain. Says his loose stools have greatly improved as well. No particular patient concerns. Son asked for an update on overall status, so answered those questions this morning as well. Constitutional: No fever, No chills ENT: + hearing loss Respiratory: No cough, No shortness of breath Cardiovascular: No chest pain, No edema Abdomen: No pain, No nausea, No vomiting, No constipation Medications Current Inpatient Medications Medications (Trade) Dose Ordered Sig/Oswaldo Route Start Time Stop Time Status Last Admin Dose Admin Oxycodone HCl (Roxicodone Immediate Rel Tab) 1 TABLET FOR PAIN RATING... Q4H PRN PO 07/13/17 10:30 07/27/17 10:29 07/22/17 06:15 10 MG Morphine Sulfate (MoRPHine SULFATE INJ) give 2mg for pain 3-6 g... Q1H PRN IV 07/13/17 10:30 07/27/17 10:29 Acetaminophen (Tylenol Tab) 650 mg Q6H PRN PO 07/14/17 14:00 08/13/17 13:59 07/19/17 10:07 650 MG Magnesium Hydroxide (Milk Of Magnesia Susp) 30 ml Q6H PRN PO 07/13/17 10:30 08/12/17 10:29 Bisacodyl (Dulcolax Supp) 10 mg DAILY PRN OK 07/13/17 10:30 08/12/17 10:29 Sodium Biphosphate/ Sodium Phosphate (Fleet Enema) 132 ml DAILY PRN OK 07/13/17 10:30 08/12/17 10:29 Docusate Sodium (coLACE CAP) 100 mg BID PO 07/13/17 21:00 08/12/17 20:59 07/21/17 22:08 100 MG Diphenhydramine HCl (Benadryl Inj) 25 mg Q8H PRN IV 07/13/17 10:30 08/12/17 10:29 Al Hydrox/Mg Hydrox/Simethicone (Maalox Max Susp) 15 ml Q4H PRN PO 07/13/17 10:30 08/12/17 10:29 Ondansetron HCl (Zofran Inj) 4 mg Q6H PRN IV 07/13/17 10:30 08/12/17 10:29 Metoclopramide HCl (Reglan Inj) 10 mg Q6H PRN IV 07/13/17 10:30 08/12/17 10:29 Ferrous Gluconate (Ferrous Gluconate Tab) 324 mg TIDM PO 07/13/17 16:45 08/12/17 17:44 07/21/17 18:41 324 MG Allopurinol (Zyloprim Tab) 300 mg QAM PO 07/14/17 09:00 08/13/17 08:59 07/21/17 09:00 300 MG Dipyridamole/ Aspirin (Aggrenox 200MG/ 25MG Cap) 1 cap BID PO 07/13/17 21:00 08/12/17 20:59 07/21/17 22:08 1 CAP Chlorpromazine HCl (Thorazine Tab) 25 mg TID PRN PO 07/13/17 10:30 08/12/17 10:29 07/16/17 07:43 25 MG Multivitamins (Multivitamin Tab) 1 tab DAILY PO 07/14/17 09:00 08/13/17 08:59 07/21/17 08:58 1 TAB Niacin (Niaspan Extended Rel Tab) 500 mg DAILY PO 07/14/17 09:00 08/13/17 08:59 07/21/17 08:59 500 MG Simvastatin (Zocor Tab) 20 mg QPM PO 07/13/17 21:00 08/12/17 20:59 07/21/17 22:08 20 MG Insulin Aspart (novoLOG ASPART) SLIDING SCALE G... ACHS SC 07/13/17 16:15 08/12/17 17:14 07/21/17 22:25 2 UNITS Glucose (Glucose 40% Gel) 15-30 GRAMS 15 GRAMS... UD PRN PO 07/13/17 11:00 08/12/17 10:59 Glucose (Glucose Chew Tab) 4-8 Tablets 4 Tabl... UD PRN PO 07/13/17 11:00 08/12/17 10:59 Dextrose (Dextrose 50% 50ML Syringe) 25-50ML OF 50% DW IV FOR... UD PRN IV 07/13/17 11:00 08/12/17 10:59 Glucagon (Glucagon Inj) 1 mg UD PRN SQ 07/13/17 11:00 08/12/17 10:59 Miscellaneous Information (Consult Glycemic Management Pharmacy) 1 ea UD N/A 07/13/17 17:19 08/12/17 17:18 Tamsulosin HCl (Flomax Cap) 0.8 mg QPM PO 07/13/17 21:00 08/12/17 20:59 07/21/17 22:08 0.8 MG Warfarin Sodium (Coumadin Tab) 2.5 mg DAILY@16 PO 07/16/17 16:00 08/15/17 15:59 Future Hold 07/17/17 16:19 2.5 MG Metoprolol Tartrate (Lopressor Tab) 25 mg Q6 PO 07/17/17 09:00 08/16/17 08:59 07/22/17 05:53 25 MG Digoxin (Lanoxin Tab) 0.125 mg DAILY@16 PO 07/18/17 16:00 08/17/17 15:59 07/21/17 16:17 0.125 MG Heparin Sodium (Porcine) (Heparin 10 Unit/ ml 5 ml Flush) 5 ml PRN PRN FLUSH 07/17/17 14:45 08/16/17 14:44 07/22/17 05:29 5 ML Finasteride (Proscar Tab) 5 mg QAM PO 07/18/17 09:00 08/17/17 08:59 07/21/17 08:59 5 MG Ertapenem 1000 mg/ Sodium Chloride 60 ml @ 120 mls/hr Q24H IV 07/18/17 12:00 08/29/17 11:59 07/21/17 12:53 120 MLS/HR Insulin Glargine (Lantus Solostar Pen) 18 units BID SC 07/20/17 09:00 08/19/17 08:59 07/21/17 22:12 18 UNITS Vancomycin HCl (Vancomycin Oral Soln) 125 mg Q6 PO 07/20/17 12:30 07/30/17 12:29 07/22/17 05:53 125 MG Raspberry (Raspberry Syrup 5ml Cup) 5 ml Q6 PO 07/20/17 12:30 08/03/17 12:29 07/22/17 05:54 5 ML Loperamide HCl (Imodium Cap) 2 mg UD PRN PO 07/20/17 15:00 08/19/17 14:59 Sodium Chloride (Sodium Chloride Tab) 2 gm BID PO 07/21/17 09:00 08/20/17 08:59 07/21/17 22:08 2 GM Non-Formulary Medication (Non-Formulary Patient'S Own Med) 1 ea DAILY@1000,2100 PO 07/21/17 21:00 08/20/17 20:59 Potassium Chloride 10 meq/ Prmx 100 ml @ 100 mls/hr Q1H IV 07/22/17 08:30 07/22/17 12:29 Magnesium Sulfate 1 gm/Prmx 100 ml @ 100 mls/hr TODAY@0830 ONCE IV 07/22/17 08:30 07/22/17 09:29 Objective Vital Signs Date Time Temp Pulse Resp B/P (MAP) Pulse Ox O2 Delivery O2 Flow Rate FiO2 07/22/17 07:53 36.4 85 16 124/65 (84) 94 Room Air 07/22/17 05:51 96 123/66 (85) 07/22/17 00:45 Room Air 07/21/17 23:54 86 105/65 (78) 07/21/17 23:01 37.1 88 17 117/61 (79) 95 Room Air 07/21/17 18:42 90 107/65 (79) 07/21/17 16:31 37.0 90 17 115/64 (81) 94 Room Air 07/21/17 16:17 96 07/21/17 15:40 Room Air Physical Exam Notes: General Appearance: Awake, alert, oriented x 3, comfortable, NAD CV: +S1S2 irregularly irregular. Systolic murmur. No peripheral edema. Pulm: Clear to auscultation throughout. Abdomen: +BS, soft, non-tender, non-distended. Extremities: Right lateral hip wound vac in place, c/d/i. Moving toes about easily. No calf tenderness. Bilateral leg compression stockings in place. Neuro: Distal LE sensation intact. Lines: Right PICC (placed 05Mar). Left wrist PIV. Right arm PIV. Laboratory Results 07/22/17 05:25 Red Blood Count 2.91, Mean Corpuscular Volume 86.9, Mean Corpuscular Hemoglobin 29.2, Mean Corpuscular Hemoglobin Concent 33.6, Mean Platelet Volume 8.3, Neutrophils (%) (Auto) 86.9, Lymphocytes (%) (Auto) 2.8, Monocytes (%) (Auto) 7.0, Eosinophils (%) (Auto) 0.6, Basophils (%) (Auto) 0.1, Neutrophils # (Auto) 22.96, Lymphocytes # (Auto) 0.75, Monocytes # (Auto) 1.85, Eosinophils # (Auto) 0.15, Basophils # (Auto) 0.03 07/22/17 05:25 Test 07/22/17 05:25 07/22/17 07:39 White Blood Count 26.42 K/uL (4.8-10.8) Red Blood Count 2.91 M/uL (4.7-6.1) Hemoglobin 8.5 g/dL (14.0-18.0) Hematocrit 25.3 % (42-52) Mean Corpuscular Volume 86.9 fL (80-100) Mean Corpuscular Hemoglobin 29.2 pg (25-34) Mean Corpuscular Hemoglobin Concent 33.6 g/dl (32-36) Platelet Count 591 K/uL (130-400) Mean Platelet Volume 8.3 fL (7.4-10.4) Neutrophils (%) (Auto) 86.9 % Lymphocytes (%) (Auto) 2.8 % Monocytes (%) (Auto) 7.0 % Eosinophils (%) (Auto) 0.6 % Basophils (%) (Auto) 0.1 % Neutrophils # (Auto) 22.96 K/uL (1.4-6.5) Lymphocytes # (Auto) 0.75 K/uL (1.2-3.4) Monocytes # (Auto) 1.85 K/uL (0.11-0.59) Eosinophils # (Auto) 0.15 K/uL (0-0.5) Basophils # (Auto) 0.03 K/uL (0-0.2) RDW Standard Deviation 46.9 fL (36.4-46.3) RDW Coefficient of Variation 15.1 % (11.5-14.5) Immature Granulocyte % (Auto) 2.6 % Immature Granulocyte # (Auto) 0.68 K/uL (0.00-0.02) Red Blood Cell Morphology Unremarkable Erythrocyte Sedimentation Rate 83 mm/hr (0-14) Prothrombin Time 24.9 SECONDS (9.0-12.0) Prothromb Time International Ratio 2.4 (0.9-1.1) Anion Gap 9.0 mmol/L (3-11) Est Creatinine Clear Calc Drug Dose 65.4 ml/min Estimated GFR () 89.5 Estimated GFR (Non- 77.3 BUN/Creatinine Ratio 20.1 (10-20) Calcium Level 9.1 mg/dl (8.5-10.1) Phosphorus Level 3.4 mg/dl (2.5-4.9) Magnesium Level 1.8 mg/dl (1.8-2.4) Albumin 1.6 gm/dl (3.4-5.0) Digoxin Level 0.9 ng/ml (0.8-2.0) Bedside Glucose 173 mg/dl (70-99) Assessment and Plan 82 year old male admitted on [id number] for infected right total hip arthroplasty, now POD #9. PMH: Afib, osteoarthritis, HTN, HLD, macular degeneration, enlarged prostate, DM2, gout. Right hip infection: S/p surgery, rec'd continue wound vac and PT/OT to mobilize , will need placement. Last fever 04Mar. Leukocytosis as noted below. 01Mar joint space Cx positive for Citrobacter koseri and Finegoldia magna. ID onboard. Stopped rocephin (3d given) and started ertapenem daily on 06Mar for planned four weeks since date of surgery. PICC placed 05Mar. Leukocytosis: Progressive increase to max WBC 33 with blasts 0.31. Known infection in right hip as above, on ertapenem. Patient continues to say he feels well and without acute respiratory, urinary, abdominal, or other concerns. Cultures besides hip have been negative. C diff x 2 negative, but was started empirically on oral vancomycin on 08Mar. Since WBC down to 26 ( mildly progressively improving). ESR at 83. ID onboard, recommended remain on vanc for 21 total days. - Will need weekly CBC, CMP, ESR while on therapy. Atrial fibrillation: Briefly in RVR, but most recent rates in 80's-90's. Asymptomatic. Unknown duration of afib. Cardiology onboard. 02Jul TTE noted EF 60-65% with mild LVH, mild-mod AR, mild . Did not convert with amiodarone. Now on metoprolol 25 mg PO q6h and digoxin 0.125 mg daily (last level check okay on 10Jul). On heparin. Switched to coumadin 1 mg daily, last INR 2.5. Urinary retention / Candidal infection: Hx of enlarged prostate, did talk with urology just before his hip surgery. On flomax, added proscar. On q8h scheduled straight cath, which patient approves of. Would like to avoid placing cruz if possible. UCx positive for shane, started fluconazole 200 daily x planned 14 days. Electrolytes: Nephrology onboard, see their recommendations. - Hyponatremia: Na 128, slightly improving over past 72 hours. 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 Began 1500 mL PO fluid restriction on 06Jul. Stopped home HCTZ. Now on sodium tabs BID. Monitoring. - Hypokalemia: K 3.5. Repleting, goal > 4. - Hypomagnesemia: Mag 1.8. Repleting, goal > 2. - Hypercalcemia: Ca 9.5, trending upwards. When corrected for albumin 1.8, Ca is 11.0. May partially be due to resorption of antibiotic beads s/p right hip surgery. Monitoring. Diarrhea: Improving. 04Jul and 08Jul C diff negative. On vancomycin PO as noted above. Immodium prn (but no doses given yet). Anemia: Hb 8.5, slight worsening. Monitoring. DM2: Hx of same. Glycemic consultation, on novolog and lantus. Holding home metformin. HTN: Hx of same, presently stable. On metoprolol as noted in "afib" above. HLD: Hx of same. On zocor. Gout: Hx of same. On allopurinol. Code status: Full code. Diet: DM2, fluid restrict 1500 mL, with boost supplementation. Encouraging protein intake. DVT prophy: Therapeutic INR. On coumadin. Also aggrenox. PT/OT: 05Jul PT ongoing, recommends rehab. 03Jul OT note says,"Pt will require continued in patient therapies after discharge from [facility]." Case management working with Consuelo Guerrero. Disbo: Admit med/surg. On medicine service Resident Physician Supervision Note: I interviewed and examined the patient. Discussed with Dr. Stevenson and agree with findings and plan as documented in the note. Any exceptions or clarifications are listed here: None This complex patient continues to gently improve he still bothered by significant leukocytosis, hyponatremia atrial fibrillation requiring metoprolol and digoxin thrombocythemia, anemia and what brought him in the first place was an infected previous right hip arthroplasty he has some elevated calcium by correction from stimulant beads implanted intraoperatively but has no untoward central nervous system side effects regarding this. Patient was updated along with the son he continues to clinically look well despite these markedly abnormal laboratory tests as mentioned His vital signs show his temperature 36 4 pulse 85 respiration rate 16 BP 124/ 65 another laboratory of note that is improved as a sed rate is now down from greater than 90 to 83 his and her INR remains therapeutic at 2.4 His cardiac exam is irregularly irregular with good rate control his lungs are with good air movement his abdomen is nontender and his hip site continues to look well with a wound VAC in place We will continue ertapenem therapy for his hip infection, vancomycin for suspected C. difficile, instituted on Diflucan for Shane albicans in the urine and his course getting vancomycin tobramycin and the stimulant beads His atrial fib is been controlled with metoprolol digoxin level is therapeutic His sodium is improved with renal oversight to 124 He is anemic today however this is one reading amidst a fairly stable course with no obvious signs of blood loss or hemolysis subsequently will wait to follow trend with regard to this prior to instituting any aggressive evaluation Documented By: Romero Crain . Resident Tracking Resident Involvement: Resident Care Provided Care Provided: Adult Hospital Medicine (inpatient)
[2017-07-22] MEDS: SODIUM CHLORIDE 1 GM TAB PO SCH ×2 (08:43→20:41)
[2017-07-22] MEDS: NIASPAN 500 MG TABCR PO SCH (08:43)
[2017-07-22] MEDS: DIPYRIDAMOLE/ASPIRIN CAP PO SCH ×2 (08:44→20:41)
[2017-07-22] MEDS: DOCUSATE SODIUM 100 MG CAP PO SCH ×2 (08:44→20:40)
[2017-07-22] MEDS: FERROUS GLUCONATE 324 MG TAB PO SCH ×3 (08:44→19:01)
[2017-07-22] MEDS: FINASTERIDE 5 MG TAB PO SCH (08:44)
[2017-07-22] MEDS: MULTIVITAMIN TAB PO SCH (08:44)
[2017-07-22] MEDS: ALLOPURINOL 300 MG TAB PO SCH (08:44)
[2017-07-22] MEDS: INSULIN ASPART 100 UNITS/ML 3 ML PEN SC SCH ×4 (08:49→20:54)
[2017-07-22] MEDS: INSULIN GLARGINE SOLOSTAR 100 UNITS/ML 3 ML PEN SC SCH ×2 (08:54→20:53)
[2017-07-22] MEDS: POTASSIUM CHLR 10 MEQ / WTR 10 MEQ in PREMIXED WATER 100 ML IV SCH ×4 (08:55→12:11)
--- NOTE | 2017-07-22 09:09 | Orthopedic Progress Note ---
Orthopedic Progress Note Date of Service Jul 22, 2017. Subjective Post OP Day: 9 Reports: feeling well, pain controlled w PO medications, Denies: complaints, chest pain, SOB, nausea / vomiting, light headedness, calf pain Additional Notes: states he slept well. No pain. Has eaten breakfast. More alert this morning. Recalls events from yesterday easily. States he has not had any diarrhea. Objective calves soft nontender, N/V intact, hip located, capillary refill less than 2 sec., dressing C/D/I, A&O x3, toes mobile, CMS intact No abdominal tenderness. Left forearm continues to have hematoma present. Slightly smaller than yesterday, nontender. No drainage. H&H have dropped slightly, WBCs mildly improved from yesterday. Albumin remains low. Lytes are improved. Afebrile. INR remains unchanged. Date Time Temp Pulse Resp B/P (MAP) Pulse Ox O2 Delivery O2 Flow Rate FiO2 07/22/17 07:53 36.4 85 16 124/65 (84) 94 Room Air 07/22/17 05:51 96 123/66 (85) 07/22/17 00:45 Room Air 07/21/17 23:54 86 105/65 (78) 07/21/17 23:01 37.1 88 17 117/61 (79) 95 Room Air 07/21/17 18:42 90 107/65 (79) 07/21/17 16:31 37.0 90 17 115/64 (81) 94 Room Air 07/21/17 16:17 96 07/21/17 15:40 Room Air Laboratory Results 24 Hours: Test 07/22/17 05:25 White Blood Count 26.42 K/uL Red Blood Count 2.91 M/uL Hemoglobin 8.5 g/dL Hematocrit 25.3 % Mean Corpuscular Volume 86.9 fL Mean Corpuscular Hemoglobin 29.2 pg Mean Corpuscular Hemoglobin Concent 33.6 g/dl Platelet Count 591 K/uL Mean Platelet Volume 8.3 fL Neutrophils (%) (Auto) 86.9 % Lymphocytes (%) (Auto) 2.8 % Monocytes (%) (Auto) 7.0 % Eosinophils (%) (Auto) 0.6 % Basophils (%) (Auto) 0.1 % Neutrophils # (Auto) 22.96 K/uL Lymphocytes # (Auto) 0.75 K/uL Monocytes # (Auto) 1.85 K/uL Eosinophils # (Auto) 0.15 K/uL Basophils # (Auto) 0.03 K/uL Prothromb Time International Ratio 2.4 Prothrombin Time 24.9 SECONDS Assessment & Plan Assessment: Post op day 9 Right hip I&D, poly/head/button exchange. leukocytosis afib hypokalemia/hyponatremia Loose stools Plan: Will continue to follow closely-Dr. Nagel will check on him later today. continue PT/OT INR stable at 2.4 WBCs improving encouraged protein intake apply moist heat to Left arm to improve IV site will change Prevena wound vac later today. (1) Infected orthopedic implant Chronic (2) Leukocytosis Acute Discharge Planning Discharge Planning: uncertain Pain Management: PO Tylenol, Oxy IR DVT Prophylaxis: TEDs, SCDs Therapy: Physical Therapy, Occupational Therapy
[2017-07-22] MEDS: PROTEIN SHAKE PO SCH ×2 (09:40→20:42)
--- NOTE | 2017-07-22 11:35 | Nephrology Progress Note ---
Nephrology Progress Note Date of Service Jul 22, 2017. Chief Complaint Hyponatremia Subjective No acute events overnight. No complaints this morning. Mr. Moyer was out of bed with PT this morning. He denies any complaints. No shortness of breath. No chest pain or palpitations. Appetite is good. Review of Systems A complete review of systems was performed. Pertinent positives are noted above. All other systems are negative. Vital Signs Last 8 Hrs Date Time Temp Pulse Resp B/P (MAP) Pulse Ox O2 Delivery O2 Flow Rate FiO2 07/22/17 07:53 36.4 85 16 124/65 (84) 94 Room Air 07/22/17 05:51 96 123/66 (85) Last Recorded Weight Weight (Kilograms): 84.000 Physical Exam General Appearance: WD/WN, no apparent distress Head: normocephalic, atraumatic Eyes: normal inspection, sclerae normal ENT: normal ENT inspection, pharynx normal Neck: supple, no JVD Respiratory/Chest: lungs clear, no respiratory distress, no accessory muscle use Cardiovascular: regular rate, rhythm, no gallop Abdomen/GI: non tender, soft Extremities/Musculoskelatal: normal inspection, no pedal edema Neurologic/Psych: alert, normal mood/affect Family History No f/h of malignancy, hypertension runs in the family. Social History Smoking Status: Former smoker Marital Status: Occupation: retired Laboratory Results Past 24 Hours 07/22/17 05:25 Red Blood Count 2.91, Mean Corpuscular Volume 86.9, Mean Corpuscular Hemoglobin 29.2, Mean Corpuscular Hemoglobin Concent 33.6, Mean Platelet Volume 8.3, Neutrophils (%) (Auto) 86.9, Lymphocytes (%) (Auto) 2.8, Monocytes (%) (Auto) 7.0, Eosinophils (%) (Auto) 0.6, Basophils (%) (Auto) 0.1, Neutrophils # (Auto) 22.96, Lymphocytes # (Auto) 0.75, Monocytes # (Auto) 1.85, Eosinophils # (Auto) 0.15, Basophils # (Auto) 0.03 07/21/17 16:07 07/22/17 05:25 Test 07/21/17 11:56 07/21/17 17:21 07/21/17 20:39 07/21/17 22:13 Bedside Glucose 223 mg/dl (70-99) 228 mg/dl (70-99) 191 mg/dl (70-99) 162 mg/dl (70-99) Test 07/22/17 05:25 07/22/17 07:39 White Blood Count 26.42 K/uL (4.8-10.8) Red Blood Count 2.91 M/uL (4.7-6.1) Hemoglobin 8.5 g/dL (14.0-18.0) Hematocrit 25.3 % (42-52) Mean Corpuscular Volume 86.9 fL (80-100) Mean Corpuscular Hemoglobin 29.2 pg (25-34) Mean Corpuscular Hemoglobin Concent 33.6 g/dl (32-36) Platelet Count 591 K/uL (130-400) Mean Platelet Volume 8.3 fL (7.4-10.4) Neutrophils (%) (Auto) 86.9 % Lymphocytes (%) (Auto) 2.8 % Monocytes (%) (Auto) 7.0 % Eosinophils (%) (Auto) 0.6 % Basophils (%) (Auto) 0.1 % Neutrophils # (Auto) 22.96 K/uL (1.4-6.5) Lymphocytes # (Auto) 0.75 K/uL (1.2-3.4) Monocytes # (Auto) 1.85 K/uL (0.11-0.59) Eosinophils # (Auto) 0.15 K/uL (0-0.5) Basophils # (Auto) 0.03 K/uL (0-0.2) RDW Standard Deviation 46.9 fL (36.4-46.3) RDW Coefficient of Variation 15.1 % (11.5-14.5) Immature Granulocyte % (Auto) 2.6 % Immature Granulocyte # (Auto) 0.68 K/uL (0.00-0.02) Red Blood Cell Morphology Unremarkable Erythrocyte Sedimentation Rate 83 mm/hr (0-14) Prothrombin Time 24.9 SECONDS (9.0-12.0) Prothromb Time International Ratio 2.4 (0.9-1.1) Anion Gap 9.0 mmol/L (3-11) Est Creatinine Clear Calc Drug Dose 65.4 ml/min Estimated GFR () 89.5 Estimated GFR (Non- 77.3 BUN/Creatinine Ratio 20.1 (10-20) Calcium Level 9.1 mg/dl (8.5-10.1) Phosphorus Level 3.4 mg/dl (2.5-4.9) Magnesium Level 1.8 mg/dl (1.8-2.4) Albumin 1.6 gm/dl (3.4-5.0) Digoxin Level 0.9 ng/ml (0.8-2.0) Bedside Glucose 173 mg/dl (70-99) Allergies Coded Allergies: No Known Allergies (Verified , 07/13/17) Medications Current Inpatient Medications Medications (Trade) Dose Ordered Sig/Oswaldo Route Start Time Stop Time Status Last Admin Dose Admin Oxycodone HCl (Roxicodone Immediate Rel Tab) 1 TABLET FOR PAIN RATING... Q4H PRN PO 07/13/17 10:30 07/27/17 10:29 07/22/17 06:15 10 MG Morphine Sulfate (MoRPHine SULFATE INJ) give 2mg for pain 3-6 g... Q1H PRN IV 07/13/17 10:30 07/27/17 10:29 Acetaminophen (Tylenol Tab) 650 mg Q6H PRN PO 07/14/17 14:00 08/13/17 13:59 07/19/17 10:07 650 MG Magnesium Hydroxide (Milk Of Magnesia Susp) 30 ml Q6H PRN PO 07/13/17 10:30 08/12/17 10:29 Bisacodyl (Dulcolax Supp) 10 mg DAILY PRN [place] 07/13/17 10:30 08/12/17 10:29 Sodium Biphosphate/ Sodium Phosphate (Fleet Enema) 132 ml DAILY PRN [place] 07/13/17 10:30 08/12/17 10:29 Docusate Sodium (coLACE CAP) 100 mg BID PO 07/13/17 21:00 08/12/17 20:59 07/22/17 08:44 100 MG Diphenhydramine HCl (Benadryl Inj) 25 mg Q8H PRN IV 07/13/17 10:30 08/12/17 10:29 Al Hydrox/Mg Hydrox/Simethicone (Maalox Max Susp) 15 ml Q4H PRN PO 07/13/17 10:30 3/31/18 10:29 Ondansetron HCl (Zofran Inj) 4 mg Q6H PRN IV 07/13/17 10:30 08/12/17 10:29 Metoclopramide HCl (Reglan Inj) 10 mg Q6H PRN IV 07/13/17 10:30 08/12/17 10:29 Ferrous Gluconate (Ferrous Gluconate Tab) 324 mg TIDM PO 07/13/17 16:45 08/12/17 17:44 07/22/17 08:44 324 MG Allopurinol (Zyloprim Tab) 300 mg QAM PO 07/14/17 09:00 08/13/17 08:59 07/22/17 08:44 300 MG Dipyridamole/ Aspirin (Aggrenox 200MG/ 25MG Cap) 1 cap BID PO 07/13/17 21:00 08/12/17 20:59 07/22/17 08:44 1 CAP Chlorpromazine HCl (Thorazine Tab) 25 mg TID PRN PO 07/13/17 10:30 08/12/17 10:29 07/16/17 07:43 25 MG Multivitamins (Multivitamin Tab) 1 tab DAILY PO 07/14/17 09:00 08/13/17 08:59 07/22/17 08:44 1 TAB Niacin (Niaspan Extended Rel Tab) 500 mg DAILY PO 07/14/17 09:00 08/13/17 08:59 07/22/17 08:43 500 MG Simvastatin (Zocor Tab) 20 mg QPM PO 07/13/17 21:00 08/12/17 20:59 07/21/17 22:08 20 MG Insulin Aspart (novoLOG ASPART) SLIDING SCALE G... ACHS SC 07/13/17 16:15 08/12/17 17:14 07/22/17 08:49 14 UNITS Glucose (Glucose 40% Gel) 15-30 GRAMS 15 GRAMS... UD PRN PO 07/13/17 11:00 08/12/17 10:59 Glucose (Glucose Chew Tab) 4-8 Tablets 4 Tabl... UD PRN PO 07/13/17 11:00 08/12/17 10:59 Dextrose (Dextrose 50% 50ML Syringe) 25-50ML OF 50% DW IV FOR... UD PRN IV 07/13/17 11:00 08/12/17 10:59 Glucagon (Glucagon Inj) 1 mg UD PRN SQ 07/13/17 11:00 08/12/17 10:59 Miscellaneous Information (Consult Glycemic Management Pharmacy) 1 ea UD N/A 07/13/17 17:19 08/12/17 17:18 Tamsulosin HCl (Flomax Cap) 0.8 mg QPM PO 07/13/17 21:00 08/12/17 20:59 07/21/17 22:08 0.8 MG Warfarin Sodium (Coumadin Tab) 2.5 mg DAILY@16 PO 07/16/17 16:00 08/15/17 15:59 Future Hold 07/17/17 16:19 2.5 MG Metoprolol Tartrate (Lopressor Tab) 25 mg Q6 PO 07/17/17 09:00 08/16/17 08:59 07/22/17 05:53 25 MG Digoxin (Lanoxin Tab) 0.125 mg DAILY@16 PO 07/18/17 16:00 08/17/17 15:59 07/21/17 16:17 0.125 MG Heparin Sodium (Porcine) (Heparin 10 Unit/ ml 5 ml Flush) 5 ml PRN PRN FLUSH 07/17/17 14:45 08/16/17 14:44 07/22/17 05:29 5 ML Finasteride (Proscar Tab) 5 mg QAM PO 07/18/17 09:00 08/17/17 08:59 07/22/17 08:44 5 MG Ertapenem 1000 mg/ Sodium Chloride 60 ml @ 120 mls/hr Q24H IV 07/18/17 12:00 08/29/17 11:59 07/21/17 12:53 120 MLS/HR Vancomycin HCl (Vancomycin Oral Soln) 125 mg Q6 PO 07/20/17 12:30 07/30/17 12:29 07/22/17 05:53 125 MG Raspberry (Raspberry Syrup 5ml Cup) 5 ml Q6 PO 07/20/17 12:30 08/03/17 12:29 07/22/17 05:54 5 ML Loperamide HCl (Imodium Cap) 2 mg UD PRN PO 07/20/17 15:00 08/19/17 14:59 Sodium Chloride (Sodium Chloride Tab) 2 gm BID PO 07/21/17 09:00 08/20/17 08:59 07/22/17 08:43 2 GM Non-Formulary Medication (Non-Formulary Patient'S Own Med) 1 ea DAILY@1000,2100 PO 07/21/17 21:00 08/20/17 20:59 07/22/17 09:40 1 EA Potassium Chloride 10 meq/ Prmx 100 ml @ 100 mls/hr Q1H IV 07/22/17 08:30 07/22/17 12:29 07/22/17 10:46 100 MLS/HR Insulin Glargine (Lantus Solostar Pen) 20 units BID SC 07/22/17 09:00 08/21/17 08:59 07/22/17 08:54 20 UNITS Impression (1) Hyponatremia (2) Hypertension (3) Leukocytosis (4) Infected orthopedic implant Mr. Dinh is an 82 year-old male with acute on chronic hyponatremia. Mr. Dinh was admitted with an infected right hip prosthesis. He is status post poly- exchange with femoral head exchange, antibiotic bead placement and wound VAC placement. The patient is being treated with ertapenem. Hospital course complicated by diarrhea. Blood pressure and volume status are appropriate. The patient appears asymptomatic in terms of his dysnatremia. HCTZ has been stopped. Serum sodium is slowly improving with oral NaCl and free water restriction. 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 Recommendations -- Continue NaCl 2 grams BID -- Document I/O's -- Repeat metabolic profile tomorrow AM -- Avoid thiazide diuretics -- Encourage nutrition, adequate protein intake -- Maintain free water intake < 1500 mL per day
[2017-07-22 12:14] VITALS: BP 120/68; PULSE 86
[2017-07-22] MEDS: ERTAPENEM IV 1,000 MG in SODIUM CHLORIDE 0.9% 50ML 50 ML IV SCH (13:22)
--- NOTE | 2017-07-22 13:53 | Pharmacy Progress Note ---
Pharmacy Glycemic Short Note 2 Date of Service Jul 22, 2017. OUTPATIENT ANTIDIABETIC REGIMEN: * Metformin 1,000mg PO BIDM * A1c = 8.5% on 07/12/17 Test 07/21/17 17:21 07/21/17 20:39 07/21/17 22:13 07/22/17 05:25 Bedside Glucose 228 mg/dl (70-99) 191 mg/dl (70-99) 162 mg/dl (70-99) Random Glucose 165 mg/dl (70-99) Test 07/22/17 07:39 07/22/17 12:16 Bedside Glucose 173 mg/dl (70-99) 157 mg/dl (70-99) ASSESSMENT: 07/22/17 * Blood sugars just above goal, looking better with tighter CR from yesterday. Will increase Lantus slightly. 07/21/17 * 82 y/o male s/p R hip irrigation and debridement, IV ertapenem * BSGs at goal since increasing Lantus yesterday, except pre-lunch today, will tighten CR * Pt is using his own protein shakes that he is bringing in, each only only contains 5grams CHO per carton, which likely won't need covered with Novolog. PLAN FOR INPATIENT GLYCEMIC CONTROL: * Basal insulin * INCREASE: Lantus 20 units SQ BID * Novolog ACHS * Goal 110-140mg/dl * CF 20mg/dl/unit * CR 1 unit per 5 grams CHO consumed
[2017-07-22] MEDS ORDERED: FLUCONAZOLE 100 MG TAB PO ONE (14:28)
--- NOTE | 2017-07-22 15:21 | PROGRESS NOTE ---
DATE: 07/22/2017 The patient is seen. He sat up in chair most of the day. Feeling kind of fatigued. Otherwise, at this point denies any real problems. Denies any chest pain, shortness of breath, fever, chills, nausea, vomiting or headache. Vital signs are stable. He is afebrile. Neurovascular check, femoral sciatic nerve is baseline. Has no calf tenderness. Has no thigh tenderness. There is no subcutaneous air. Wound VAC dressing is changed. His wound is dry. The small seroma is without any enlargement. There is no tenderness, there is no drainage. New wound VAC applied. I believe that on for at least 3 weeks total. We will need to change it one more time. ASSESSMENT: Overall, doing well. White count is gradually resuming back to normal from likely stress-induced leukemoid reaction from his infection, his surgery, his new onset atrial fibrillation and medications. At this point in time has no further diarrhea since the oral vancomycin. I will continue with medical support. Can be transferred to [facility] when bed available and from a medical perspective they are comfortable with him. From an orthopedic perspective, he can leave at any time. Continue Coumadin for deep venous thrombosis prophylaxis.
[2017-07-22 15:52] VITALS: BP 123/69; PULSE 74; TEMP 36.5; O2SAT 92
[2017-07-22] MEDS ORDERED: WARFARIN SOD 1 MG TAB PO SCH (16:00)
[2017-07-22] MEDS: DIGOXIN 0.125 MG TAB PO SCH (16:31)
[2017-07-22] MEDS: TAMSULOSIN HCL 0.4 MG CAP PO SCH (20:39)
[2017-07-22] MEDS: SIMVASTATIN 20 MG TAB PO SCH (20:40)
[2017-07-22 20:50] VITALS: TEMP 37.5
[2017-07-22 23:22] VITALS: BP 114/65; PULSE 84; TEMP 36.9; O2SAT 94
[2017-07-23] VITALS (7 sets, daily range): BP systolic 93–121; BP diastolic 54–71; PULSE 74–93; TEMP 36.5–37; O2SAT 92–93
[2017-07-23] MEDS: RASPBERRY SYRUP 5 ML UDP PO SCH ×4 (00:30→18:12)
[2017-07-23] MEDS: METOPROLOL TARTRATE 25 MG TAB PO SCH ×4 (00:30→18:00)
[2017-07-23] MEDS: VANCOMYCIN HCL 125 MG/2.5ML SOLN PO SCH ×4 (00:31→18:12)
[2017-07-23 04:52] LABS: HEMATOCRIT 25.4 % (42-52); HEMOGLOBIN 8.5 g/dL (14.0-18.0); MEAN CELL VOLUME 88.5 fL (80-100); MEAN CORPUSCULAR HEMOGLOBIN 29.6 pg (25-34); MEAN CORPUSCULAR HGB CONC 33.5 g/dl (32-36); MEAN PLATELET VOLUME 8.3 fL (7.4-10.4); PLATELET COUNT 623 K/uL (130-400); RED CELL DISTRIBUTION WIDTH CV 15.2 % (11.5-14.5); RED CELL DISTRIBUTION WIDTH SD 48.7 fL (36.4-46.3); WHITE BLOOD COUNT 27.18 K/uL (4.8-10.8)
[2017-07-23 05:04] LABS: INR 1.9 (0.9-1.1)
[2017-07-23 05:17] LABS: CALCIUM 9.1 mg/dl (8.5-10.1); CREATININE 1.02 mg/dl (0.60-1.40)
[2017-07-23 05:47] LABS: BASO % 0.1 %; BASO ABS # 0.02 K/uL (0-0.2); EOS % 0.3 %; EOS ABS # 0.09 K/uL (0-0.5); IG# 0.58 K/uL (0.00-0.02); LYMPH % 2.9 %; MONO % 6.7 %; MONO ABS # 1.82 K/uL (0.11-0.59); NEUT % 87.9 %; NEUT ABS # 23.87 K/uL (1.4-6.5)
[2017-07-23] MEDS: ALLOPURINOL 300 MG TAB PO SCH (08:40)
[2017-07-23] MEDS: FINASTERIDE 5 MG TAB PO SCH (08:40)
[2017-07-23] MEDS: MULTIVITAMIN TAB PO SCH (08:40)
[2017-07-23] MEDS: FERROUS GLUCONATE 324 MG TAB PO SCH ×3 (08:40→18:09)
[2017-07-23] MEDS: DIPYRIDAMOLE/ASPIRIN CAP PO SCH ×2 (08:41→20:55)
[2017-07-23] MEDS: NIASPAN 500 MG TABCR PO SCH (08:41)
[2017-07-23] MEDS: FLUCONAZOLE 100 MG TAB PO SCH (08:41)
[2017-07-23] MEDS: DOCUSATE SODIUM 100 MG CAP PO SCH ×2 (08:41→20:55)
[2017-07-23] MEDS: SODIUM CHLORIDE 1 GM TAB PO SCH ×2 (08:41→20:55)
--- NOTE | 2017-07-23 08:42 | Family Medicine Progress Note ---
Progress Note Date of Service Jul 23, 2017. Subjective Pt evaluation today including: conversation w/ patient, conversation w/ family Found patient at first resting comfortably in the gurney, later in his bedside chair with son in room. Patient continues to have no particular concerns. Does say he's a bit more tired in the evenings, but otherwise denies any pain or discomfort at all. We discussed his bedside I&D by ortho this morning. No other acute patient or son concerns. Spoke with patient's yesterday afternoon for > 60 minutes at bedside. Provided full update on all of his active medical issues and informed her that a new hospitalist team would be taking over care on Monday (12Mar), but that we would provide a thorough turnover to them. Constitutional: No fever, No chills Respiratory: No cough, No shortness of breath Cardiovascular: No chest pain, No edema Abdomen: No pain, No nausea, No vomiting, No diarrhea Musculoskeletal: + joint pain (minimal to no right hip pain) Medications Current Inpatient Medications Medications (Trade) Dose Ordered Sig/Oswaldo Route Start Time Stop Time Status Last Admin Dose Admin Oxycodone HCl (Roxicodone Immediate Rel Tab) 1 TABLET FOR PAIN RATING... Q4H PRN PO 07/13/17 10:30 07/27/17 10:29 07/22/17 20:44 10 MG Morphine Sulfate (MoRPHine SULFATE INJ) give 2mg for pain 3-6 g... Q1H PRN IV 07/13/17 10:30 07/27/17 10:29 Acetaminophen (Tylenol Tab) 650 mg Q6H PRN PO 07/14/17 14:00 08/13/17 13:59 07/19/17 10:07 650 MG Magnesium Hydroxide (Milk Of Magnesia Susp) 30 ml Q6H PRN PO 07/13/17 10:30 08/12/17 10:29 Bisacodyl (Dulcolax Supp) 10 mg DAILY PRN ND 07/13/17 10:30 08/12/17 10:29 Sodium Biphosphate/ Sodium Phosphate (Fleet Enema) 132 ml DAILY PRN ND 07/13/17 10:30 08/12/17 10:29 Docusate Sodium (coLACE CAP) 100 mg BID PO 07/13/17 21:00 08/12/17 20:59 07/22/17 20:40 100 MG Diphenhydramine HCl (Benadryl Inj) 25 mg Q8H PRN IV 07/13/17 10:30 08/12/17 10:29 Al Hydrox/Mg Hydrox/Simethicone (Maalox Max Susp) 15 ml Q4H PRN PO 07/13/17 10:30 08/12/17 10:29 Ondansetron HCl (Zofran Inj) 4 mg Q6H PRN IV 07/13/17 10:30 08/12/17 10:29 Metoclopramide HCl (Reglan Inj) 10 mg Q6H PRN IV 07/13/17 10:30 08/12/17 10:29 Ferrous Gluconate (Ferrous Gluconate Tab) 324 mg TIDM PO 07/13/17 16:45 08/12/17 17:44 07/22/17 19:01 324 MG Allopurinol (Zyloprim Tab) 300 mg QAM PO 07/14/17 09:00 08/13/17 08:59 07/22/17 08:44 300 MG Dipyridamole/ Aspirin (Aggrenox 200MG/ 25MG Cap) 1 cap BID PO 07/13/17 21:00 08/12/17 20:59 07/22/17 20:41 1 CAP Chlorpromazine HCl (Thorazine Tab) 25 mg TID PRN PO 07/13/17 10:30 08/12/17 10:29 07/16/17 07:43 25 MG Multivitamins (Multivitamin Tab) 1 tab DAILY PO 07/14/17 09:00 08/13/17 08:59 07/22/17 08:44 1 TAB Niacin (Niaspan Extended Rel Tab) 500 mg DAILY PO 07/14/17 09:00 08/13/17 08:59 07/22/17 08:43 500 MG Simvastatin (Zocor Tab) 20 mg QPM PO 07/13/17 21:00 08/12/17 20:59 07/22/17 20:40 20 MG Insulin Aspart (novoLOG ASPART) SLIDING SCALE G... ACHS SC 07/13/17 16:15 08/12/17 17:14 07/22/17 20:54 5 UNITS Glucose (Glucose 40% Gel) 15-30 GRAMS 15 GRAMS... UD PRN PO 07/13/17 11:00 08/12/17 10:59 Glucose (Glucose Chew Tab) 4-8 Tablets 4 Tabl... UD PRN PO 07/13/17 11:00 08/12/17 10:59 Dextrose (Dextrose 50% 50ML Syringe) 25-50ML OF 50% DW IV FOR... UD PRN IV 07/13/17 11:00 08/12/17 10:59 Glucagon (Glucagon Inj) 1 mg UD PRN SQ 07/13/17 11:00 08/12/17 10:59 Miscellaneous Information (Consult Glycemic Management Pharmacy) 1 ea UD N/A 07/13/17 17:19 08/12/17 17:18 Tamsulosin HCl (Flomax Cap) 0.8 mg QPM PO 07/13/17 21:00 08/12/17 20:59 07/22/17 20:39 0.8 MG Metoprolol Tartrate (Lopressor Tab) 25 mg Q6 PO 07/17/17 09:00 08/16/17 08:59 07/23/17 05:31 25 MG Digoxin (Lanoxin Tab) 0.125 mg DAILY@16 PO 07/18/17 16:00 08/17/17 15:59 07/22/17 16:31 0.125 MG Heparin Sodium (Porcine) (Heparin 10 Unit/ ml 5 ml Flush) 5 ml PRN PRN FLUSH 07/17/17 14:45 08/16/17 14:44 07/23/17 04:43 5 ML Finasteride (Proscar Tab) 5 mg QAM PO 07/18/17 09:00 08/17/17 08:59 07/22/17 08:44 5 MG Ertapenem 1000 mg/ Sodium Chloride 60 ml @ 120 mls/hr Q24H IV 07/18/17 12:00 08/29/17 11:59 07/22/17 13:22 120 MLS/HR Vancomycin HCl (Vancomycin Oral Soln) 125 mg Q6 PO 07/20/17 12:30 07/30/17 12:29 07/23/17 05:31 125 MG Raspberry (Raspberry Syrup 5ml Cup) 5 ml Q6 PO 07/20/17 12:30 08/03/17 12:29 07/23/17 05:31 5 ML Loperamide HCl (Imodium Cap) 2 mg UD PRN PO 07/20/17 15:00 08/19/17 14:59 Sodium Chloride (Sodium Chloride Tab) 2 gm BID PO 07/21/17 09:00 08/20/17 08:59 07/22/17 20:41 2 GM Non-Formulary Medication (Non-Formulary Patient'S Own Med) 1 ea DAILY@1000,2100 PO 07/21/17 21:00 08/20/17 20:59 07/22/17 09:40 1 EA Warfarin Sodium (Coumadin Tab) 1 mg DAILY@16 PO 07/22/17 16:00 08/21/17 15:59 07/22/17 16:31 1 MG Fluconazole (Diflucan Tab) 200 mg QAM PO 07/23/17 09:00 08/04/17 08:59 Insulin Glargine (Lantus Solostar Pen) 22 units BID SC 07/23/17 09:00 08/22/17 08:59 Objective Vital Signs Date Time Temp Pulse Resp B/P (MAP) Pulse Ox O2 Delivery O2 Flow Rate FiO2 07/23/17 07:47 36.6 74 16 95/56 (69) 93 Room Air 07/23/17 05:24 93 121/71 (88) 07/23/17 00:27 85 116/64 (81) 07/23/17 00:25 Room Air 07/22/17 23:22 36.9 84 18 114/65 (81) 94 Room Air 07/22/17 20:50 37.5 07/22/17 16:31 74 07/22/17 16:15 Room Air 07/22/17 15:52 36.5 74 18 123/69 (87) 92 Room Air 07/22/17 12:14 86 120/68 (85) Physical Exam Notes: General Appearance: Awake, alert, oriented x 3, comfortable, NAD CV: +S1S2 irregularly irregular. Systolic murmur. No peripheral edema. Pulm: Clear to auscultation throughout. Abdomen: +BS, soft, non-tender, non-distended. Extremities: Right lateral hip wound vac in place, c/d/i. Moving toes about easily. No calf tenderness. Bilateral leg compression stockings in place. Left inner forearm approx five cm area of erythema with central two cm area of raised induration (now s/p I&D and dressed c/d/i). Neuro: Distal LE sensation intact. Lines: Right PICC (placed 05Mar). Left wrist PIV. Right arm PIV. Laboratory Results 07/23/17 04:43 Red Blood Count 2.87, Mean Corpuscular Volume 88.5, Mean Corpuscular Hemoglobin 29.6, Mean Corpuscular Hemoglobin Concent 33.5, Mean Platelet Volume 8.3, Neutrophils (%) (Auto) 87.9, Lymphocytes (%) (Auto) 2.9, Monocytes (%) (Auto) 6.7, Eosinophils (%) (Auto) 0.3, Basophils (%) (Auto) 0.1, Neutrophils # (Auto) 23.87, Lymphocytes # (Auto) 0.80, Monocytes # (Auto) 1.82, Eosinophils # (Auto) 0.09, Basophils # (Auto) 0.02 07/23/17 04:43 Test 07/22/17 20:34 07/23/17 04:43 Bedside Glucose 236 mg/dl (70-99) White Blood Count 27.18 K/uL (4.8-10.8) Red Blood Count 2.87 M/uL (4.7-6.1) Hemoglobin 8.5 g/dL (14.0-18.0) Hematocrit 25.4 % (42-52) Mean Corpuscular Volume 88.5 fL (80-100) Mean Corpuscular Hemoglobin 29.6 pg (25-34) Mean Corpuscular Hemoglobin Concent 33.5 g/dl (32-36) Platelet Count 623 K/uL (130-400) Mean Platelet Volume 8.3 fL (7.4-10.4) Neutrophils (%) (Auto) 87.9 % Lymphocytes (%) (Auto) 2.9 % Monocytes (%) (Auto) 6.7 % Eosinophils (%) (Auto) 0.3 % Basophils (%) (Auto) 0.1 % Neutrophils # (Auto) 23.87 K/uL (1.4-6.5) Lymphocytes # (Auto) 0.80 K/uL (1.2-3.4) Monocytes # (Auto) 1.82 K/uL (0.11-0.59) Eosinophils # (Auto) 0.09 K/uL (0-0.5) Basophils # (Auto) 0.02 K/uL (0-0.2) RDW Standard Deviation 48.7 fL (36.4-46.3) RDW Coefficient of Variation 15.2 % (11.5-14.5) Immature Granulocyte % (Auto) 2.1 % Immature Granulocyte # (Auto) 0.58 K/uL (0.00-0.02) Polychromasia 1+ Prothrombin Time 19.3 SECONDS (9.0-12.0) Prothromb Time International Ratio 1.9 (0.9-1.1) Anion Gap 8.0 mmol/L (3-11) Est Creatinine Clear Calc Drug Dose 59.6 ml/min Estimated GFR () 80.1 Estimated GFR (Non- 69.1 BUN/Creatinine Ratio 21.1 (10-20) Calcium Level 9.1 mg/dl (8.5-10.1) Magnesium Level 1.8 mg/dl (1.8-2.4) Assessment and Plan 82 year old male admitted on [id number] for infected right total hip arthroplasty, now POD #10. PMH: Afib, osteoarthritis, HTN, HLD, macular degeneration, enlarged prostate, DM2, gout. Right hip infection: S/p surgery, rec'd continue wound vac and PT/OT to mobilize , will need placement. Last fever 04Mar. Leukocytosis as noted below. 01Mar joint space Cx positive for Citrobacter koseri and Finegoldia magna. ID onboard. Stopped rocephin (3d given) and started ertapenem daily on 06Mar for planned four weeks since date of surgery. PICC placed 05Mar. On oxycodone prn for pain. Leukocytosis: Progressive increase to max WBC 33 with blasts 0.31. Known infection in right hip as above, on ertapenem. Patient continues to say he feels well and without acute respiratory, urinary, abdominal, or other concerns. Cultures besides hip have been negative. C diff x 2 negative, but was started empirically on oral vancomycin on 08Mar (see "diarrhea" below). Since WBC stable but elevated at 27. Last ESR at 83. ID onboard, recommended remain on vanc for 21 total days. - This am noted abscess-like area on left forearm (prior IV site) which underwent I&D by ortho (also this AM). Resultant 11Jul wound culture pending. - Will need weekly CBC, CMP, ESR while on therapy. Atrial fibrillation: Briefly in RVR, but most recent rates in 80's-90's. Asymptomatic. Unknown duration of afib. Cardiology onboard. 02Jul TTE noted EF 60-65% with mild LVH, mild-mod AR, mild . Did not convert with amiodarone. Now on metoprolol 25 mg PO q6h and digoxin 0.125 mg daily (last level check okay on ). On heparin. Last INR 1.9, increased coumadin to 2 mg daily. Urinary retention / Candidal infection: Hx of enlarged prostate, did talk with urology just before his hip surgery. On flomax, added proscar. On scheduled straight cath q8h, which patient approves of. Would like to avoid placing cruz if possible. UCx positive for shane. 10Mar started fluconazole 200 daily x planned 14 days. Electrolytes: Nephrology onboard, see their recommendations. - Hyponatremia: Na 130, improving over past 96 hours. 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 Began 1500 mL PO fluid restriction on . Stopped home HCTZ. On sodium tabs BID. Monitoring. - Hypokalemia: K 4.0. Goal > 4. - Hypomagnesemia: Mag 1.8. Repleting, goal > 2. - Hypercalcemia: Ca 9.1. When corrected for albumin 1.6, Ca is 11.0. May partially be due to resorption of antibiotic beads s/p right hip surgery. Monitoring. Diarrhea: Between 2-4 episodes a day. and C diff negative. On vancomycin PO as noted above. Imodium prn (but no doses given yet). Anemia: Hb 8.5, stable since yesterday. Monitoring. DM2: Hx of same. Glycemic consultation, on novolog and lantus. Holding home metformin. HTN: Hx of same, presently stable. On metoprolol as noted in "afib" above. HLD: Hx of same. On zocor. Gout: Hx of same. On allopurinol. Code status: Full code. Diet: DM2, fluid restrict 1500 mL, with boost supplementation. Encouraging protein intake. DVT prophy: On coumadin. Also aggrenox. PT/OT: PT ongoing, recommends rehab. OT note says,"Pt will require continued in patient therapies after discharge from [facility]." Case management working with Consuelo Guerrero. Disbo: Admit med/surg. On medicine service. Resident Physician Supervision Note: I interviewed and examined the patient. Discussed with Dr. Stevenson and agree with findings and plan as documented in the note. Any exceptions or clarifications are listed here: None Patient looks well today he had a left inner arm abscess drained by orthopedics at the bedside we are awaiting those final results he has no complaints or problems otherwise He also his hip wound redressed and the VAC reapplied Temperature 36 6 pulse 74 respiration 16 BP 95/56 of note white count is still elevated at 26 sodium is improved to 130 magnesium slightly low and platelets are high as acute phase reactant He also has reduced his hemoglobin slightly to 8.5 this is likely combination of anemia of chronic disease worsened by this acute hospital stay Cardiac exam is regular the however I hear more of a systolic murmur not only at the aortic region but also with the belt the mitral region with his persistent white blood cell count and elevation of his sed rate makes me be concerned that we should repeat an echocardiogram to evaluate his mitral valve This patient presents with an infected right hip prosthesis status problems poly -exchange irrigation and stimulant bead placement with persistent leukocytosis, candidal urine infection, hyponatremia, hypomagnesemia and elevated platelet count Continue ertapenem with infectious disease oversight for his hip infection, we are treating his candidate although this likely may be contaminant he however is requiring scheduled straight catheterization due to inability to void and this will need to be followed up after his discharge by urology cvt tech continue to oversee his hyponatremia and we are pursuing free style establishing his anticoagulation with Coumadin for his atrial fibrillation and DVT prevention postoperatively Documented By: Romero Crain Resident Tracking Resident Involvement: Resident Care Provided Care Provided: Adult Hospital Medicine (inpatient)
[2017-07-23] MEDS: INSULIN ASPART 100 UNITS/ML 3 ML PEN SC SCH ×4 (08:45→21:05)
[2017-07-23] MEDS: INSULIN GLARGINE SOLOSTAR 100 UNITS/ML 3 ML PEN SC SCH ×2 (08:46→21:04)
--- NOTE | 2017-07-23 09:04 | PROGRESS NOTE ---
DATE: 07/23/2017 SUBJECTIVE: At this point in time, he is sitting up in bed eating breakfast. He notes no major pain anywhere. He said he had a good night, he slept pretty well. REVIEW OF SYSTEMS: Reveals no chest pain, shortness of breath, fever, chills, nausea, vomiting or headache. OBJECTIVE: VITAL SIGNS: Stable. He is afebrile. LOWER EXTREMITIES: Right wound dressing is clean and dry. Neurovascular check both lower extremities is normal. IMPRESSION AND PLAN: Of note, is that the area of infiltration of his IV that was taken out several days ago, now appears to have a localized area of fluctuance. It is not draining. Following breakfast will just fabian incise with an 11 blade and see if anything drains and culture that. This is not a procedure that requires consent, it is a superficial topical procedure with just as insertion of an IV .Verbal consent was obtained from the patient and will proceed with this after he is done eating breakfast. He understands this. At this point in time, he can continue with medical management and potential transfer when bed available as long as he continues to improve, will not transfer today, per discussion with medicine. Overall improved but white count is still in the high 27 range is likely consistent with leukemoid reaction. Clinically looks quite good. MTDD
[2017-07-23] MEDS: OXYCODONE HCL IR 5 MG TAB (IMMEDIATE RELEASE) PO PRN (09:14)
--- NOTE | 2017-07-23 10:40 | Nephrology Progress Note ---
Nephrology Progress Note Date of Service Jul 23, 2017. Chief Complaint Hyponatremia Subjective No acute events overnight. Mr. Dinh is resting comfortably in a bedside chair this morning. He son was present during my evaluation. The patient remains weak. He continues to report decreased appetite. Diarrhea has significantly improved. No nausea. No abdominal pain. Tolerating fluid restriction and salt tablets well. No shortness of breath or evidence of fluid retention noted. Dressing to left forearm s/p ID of abscess. Continues to require straight cath PRN for urinary retention. Review of Systems A complete review of systems was performed. Pertinent positives are noted above. All other systems are negative. Vital Signs Last 8 Hrs Date Time Temp Pulse Resp B/P (MAP) Pulse Ox O2 Delivery O2 Flow Rate FiO2 07/23/17 07:47 36.6 74 16 95/56 (69) 93 Room Air 07/23/17 05:24 93 121/71 (88) Last Recorded Weight Weight (Kilograms): 84.000 Physical Exam General Appearance: WD/WN, no apparent distress, + pertinent finding (frail) Head: normocephalic, atraumatic Eyes: normal inspection, sclerae normal ENT: normal ENT inspection, pharynx normal, + pertinent finding (oral mucosa slightly dry) Neck: supple, no JVD Respiratory/Chest: lungs clear, no respiratory distress, no accessory muscle use Cardiovascular: regular rate, rhythm, no gallop Back: normal inspection, no muscle spasm Abdomen/GI: non tender, soft Extremities/Musculoskelatal: normal inspection, no pedal edema Neurologic/Psych: alert, normal mood/affect Family History No f/h of malignancy, hypertension runs in the family. Social History Smoking Status: Former smoker Marital Status: Occupation: retired Laboratory Results Past 24 Hours 07/23/17 04:43 Red Blood Count 2.87, Mean Corpuscular Volume 88.5, Mean Corpuscular Hemoglobin 29.6, Mean Corpuscular Hemoglobin Concent 33.5, Mean Platelet Volume 8.3, Neutrophils (%) (Auto) 87.9, Lymphocytes (%) (Auto) 2.9, Monocytes (%) (Auto) 6.7, Eosinophils (%) (Auto) 0.3, Basophils (%) (Auto) 0.1, Neutrophils # (Auto) 23.87, Lymphocytes # (Auto) 0.80, Monocytes # (Auto) 1.82, Eosinophils # (Auto) 0.09, Basophils # (Auto) 0.02 07/23/17 04:43 Test 07/22/17 12:16 07/22/17 16:59 07/22/17 20:34 07/23/17 04:43 Bedside Glucose 157 mg/dl (70-99) 149 mg/dl (70-99) 236 mg/dl (70-99) White Blood Count 27.18 K/uL (4.8-10.8) Red Blood Count 2.87 M/uL (4.7-6.1) Hemoglobin 8.5 g/dL (14.0-18.0) Hematocrit 25.4 % (42-52) Mean Corpuscular Volume 88.5 fL (80-100) Mean Corpuscular Hemoglobin 29.6 pg (25-34) Mean Corpuscular Hemoglobin Concent 33.5 g/dl (32-36) Platelet Count 623 K/uL (130-400) Mean Platelet Volume 8.3 fL (7.4-10.4) Neutrophils (%) (Auto) 87.9 % Lymphocytes (%) (Auto) 2.9 % Monocytes (%) (Auto) 6.7 % Eosinophils (%) (Auto) 0.3 % Basophils (%) (Auto) 0.1 % Neutrophils # (Auto) 23.87 K/uL (1.4-6.5) Lymphocytes # (Auto) 0.80 K/uL (1.2-3.4) Monocytes # (Auto) 1.82 K/uL (0.11-0.59) Eosinophils # (Auto) 0.09 K/uL (0-0.5) Basophils # (Auto) 0.02 K/uL (0-0.2) RDW Standard Deviation 48.7 fL (36.4-46.3) RDW Coefficient of Variation 15.2 % (11.5-14.5) Immature Granulocyte % (Auto) 2.1 % Immature Granulocyte # (Auto) 0.58 K/uL (0.00-0.02) Polychromasia 1+ Prothrombin Time 19.3 SECONDS (9.0-12.0) Prothromb Time International Ratio 1.9 (0.9-1.1) Anion Gap 8.0 mmol/L (3-11) Est Creatinine Clear Calc Drug Dose 59.6 ml/min Estimated GFR () 80.1 Estimated GFR (Non- 69.1 BUN/Creatinine Ratio 21.1 (10-20) Calcium Level 9.1 mg/dl (8.5-10.1) Magnesium Level 1.8 mg/dl (1.8-2.4) Allergies Coded Allergies: No Known Allergies (Verified , 07/13/17) Medications Current Inpatient Medications Medications (Trade) Dose Ordered Sig/Oswaldo Route Start Time Stop Time Status Last Admin Dose Admin Oxycodone HCl (Roxicodone Immediate Rel Tab) 1 TABLET FOR PAIN RATING... Q4H PRN PO 07/13/17 10:30 07/27/17 10:29 07/23/17 09:14 10 MG Morphine Sulfate (MoRPHine SULFATE INJ) give 2mg for pain 3-6 g... Q1H PRN IV 07/13/17 10:30 07/27/17 10:29 Acetaminophen (Tylenol Tab) 650 mg Q6H PRN PO 07/14/17 14:00 08/13/17 13:59 07/19/17 10:07 650 MG Magnesium Hydroxide (Milk Of Magnesia Susp) 30 ml Q6H PRN PO 07/13/17 10:30 08/12/17 10:29 Bisacodyl (Dulcolax Supp) 10 mg DAILY PRN [place] 07/13/17 10:30 08/12/17 10:29 Sodium Biphosphate/ Sodium Phosphate (Fleet Enema) 132 ml DAILY PRN [place] 07/13/17 10:30 08/12/17 10:29 Docusate Sodium (coLACE CAP) 100 mg BID PO 07/13/17 21:00 08/12/17 20:59 07/23/17 08:41 100 MG Diphenhydramine HCl (Benadryl Inj) 25 mg Q8H PRN IV 07/13/17 10:30 08/12/17 10:29 Al Hydrox/Mg Hydrox/Simethicone (Maalox Max Susp) 15 ml Q4H PRN PO 07/13/17 10:30 08/12/17 10:29 Ondansetron HCl (Zofran Inj) 4 mg Q6H PRN IV 07/13/17 10:30 08/12/17 10:29 Metoclopramide HCl (Reglan Inj) 10 mg Q6H PRN IV 07/13/17 10:30 08/12/17 10:29 Ferrous Gluconate (Ferrous Gluconate Tab) 324 mg TIDM PO 07/13/17 16:45 08/12/17 17:44 07/23/17 08:40 324 MG Allopurinol (Zyloprim Tab) 300 mg QAM PO 07/14/17 09:00 08/13/17 08:59 07/23/17 08:40 300 MG Dipyridamole/ Aspirin (Aggrenox 200MG/ 25MG Cap) 1 cap BID PO 07/13/17 21:00 08/12/17 20:59 07/23/17 08:41 1 CAP Chlorpromazine HCl (Thorazine Tab) 25 mg TID PRN PO 07/13/17 10:30 08/12/17 10:29 07/16/17 07:43 25 MG Multivitamins (Multivitamin Tab) 1 tab DAILY PO 07/14/17 09:00 08/13/17 08:59 07/23/17 08:40 1 TAB Niacin (Niaspan Extended Rel Tab) 500 mg DAILY PO 07/14/17 09:00 08/13/17 08:59 07/23/17 08:41 500 MG Simvastatin (Zocor Tab) 20 mg QPM PO 07/13/17 21:00 08/12/17 20:59 07/22/17 20:40 20 MG Insulin Aspart (novoLOG ASPART) SLIDING SCALE G... ACHS SC 07/13/17 16:15 08/12/17 17:14 07/23/17 08:45 14 UNITS Glucose (Glucose 40% Gel) 15-30 GRAMS 15 GRAMS... UD PRN PO 07/13/17 11:00 08/12/17 10:59 Glucose (Glucose Chew Tab) 4-8 Tablets 4 Tabl... UD PRN PO 07/13/17 11:00 08/12/17 10:59 Dextrose (Dextrose 50% 50ML Syringe) 25-50ML OF 50% DW IV FOR... UD PRN IV 07/13/17 11:00 08/12/17 10:59 Glucagon (Glucagon Inj) 1 mg UD PRN SQ 07/13/17 11:00 08/12/17 10:59 Miscellaneous Information (Consult Glycemic Management Pharmacy) 1 ea UD N/A 07/13/17 17:19 08/12/17 17:18 Tamsulosin HCl (Flomax Cap) 0.8 mg QPM PO 07/13/17 21:00 08/12/17 20:59 07/22/17 20:39 0.8 MG Metoprolol Tartrate (Lopressor Tab) 25 mg Q6 PO 07/17/17 09:00 08/16/17 08:59 07/23/17 05:31 25 MG Digoxin (Lanoxin Tab) 0.125 mg DAILY@16 PO 07/18/17 16:00 08/17/17 15:59 07/22/17 16:31 0.125 MG Heparin Sodium (Porcine) (Heparin 10 Unit/ ml 5 ml Flush) 5 ml PRN PRN FLUSH 07/17/17 14:45 08/16/17 14:44 07/23/17 04:43 5 ML Finasteride (Proscar Tab) 5 mg QAM PO 07/18/17 09:00 08/17/17 08:59 07/23/17 08:40 5 MG Ertapenem 1000 mg/ Sodium Chloride 60 ml @ 120 mls/hr Q24H IV 07/18/17 12:00 08/29/17 11:59 07/22/17 13:22 120 MLS/HR Vancomycin HCl (Vancomycin Oral Soln) 125 mg Q6 PO 07/20/17 12:30 07/30/17 12:29 07/23/17 05:31 125 MG Raspberry (Raspberry Syrup 5ml Cup) 5 ml Q6 PO 07/20/17 12:30 08/03/17 12:29 07/23/17 05:31 5 ML Loperamide HCl (Imodium Cap) 2 mg UD PRN PO 07/20/17 15:00 08/19/17 14:59 Sodium Chloride (Sodium Chloride Tab) 2 gm BID PO 07/21/17 09:00 08/20/17 08:59 07/23/17 08:41 2 GM Non-Formulary Medication (Non-Formulary Patient'S Own Med) 1 ea DAILY@1000,2100 PO 07/21/17 21:00 4/8/18 20:59 07/22/17 09:40 1 EA Warfarin Sodium (Coumadin Tab) 1 mg DAILY@16 PO 07/22/17 16:00 08/21/17 15:59 07/22/17 16:31 1 MG Fluconazole (Diflucan Tab) 200 mg QAM PO 07/23/17 09:00 08/04/17 08:59 07/23/17 08:41 200 MG Insulin Glargine (Lantus Solostar Pen) 22 units BID SC 07/23/17 09:00 08/22/17 08:59 07/23/17 08:46 22 UNITS Impression (1) Hyponatremia (2) Hypertension (3) Leukocytosis (4) Infected orthopedic implant Mr. Dinh is an 82 year-old male with acute on chronic hyponatremia. He was admitted with an infected right hip prosthesis. He is status post poly-exchange , antibiotic bead placement and wound VAC placement. The patient is being treated with ertapenem. Hospital course complicated by diarrhea which appears to be improving. Blood pressure and volume status are appropriate. HCTZ has been stopped. Serum sodium is improving with oral NaCl and free water restriction. 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 Recommendations -- Continue NaCl 2 grams BID -- Document I/O's -- Repeat metabolic profile tomorrow AM with serum magnesium -- Avoid thiazide diuretics -- Encourage nutrition, adequate protein intake -- Maintain free water intake < 1500 mL per day
[2017-07-23] MEDS: ERTAPENEM IV 1,000 MG in SODIUM CHLORIDE 0.9% 50ML 50 ML IV SCH (11:49)
[2017-07-23] MEDS: PROTEIN SHAKE PO SCH ×2 (11:52→20:55)
[2017-07-23] MEDS ORDERED: MAGNESIUM SULFATE 1GM / D5W 1 GM in PREMIXED IN D5W 100 ML IV ONE (12:15)
--- NOTE | 2017-07-23 15:11 | Pharmacy Progress Note ---
Pharmacy Glycemic Short Note 2 Date of Service Jul 23, 2017. OUTPATIENT ANTIDIABETIC REGIMEN: * Metformin 1,000mg PO BIDM * A1c = 8.5% on 07/12/17 Test 07/22/17 16:59 07/22/17 20:34 07/23/17 04:43 07/23/17 08:04 Bedside Glucose 149 mg/dl (70-99) 236 mg/dl (70-99) 186 mg/dl (70-99) Random Glucose 174 mg/dl (70-99) Test 07/23/17 11:50 Bedside Glucose 177 mg/dl (70-99) ASSESSMENT: 07/23/17 * BSGs just above goal, and did not come back to goal overnight with correctional insulin, will increase Lantus again and tighten CF. 07/22/17 * Blood sugars just above goal, looking better with tighter CR from yesterday. Will increase Lantus slightly. 07/21/17 * 82 y/o male s/p R hip irrigation and debridement, IV ertapenem * BSGs at goal since increasing Lantus yesterday, except pre-lunch today, will tighten CR * Pt is using his own protein shakes that he is bringing in, each only only contains 5grams CHO per carton, which likely won't need covered with Novolog. PLAN FOR INPATIENT GLYCEMIC CONTROL: * Basal insulin * INCREASE: Lantus 22 units SQ BID * Novolog ACHS * Goal 110-140mg/dl * TIGHTEN: CF 15mg/dl/unit * CR 1 unit per 5 grams CHO consumed
[2017-07-23] MEDS: DIGOXIN 0.125 MG TAB PO SCH (15:56)
[2017-07-23] MEDS: WARFARIN SOD 2 MG TAB PO SCH (15:57)
[2017-07-23] MEDS: TAMSULOSIN HCL 0.4 MG CAP PO SCH (20:55)
[2017-07-23] MEDS: SIMVASTATIN 20 MG TAB PO SCH (20:55)
[2017-07-24] VITALS (9 sets, daily range): BP systolic 100–152; BP diastolic 56–84; PULSE 76–101; TEMP 36.8–37.1; O2SAT 91–92
[2017-07-24] MEDS: RASPBERRY SYRUP 5 ML UDP PO SCH ×4 (00:05→18:56)
[2017-07-24] MEDS: VANCOMYCIN HCL 125 MG/2.5ML SOLN PO SCH ×4 (00:05→18:56)
[2017-07-24] MEDS: METOPROLOL TARTRATE 25 MG TAB PO SCH ×4 (00:06→18:55)
[2017-07-24 05:41] LABS: HEMATOCRIT 24.2 % (42-52); MEAN CELL VOLUME 88.3 fL (80-100); MEAN CORPUSCULAR HEMOGLOBIN 29.2 pg (25-34); MEAN CORPUSCULAR HGB CONC 33.1 g/dl (32-36); MEAN PLATELET VOLUME 8.1 fL (7.4-10.4); PLATELET COUNT 599 K/uL (130-400); RED CELL DISTRIBUTION WIDTH CV 15.7 % (11.5-14.5); RED CELL DISTRIBUTION WIDTH SD 49.7 fL (36.4-46.3); WHITE BLOOD COUNT 25.03 K/uL (4.8-10.8)
[2017-07-24 05:58] LABS: INR 3.1 (0.9-1.1)
[2017-07-24 06:07] LABS: CALCIUM 9.4 mg/dl (8.5-10.1); CREATININE 1.14 mg/dl (0.60-1.40); POTASSIUM 3.6 mmol/L (3.5-5.1)
[2017-07-24 06:21] LABS: BASO % 0.1 %; BASO ABS # 0.02 K/uL (0-0.2); EOS % 0.5 %; EOS ABS # 0.13 K/uL (0-0.5); IG# 0.47 K/uL (0.00-0.02); LYMPH % 4.2 %; LYMPH ABS # 1.05 K/uL (1.2-3.4); MONO % 4.8 %; MONO ABS # 1.19 K/uL (0.11-0.59); NEUT % 88.5 %; NEUT ABS # 22.17 K/uL (1.4-6.5)
--- NOTE | 2017-07-24 07:11 | PROGRESS NOTE ---
DATE: 07/24/2017 SUBJECTIVE: At this point in time, the patient is conversant, comfortable in bed, alert, and oriented. Discussing [employer] selections. He denies any chest pain, shortness of breath, fever, chills, nausea, vomiting, or headache. OBJECTIVE: VITAL SIGNS: Stable. He has been afebrile. NEUROVASCULAR: Check of both lower extremities normal. Calves nontender. Hip rotation is supple, pain free. Hip wound dressing clean, dry, and intact. No major swelling or pain noted above. Palpation about the hip, no subcutaneous air noted. ABDOMEN: Soft, nontender. EXTREMITIES: Left arm dressing removed. The area is much less enlarged, still has baseline redness. It is clean and dry. The area is scabbed over. LABORATORY DATA: Laboratory work today reveals sodium up to 133, potassium 3.6; glucoses are in the 225 range as high, high 180s baseline. This morning, he is 157. His calcium is at 9.4. INR has crept up to 3.1. We will be cognizant of that, not get much higher. White count has decreased to 25.03. Hematocrit is 24.2. ASSESSMENT: Overall, he is improving. We will continue with present plans. From an orthopedic perspective, he can be discharged with his Prevena dressing on with follow up in 1 week in the office. I will leave discharge up to medical support based on their comfort level of his overall medical conditions.
--- NOTE | 2017-07-24 07:57 | OPERATIVE REPORT ---
DATE OF Bedside procedure: 07/23/2017 Timeout performed, identified as appropriate site. Verbal consent obtained. Area prepared with Betadine and the skin nicked with an 11-blade and then medially encountered was some fluid under pressure, which was dark, serosanguineous semi-purulent fluid. This was cultured. Expression of the area revealed no gross purulence. There was some continued semi-purulent looking fluid. This was then cleaned and then covered with a light dressing. Did not require any type of suturing. It was literally a skin fabian. The patient understands and agreed. We will continue with observation. Cultures will be sent. I attest to the content of the Bedside procedure Record and any orders documented therein. Any exceptions are noted below. AKOSUAD
[2017-07-24] MEDS: FERROUS GLUCONATE 324 MG TAB PO SCH ×3 (08:48→18:55)
[2017-07-24] MEDS: DIPYRIDAMOLE/ASPIRIN CAP PO SCH ×2 (08:50→21:18)
[2017-07-24] MEDS: DOCUSATE SODIUM 100 MG CAP PO SCH ×2 (08:52→21:18)
[2017-07-24] MEDS: FLUCONAZOLE 100 MG TAB PO SCH (08:54)
[2017-07-24] MEDS: MULTIVITAMIN TAB PO SCH (08:55)
[2017-07-24] MEDS: NIASPAN 500 MG TABCR PO SCH (08:57)
[2017-07-24] MEDS: FINASTERIDE 5 MG TAB PO SCH (08:58)
[2017-07-24] MEDS: ALLOPURINOL 300 MG TAB PO SCH (09:00)
[2017-07-24] MEDS: SODIUM CHLORIDE 1 GM TAB PO SCH ×2 (09:00→21:20)
[2017-07-24] MEDS: INSULIN ASPART 100 UNITS/ML 3 ML PEN SC SCH ×4 (09:33→21:27)
[2017-07-24] MEDS: INSULIN GLARGINE SOLOSTAR 100 UNITS/ML 3 ML PEN SC SCH ×2 (09:34→21:29)
[2017-07-24] MEDS: OXYCODONE HCL IR 5 MG TAB (IMMEDIATE RELEASE) PO PRN (09:52)
[2017-07-24] MEDS: PROTEIN SHAKE PO SCH ×2 (10:25→21:00)
--- NOTE | 2017-07-24 10:35 | Progress Note ---
Subjective Date of Service: Jul 24, 2017. Subjective pt ambulating in room with PT, using walker. Now on fluconazole for yeast in urine. blood culture, aspirate culture negative. c diff negative x 2 placed on emperic vanco last week. now with wound lue, culture negative to date. wbc now 25. pain controlled, afebrile. Problem List Medical Problems: (1) Hiccups Status: Acute (2) Hyponatremia Status: Acute (3) Polyuria Status: Acute (4) Right radial fracture Status: Acute Objective Vital Signs Date Time Temp Pulse Resp B/P (MAP) Pulse Ox O2 Delivery O2 Flow Rate FiO2 07/24/17 08:33 92 Room Air 07/24/17 08:03 37.1 80 16 114/62 (79) 92 Room Air 07/24/17 05:55 91 100/56 (71) 07/24/17 00:04 89 113/64 (80) 07/24/17 00:00 Room Air 07/23/17 23:02 37.0 89 16 102/55 (71) 92 Room Air 07/23/17 18:10 74 97/59 (72) 07/23/17 16:30 Room Air 07/23/17 15:56 70 07/23/17 15:12 36.5 84 18 114/63 (80) 92 Room Air 07/23/17 11:55 93/54 (67) Physical Exam General Appearance: WD/WN, no apparent distress Eyes: normal inspection Neck: supple Respiratory/Chest: normal breath sounds, no respiratory distress Extremities: no pedal edema Neurologic/Psychiatric: alert, oriented x 3 Skin: normal color Laboratory Results Item Value Date Time Urine Culture - Final Complete 07/21/17 0036 Urine , Clean Catch Cee Albicans Gram Stain - Final Resulted 07/23/17 0800 Cellulitis Arm , Left Upper C.difficile Toxin B Gene (PCR) - Final Complete 07/20/17 0745 Stool No C. difficile toxin B gene detected Gram Stain - Final Complete 07/18/17 0748 Joint Fluid/Space (Synovial) Hip , Right Blood Culture - Final Complete 07/13/17 1430 Blood NO GROWTH Last 24 Hours Test 07/23/17 11:50 07/23/17 17:10 07/23/17 20:47 07/24/17 05:26 Bedside Glucose 177 mg/dl 140 mg/dl 227 mg/dl White Blood Count 25.03 K/uL Red Blood Count 2.74 M/uL Hemoglobin 8.0 g/dL Hematocrit 24.2 % Mean Corpuscular Volume 88.3 fL Mean Corpuscular Hemoglobin 29.2 pg Mean Corpuscular Hemoglobin Concent 33.1 g/dl Platelet Count 599 K/uL Mean Platelet Volume 8.1 fL Neutrophils (%) (Auto) 88.5 % Lymphocytes (%) (Auto) 4.2 % Monocytes (%) (Auto) 4.8 % Eosinophils (%) (Auto) 0.5 % Basophils (%) (Auto) 0.1 % Neutrophils # (Auto) 22.17 K/uL Lymphocytes # (Auto) 1.05 K/uL Monocytes # (Auto) 1.19 K/uL Eosinophils # (Auto) 0.13 K/uL Basophils # (Auto) 0.02 K/uL RDW Standard Deviation 49.7 fL RDW Coefficient of Variation 15.7 % Immature Granulocyte % (Auto) 1.9 % Immature Granulocyte # (Auto) 0.47 K/uL Red Blood Cell Morphology Unremarkable Prothrombin Time 32.3 SECONDS Prothromb Time International Ratio 3.1 Sodium Level 133 mmol/L Potassium Level 3.6 mmol/L Chloride Level 99 mmol/L Carbon Dioxide Level 26 mmol/L Anion Gap 8.0 mmol/L Blood Urea Nitrogen 21 mg/dl Creatinine 1.14 mg/dl Est Creatinine Clear Calc Drug Dose 53.4 ml/min Estimated GFR () 70.0 Estimated GFR (Non- 60.4 BUN/Creatinine Ratio 18.5 Random Glucose 157 mg/dl Calcium Level 9.4 mg/dl Magnesium Level 2.0 mg/dl Test 07/24/17 08:12 Bedside Glucose 181 mg/dl Assessment and Plan (1) Infected orthopedic implant Assessment & Plan: I he will continue with meropenem. He appears to be tolerating this well. He will likely need 4 weeks of intravenous antibiotics from time of OR. will need weekly, cbc,cmp, esr while on therapy. (2) Leukocytosis Assessment & Plan: remains elevated despite emperic vanco. now on fluconazole for yeast in urine, continue to follow
--- NOTE | 2017-07-24 10:45 | Nephrology Progress Note ---
Nephrology Progress Note Date of Service Jul 24, 2017. Chief Complaint Hyponatremia Subjective No acute events overnight. No complaints this morning. Mr. Dinh was out of bed with PT this morning. Strength and mobility are improving. His son remains at the bedside. The patient reports improving appetite. He noted dry mouth. I/O's do not appear accurate. The patient would like to try increasing his free water restriction. Review of Systems A complete review of systems was performed. Pertinent positives are noted above. All other systems are negative. Vital Signs Last 8 Hrs Date Time Temp Pulse Resp B/P (MAP) Pulse Ox O2 Delivery O2 Flow Rate FiO2 07/24/17 08:33 92 Room Air 07/24/17 08:03 37.1 80 16 114/62 (79) 92 Room Air 07/24/17 05:55 91 100/56 (71) Last Recorded Weight Weight (Kilograms): 84.000 Physical Exam General Appearance: no apparent distress, + thin, + pertinent finding (frail) Head: normocephalic, atraumatic Eyes: normal inspection, sclerae normal ENT: normal ENT inspection, pharynx normal, + pertinent finding (oral mucosa dry) Neck: supple, no JVD Respiratory/Chest: lungs clear, no respiratory distress, no accessory muscle use Cardiovascular: regular rate, rhythm, no gallop, no murmur Abdomen/GI: non tender, soft Extremities/Musculoskelatal: normal inspection, no pedal edema Neurologic/Psych: alert, normal mood/affect Family History No f/h of malignancy, hypertension runs in the family. Social History Smoking Status: Former smoker Marital Status: Occupation: retired Laboratory Results Past 24 Hours 07/24/17 05:26 Red Blood Count 2.74, Mean Corpuscular Volume 88.3, Mean Corpuscular Hemoglobin 29.2, Mean Corpuscular Hemoglobin Concent 33.1, Mean Platelet Volume 8.1, Neutrophils (%) (Auto) 88.5, Lymphocytes (%) (Auto) 4.2, Monocytes (%) (Auto) 4.8, Eosinophils (%) (Auto) 0.5, Basophils (%) (Auto) 0.1, Neutrophils # (Auto) 22.17, Lymphocytes # (Auto) 1.05, Monocytes # (Auto) 1.19, Eosinophils # (Auto) 0.13, Basophils # (Auto) 0.02 07/24/17 05:26 Test 07/23/17 11:50 07/23/17 17:10 07/23/17 20:47 07/24/17 05:26 Bedside Glucose 177 mg/dl (70-99) 140 mg/dl (70-99) 227 mg/dl (70-99) White Blood Count 25.03 K/uL (4.8-10.8) Red Blood Count 2.74 M/uL (4.7-6.1) Hemoglobin 8.0 g/dL (14.0-18.0) Hematocrit 24.2 % (42-52) Mean Corpuscular Volume 88.3 fL (80-100) Mean Corpuscular Hemoglobin 29.2 pg (25-34) Mean Corpuscular Hemoglobin Concent 33.1 g/dl (32-36) Platelet Count 599 K/uL (130-400) Mean Platelet Volume 8.1 fL (7.4-10.4) Neutrophils (%) (Auto) 88.5 % Lymphocytes (%) (Auto) 4.2 % Monocytes (%) (Auto) 4.8 % Eosinophils (%) (Auto) 0.5 % Basophils (%) (Auto) 0.1 % Neutrophils # (Auto) 22.17 K/uL (1.4-6.5) Lymphocytes # (Auto) 1.05 K/uL (1.2-3.4) Monocytes # (Auto) 1.19 K/uL (0.11-0.59) Eosinophils # (Auto) 0.13 K/uL (0-0.5) Basophils # (Auto) 0.02 K/uL (0-0.2) RDW Standard Deviation 49.7 fL (36.4-46.3) RDW Coefficient of Variation 15.7 % (11.5-14.5) Immature Granulocyte % (Auto) 1.9 % Immature Granulocyte # (Auto) 0.47 K/uL (0.00-0.02) Red Blood Cell Morphology Unremarkable Prothrombin Time 32.3 SECONDS (9.0-12.0) Prothromb Time International Ratio 3.1 (0.9-1.1) Anion Gap 8.0 mmol/L (3-11) Est Creatinine Clear Calc Drug Dose 53.4 ml/min Estimated GFR () 70.0 Estimated GFR (Non- 60.4 BUN/Creatinine Ratio 18.5 (10-20) Calcium Level 9.4 mg/dl (8.5-10.1) Magnesium Level 2.0 mg/dl (1.8-2.4) Test 07/24/17 08:12 Bedside Glucose 181 mg/dl (70-99) Allergies Coded Allergies: No Known Allergies (Verified , 07/13/17) Medications Current Inpatient Medications Medications (Trade) Dose Ordered Sig/Oswaldo Route Start Time Stop Time Status Last Admin Dose Admin Oxycodone HCl (Roxicodone Immediate Rel Tab) 1 TABLET FOR PAIN RATING... Q4H PRN PO 07/13/17 10:30 07/27/17 10:29 07/24/17 09:52 10 MG Morphine Sulfate (MoRPHine SULFATE INJ) give 2mg for pain 3-6 g... Q1H PRN IV 07/13/17 10:30 07/27/17 10:29 Acetaminophen (Tylenol Tab) 650 mg Q6H PRN PO 07/14/17 14:00 08/13/17 13:59 07/19/17 10:07 650 MG Magnesium Hydroxide (Milk Of Magnesia Susp) 30 ml Q6H PRN PO 07/13/17 10:30 08/12/17 10:29 Bisacodyl (Dulcolax Supp) 10 mg DAILY PRN DC 07/13/17 10:30 08/12/17 10:29 Sodium Biphosphate/ Sodium Phosphate (Fleet Enema) 132 ml DAILY PRN DC 07/13/17 10:30 08/12/17 10:29 Docusate Sodium (coLACE CAP) 100 mg BID PO 07/13/17 21:00 08/12/17 20:59 07/24/17 08:52 100 MG Diphenhydramine HCl (Benadryl Inj) 25 mg Q8H PRN IV 07/13/17 10:30 08/12/17 10:29 Al Hydrox/Mg Hydrox/Simethicone (Maalox Max Susp) 15 ml Q4H PRN PO 07/13/17 10:30 08/12/17 10:29 Ondansetron HCl (Zofran Inj) 4 mg Q6H PRN IV 07/13/17 10:30 08/12/17 10:29 Metoclopramide HCl (Reglan Inj) 10 mg Q6H PRN IV 07/13/17 10:30 08/12/17 10:29 Ferrous Gluconate (Ferrous Gluconate Tab) 324 mg TIDM PO 07/13/17 16:45 08/12/17 17:44 07/24/17 08:48 324 MG Allopurinol (Zyloprim Tab) 300 mg QAM PO 07/14/17 09:00 08/13/17 08:59 07/24/17 09:00 300 MG Dipyridamole/ Aspirin (Aggrenox 200MG/ 25MG Cap) 1 cap BID PO 07/13/17 21:00 08/12/17 20:59 07/24/17 08:50 1 CAP Chlorpromazine HCl (Thorazine Tab) 25 mg TID PRN PO 07/13/17 10:30 08/12/17 10:29 07/16/17 07:43 25 MG Multivitamins (Multivitamin Tab) 1 tab DAILY PO 07/14/17 09:00 08/13/17 08:59 07/24/17 08:55 1 TAB Niacin (Niaspan Extended Rel Tab) 500 mg DAILY PO 07/14/17 09:00 08/13/17 08:59 07/24/17 08:57 500 MG Simvastatin (Zocor Tab) 20 mg QPM PO 07/13/17 21:00 08/12/17 20:59 07/23/17 20:55 20 MG Insulin Aspart (novoLOG ASPART) SLIDING SCALE G... ACHS SC 07/13/17 16:15 08/12/17 17:14 07/24/17 09:33 13 UNITS Glucose (Glucose 40% Gel) 15-30 GRAMS 15 GRAMS... UD PRN PO 07/13/17 11:00 08/12/17 10:59 Glucose (Glucose Chew Tab) 4-8 Tablets 4 Tabl... UD PRN PO 07/13/17 11:00 08/12/17 10:59 Dextrose (Dextrose 50% 50ML Syringe) 25-50ML OF 50% DW IV FOR... UD PRN IV 07/13/17 11:00 08/12/17 10:59 Glucagon (Glucagon Inj) 1 mg UD PRN SQ 07/13/17 11:00 08/12/17 10:59 Miscellaneous Information (Consult Glycemic Management Pharmacy) 1 ea UD N/A 07/13/17 17:19 08/12/17 17:18 Tamsulosin HCl (Flomax Cap) 0.8 mg QPM PO 07/13/17 21:00 08/12/17 20:59 07/23/17 20:55 0.8 MG Metoprolol Tartrate (Lopressor Tab) 25 mg Q6 PO 07/17/17 09:00 08/16/17 08:59 07/24/17 00:06 25 MG Digoxin (Lanoxin Tab) 0.125 mg DAILY@16 PO 07/18/17 16:00 08/17/17 15:59 07/23/17 15:56 0.125 MG Heparin Sodium (Porcine) (Heparin 10 Unit/ ml 5 ml Flush) 5 ml PRN PRN FLUSH 07/17/17 14:45 08/16/17 14:44 07/24/17 09:34 5 ML Finasteride (Proscar Tab) 5 mg QAM PO 07/18/17 09:00 08/17/17 08:59 07/24/17 08:58 5 MG Ertapenem 1000 mg/ Sodium Chloride 60 ml @ 120 mls/hr Q24H IV 07/18/17 12:00 08/29/17 11:59 07/23/17 11:49 120 MLS/HR Vancomycin HCl (Vancomycin Oral Soln) 125 mg Q6 PO 07/20/17 12:30 07/30/17 12:29 07/24/17 05:58 125 MG Raspberry (Raspberry Syrup 5ml Cup) 5 ml Q6 PO 07/20/17 12:30 08/03/17 12:29 07/24/17 05:58 5 ML Loperamide HCl (Imodium Cap) 2 mg UD PRN PO 07/20/17 15:00 08/19/17 14:59 Sodium Chloride (Sodium Chloride Tab) 2 gm BID PO 07/21/17 09:00 08/20/17 08:59 07/24/17 09:00 2 GM Non-Formulary Medication (Non-Formulary Patient'S Own Med) 1 ea DAILY@1000,2100 PO 07/21/17 21:00 4/8/18 20:59 07/24/17 10:25 1 EA Fluconazole (Diflucan Tab) 200 mg QAM PO 07/23/17 09:00 08/04/17 08:59 07/24/17 08:54 200 MG Warfarin Sodium (Coumadin Tab) 2 mg DAILY@16 PO 07/23/17 16:00 08/22/17 15:59 07/23/17 15:57 2 MG Insulin Glargine (Lantus Solostar Pen) 24 units BID SC 07/24/17 09:00 08/23/17 08:59 07/24/17 09:34 24 UNITS Impression (1) Hyponatremia (2) Hypertension (3) Leukocytosis (4) Infected orthopedic implant Mr. Dinh is an 82 year-old male with acute on chronic hyponatremia. He was admitted with an infected right hip prosthesis. He is status post poly-exchange , antibiotic bead placement and wound VAC placement. The patient is being treated with ertapenem. Hospital course complicated by diarrhea which appears to be improving. Blood pressure and volume status are appropriate. HCTZ has been stopped. Serum sodium is improving with oral NaCl and free water restriction. 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 Recommendations -- Continue NaCl 2 grams BID -- Document I/O's -- Repeat metabolic profile tomorrow AM with serum magnesium -- Avoid thiazide diuretics -- Encourage nutrition, adequate protein intake -- Maintain free water intake < 2000 mL per day
--- NOTE | 2017-07-24 11:37 | Pharmacy Progress Note ---
Pharmacy Glycemic Short Note 2 Date of Service Jul 24, 2017. OUTPATIENT ANTIDIABETIC REGIMEN: * Metformin 1,000mg PO BIDM * A1c = 8.5% on 07/12/17 ASSESSMENT: * 82yo T2DM male with adequate outpatient control (based on age/co-morbidities) per recent A1c. * Holding outpatient regimen of metformin for admission and utilizing SQ basal bolus insulin regimen per weight and titrating dosing daily based on BSG trends * Patient is currently receiving an average of ~82 units of insulin per day * 44 units of basal insulin * 38 units of prandial/correctional insulin * BSGs ranging 140-227 over the past 24hrs * Changes needed to SQ basal bolus insulin regimen: * AM Fasting BSG = 181 mg/dl and holding steady. This is slightly above goal range, therefore Basal insulin needs increased slightly * Post-prandial BSGs are elevated/BSGs rise throughout the day therefore Tighten CR. Will loosen CF to prevent over-dosing when BSG elevated. PLAN FOR INPATIENT GLYCEMIC CONTROL: * Basal insulin * INCREASE: Lantus 24 units SQ BID * Novolog ACHS * Goal 110-140mg/dl * LOOSEN: CF 20mg/dl/unit * TIGHTEN: CR 1 unit per 4 grams CHO consumed
[2017-07-24] MEDS: ERTAPENEM IV 1,000 MG in SODIUM CHLORIDE 0.9% 50ML 50 ML IV SCH (12:24)
[2017-07-24] MEDS: DIGOXIN 0.125 MG TAB PO SCH (16:42)
[2017-07-24] MEDS: WARFARIN SOD 2 MG TAB PO SCH (16:43)
--- NOTE | 2017-07-24 18:16 | ECHOCARDIOGRAM REPORT ---
*NOTICE TO RECEIVING [employer]Y This information is strictly Confidential and protected under [place] law. [place] law prohibits you from making any further disclosure of this information unless further disclosure is expressly permitted by the written consent of the person to whom it pertains or is authorized by law. A general authorization for the release of medical or other information is not sufficient for this purpose. Hospital accepts no responsibility if the information is made available to any other person, INCLUDING THE PATIENT. Interpretation Summary * Name: CAROLE COY Study Date: 07/24/2017 06:16 AM BP: 100/56 mmHg * Patient Location: .MSN\S\N377\S\2 HR: 89 * : 1935 (M/d/yyyy) Gender: Male Height: 70 in * Age: 82 yrs Ethnicity: CA Weight: 185 lb * Ordering Physician: Romero Crain * Referring Physician: Cooper Nagel * Performed By: Carly Tomas RCS * * Reason For Study: REPEAT STUDY / CHANGING AUSCULATED MR AT [facility] ? * BSA: 2.0 m2 * -- Conclusions -- * Limited views were obtained. * There is mild concentric left ventricular hypertrophy. * The left ventricle is hyperdynamic. * Mild to moderate valvular aortic stenosis. * There is mild mitral regurgitation. * Mild to moderate aortic regurgitation. * Compared to an echocardiogram from 07/14/2017, there is minimal difference. Procedure Details * Limited views were obtained. Left Ventricle * The left ventricle is grossly normal size. * There is mild concentric left ventricular hypertrophy. * The left ventricle is hyperdynamic. * Ejection Fraction = 65-70%. Mitral Valve * The mitral valve is grossly normal. * There is mild mitral regurgitation. Aortic Valve * Mild to moderate valvular aortic stenosis. * Mild to moderate aortic regurgitation. Pericardium/Pleural * There is no pericardial effusion. MMode 2D Measurements and Calculations IVSd 1.9 cm IVSs 2.1 cm LVIDd 3.3 cm LVIDs 1.8 cm LVPWd 1.5 cm LVPWs 1.3 cm IVS/LVPW 1.3 FS 47.0 % EDV(Teich) 45.5 ml ESV(Teich) 9.3 ml EF(Teich) 79.5 % EDV(cubed) 37.3 ml ESV(cubed) 5.5 ml EF(cubed) 85.1 % % IVS thick 10.3 % % LVPW thick -10.76 % LV mass(C)d 228.3 grams LV mass(C)dI 113.1 grams/m\S\2 LV mass(C)s 115.8 grams LV mass(C)sI 57.4 grams/m\S\2 SV(Teich) 36.2 ml SI(Teich) 17.9 ml/m\S\2 SV(cubed) 31.8 ml SI(cubed) 15.7 ml/m\S\2 Ao root diam 3.7 cm Ao root area 10.5 cm\S\2 LA dimension 4.5 cm LA/Ao 1.2 LVOT diam 2.0 cm LVOT area 3.2 cm\S\2 Doppler Measurements and Calculations Ao V2 max 311.6 cm/sec Ao max PG 38.8 mmHg Ao V2 mean 219.7 cm/sec Ao mean PG 21.3 mmHg Ao V2 VTI 52.9 cm AI max chago 453.9 cm/sec AI max PG 82.4 mmHg AI dec slope 221.8 cm/sec\S\2 AI P1/2t 599.5 msec SV(Ao) 556.3 ml SI(Ao) 275.5 ml/m\S\2
--- NOTE | 2017-07-24 18:33 | Family Medicine Progress Note ---
Progress Note Date of Service Jul 24, 2017. Subjective Pt reports feeling well, had PT this morning and was able to walk from his chair to the door and back to his chair with the aid of a walker -- did relatively well without too much pain. Currently denies chest pain, difficulty breathing, abdominal pain, numbness or tingling or pain in his calves. Describes a red raised lesion that was lanced yesterday on his left forearm -- a previous IV site apparently. Says this iis painless. ROS See HPI for pertinent positives and negatives. Medications Current Inpatient Medications Medications (Trade) Dose Ordered Sig/Oswaldo Route Start Time Stop Time Status Last Admin Dose Admin Oxycodone HCl (Roxicodone Immediate Rel Tab) 1 TABLET FOR PAIN RATING... Q4H PRN PO 07/13/17 10:30 07/27/17 10:29 07/24/17 09:52 10 MG Morphine Sulfate (MoRPHine SULFATE INJ) give 2mg for pain 3-6 g... Q1H PRN IV 07/13/17 10:30 07/27/17 10:29 Acetaminophen (Tylenol Tab) 650 mg Q6H PRN PO 07/14/17 14:00 08/13/17 13:59 07/19/17 10:07 650 MG Magnesium Hydroxide (Milk Of Magnesia Susp) 30 ml Q6H PRN PO 07/13/17 10:30 08/12/17 10:29 Bisacodyl (Dulcolax Supp) 10 mg DAILY PRN KS 07/13/17 10:30 08/12/17 10:29 Sodium Biphosphate/ Sodium Phosphate (Fleet Enema) 132 ml DAILY PRN KS 07/13/17 10:30 08/12/17 10:29 Docusate Sodium (coLACE CAP) 100 mg BID PO 07/13/17 21:00 08/12/17 20:59 07/24/17 08:52 100 MG Diphenhydramine HCl (Benadryl Inj) 25 mg Q8H PRN IV 07/13/17 10:30 08/12/17 10:29 Al Hydrox/Mg Hydrox/Simethicone (Maalox Max Susp) 15 ml Q4H PRN PO 07/13/17 10:30 08/12/17 10:29 Ondansetron HCl (Zofran Inj) 4 mg Q6H PRN IV 07/13/17 10:30 08/12/17 10:29 Metoclopramide HCl (Reglan Inj) 10 mg Q6H PRN IV 07/13/17 10:30 08/12/17 10:29 Ferrous Gluconate (Ferrous Gluconate Tab) 324 mg TIDM PO 07/13/17 16:45 08/12/17 17:44 07/24/17 12:44 324 MG Allopurinol (Zyloprim Tab) 300 mg QAM PO 07/14/17 09:00 08/13/17 08:59 07/24/17 09:00 300 MG Dipyridamole/ Aspirin (Aggrenox 200MG/ 25MG Cap) 1 cap BID PO 07/13/17 21:00 08/12/17 20:59 07/24/17 08:50 1 CAP Chlorpromazine HCl (Thorazine Tab) 25 mg TID PRN PO 07/13/17 10:30 08/12/17 10:29 07/16/17 07:43 25 MG Multivitamins (Multivitamin Tab) 1 tab DAILY PO 07/14/17 09:00 08/13/17 08:59 07/24/17 08:55 1 TAB Niacin (Niaspan Extended Rel Tab) 500 mg DAILY PO 07/14/17 09:00 08/13/17 08:59 07/24/17 08:57 500 MG Simvastatin (Zocor Tab) 20 mg QPM PO 07/13/17 21:00 08/12/17 20:59 07/23/17 20:55 20 MG Insulin Aspart (novoLOG ASPART) SLIDING SCALE G... ACHS SC 07/13/17 16:15 08/12/17 17:14 07/24/17 13:35 17 UNITS Glucose (Glucose 40% Gel) 15-30 GRAMS 15 GRAMS... UD PRN PO 07/13/17 11:00 08/12/17 10:59 Glucose (Glucose Chew Tab) 4-8 Tablets 4 Tabl... UD PRN PO 07/13/17 11:00 08/12/17 10:59 Dextrose (Dextrose 50% 50ML Syringe) 25-50ML OF 50% DW IV FOR... UD PRN IV 07/13/17 11:00 08/12/17 10:59 Glucagon (Glucagon Inj) 1 mg UD PRN SQ 07/13/17 11:00 08/12/17 10:59 Miscellaneous Information (Consult Glycemic Management Pharmacy) 1 ea UD N/A 07/13/17 17:19 08/12/17 17:18 Tamsulosin HCl (Flomax Cap) 0.8 mg QPM PO 07/13/17 21:00 08/12/17 20:59 07/23/17 20:55 0.8 MG Metoprolol Tartrate (Lopressor Tab) 25 mg Q6 PO 07/17/17 09:00 08/16/17 08:59 07/24/17 12:25 25 MG Digoxin (Lanoxin Tab) 0.125 mg DAILY@16 PO 07/18/17 16:00 08/17/17 15:59 07/24/17 16:42 0.125 MG Heparin Sodium (Porcine) (Heparin 10 Unit/ ml 5 ml Flush) 5 ml PRN PRN FLUSH 07/17/17 14:45 08/16/17 14:44 07/24/17 13:18 5 ML Finasteride (Proscar Tab) 5 mg QAM PO 07/18/17 09:00 08/17/17 08:59 07/24/17 08:58 5 MG Ertapenem 1000 mg/ Sodium Chloride 60 ml @ 120 mls/hr Q24H IV 07/18/17 12:00 08/29/17 11:59 07/24/17 12:24 120 MLS/HR Vancomycin HCl (Vancomycin Oral Soln) 125 mg Q6 PO 07/20/17 12:30 07/30/17 12:29 07/24/17 12:26 125 MG Raspberry (Raspberry Syrup 5ml Cup) 5 ml Q6 PO 07/20/17 12:30 08/03/17 12:29 07/24/17 12:27 5 ML Loperamide HCl (Imodium Cap) 2 mg UD PRN PO 07/20/17 15:00 08/19/17 14:59 Sodium Chloride (Sodium Chloride Tab) 2 gm BID PO 07/21/17 09:00 08/20/17 08:59 07/24/17 09:00 2 GM Non-Formulary Medication (Non-Formulary Patient'S Own Med) 1 ea DAILY@1000,2100 PO 07/21/17 21:00 08/20/17 20:59 07/24/17 10:25 1 EA Fluconazole (Diflucan Tab) 200 mg QAM PO 07/23/17 09:00 08/04/17 08:59 07/24/17 08:54 200 MG Warfarin Sodium (Coumadin Tab) 2 mg DAILY@16 PO 07/23/17 16:00 08/22/17 15:59 07/24/17 16:43 2 MG Insulin Glargine (Lantus Solostar Pen) 24 units BID SC 07/24/17 09:00 08/23/17 08:59 07/24/17 09:34 24 UNITS Objective Vital Signs Date Time Temp Pulse Resp B/P (MAP) Pulse Ox O2 Delivery O2 Flow Rate FiO2 07/24/17 16:42 92 07/24/17 16:40 92 07/24/17 15:19 36.8 82 16 152/84 (106) 91 Room Air 07/24/17 08:33 92 Room Air 07/24/17 08:03 37.1 80 16 114/62 (79) 92 Room Air 07/24/17 07:15 Room Air 07/24/17 05:55 91 100/56 (71) 07/24/17 00:04 89 113/64 (80) 07/24/17 00:00 Room Air 07/23/17 23:02 37.0 89 16 102/55 (71) 92 Room Air 07/23/17 18:10 74 97/59 (72) Physical Exam Notes: GENERAL: Awake, alert, well-appearing, in no distress EYES: Normal conjunctiva. Sclera non-icteric. NECK: Supple. No nuchal rigidity. FROM. No JVD. No bruits. RESPIRATORY: Clear to auscultation. Slightly diminished on the left side. No adventitious sounds. CARDIAC: Irregularly irregular. Extremities warm and well perfused. Pulses equal. ABDOMEN: Soft, non-distended. No tenderness to palpation. No rebound or guarding. No masses. EXTREMITIES: Calves are equal size bilaterally and non-tender. Trace edema. No discoloration. Left forearm: Red raised round lesion ~5mm with pinpoint scab, non tender. SKIN: No rash or jaundice noted. Laboratory Results 07/24/17 05:26 Red Blood Count 2.74, Mean Corpuscular Volume 88.3, Mean Corpuscular Hemoglobin 29.2, Mean Corpuscular Hemoglobin Concent 33.1, Mean Platelet Volume 8.1, Neutrophils (%) (Auto) 88.5, Lymphocytes (%) (Auto) 4.2, Monocytes (%) (Auto) 4.8, Eosinophils (%) (Auto) 0.5, Basophils (%) (Auto) 0.1, Neutrophils # (Auto) 22.17, Lymphocytes # (Auto) 1.05, Monocytes # (Auto) 1.19, Eosinophils # (Auto) 0.13, Basophils # (Auto) 0.02 07/24/17 05:26 Test 07/24/17 05:26 07/24/17 16:58 White Blood Count 25.03 K/uL (4.8-10.8) Red Blood Count 2.74 M/uL (4.7-6.1) Hemoglobin 8.0 g/dL (14.0-18.0) Hematocrit 24.2 % (42-52) Mean Corpuscular Volume 88.3 fL (80-100) Mean Corpuscular Hemoglobin 29.2 pg (25-34) Mean Corpuscular Hemoglobin Concent 33.1 g/dl (32-36) Platelet Count 599 K/uL (130-400) Mean Platelet Volume 8.1 fL (7.4-10.4) Neutrophils (%) (Auto) 88.5 % Lymphocytes (%) (Auto) 4.2 % Monocytes (%) (Auto) 4.8 % Eosinophils (%) (Auto) 0.5 % Basophils (%) (Auto) 0.1 % Neutrophils # (Auto) 22.17 K/uL (1.4-6.5) Lymphocytes # (Auto) 1.05 K/uL (1.2-3.4) Monocytes # (Auto) 1.19 K/uL (0.11-0.59) Eosinophils # (Auto) 0.13 K/uL (0-0.5) Basophils # (Auto) 0.02 K/uL (0-0.2) RDW Standard Deviation 49.7 fL (36.4-46.3) RDW Coefficient of Variation 15.7 % (11.5-14.5) Immature Granulocyte % (Auto) 1.9 % Immature Granulocyte # (Auto) 0.47 K/uL (0.00-0.02) Red Blood Cell Morphology Unremarkable Prothrombin Time 32.3 SECONDS (9.0-12.0) Prothromb Time International Ratio 3.1 (0.9-1.1) Anion Gap 8.0 mmol/L (3-11) Est Creatinine Clear Calc Drug Dose 53.4 ml/min Estimated GFR () 70.0 Estimated GFR (Non- 60.4 BUN/Creatinine Ratio 18.5 (10-20) Calcium Level 9.4 mg/dl (8.5-10.1) Magnesium Level 2.0 mg/dl (1.8-2.4) Bedside Glucose 127 mg/dl (70-99) Assessment and Plan 82 year old male admitted on [id number] for infected right total hip arthroplasty, now POD #11. PMH: Afib, osteoarthritis, HTN, HLD, macular degeneration, enlarged prostate, DM2, gout. Right hip infection: stable - S/p surgery, rec'd continue wound vac and PT/OT to mobilize, will need placement. Last fever 04Mar. Leukocytosis as noted below. 01Mar joint space Cx positive for Citrobacter koseri and Finegoldia magna. ID onboard. Stopped rocephin (3d given) and started ertapenem daily on 06Jul for planned four weeks since date of surgery. PICC placed 05Mar. On oxycodone prn for pain. Leukocytosis: mildly improved - Progressive increase to max WBC 33 with blasts 0.31. Known infection in right hip as above, on ertapenem. Patient continues to say he feels well and without acute respiratory, urinary, abdominal, or other concerns. Cultures besides hip have been negative. C diff x 2 negative, but was started empirically on oral vancomycin on 08Jul (see "diarrhea" below). Since, WBC stable but elevated at 25. Last ESR at 83. ID onboard, recommended remain on vanc for 21 total days. - 07/23 noted abscess-like area on left forearm (prior IV site) which underwent I &D by ortho (also 07/23). Resultant 11Mar wound culture pending. - Will need weekly CBC, CMP, ESR while on therapy. Atrial fibrillation: - Briefly in RVR, but most recent rates in 's-90's. Asymptomatic. Unknown duration of afib. Cardiology onboard. TTE noted EF 60-65% with mild LVH , mild-mod AR, mild . Did not convert with amiodarone. Now on metoprolol 25 mg PO q6h and digoxin 0.125 mg daily (last level check okay on ). On heparin. Last INR 3.1, continue coumadin 2 mg daily. Urinary retention / Candidal infection: - Hx of enlarged prostate. On flomax, added proscar. On straight cath q6-8h PRN. UCx positive for shane. Mar started fluconazole 200 daily x planned 14 days. Electrolytes: Nephrology onboard, see their recommendations. - Hyponatremia: Na 133, improving. 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 Began 1500 mL PO fluid restriction on . Stopped home HCTZ. On sodium tabs BID. Monitoring. - Hypokalemia: K 3.6. Goal > 4. - Hypomagnesemia: Mag 2.0. goal > 2. - Hypercalcemia: Ca 9.4. When corrected for albumin 1.6, Ca is 12.4. May partially be due to resorption of antibiotic beads s/p right hip surgery. Monitoring. Diarrhea: Between 2-4 episodes a day. and C diff negative. On vancomycin PO as noted above. Imodium prn (but no doses given yet). Anemia: Hb 8.0. Monitoring. DM2: Hx of same. Glycemic consultation, on novolog and lantus. Holding home metformin. HTN: Hx of same, presently stable. On metoprolol as noted in "afib" above. HLD: Hx of same. On zocor. Gout: Hx of same. On allopurinol. Code status: Full code. Diet: DM2, fluid restrict 1500 mL, with boost supplementation. Encouraging protein intake. DVT prophy: On coumadin. Also aggrenox. PT/OT: PT ongoing, recommends rehab. OT note says,"Pt will require continued in patient therapies after discharge from [facility]." Case management working with Consuelo Guerrero. Dispo: Admit med/surg. On medicine service. Continued [facility] stay due to: multiple IV medications needed Discharge planning: home Resident Tracking Resident Involvement: Resident Care Provided Care Provided: Adult Hospital Medicine Reviewed: Pt Seen/Exam by Me History comfortably laying in bed. wanting to sleep Constitutional: denies: fever Respiratory: negative: short of breath Cardiovascular: denies chest pain General Appearance: no apparent distress Respiratory: lungs clear, no respiratory distress Cardiovascular: regular rate, rhythm Extremities: other (right hip with wound vac) Neurologic/Psychiatric: alert, oriented x 3 Assessment/Plan Resident Physician Supervision Note: I independently interviewed and examined the patient and verified the baltazar history and physical, reviewed labs and image studies, discussed the case with the resident Dr. Jimenez and agree with the findings and care plan.
[2017-07-24] MEDS: TAMSULOSIN HCL 0.4 MG CAP PO SCH (21:19)
[2017-07-24] MEDS: SIMVASTATIN 20 MG TAB PO SCH (21:19)
[2017-07-25] VITALS (7 sets, daily range): BP systolic 100–127; BP diastolic 55–70; PULSE 75–101; TEMP 36.2–37.1; O2SAT 91–95
[2017-07-25] MEDS: RASPBERRY SYRUP 5 ML UDP PO SCH ×4 (00:35→18:00)
[2017-07-25] MEDS: VANCOMYCIN HCL 125 MG/2.5ML SOLN PO SCH ×4 (00:35→18:01)
[2017-07-25] MEDS: METOPROLOL TARTRATE 25 MG TAB PO SCH ×4 (00:36→18:00)
[2017-07-25 05:50] LABS: HEMATOCRIT 25.2 % (42-52); HEMOGLOBIN 8.2 g/dL (14.0-18.0); MEAN CELL VOLUME 89.7 fL (80-100); MEAN CORPUSCULAR HEMOGLOBIN 29.2 pg (25-34); MEAN CORPUSCULAR HGB CONC 32.5 g/dl (32-36); MEAN PLATELET VOLUME 8.2 fL (7.4-10.4); PLATELET COUNT 678 K/uL (130-400); RED CELL DISTRIBUTION WIDTH CV 15.8 % (11.5-14.5); RED CELL DISTRIBUTION WIDTH SD 50.6 fL (36.4-46.3); WHITE BLOOD COUNT 25.43 K/uL (4.8-10.8)
[2017-07-25 05:58] LABS: INR 2.9 (0.9-1.1)
[2017-07-25 06:20] LABS: ALBUMIN 1.6 gm/dl (3.4-5.0); CALCIUM 9.7 mg/dl (8.5-10.1); CREATININE 0.93 mg/dl (0.60-1.40); PHOSPHORUS 3.7 mg/dl (2.5-4.9); POTASSIUM 3.4 mmol/L (3.5-5.1)
[2017-07-25 06:30] LABS: BASO % 0.1 %; BASO ABS # 0.03 K/uL (0-0.2); EOS % 0.5 %; EOS ABS # 0.12 K/uL (0-0.5); IG# 0.35 K/uL (0.00-0.02); LYMPH % 3.5 %; LYMPH ABS # 0.88 K/uL (1.2-3.4); MONO % 5.9 %; MONO ABS # 1.51 K/uL (0.11-0.59); NEUT % 88.6 %; NEUT ABS # 22.54 K/uL (1.4-6.5)
[2017-07-25] MEDS ORDERED: POTASSIUM CHLORIDE 20 MEQ TABCR PO ONE (07:15)
[2017-07-25] MEDS: FERROUS GLUCONATE 324 MG TAB PO SCH ×3 (08:51→18:00)
[2017-07-25] MEDS: DIPYRIDAMOLE/ASPIRIN CAP PO SCH ×2 (08:51→22:00)
[2017-07-25] MEDS: FLUCONAZOLE 100 MG TAB PO SCH (08:52)
[2017-07-25] MEDS: DOCUSATE SODIUM 100 MG CAP PO SCH ×2 (08:52→22:00)
[2017-07-25] MEDS: FINASTERIDE 5 MG TAB PO SCH (08:53)
[2017-07-25] MEDS: MULTIVITAMIN TAB PO SCH (08:53)
[2017-07-25] MEDS: SODIUM CHLORIDE 1 GM TAB PO SCH ×2 (08:54→22:02)
[2017-07-25] MEDS: ALLOPURINOL 300 MG TAB PO SCH (08:54)
[2017-07-25] MEDS: INSULIN ASPART 100 UNITS/ML 3 ML PEN SC SCH ×4 (08:58→21:00)
[2017-07-25] MEDS: PROTEIN SHAKE PO SCH ×2 (09:00→21:00)
[2017-07-25] MEDS ORDERED: INSULIN GLARGINE SOLOSTAR 100 UNITS/ML 3 ML PEN SC SCH (09:00)
--- NOTE | 2017-07-25 09:00 | Pharmacy Progress Note ---
Pharmacy Glycemic Short Note 2 Date of Service Jul 25, 2017. OUTPATIENT ANTIDIABETIC REGIMEN: * Metformin 1,000mg PO BIDM * A1c = 8.5% on 07/12/17 Item Value Date Time Bedside Glucose 181 mg/dl H 07/24/17 0812 Bedside Glucose 171 mg/dl H 07/24/17 1214 Bedside Glucose 127 mg/dl H 07/24/17 1658 Bedside Glucose 145 mg/dl H 07/24/17 2033 Random Glucose 99 mg/dl 07/25/17 0527 ASSESSMENT: * Holding outpatient regimen of metformin for admission and utilizing SQ basal bolus insulin regimen per weight and titrating dosing daily based on BSG trends * Patient is currently receiving an average of ~80-90 units of insulin per day * 48 units of basal insulin * ~40 units of prandial/correctional insulin * BSGs ranging 99-181 over the past 24hrs * Changes needed to SQ basal bolus insulin regimen: * AM Fasting BSG = 99 mg/dl and trending downwards. Will decrease basal insulin slightly to prevent hypo tomorrow. slightly * Post-prandial BSGs are now in goal range with changes made to CF/CR yesterday (tightened CR, loosened CF). No changes needed today. PLAN FOR INPATIENT GLYCEMIC CONTROL: * Basal insulin: decrease dosing * Lantus 22 units SQ BID - will give a one time dose of 20 units this AM for "lower" GLU of 99mg/dl. * Novolog ACHS: no changes * Goal 110-140mg/dl * CF 20mg/dl/unit * CR 1 unit per 4 grams CHO consumed Looking ahead to discharge: * 82yo T2DM male with near-adequate outpatient control (based on age/co- morbidities) per recent A1c. * Tight glycemic control essential for wound healing. Recommend aiming for an A1c of 7.6-8% for current infection. * Pt currently takes metformin 1,000mg PO BIDM * At discharge: could consider adding another oral agent (Januvia) vs adding basal insulin
--- NOTE | 2017-07-25 09:32 | Family Medicine Progress Note ---
Progress Note Date of Service Jul 25, 2017. Subjective Pt denies any new complaints this morning, is lying in bed about to be assisted to the bathroom for a bowel movement. Pt is alert, says he slept well and ate breakfast well. Pain in hip is the same as yesterday, tolerable. Raised lesion at left forearm is not painful. Pt denies chest pain, respiratory distress, fevers chills, abdominal pain or diarrhea. Is requiring a straight cath every 6 hours, says he prefers that to the cruz. ROS See HPI for pertinent positives and negatives. Medications Current Inpatient Medications Medications (Trade) Dose Ordered Sig/Oswaldo Route Start Time Stop Time Status Last Admin Dose Admin Oxycodone HCl (Roxicodone Immediate Rel Tab) 1 TABLET FOR PAIN RATING... Q4H PRN PO 07/13/17 10:30 07/27/17 10:29 07/25/17 10:34 10 MG Morphine Sulfate (MoRPHine SULFATE INJ) give 2mg for pain 3-6 g... Q1H PRN IV 07/13/17 10:30 07/27/17 10:29 Acetaminophen (Tylenol Tab) 650 mg Q6H PRN PO 07/14/17 14:00 08/13/17 13:59 07/19/17 10:07 650 MG Magnesium Hydroxide (Milk Of Magnesia Susp) 30 ml Q6H PRN PO 07/13/17 10:30 08/12/17 10:29 Bisacodyl (Dulcolax Supp) 10 mg DAILY PRN OR 07/13/17 10:30 08/12/17 10:29 Sodium Biphosphate/ Sodium Phosphate (Fleet Enema) 132 ml DAILY PRN OR 07/13/17 10:30 08/12/17 10:29 Docusate Sodium (coLACE CAP) 100 mg BID PO 07/13/17 21:00 08/12/17 20:59 07/25/17 08:52 100 MG Diphenhydramine HCl (Benadryl Inj) 25 mg Q8H PRN IV 07/13/17 10:30 08/12/17 10:29 Al Hydrox/Mg Hydrox/Simethicone (Maalox Max Susp) 15 ml Q4H PRN PO 07/13/17 10:30 08/12/17 10:29 Ondansetron HCl (Zofran Inj) 4 mg Q6H PRN IV 07/13/17 10:30 08/12/17 10:29 Metoclopramide HCl (Reglan Inj) 10 mg Q6H PRN IV 07/13/17 10:30 08/12/17 10:29 Ferrous Gluconate (Ferrous Gluconate Tab) 324 mg TIDM PO 07/13/17 16:45 08/12/17 17:44 07/25/17 13:00 324 MG Allopurinol (Zyloprim Tab) 300 mg QAM PO 07/14/17 09:00 08/13/17 08:59 07/25/17 08:54 300 MG Dipyridamole/ Aspirin (Aggrenox 200MG/ 25MG Cap) 1 cap BID PO 07/13/17 21:00 08/12/17 20:59 07/25/17 08:51 1 CAP Chlorpromazine HCl (Thorazine Tab) 25 mg TID PRN PO 07/13/17 10:30 08/12/17 10:29 07/16/17 07:43 25 MG Multivitamins (Multivitamin Tab) 1 tab DAILY PO 07/14/17 09:00 08/13/17 08:59 07/25/17 08:53 1 TAB Niacin (Niaspan Extended Rel Tab) 500 mg DAILY PO 07/14/17 09:00 08/13/17 08:59 07/25/17 10:28 500 MG Simvastatin (Zocor Tab) 20 mg QPM PO 07/13/17 21:00 08/12/17 20:59 07/24/17 21:19 20 MG Insulin Aspart (novoLOG ASPART) SLIDING SCALE G... ACHS SC 07/13/17 16:15 08/12/17 17:14 07/25/17 13:14 12 UNITS Glucose (Glucose 40% Gel) 15-30 GRAMS 15 GRAMS... UD PRN PO 07/13/17 11:00 08/12/17 10:59 Glucose (Glucose Chew Tab) 4-8 Tablets 4 Tabl... UD PRN PO 07/13/17 11:00 08/12/17 10:59 Dextrose (Dextrose 50% 50ML Syringe) 25-50ML OF 50% DW IV FOR... UD PRN IV 07/13/17 11:00 08/12/17 10:59 Glucagon (Glucagon Inj) 1 mg UD PRN SQ 07/13/17 11:00 08/12/17 10:59 Miscellaneous Information (Consult Glycemic Management Pharmacy) 1 ea UD N/A 07/13/17 17:19 08/12/17 17:18 Tamsulosin HCl (Flomax Cap) 0.8 mg QPM PO 07/13/17 21:00 08/12/17 20:59 07/24/17 21:19 0.8 MG Metoprolol Tartrate (Lopressor Tab) 25 mg Q6 PO 07/17/17 09:00 08/16/17 08:59 07/25/17 13:03 25 MG Digoxin (Lanoxin Tab) 0.125 mg DAILY@16 PO 07/18/17 16:00 08/17/17 15:59 07/25/17 15:48 0.125 MG Heparin Sodium (Porcine) (Heparin 10 Unit/ ml 5 ml Flush) 5 ml PRN PRN FLUSH 07/17/17 14:45 08/16/17 14:44 07/25/17 14:16 5 ML Finasteride (Proscar Tab) 5 mg QAM PO 07/18/17 09:00 08/17/17 08:59 07/25/17 08:53 5 MG Ertapenem 1000 mg/ Sodium Chloride 60 ml @ 120 mls/hr Q24H IV 07/18/17 12:00 08/29/17 11:59 07/25/17 13:10 120 MLS/HR Vancomycin HCl (Vancomycin Oral Soln) 125 mg Q6 PO 07/20/17 12:30 07/30/17 12:29 07/25/17 12:57 125 MG Raspberry (Raspberry Syrup 5ml Cup) 5 ml Q6 PO 07/20/17 12:30 08/03/17 12:29 07/25/17 12:57 5 ML Loperamide HCl (Imodium Cap) 2 mg UD PRN PO 07/20/17 15:00 08/19/17 14:59 Non-Formulary Medication (Non-Formulary Patient'S Own Med) 1 ea DAILY@1000,2100 PO 07/21/17 21:00 08/20/17 20:59 07/25/17 09:00 1 EA Fluconazole (Diflucan Tab) 200 mg QAM PO 07/23/17 09:00 08/04/17 08:59 07/25/17 08:52 200 MG Warfarin Sodium (Coumadin Tab) 2 mg DAILY@16 PO 07/23/17 16:00 08/22/17 15:59 07/25/17 15:49 2 MG Insulin Glargine (Lantus Solostar Pen) 22 units BID SC 07/25/17 21:00 08/24/17 20:59 Sodium Chloride (Sodium Chloride Tab) 1 gm BID PO 07/25/17 21:00 08/20/17 08:59 Objective Vital Signs Date Time Temp Pulse Resp B/P (MAP) Pulse Ox O2 Delivery O2 Flow Rate FiO2 07/25/17 15:48 72 07/25/17 14:46 37.0 81 18 110/61 (77) 92 Room Air 07/25/17 13:02 101 124/69 (87) 07/25/17 08:10 Room Air 07/25/17 06:59 36.2 82 16 127/67 (87) 95 Room Air 07/25/17 05:42 81 100/57 (71) 07/25/17 00:34 93 121/70 (87) 07/25/17 00:30 Room Air 07/24/17 22:52 36.8 76 16 131/57 (81) 92 Room Air 07/24/17 18:53 122/64 (83) 07/24/17 18:51 101 106/64 (78) 07/24/17 16:42 92 Physical Exam Notes: GENERAL: Awake, alert, well-appearing, in no distress EYES: Normal conjunctiva. Sclera non-icteric. RESPIRATORY: Clear to auscultation. No adventitious sounds. CARDIAC: Irregularly irregular. Extremities warm and well perfused. Pulses equal. ABDOMEN: Soft, non-distended. No tenderness to palpation. No rebound or guarding. No masses. EXTREMITIES: Calves are equal size bilaterally and non-tender. Trace edema. No discoloration. Left forearm: Red raised round lesion ~5mm with pinpoint scab, non tender. Rt hip wound vac in place, clean. SKIN: No rash or jaundice noted. Laboratory Results 07/25/17 05:27 Red Blood Count 2.81, Mean Corpuscular Volume 89.7, Mean Corpuscular Hemoglobin 29.2, Mean Corpuscular Hemoglobin Concent 32.5, Mean Platelet Volume 8.2, Neutrophils (%) (Auto) 88.6, Lymphocytes (%) (Auto) 3.5, Monocytes (%) (Auto) 5.9, Eosinophils (%) (Auto) 0.5, Basophils (%) (Auto) 0.1, Neutrophils # (Auto) 22.54, Lymphocytes # (Auto) 0.88, Monocytes # (Auto) 1.51, Eosinophils # (Auto) 0.12, Basophils # (Auto) 0.03 07/25/17 05:27 Test 07/25/17 05:27 07/25/17 12:17 White Blood Count 25.43 K/uL (4.8-10.8) Red Blood Count 2.81 M/uL (4.7-6.1) Hemoglobin 8.2 g/dL (14.0-18.0) Hematocrit 25.2 % (42-52) Mean Corpuscular Volume 89.7 fL (80-100) Mean Corpuscular Hemoglobin 29.2 pg (25-34) Mean Corpuscular Hemoglobin Concent 32.5 g/dl (32-36) Platelet Count 678 K/uL (130-400) Mean Platelet Volume 8.2 fL (7.4-10.4) Neutrophils (%) (Auto) 88.6 % Lymphocytes (%) (Auto) 3.5 % Monocytes (%) (Auto) 5.9 % Eosinophils (%) (Auto) 0.5 % Basophils (%) (Auto) 0.1 % Neutrophils # (Auto) 22.54 K/uL (1.4-6.5) Lymphocytes # (Auto) 0.88 K/uL (1.2-3.4) Monocytes # (Auto) 1.51 K/uL (0.11-0.59) Eosinophils # (Auto) 0.12 K/uL (0-0.5) Basophils # (Auto) 0.03 K/uL (0-0.2) RDW Standard Deviation 50.6 fL (36.4-46.3) RDW Coefficient of Variation 15.8 % (11.5-14.5) Immature Granulocyte % (Auto) 1.4 % Immature Granulocyte # (Auto) 0.35 K/uL (0.00-0.02) Polychromasia 1+ Anisocytosis PRESENT Prothrombin Time 29.4 SECONDS (9.0-12.0) Prothromb Time International Ratio 2.9 (0.9-1.1) Anion Gap 10.0 mmol/L (3-11) Est Creatinine Clear Calc Drug Dose 65.4 ml/min Estimated GFR () 89.5 Estimated GFR (Non- 77.3 BUN/Creatinine Ratio 26.7 (10-20) Calcium Level 9.7 mg/dl (8.5-10.1) Phosphorus Level 3.7 mg/dl (2.5-4.9) Magnesium Level 1.9 mg/dl (1.8-2.4) Albumin 1.6 gm/dl (3.4-5.0) Bedside Glucose 153 mg/dl (70-99) Assessment and Plan 82 year old male admitted on [id number] for infected right total hip arthroplasty, now POD #12. PMH: Afib, osteoarthritis, HTN, HLD, macular degeneration, enlarged prostate, DM2, gout. Right hip infection: stable - S/p surgery, rec'd continue wound vac and PT/OT to mobilize, will need placement. Last fever 04Mar. Leukocytosis as noted below. Mar joint space Cx positive for Citrobacter koseri and Finegoldia magna. ID onboard. Stopped rocephin (3d given) and started ertapenem daily on 06Jul for planned four weeks since date of surgery. PICC placed 05Mar. - Will need 4 weeks of intravenous antibiotics from time of OR. will need weekly , cbc,cmp, esr while on therapy. Leukocytosis: count stable today - Progressive increase to max WBC 33 with blasts 0.31. Known infection in right hip as above, on ertapenem. Patient continues to say he feels well and without acute respiratory, urinary, abdominal, or other concerns. Cultures besides hip have been negative. C diff x 2 negative, but was started empirically on oral vancomycin on 08Jul (see "diarrhea" below). Since, WBC stable but elevated at 25. Last ESR at 83. ID onboard, recommended remain on vanc for 21 total days. - 07/23 noted abscess-like area on left forearm (prior IV site) which underwent I &D by ortho (also 3/11). Resultant 11Mar wound culture pending. - Will need weekly CBC, CMP, ESR while on therapy. Atrial fibrillation: - Briefly in RVR, but most recent rates in 80's-90's. Asymptomatic. Unknown duration of afib. Cardiology onboard. 02Mar TTE noted EF 60-65% with mild LVH , mild-mod AR, mild . Did not convert with amiodarone. Now on metoprolol 25 mg PO q6h and digoxin 0.125 mg daily (last level check okay on 10Jul). On heparin. Last INR 2.9, continue coumadin 2 mg daily. Urinary retention / Candidal infection: - Hx of enlarged prostate. On flomax, added proscar. On straight cath q6-8h PRN. 09Mar UCx positive for shane. 10Mar started fluconazole 200 daily x planned 14 days. Electrolytes: Nephrology onboard, see their recommendations. - Hyponatremia: Na 133, improving. 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 Stopped home HCTZ. On sodium tabs 1gm BID. Maintain free water intake <2000mL per day. Monitoring. - Hypokalemia: K 3.4. Repleting. Goal > 4. - Hypomagnesemia: Mag Repleting. 1.9. goal > 2. - Hypercalcemia: Ca 9.7. When corrected for albumin 1.6, Ca is 12.4. May partially be due to resorption of antibiotic beads s/p right hip surgery. Monitoring. Diarrhea: Improving. 04Mar and 08Jul C diff negative. On vancomycin PO as noted above. Imodium prn (but no doses given yet). Anemia: Hb 8.2. Monitoring. DM2: Hx of same. Glycemic consultation, on novolog and lantus. Holding home metformin. HTN: Hx of same, presently stable. On metoprolol as noted in "afib" above. HLD: Hx of same. On zocor. Gout: Hx of same. On allopurinol. Code status: Full code. Diet: DM2, fluid restrict 1500 mL, with boost supplementation. Encouraging protein intake. DVT prophy: On coumadin. Also aggrenox. PT/OT: 05Mar PT ongoing, recommends rehab. 03Mar OT note says,"Pt will require continued in patient therapies after discharge from [facility]." Case management working with Consuelo Guerrero. LIKELY DC 07/26. Continued [facility] stay due to: multiple IV medications needed Discharge planning: custodial facility Resident Tracking Resident Involvement: Resident Care Provided Care Provided: Adult Hospital Medicine Reviewed: Pt Seen/Exam by Me History was out of bed today felt the best so far would like to hold off on being discharged today hip pain controlled Constitutional: denies: fever Respiratory: negative: short of breath Cardiovascular: denies chest pain General Appearance: no apparent distress Respiratory: lungs clear, no respiratory distress Cardiovascular: irregularly irregular Gastrointestinal: soft Extremities: other (right hip drain +) Neurologic/Psychiatric: alert, oriented x 3 Skin Characteristics: warm/dry Assessment/Plan Resident Physician Supervision Note: I independently interviewed and examined the patient and verified the baltazar history and physical, reviewed labs and image studies, discussed the case with the resident Dr. Jimenez and agree with the findings and care plan. Anticipate d/c to [facility] in am
--- NOTE | 2017-07-25 09:48 | Nephrology Progress Note ---
Nephrology Progress Note Date of Service Jul 25, 2017. Chief Complaint Hyponatremia Subjective No events overnight. No complaints this morning. Appetite reported as good. No fevers or chills. Pain controlled. Denies diarrhea. Received 40 mEq KCl for hypokalemia this morning. Review of Systems A complete review of systems was performed. Pertinent positives are noted above. All other systems are negative. Vital Signs Last 8 Hrs Date Time Temp Pulse Resp B/P (MAP) Pulse Ox O2 Delivery O2 Flow Rate FiO2 07/25/17 06:59 36.2 82 16 127/67 (87) 95 Room Air 07/25/17 05:42 81 100/57 (71) Last Recorded Weight Weight (Kilograms): 84.000 Physical Exam General Appearance: no apparent distress, + thin, + pertinent finding (frail) Head: normocephalic, atraumatic Eyes: normal inspection, sclerae normal ENT: normal ENT inspection, pharynx normal, + pertinent finding (oral mucosa dry) Neck: supple, no JVD Respiratory/Chest: lungs clear, no respiratory distress, no accessory muscle use Cardiovascular: regular rate, rhythm, no gallop Back: no CVA tenderness Abdomen/GI: non tender, soft Extremities/Musculoskelatal: normal inspection, no pedal edema Neurologic/Psych: alert, normal mood/affect Family History No f/h of malignancy, hypertension runs in the family. Social History Smoking Status: Former smoker Marital Status: Occupation: retired Laboratory Results Past 24 Hours 07/25/17 05:27 Red Blood Count 2.81, Mean Corpuscular Volume 89.7, Mean Corpuscular Hemoglobin 29.2, Mean Corpuscular Hemoglobin Concent 32.5, Mean Platelet Volume 8.2, Neutrophils (%) (Auto) 88.6, Lymphocytes (%) (Auto) 3.5, Monocytes (%) (Auto) 5.9, Eosinophils (%) (Auto) 0.5, Basophils (%) (Auto) 0.1, Neutrophils # (Auto) 22.54, Lymphocytes # (Auto) 0.88, Monocytes # (Auto) 1.51, Eosinophils # (Auto) 0.12, Basophils # (Auto) 0.03 07/25/17 05:27 Test 07/24/17 12:14 07/24/17 16:58 07/24/17 20:33 07/25/17 05:27 Bedside Glucose 171 mg/dl (70-99) 127 mg/dl (70-99) 145 mg/dl (70-99) White Blood Count 25.43 K/uL (4.8-10.8) Red Blood Count 2.81 M/uL (4.7-6.1) Hemoglobin 8.2 g/dL (14.0-18.0) Hematocrit 25.2 % (42-52) Mean Corpuscular Volume 89.7 fL (80-100) Mean Corpuscular Hemoglobin 29.2 pg (25-34) Mean Corpuscular Hemoglobin Concent 32.5 g/dl (32-36) Platelet Count 678 K/uL (130-400) Mean Platelet Volume 8.2 fL (7.4-10.4) Neutrophils (%) (Auto) 88.6 % Lymphocytes (%) (Auto) 3.5 % Monocytes (%) (Auto) 5.9 % Eosinophils (%) (Auto) 0.5 % Basophils (%) (Auto) 0.1 % Neutrophils # (Auto) 22.54 K/uL (1.4-6.5) Lymphocytes # (Auto) 0.88 K/uL (1.2-3.4) Monocytes # (Auto) 1.51 K/uL (0.11-0.59) Eosinophils # (Auto) 0.12 K/uL (0-0.5) Basophils # (Auto) 0.03 K/uL (0-0.2) RDW Standard Deviation 50.6 fL (36.4-46.3) RDW Coefficient of Variation 15.8 % (11.5-14.5) Immature Granulocyte % (Auto) 1.4 % Immature Granulocyte # (Auto) 0.35 K/uL (0.00-0.02) Polychromasia 1+ Anisocytosis PRESENT Prothrombin Time 29.4 SECONDS (9.0-12.0) Prothromb Time International Ratio 2.9 (0.9-1.1) Anion Gap 10.0 mmol/L (3-11) Est Creatinine Clear Calc Drug Dose 65.4 ml/min Estimated GFR () 89.5 Estimated GFR (Non- 77.3 BUN/Creatinine Ratio 26.7 (10-20) Calcium Level 9.7 mg/dl (8.5-10.1) Phosphorus Level 3.7 mg/dl (2.5-4.9) Magnesium Level 1.9 mg/dl (1.8-2.4) Albumin 1.6 gm/dl (3.4-5.0) Test 07/25/17 08:25 Bedside Glucose 125 mg/dl (70-99) Allergies Coded Allergies: No Known Allergies (Verified , 07/13/17) Medications Current Inpatient Medications Medications (Trade) Dose Ordered Sig/Oswaldo Route Start Time Stop Time Status Last Admin Dose Admin Oxycodone HCl (Roxicodone Immediate Rel Tab) 1 TABLET FOR PAIN RATING... Q4H PRN PO 07/13/17 10:30 07/27/17 10:29 07/24/17 09:52 10 MG Morphine Sulfate (MoRPHine SULFATE INJ) give 2mg for pain 3-6 g... Q1H PRN IV 07/13/17 10:30 07/27/17 10:29 Acetaminophen (Tylenol Tab) 650 mg Q6H PRN PO 07/14/17 14:00 08/13/17 13:59 07/19/17 10:07 650 MG Magnesium Hydroxide (Milk Of Magnesia Susp) 30 ml Q6H PRN PO 07/13/17 10:30 08/12/17 10:29 Bisacodyl (Dulcolax Supp) 10 mg DAILY PRN [place] 07/13/17 10:30 08/12/17 10:29 Sodium Biphosphate/ Sodium Phosphate (Fleet Enema) 132 ml DAILY PRN [place] 07/13/17 10:30 08/12/17 10:29 Docusate Sodium (coLACE CAP) 100 mg BID PO 07/13/17 21:00 08/12/17 20:59 07/25/17 08:52 100 MG Diphenhydramine HCl (Benadryl Inj) 25 mg Q8H PRN IV 07/13/17 10:30 08/12/17 10:29 Al Hydrox/Mg Hydrox/Simethicone (Maalox Max Susp) 15 ml Q4H PRN PO 07/13/17 10:30 08/12/17 10:29 Ondansetron HCl (Zofran Inj) 4 mg Q6H PRN IV 07/13/17 10:30 08/12/17 10:29 Metoclopramide HCl (Reglan Inj) 10 mg Q6H PRN IV 07/13/17 10:30 08/12/17 10:29 Ferrous Gluconate (Ferrous Gluconate Tab) 324 mg TIDM PO 07/13/17 16:45 08/12/17 17:44 07/25/17 08:51 324 MG Allopurinol (Zyloprim Tab) 300 mg QAM PO 07/14/17 09:00 08/13/17 08:59 07/25/17 08:54 300 MG Dipyridamole/ Aspirin (Aggrenox 200MG/ 25MG Cap) 1 cap BID PO 07/13/17 21:00 08/12/17 20:59 07/25/17 08:51 1 CAP Chlorpromazine HCl (Thorazine Tab) 25 mg TID PRN PO 07/13/17 10:30 08/12/17 10:29 07/16/17 07:43 25 MG Multivitamins (Multivitamin Tab) 1 tab DAILY PO 07/14/17 09:00 08/13/17 08:59 07/25/17 08:53 1 TAB Niacin (Niaspan Extended Rel Tab) 500 mg DAILY PO 07/14/17 09:00 08/13/17 08:59 07/24/17 08:57 500 MG Simvastatin (Zocor Tab) 20 mg QPM PO 07/13/17 21:00 08/12/17 20:59 07/24/17 21:19 20 MG Insulin Aspart (novoLOG ASPART) SLIDING SCALE G... ACHS SC 07/13/17 16:15 08/12/17 17:14 07/25/17 08:58 12 UNITS Glucose (Glucose 40% Gel) 15-30 GRAMS 15 GRAMS... UD PRN PO 07/13/17 11:00 08/12/17 10:59 Glucose (Glucose Chew Tab) 4-8 Tablets 4 Tabl... UD PRN PO 07/13/17 11:00 08/12/17 10:59 Dextrose (Dextrose 50% 50ML Syringe) 25-50ML OF 50% DW IV FOR... UD PRN IV 07/13/17 11:00 08/12/17 10:59 Glucagon (Glucagon Inj) 1 mg UD PRN SQ 07/13/17 11:00 08/12/17 10:59 Miscellaneous Information (Consult Glycemic Management Pharmacy) 1 ea UD N/A 07/13/17 17:19 08/12/17 17:18 Tamsulosin HCl (Flomax Cap) 0.8 mg QPM PO 07/13/17 21:00 08/12/17 20:59 07/24/17 21:19 0.8 MG Metoprolol Tartrate (Lopressor Tab) 25 mg Q6 PO 07/17/17 09:00 08/16/17 08:59 07/25/17 00:36 25 MG Digoxin (Lanoxin Tab) 0.125 mg DAILY@16 PO 07/18/17 16:00 08/17/17 15:59 07/24/17 16:42 0.125 MG Heparin Sodium (Porcine) (Heparin 10 Unit/ ml 5 ml Flush) 5 ml PRN PRN FLUSH 07/17/17 14:45 08/16/17 14:44 07/25/17 05:24 5 ML Finasteride (Proscar Tab) 5 mg QAM PO 07/18/17 09:00 08/17/17 08:59 07/25/17 08:53 5 MG Ertapenem 1000 mg/ Sodium Chloride 60 ml @ 120 mls/hr Q24H IV 07/18/17 12:00 08/29/17 11:59 07/24/17 12:24 120 MLS/HR Vancomycin HCl (Vancomycin Oral Soln) 125 mg Q6 PO 07/20/17 12:30 07/30/17 12:29 07/25/17 05:44 125 MG Raspberry (Raspberry Syrup 5ml Cup) 5 ml Q6 PO 07/20/17 12:30 08/03/17 12:29 07/25/17 05:44 5 ML Loperamide HCl (Imodium Cap) 2 mg UD PRN PO 07/20/17 15:00 08/19/17 14:59 Sodium Chloride (Sodium Chloride Tab) 2 gm BID PO 07/21/17 09:00 08/20/17 08:59 07/25/17 08:54 2 GM Non-Formulary Medication (Non-Formulary Patient'S Own Med) 1 ea DAILY@1000,2100 PO 07/21/17 21:00 08/20/17 20:59 07/25/17 09:00 1 EA Fluconazole (Diflucan Tab) 200 mg QAM PO 07/23/17 09:00 08/04/17 08:59 07/25/17 08:52 200 MG Warfarin Sodium (Coumadin Tab) 2 mg DAILY@16 PO 07/23/17 16:00 08/22/17 15:59 07/24/17 16:43 2 MG Insulin Glargine (Lantus Solostar Pen) 22 units BID SC 07/25/17 21:00 08/24/17 20:59 Insulin Glargine (Lantus Solostar Pen) 20 units TODAY@0900 SC 07/25/17 09:00 07/25/17 12:00 07/25/17 08:59 20 UNITS Impression (1) Hyponatremia (2) Hypertension (3) Leukocytosis (4) Infected orthopedic implant Mr. Dinh is an 82 year-old male with acute on chronic hyponatremia. He was admitted with an infected right hip prosthesis. He is status post poly-exchange , antibiotic bead placement and wound VAC placement. The patient is being treated with ertapenem. Hospital course complicated by diarrhea which appears to be improving. Blood pressure and volume status are appropriate. HCTZ has been stopped. Serum sodium is improving with oral NaCl and free water restriction. 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 Recommendations -- Decrease NaCl to 1 gram twice daily -- Document I/O's -- Repeat metabolic profile tomorrow AM with serum magnesium -- Avoid thiazide diuretics -- Encourage nutrition, adequate protein intake -- Maintain free water intake < 2000 mL per day
[2017-07-25] MEDS: NIASPAN 500 MG TABCR PO SCH (10:28)
[2017-07-25] MEDS ORDERED: NURSING VERBAL MED ORDER ONE (10:30)
[2017-07-25] MEDS: OXYCODONE HCL IR 5 MG TAB (IMMEDIATE RELEASE) PO PRN ×2 (10:34→19:58)
--- NOTE | 2017-07-25 12:50 | Progress Note ---
Progress Note Date of Service Jul 25, 2017. Progress Note Orthopedic progress note. Patient sitting up enjoying lunch. Is very alert and oriented. Is very quickwitted. Vital signs are stable he is afebrile. Blood work remained stable. Assessment continue with the PT ambulatory status is full weightbearing. He states it went better today he walked out in the [place] little bit. He can be transferred when medically cleared. From an orthopedic perspective he is okay to go. Of note is that the culture from his left arm is growing some gram-positive cocci. At this point time we will continue to observe that. It is clinically getting better. Antibiotic adjustment per ID. Dictated not read
[2017-07-25] MEDS: ERTAPENEM IV 1,000 MG in SODIUM CHLORIDE 0.9% 50ML 50 ML IV SCH (13:10)
--- NOTE | 2017-07-25 14:17 | Discharge Instructions ---
Discharge Instructions Date of Service Jul 25, 2017. Admission Reason for Admission: S/P Right Total Hip Infection Discharge Discharge Diagnosis / Problem: right hip arthroplasty infection Discharge Goals Goal(s): Prevent Disease Progression Activity Recommendations Activity Level: Assistance Required Therapies: Physical Therapy, Weight Bearing Status (full), Occupational Therapy Lifting Limitations: gradually increase as tolerated Exercise/Sports Limitations: gradually increase as tolerated Shower/Bathe: no limitations . Additional Information Patient informed of condition: Yes Advance Directives: No DNR: Yes Level of Care: Skilled Communicable Disease: No Prognosis: Improving Buenrostro Catheter: No Instructions / Follow-Up Instructions / Follow-Up Patient admitted for infected infected right total hip arthroplasty, now POD #13 . Requires 15 additional days of IV antibiotics. On Ertapenem PICC line placed Jul 17 Will need weekly CBC, CMP, ESR while on Abx- Afib: Metoprolol 50 mg PO BID, Digoxin 0.125 mg, Coumadin 2 mg - INR on 07/26- 2.9. Recheck INR in 2 days Cee in Urine- Continue Fluconazole x 10 days Flomax + Proscar Patient has been requiring intermittent straight cath x 2 days- Okay to do while at [facility]. Empiric coverage for diarrhea (improving, C.Diff negative)- Continue 14 days of Vanc Please monitor Electrolytes periodically Dietary concerns- Encourage higher protein foods. Fluid restriction < 2000 ml Current Hospital Diet Patient's current hospital diet: Diabetes Type 2 Diet Discharge Diet Recommended Diet: AHA Diet (Heart Healthy), Diabetes Type 2 Diet Fluid Restriction: 2000 ml (8 cups) Procedures Procedures Performed: Right Hip Incision and Drainage Poly and Femoral Head Exchange and Application of Antibiotic Beads Pending Studies Studies pending at discharge: no Physician Orders On Transfer Additional Orders: Please order weekly: cbc, cmp, esr while on PICC antibiotic therapy. Laboratory Results Hemoglobin A1c Test 07/12/17 12:39 Range/Units Estimated Average Glucose 197 mg/dl Hemoglobin A1c 8.5 H 4.5-5.6 % Medical Emergencies . Who to Call and When: Medical Emergencies: If at any time you feel your situation is an emergency, please call 911 immediately. . Non-Emergent Contact Non-Emergency issues call your: Primary Care Provider, Surgeon Call Non-Emergent contact if: you have a fever, your pain is worsening, wound has increased drainage, wound has increased redness, wound has increased pain . . "Provider Documentation" section prepared by Caroline Jimenez. . Core Measure Problem Core Measures: None
[2017-07-25] MEDS: DIGOXIN 0.125 MG TAB PO SCH (15:48)
[2017-07-25] MEDS: WARFARIN SOD 2 MG TAB PO SCH (15:49)
[2017-07-25] MEDS: TAMSULOSIN HCL 0.4 MG CAP PO SCH (22:01)
[2017-07-25] MEDS: SIMVASTATIN 20 MG TAB PO SCH (22:02)
[2017-07-25] MEDS: INSULIN GLARGINE SOLOSTAR 100 UNITS/ML 3 ML PEN SC SCH (22:13)
[2017-07-26 00:54] VITALS: BP 123/68; PULSE 89
[2017-07-26] MEDS: METOPROLOL TARTRATE 25 MG TAB PO SCH ×3 (00:55→12:08)
[2017-07-26] MEDS: RASPBERRY SYRUP 5 ML UDP PO SCH ×3 (00:55→12:06)
[2017-07-26] MEDS: VANCOMYCIN HCL 125 MG/2.5ML SOLN PO SCH ×3 (00:56→12:07)
[2017-07-26 05:36] LABS: HEMOGLOBIN 8.2 g/dL (14.0-18.0); MEAN CELL VOLUME 89.3 fL (80-100); MEAN CORPUSCULAR HEMOGLOBIN 29.3 pg (25-34); MEAN CORPUSCULAR HGB CONC 32.8 g/dl (32-36); MEAN PLATELET VOLUME 7.9 fL (7.4-10.4); PLATELET COUNT 621 K/uL (130-400); RED CELL DISTRIBUTION WIDTH CV 15.9 % (11.5-14.5); WHITE BLOOD COUNT 20.69 K/uL (4.8-10.8)
[2017-07-26 05:47] VITALS: BP 110/63; PULSE 95
[2017-07-26 06:04] LABS: ALBUMIN 1.6 gm/dl (3.4-5.0); CALCIUM 9.3 mg/dl (8.5-10.1); CREATININE 0.95 mg/dl (0.60-1.40); PHOSPHORUS 3.5 mg/dl (2.5-4.9); POTASSIUM 3.5 mmol/L (3.5-5.1)
[2017-07-26 06:11] LABS: BASO % 0.1 %; BASO ABS # 0.03 K/uL (0-0.2); IG# 0.29 K/uL (0.00-0.02); LYMPH % 4.7 %; LYMPH ABS # 0.98 K/uL (1.2-3.4); MONO % 6.3 %; MONO ABS # 1.31 K/uL (0.11-0.59); NEUT % 86.5 %; NEUT ABS # 17.88 K/uL (1.4-6.5)
[2017-07-26 07:30] VITALS: BP 116/56; PULSE 73; TEMP 36.8; O2SAT 90
[2017-07-26 07:39] VITALS: O2SAT 90
[2017-07-26] MEDS ORDERED: MAGNESIUM SULFATE 1GM / D5W 1 GM in PREMIXED IN D5W 100 ML IV ONE (08:00)
[2017-07-26] MEDS: FERROUS GLUCONATE 324 MG TAB PO SCH ×2 (08:41→12:21)
[2017-07-26] MEDS: DOCUSATE SODIUM 100 MG CAP PO SCH (08:43)
[2017-07-26] MEDS: DIPYRIDAMOLE/ASPIRIN CAP PO SCH (08:43)
[2017-07-26] MEDS: FLUCONAZOLE 100 MG TAB PO SCH (08:45)
[2017-07-26] MEDS: NIASPAN 500 MG TABCR PO SCH (08:47)
[2017-07-26] MEDS: FINASTERIDE 5 MG TAB PO SCH (08:48)
[2017-07-26] MEDS: SODIUM CHLORIDE 1 GM TAB PO SCH (08:52)
[2017-07-26] MEDS: ALLOPURINOL 300 MG TAB PO SCH (08:53)
[2017-07-26] MEDS: INSULIN ASPART 100 UNITS/ML 3 ML PEN SC SCH ×2 (09:46→13:17)
[2017-07-26] MEDS: INSULIN GLARGINE SOLOSTAR 100 UNITS/ML 3 ML PEN SC SCH (09:48)
[2017-07-26] MEDS: PROTEIN SHAKE PO SCH (10:30)
[2017-07-26] MEDS: ERTAPENEM IV 1,000 MG in SODIUM CHLORIDE 0.9% 50ML 50 ML IV SCH (12:09)
[2017-07-26] MEDS ORDERED: FRRG PO (13:39)
[2017-07-26] MEDS ORDERED: LPR25 PO (13:39)
[2017-07-26] MEDS ORDERED: LNX125 PO (13:39)
[2017-07-26] MEDS ORDERED: VANC1SUS PO (13:39)
[2017-07-26] MEDS ORDERED: CMD2 PO (13:39)
[2017-07-26] MEDS ORDERED: FLM4 PO (13:39)
[2017-07-26] MEDS ORDERED: ERTA1INJ IV (13:39)
[2017-07-26] MEDS ORDERED: DFL100 PO (13:39)
[2017-07-26 13:52] VITALS: BP 116/56; PULSE 73; TEMP 36.8; O2SAT 90
--- NOTE | 2017-07-26 16:43 | ORTHOPEDICS PROGRESS NOTE ---
DATE: 07/26/2017 SUBJECTIVE: The patient is doing well, has no major issues with pain. He has been afebrile. His white count has decreased to 20,000. His pulse is in the 70s and 80s. His respiratory rate is excellent. His pulse ox is in the 90s. The culture on his arm is coag negative staph, likely staph epi from the cellulitis area from the IV infiltration. His wound VAC dressing is changed. He had a copious amount of serosanguineous fluid drainage with Stimulan bead degradation. This was all evacuated. There is no sign of any purulence. His wound looked clean after that. Wound VAC dressing reapplied. Will follow in 1 week in the office next Monday at 1:00 for dressing change and evaluation. At this point in time, hopefully this will cure this infection; however, still with some suspicion that this will require additional type of treatment. We will continue to follow carefully. Family and patient informed of this.
--- NOTE | 2017-07-26 16:51 | Nephrology Progress Note ---
Nephrology Progress Note Date of Service Jul 26, 2017. Chief Complaint Hyponatremia Subjective No acute events overnight. João was seen and evaluated in his hospital room this morning. He had no complaints. Plan of care was discussed with Dr. Fontenot. Outpatient follow up arranged with Dr. Ahdikari. Review of Systems A complete review of systems was performed. Pertinent positives are noted above. All other systems are negative. Vital Signs Last 8 Hrs Date Time Temp Pulse Resp B/P (MAP) Pulse Ox O2 Delivery O2 Flow Rate FiO2 07/26/17 13:52 36.8 73 20 90 Room Air I & O 24-Hour Column 07/27/17 07:59 Intake Total 1294 ml Balance 1294 ml Last Recorded Weight Weight (Kilograms): 84.000 Physical Exam General Appearance: no apparent distress, + thin Head: normocephalic, atraumatic Eyes: normal inspection, sclerae normal ENT: normal ENT inspection, pharynx normal Neck: supple, no JVD Respiratory/Chest: lungs clear, no respiratory distress, no accessory muscle use Cardiovascular: regular rate, rhythm, no gallop Abdomen/GI: non tender, soft Extremities/Musculoskelatal: normal inspection, no pedal edema Neurologic/Psych: alert, normal mood/affect Family History No f/h of malignancy, hypertension runs in the family. Social History Smoking Status: Former smoker Marital Status: Occupation: retired Laboratory Results Past 24 Hours 07/26/17 05:23 Red Blood Count 2.80, Mean Corpuscular Volume 89.3, Mean Corpuscular Hemoglobin 29.3, Mean Corpuscular Hemoglobin Concent 32.8, Mean Platelet Volume 7.9, Neutrophils (%) (Auto) 86.5, Lymphocytes (%) (Auto) 4.7, Monocytes (%) (Auto) 6.3, Eosinophils (%) (Auto) 1.0, Basophils (%) (Auto) 0.1, Neutrophils # (Auto) 17.88, Lymphocytes # (Auto) 0.98, Monocytes # (Auto) 1.31, Eosinophils # (Auto) 0.20, Basophils # (Auto) 0.03 07/26/17 05:23 Test 07/25/17 17:05 07/25/17 22:11 07/26/17 05:23 07/26/17 08:10 Bedside Glucose 141 mg/dl (70-99) 99 mg/dl (70-99) 101 mg/dl (70-99) White Blood Count 20.69 K/uL (4.8-10.8) Red Blood Count 2.80 M/uL (4.7-6.1) Hemoglobin 8.2 g/dL (14.0-18.0) Hematocrit 25.0 % (42-52) Mean Corpuscular Volume 89.3 fL (80-100) Mean Corpuscular Hemoglobin 29.3 pg (25-34) Mean Corpuscular Hemoglobin Concent 32.8 g/dl (32-36) Platelet Count 621 K/uL (130-400) Mean Platelet Volume 7.9 fL (7.4-10.4) Neutrophils (%) (Auto) 86.5 % Lymphocytes (%) (Auto) 4.7 % Monocytes (%) (Auto) 6.3 % Eosinophils (%) (Auto) 1.0 % Basophils (%) (Auto) 0.1 % Neutrophils # (Auto) 17.88 K/uL (1.4-6.5) Lymphocytes # (Auto) 0.98 K/uL (1.2-3.4) Monocytes # (Auto) 1.31 K/uL (0.11-0.59) Eosinophils # (Auto) 0.20 K/uL (0-0.5) Basophils # (Auto) 0.03 K/uL (0-0.2) RDW Standard Deviation 51.0 fL (36.4-46.3) RDW Coefficient of Variation 15.9 % (11.5-14.5) Immature Granulocyte % (Auto) 1.4 % Immature Granulocyte # (Auto) 0.29 K/uL (0.00-0.02) Polychromasia 1+ Anion Gap 9.0 mmol/L (3-11) Est Creatinine Clear Calc Drug Dose 64.0 ml/min Estimated GFR () 87.3 Estimated GFR (Non- 75.3 BUN/Creatinine Ratio 24.1 (10-20) Calcium Level 9.3 mg/dl (8.5-10.1) Phosphorus Level 3.5 mg/dl (2.5-4.9) Albumin 1.6 gm/dl (3.4-5.0) Test 07/26/17 12:09 Bedside Glucose 133 mg/dl (70-99) Allergies Coded Allergies: No Known Allergies (Verified , 07/13/17) Impression (1) Hyponatremia (2) Hypertension (3) Leukocytosis (4) Infected orthopedic implant Mr. Dinh is an 82 year-old male with acute on chronic hyponatremia. He was admitted with an infected right hip prosthesis. He is status post poly-exchange , antibiotic bead placement and wound VAC placement. The patient is being treated with ertapenem. Hospital course complicated by diarrhea which resolved. Blood pressure and volume status are appropriate. HCTZ has been stopped. Serum sodium is improving with oral NaCl and free water restriction. 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 Recommendations -- NaCl to 1 gram daily -- Repeat metabolic profile tomorrow AM with serum magnesium within 1 week of discharge -- Follow up with Dr. Adhikari in the nephrology clinic in 1-2 weeks (I have requested) -- Avoid thiazide diuretics -- Encourage nutrition, adequate protein intake -- Maintain free water intake < 2000 mL per day
--- NOTE | 2017-07-26 17:35 | Discharge Summary ---
Discharge Summary Date of Service Jul 26, 2017. Discharge Summary Admission Date: Jul 13, 2017 at 07:30 Discharge Date: Jul 26, 2017 Discharge Disposition: Home Principal Diagnosis: Infected right hip arthroplasty Problems/Secondary Diagnoses: AFIB with RVR Candiduria Leucocytosis Diarrhea Hyponatremia/siadh Hypokalemia Hypomagnesemia Urinary retention Hypercalcemia Anemia Diabetes Mellitus 2 HTN HLD Gout Immunizations: Have You Had Influenza Vaccine: Yes History of Tetanus Vaccine?: Yes History of Pneumococcal: Yes Pneumococcal Date: Mar 12, 2012 History of Hepatitis B Vaccine: Unknown Procedures: PELVIS 1 OR 2 VIEW ROUTINE HISTORY: 82 years-old Male s/p Right hip head/liner exchange status post placement of right hip antibiotic beads COMPARISON: Right hip and pelvis radiographs 07/12/2017 TECHNIQUE: Single AP view of the pelvis FINDINGS: Bilateral hip arthroplasties redemonstrated with satisfactory alignment. No acute fracture or subluxation identified. The pelvic ring appears intact. Bilateral periarticular ossifications are unchanged. Peripheral vascular disease. Interval placement of antibiotic beats about the right hip with soft tissue swelling and deep tissue air noted about the right hip. IMPRESSION: 1. Status post placement of antibiotic beads about the right hip. 2. Bilateral hip arthroplasties in satisfactory alignment. Echo Conclusions * There is mild concentric left ventricular hypertrophy. * Left ventricular systolic function is low normal. * The left atrium is mildly dilated. * Mild to moderate aortic regurgitation. * Mild valvular aortic stenosis. * * VENOUS DOPPLER LWR EXT BILA B/L LE Doppler: IMPRESSION: No evidence of deep venous thrombosis. CHEST 2 VIEWS ROUTINE CLINICAL HISTORY: crackles COMPARISON STUDY: 07/17/2017 FINDINGS: The right-sided PICC catheter remains unchanged in position. The tip projects over the superior vena cava. The cardiac and mediastinal contours remain stable. The right lung is essentially clear. Linear opacities are again visualized in the left lower lung zone. There is blunting of the left lateral costophrenic angle.[ IMPRESSION: 1. No acute findings 2. Stable linear opacities at the left lung base, likely representing subsegmental atelectasis or scar. Consultations: Cardiology Infectious disease Orthopedics Nephrology Medication Reconciliation New Medications: Ertapenem Sodium (Invanz) 1 Gm Inj 1 GM IV Q24H for 15 Days, VIAL Digoxin (Digoxin) 0.125 Mg Tab 0.125 MG PO DAILY@16 for 30 Days, TAB Ferrous Gluconate (Ferrous Gluconate) 324 Mg Tab 324 MG PO TIDM for 30 Days, TAB Fluconazole (Fluconazole) 100 Mg Tab 200 MG PO QAM for 10 Days, #20 TAB Metoprolol Tartrate (Lopressor) 25 Mg Tab 50 MG PO BID for 30 Days, #120 TAB Tamsulosin HCl (Tamsulosin HCl) 0.4 Mg Cap 0.8 MG PO QPM for 30 Days, #30 CAP Vancomycin HCl (Vancomycin HCl + Syrspend) 50 Mg/Ml Ernestine 125 MG PO Q6 for 14 Days Warfarin Sod (Coumadin) 2 Mg Tab 2 MG PO DAILY@16 for 30 Days, TAB Continued Medications: Allopurinol (Zyloprim) 300 Mg Tab 300 MG PO QAM, TAB Aspirin-Dipyridamole 25MG/200MG (Aggrenox 200MG/25MG) 1 Cap Cap 1 CAP PO BID, CAP Chlorpromazine HCl (Chlorpromazine HCl) 25 Mg Tab 25 MG OR TID PRN for Documentation, #7 TABS take TID PRN hiccups Melatonin (Melatonin) 3 Mg Tab 3 MG PO HS Metformin Hcl (Glucophage) 1,000 Mg Tab 1000 MG PO BID, TAB Multiple Vitamin (Multivitamin) 1 Tab Tab 1 TAB PO DAILY, TAB Niacin (Niaspan Ext Rel) 500 Mg Tabcr 500 MG PO DAILY, TAB Jtajr-2-Wwog Ethyl Esters (Ramer-3) 1 Cap Cap 1 CAP PO BID, CAP Simvastatin (Zocor) 20 Mg Tab 20 MG PO QPM, TAB Discontinued Medications: Atenolol (Tenormin) 50 Mg Tab 50 MG PO HS, TAB Clindamycin Hcl (Cleocin) 150 Mg Cap 4 CAP PO UD PRN for prior to dental work, CAP Hydrochlorothiazide (Hctz) 25 Mg Tab 25 MG PO QAM, TAB Rifampin (Rifampin) 300 Mg Cap 300 MG PO DAILY Tamsulosin Hcl (Flomax) 0.4 Mg Cap 0.4 MG PO QPM, CAP Discharge Exam Review of Systems: Constitutional: No fever, No chills Eyes: No worsening of vision ENT: No hearing loss Respiratory: No cough, No sputum, No shortness of breath, No dyspnea on exertion Cardiovascular: No chest pain Abdomen: + diarrhea, No pain, No nausea Musculoskeletal: + joint pain, No calf pain Genitourinary - Male: + urinary retention, No hematuria, No dysuria Physical Exam: General Appearance: no apparent distress Eyes: PERRL, EOMI ENT: hearing grossly normal Neck: supple, no adenopathy Respiratory/Chest: no respiratory distress, no accessory muscle use Cardiovascular: + irregularly irregular Abdomen / GI: normal bowel sounds, non tender, soft Extremities: no calf tenderness Neurologic/Psychiatric: alert, normal mood/affect Hospital Course João is a pleasant 82-year-old male who was admitted for right hip irrigation and debridement, poly-liner and femoral head exchange with application of antibiotic beads on Jul 13. 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 He has had some complications starting in the fall of 2016. He began having drainage from the wound, subsequently had wound vac as well as multiple rounds of antibiotics. He continued to have some drainage and pain. Would culture obtained in the outpatient office grew pansensitive Citrobacter. Patient underwent the procedure was admitted to [facility] due to tachycardia. Postoperative antibiotics were transitioned from Rocephin to Ertapenem based on cultures which grew Citrobacter and Finegoldia. Infectious disease was consulted and they recommended a total of 4 weeks of IV Ertapenem from post op day. PICC was placed. Patient underwent physical therapy. While admitted, it was noted that he was in AFib with RVR (post operatively). Cardiology was consulted. He was initially placed on amiodarone drip and then transitioned to Metoprolol, without conversion to sinus rhythm. Digoxin was also added because he maintained in Afib. Heparin was transitioned to Coumadin. He remained in Afib but rates were controlled. It was also noted that he was becoming hyponatremic in addition to other metabolic derangements. Nephrology was consulted. His hyponatremia was attributed to SIADH as well as thiazide diuretics as well as diarrhea. This was discontinued and over the course of his stay; improved. Fluid restriction of < 2000 ml was maintained. All other metabolic derangements were managed as appropriate. Hypercalcemia was thought to be related to the antibiotic beads in the hip. The patient continued to have significant leucocytosis during his stay. He also developed Diarrhea. Though C.Diff was negative x 2, ID recommended empirically treating with Vancomycin for 21 days. This did improve his diarrhea. His leucocytosis also improved. He developed Candiduria and was treated with fluconazole. Note: IV infiltration on the left arm, resulted in fluctuance that required I& D. Wound culture eventually grew Coag negative staph; would be covered by Ertapenem. Healing nicely All other comorbidities and acute conditions were managed as appropriate. Highlights: Ertapenem for 2 more weeks Afib - Metoprolol, digoxin, coumadin SIADH- stop HCTZ Diarrhea- Vancomycin x 14 more days Candiduria- 10 more days of fluconazole Follow ups with Orthopedics, Infectious disease, nephrology Repeat CBC, BMP, ESR weekly OK to Straight cath intermittently. Total Time Spent: Greater than 30 minutes This includes examination of the patient, discharge planning, medication reconciliation, and communication with other providers. Discharge Instructions Please refer to the electronic Patient Visit Report (Discharge Instructions) for additional information. Follow-Up Orthopedics Infectious disease Additional Copies To Yolanda Feliz Reviewed: Pt Seen/Exam by Me History feeling well. diarrhea improved. Constitutional: denies: fever Respiratory: negative: short of breath Cardiovascular: denies chest pain General Appearance: no apparent distress Respiratory: lungs clear, no respiratory distress Cardiovascular: irregularly irregular Neurologic/Psychiatric: alert, oriented x 3 Skin Characteristics: warm/dry Assessment/Plan Resident Physician Supervision Note: I independently interviewed and examined the patient and verified the baltazar history and physical, reviewed labs and image studies, discussed the case with the resident Dr. Jimenez and agree with the findings and care plan. Time spent in discharge 40 min
== END 2017-07-26 14:49 | DRG 467 ==
LOC: C.ACU 06:23 → C.3E 07:30 → ENRESERV 11:59 → C.2E 16:01 → ENRESERV 07-19 10:32 → C.MSN 07-19 11:07
PROVIDERS: ADMIT Physical Medicine & Rehabilitation Sports Medicine; ATTEND Family Medicine
PROC: 0SP909Z Removal of Liner from Right Hip Joint, Open Approach (ICD-10-PCS; principal; 2017-07-13 08:15)
PROC: 0MBL0ZZ Excision of Right Hip Bursa and Ligament, Open Approach (ICD-10-PCS; principal; 2017-07-13 08:15)
PROC: 0SP90JZ Removal of Synthetic Substitute from Right Hip Joint, Open Approach (ICD-10-PCS; principal; 2017-07-13 08:15)
PROC: 0SR90JZ Replacement of Right Hip Joint with Synthetic Substitute, Open Approach (ICD-10-PCS; principal; 2017-07-13 08:15)
PROC: 3E0U029 Introduction of Other Anti-infective into Joints, Open Approach (ICD-10-PCS; principal; 2017-07-13 08:15)
PROC: 02HV33Z Insertion of Infusion Device into Superior Vena Cava, Percutaneous Approach (ICD-10-PCS; 2017-07-17)
PROC: 0H9EXZX Drainage of Left Lower Arm Skin, External Approach, Diagnostic (ICD-10-PCS; 2017-07-23)
DX: T84.51XA Infection and inflammatory reaction due to internal right hip prosthesis, initial encounter (principal); E22.2 Syndrome of inappropriate secretion of antidiuretic hormone; T80.29XA Infection following other infusion, transfusion and therapeutic injection, initial encounter; L02.414 Cutaneous abscess of left upper limb; B37.49 Other urogenital candidiasis; T50.2X5A Adverse effect of carbonic-anhydrase inhibitors, benzothiadiazides and other diuretics, initial encounter; B96.89 Other specified bacterial agents as the cause of diseases classified elsewhere; R94.5 Abnormal results of liver function studies; I48.0 Paroxysmal atrial fibrillation; E87.6 Hypokalemia; E83.42 Hypomagnesemia; R33.9 Retention of urine, unspecified; R19.7 Diarrhea, unspecified; D64.9 Anemia, unspecified; E83.52 Hypercalcemia; B95.7 Other staphylococcus as the cause of diseases classified elsewhere; D72.829 Elevated white blood cell count, unspecified; I10 Essential (primary) hypertension; E11.9 Type 2 diabetes mellitus without complications; M10.9 Gout, unspecified; E78.5 Hyperlipidemia, unspecified; H35.30 Unspecified macular degeneration; N40.0 Benign prostatic hyperplasia without lower urinary tract symptoms; Z51.81 Encounter for therapeutic drug level monitoring; Z79.899 Other long term (current) drug therapy; Z79.02 Long term (current) use of antithrombotics/antiplatelets; Z79.2 Long term (current) use of antibiotics; Z79.84 Long term (current) use of oral hypoglycemic drugs; Z96.643 Presence of artificial hip joint, bilateral; Z87.440 Personal history of urinary (tract) infections; Z87.891 Personal history of nicotine dependence; Z83.79 Family history of other diseases of the digestive system; Y83.1 Surgical operation with implant of artificial internal device as the cause of abnormal reaction of the patient, or of later complication, without mention of misadventure at the time of the procedure; Y84.8 Other medical procedures as the cause of abnormal reaction of the patient, or of later complication, without mention of misadventure at the time of the procedure

== ENCOUNTER → 2017-08-06 | Outpatient (CLI) | payer OTHER ==
[~2017-08-06] MED LIST changes: +AMOX500T PO; -ATEN50TA8 PO; -BUPIVACAINE 0.5 % 5 MG/1 ML PF 10ML VIAL ONE; -CEFAZOLIN 2000MG IV PUSH 15 ML IV SCH; -CLIN150C PO; +CMD2 PO; +DFL100 PO; +ERTA1INJ IV; +FINA5TAB PO; +FLM4 PO; +FRRG PO; -HYDR25TA4 PO; -LACTATED RINGER'S 1000ML 1,000 ML IV SCH; -LACTATED RINGER'S 1000ML IV SCH; +LCTX PO; +LNX125 PO; +LPR25 PO; +LPR50X PO; +OXYC-57 PO; +POTA10CA28 PO; -RFM300 PO; -TRANEXAMIC ACID INJ 1,000 MG x 1 Bag Preop IV SCH; +VANC1SUS PO
[2017-08-06 08:02] LABS: INR 1.4 (0.9-1.1)
--- NOTE | 2017-08-18 08:29 | CODING QUERY NO DIAGNOSIS ---
Valid Physician Order Needed A valid physician order must be submitted in order to properly bill for the service(s) provided, including date of service(s), valid diagnosis, and physician signature. If these tests are done on a recurring basis the original physician order must be submitted in order to code and bill for the service(s) provided. Please fax us the original, signed physician order so that we may expedite billing to [phone] DOS 08/06/2017 * PROTHROMBIN TIME Thank you Ajay [facility] Information Management
== END | disposition home or self-care (01) ==
LOC: MERGE 09:49 → C.LABBROIN 09:49
PROVIDERS: ATTEND Physical Medicine & Rehabilitation Sports Medicine
DX: Z01.89 Encounter for other specified special examinations (principal)

== ENCOUNTER → 2017-09-13 | Outpatient (CLI) | payer OTHER ==
[~2017-09-13] MED LIST changes: -AMOX500C3 PO; -DFL100 PO; -VANC1SUS PO
== END | disposition home or self-care (01) ==
LOC: C.RDSM 16:15
PROVIDERS: ATTEND Physical Medicine & Rehabilitation Sports Medicine
DX: Z96.643 Presence of artificial hip joint, bilateral (principal)

== ENCOUNTER → 2017-09-13 | Outpatient (CLI) | payer OTHER ==
[~2017-09-13] MED LIST changes: -ERTA1INJ IV; -OXYC-57 PO
== END | disposition home or self-care (01) ==
LOC: C.LABSPEC 17:31
PROVIDERS: ATTEND Physician Assistant
DX: Z48.89 Encounter for other specified surgical aftercare (principal); Z96.643 Presence of artificial hip joint, bilateral

== ENCOUNTER → 2017-09-14 | Outpatient (CLI) | payer OTHER ==
[2017-09-14 14:49] LABS: BASO % 0.4 %; BASO ABS # 0.05 K/uL (0-0.2); EOS % 1.8 %; EOS ABS # 0.23 K/uL (0-0.5); HEMATOCRIT 30.5 % (42-52); HEMOGLOBIN 9.2 g/dL (14.0-18.0); IG# 0.11 K/uL (0.00-0.02); LYMPH ABS # 1.05 K/uL (1.2-3.4); MEAN CORPUSCULAR HEMOGLOBIN 27.1 pg (25-34); MEAN CORPUSCULAR HGB CONC 30.2 g/dl (32-36); MEAN PLATELET VOLUME 9.1 fL (7.4-10.4); MONO % 7.9 %; MONO ABS # 1.04 K/uL (0.11-0.59); NEUT % 81.1 %; NEUT ABS # 10.66 K/uL (1.4-6.5); PLATELET COUNT 396 K/uL (130-400); RED CELL DISTRIBUTION WIDTH SD 52.2 fL (36.4-46.3); WHITE BLOOD COUNT 13.14 K/uL (4.8-10.8)
[2017-09-14 14:57] LABS: PTT PATIENT 29.3 SECONDS (21.0-31.0)
[2017-09-14 15:11] LABS: ALBUMIN 2.8 gm/dl (3.4-5.0); BLOOD UREA NITROGEN 13 mg/dl (7-18); CALCIUM 8.6 mg/dl (8.5-10.1); CARBON DIOXIDE 27 mmol/L (21-32); CREATININE 1.01 mg/dl (0.60-1.40); GLUCOSE 205 mg/dl (70-99); PHOSPHORUS 2.4 mg/dl (2.5-4.9); POTASSIUM 3.9 mmol/L (3.5-5.1); SODIUM 137 mmol/L (136-145)
== END | disposition home or self-care (01) ==
LOC: C.LAB1850 13:21
PROVIDERS: ATTEND Physician Assistant
DX: Z01.812 Encounter for preprocedural laboratory examination (principal); M00.9 Pyogenic arthritis, unspecified

== ENCOUNTER → 2017-12-21 | Outpatient (CLI) | payer OTHER ==
[~2017-12-21] MED LIST changes: +AMOX500C3 PO; -AMOX500T PO; +APIX1TAB3 PO; +ASPI81TA28 PO; +ATOR10TA82 PO; -CMD2 PO; +DOCU100C31 PO; +FERR325T18 PO; -FLM4 PO; -FRRG PO; -LPR25 PO; +NVLGI/PEN; -OMEG-112 PO; +OXYC-57 PO; -SIMV20TA5 PO; -THR25X OR
[2017-12-21 16:51] LABS: ALBUMIN 3.7 gm/dl (3.4-5.0); BLOOD UREA NITROGEN 25 mg/dl (7-18); CALCIUM 9.2 mg/dl (8.5-10.1); CARBON DIOXIDE 27 mmol/L (21-32); GLUCOSE 130 mg/dl (70-99); PHOSPHORUS 3.7 mg/dl (2.5-4.9); POTASSIUM 4.1 mmol/L (3.5-5.1); SODIUM 138 mmol/L (136-145)
== END | disposition home or self-care (01) ==
LOC: C.LAB1850 15:31
PROVIDERS: ATTEND Urology
DX: R33.8 Other retention of urine (principal); Z86.39 Personal history of other endocrine, nutritional and metabolic disease

== ENCOUNTER → 2017-12-27 | Outpatient (CLI) | payer OTHER ==
[~2017-12-27] MED LIST changes: -AMOX500C3 PO
== END | disposition home or self-care (01) ==
LOC: C.LABSPEC 17:35
PROVIDERS: ATTEND Urology
DX: R33.8 Other retention of urine (principal)

== ENCOUNTER 2020-06-17 14:59 | Inpatient (IN) ==
--- NOTE | 2020-06-17 15:27 | Emergency Department Note ---
Impression & Plan Hypoxia, Pleural effusion, CHF (congestive heart failure) ED Provider Note NAME: CAROLE COY AGE: 85 SEX: M : 1935 ARRIVES VIA: Walk-In INFORMANT: Patient ED PROVIDER(S): Jonathan Elder DO CHIEF COMPLAINT: weakness and tired HPI: Patient is an 85-year-old male who presents to the ER for weakness. This has been going on for the past 2 weeks. When he sits down he is extremely tired and has difficulty getting up. He notes shortness of breath which is worse at night when he is lying down. He denies any belly pain, nausea, vomiting or diarrhea. He has been taking his diuretic. Denies any fevers. No cough or runny nose. No other exacerbating or remitting factors. ROS: See above HPI for pertinent positives & negatives. A total of 10 systems reviewed and were otherwise negative. PAST MEDICAL HISTORY:See Below PAST SURGICAL HISTORY:See Below FAMILY HISTORY:See Below SOCIAL HISTORY:See Below HOME MEDICATIONS:See Below ALLERGIES:See Below VITALS:See Below PHYSICAL EXAMINATION: GENERAL: Sitting up in bed, alert, disheveled, on nasal cannula EYE EXAM: normal conjunctiva. OROPHARYNX: no exudate, no erythema, lips, buccal mucosa, and tongue normal and mucous membranes are moist NECK: supple, no nuchal rigidity, no adenopathy, non-tender LUNGS: Diminished bilaterally. Normal chest wall mechanics HEART: no murmurs, S1 normal and S2 normal ABDOMEN: abdomen soft, non-tender, normo-active bowel sounds, no masses, no rebound or guarding. UPPER EXTREMITIES: upper extremities are grossly normal. LOWER EXTREMITIES: No pitting edema. NEURO EXAM: Normal sensorium, cranial nerves II-XII grossly intact, normal speech, no gross weakness of arms, no gross weakness of legs. MEDICAL DECISION MAKING: Patient is an 85-year-old gentleman with a past medical history diabetes, venous stasis, hypertension hyponatremia on Eliquis who presents the ER for weakness. IV was established blood work was obtained. Labs showed mild leukocytosis of 11,000. No significant anemia. VBG with a slightly elevated CO2 of 56. BMP with creatinine 1.4. LFTs bilirubin was unremarkable. proBNP was elevated at 5500. Procalcitonin was normal. Covid was negative. Chest x-ray with pleural effusion and multifocal infiltrate. CT head was negative. He was given a dose of azithromycin and Rocephin to be on the safe side discussed with hospitalist admitted for further work-up. I do favor that this is likely CHF but cannot be certain at this time. He remained on nasal cannula throughout the stay in the ER due to the hypoxia. Triage Nursing notes reviewed. Limited review of prior medical records performed Vital Signs: reviewed and remarkable for hypoxia Differential diagnosis: Differential diagnoses includes but is not limited to pneumonia, bronchitis, COPD/Asthma exacerbation, pneumothorax, pulmonary embolism, congestive heart failure, acute coronary syndrome ER treatment provided: See below Diagnostics interpreted by me: ECG: A. fib rate 83 Left axis Right bundle branch block PVC Poor baseline T wave inversion in the inferior leads QTC 533 Cardiac Monitoring: An order was placed for continuous cardiac monitoring. The monitor shows a rate of 85 with sinus rhythm. Laboratory studies: As stated above and show below. Imaging studies: Portable AP upright 1 view of the chest shows pleural effusion with multifocal infiltrate CT of the head was no acute pathology Consultation(s): Discussed with hospitalist for further evaluation Procedures: none Critical Care: I have personally spent 33 minutes of critical care time in the direct management of this patient. This includes bedside care, interpretation of diagnostic studies, and testing, discussion with consultants, patient, and family members, and other required patient management activities. This 33 minutes is in excess of all separately billable procedures. Past Med/Surg History Medical History (Updated 06/17/20 @ 20:25 by Jonathan Elder DO) A-fib DX 2018 - NO CARDIOVERSION Anemia Chronic heart failure Diabetes Enlarged prostate Gout Hearing loss Hearing Aid History of skin cancer PRECANCEROUS LESIONS S/P EXCISION History of transesophageal echocardiography ([facility]ISA) Hyperlipidemia Hypertension Macular degeneration Mitral valve prolapse S/P [place] 09[place]12/[place] [place] Osteoarthritis RBBB Stage III pressure ulcer of sacral region Surgical History History of colonoscopy x2 History of hernia repair X3 (Umbilical x 1, Right Inguinal x 2) History of hip surgery HARDWARE FROM HIP REVISION REMOVED - RIGHT 09/18/17 - MAC #3, ETT #7.5, HiLo Oral, Grade 1 View History of revision of total replacement of right hip joint 05/30/17 - MAC #4, ETT #7.5, HiLo, Grade 1 View 07/13/17 - MAC #4, ETT #7.5, HiLo Oral, Grade 1 View History of total left hip arthroplasty History of total right hip arthroplasty 06/21/12 - MAC #3, ETT #8.0, Grade 1 View Hx of tonsillectomy S/P cardiac cath 09/2018= [facility] CLIP [employer]ACED Family History Mother Cancer Social History Smoking Status: Former smoker Tobacco Type: Cigarettes, Pipe and Cigars Cigarettes Per Day: 1/2 - 1 ppd x 42 years; Hx Alcohol Use: No Hx Substance Use: No Preferred Language: Malawian Communication Ability: Effective Training And Development Head Required: No Beliefs That Will Affect Care: None Current Living Situation: Spouse Feels Safe at Home: Yes Assistive Devices: Denture - Upper, Denture - Lower, Glasses, Hearing Aid - Bilateral and Walker Allergies Allergies Allergy/AdvReac Type Severity Reaction Status Date / Time No Known Drug Allergies Allergy Verified 06/17/20 18:05 Home Meds Home Medications Medication Instructions Recorded Confirmed allopurinol 300 mg tablet 300 mg PO QAM 01/10/18 06/17/20 melatonin 3 mg tablet 6 mg PO HS 01/10/18 06/17/20 multivitamin 1 tab PO QDL 01/10/18 06/17/20 tamsulosin 0.4 mg capsule 0.8 mg PO QDL cap 01/10/18 06/17/20 PreserVision AREDS 1 tab PO BIDM 07/04/18 06/17/20 furosemide 40 mg PO QAM 07/04/18 06/17/20 metformin 850 mg PO QAM 07/04/18 06/17/20 omega 2-bvp-gep-fish oil [Fish Oil] 1 cap PO TIDM 07/04/18 06/17/20 simvastatin 20 mg PO HS 07/04/18 06/17/20 Eliquis 5 mg PO BID 09/25/18 06/17/20 acetaminophen [Tylenol] 650 mg PO HS 09/25/18 06/17/20 lorazepam 0.5 mg PO HS 09/25/18 06/17/20 aspirin [Enteric Coated Aspirin] 81 mg PO [facility] 10/27/19 06/17/20 clindamycin HCl 600 mg PO ONCE PRN 10/27/19 06/17/20 docusate sodium [Stool Softener] 500 mg PO HS 10/27/19 06/17/20 metoprolol succinate 50 mg PO [facility] 10/27/19 06/17/20 triamcinolone acetonide 1 applic TOPICAL DIRECTED PRN 10/27/19 06/17/20 Previous Rx's Medication Instructions Recorded nitrofurantoin macrocrystal 50 mg 50 mg PO HS #90 cap 01/31/19 capsule finasteride 5 mg tablet 5 mg PO DAILY #90 tab 04/24/20 Results & Data (ED) Vital Signs Vital Signs - 24 hr 06/17/20 15:03 06/17/20 15:51 06/17/20 16:00 Temperature 36.3 C L Temperature Source Temporal Artery Scan Pulse Rate 89 79 81 Pulse Rate from SpO2 Sensor 79 85 Respiratory Rate 20 21 17 Respiratory Depth Normal Blood Pressure 129/80 129/83 Blood Pressure Mean 96 98 Pulse Oximetry 83 L 96 95 Oxygen Delivery Method Room Air Nasal Cannula Nasal Cannula Oxygen Flow Rate 5 5 Sepsis Recent Fever Within 48 Hours No Sepsis New/Unexplained Change in Mental Status N/A Sepsis Action Taken by Nursing No Action Required 06/17/20 16:10 06/17/20 16:35 06/17/20 16:40 Temperature Temperature Source Pulse Rate 84 81 74 Pulse Rate from SpO2 Sensor 80 83 73 Respiratory Rate 16 21 20 Respiratory Depth Blood Pressure Blood Pressure Mean Pulse Oximetry 96 90 92 Oxygen Delivery Method Nasal Cannula Nasal Cannula Nasal Cannula Oxygen Flow Rate 5 5 5 Sepsis Recent Fever Within 48 Hours Sepsis New/Unexplained Change in Mental Status Sepsis Action Taken by Nursing 06/17/20 16:50 06/17/20 17:00 06/17/20 17:10 Temperature Temperature Source Pulse Rate 80 60 76 Pulse Rate from SpO2 Sensor 82 64 72 Respiratory Rate 22 20 24 Respiratory Depth Blood Pressure Blood Pressure Mean Pulse Oximetry 92 94 92 Oxygen Delivery Method Nasal Cannula Nasal Cannula Nasal Cannula Oxygen Flow Rate 5 5 5 Sepsis Recent Fever Within 48 Hours Sepsis New/Unexplained Change in Mental Status Sepsis Action Taken by Nursing 06/17/20 17:20 06/17/20 17:30 06/17/20 17:32 Temperature Temperature Source Pulse Rate 69 70 76 Pulse Rate from SpO2 Sensor 71 71 78 Respiratory Rate 18 22 22 Respiratory Depth Blood Pressure 121/75 Blood Pressure Mean 90 Pulse Oximetry 92 90 Oxygen Delivery Method Nasal Cannula Nasal Cannula Nasal Cannula Oxygen Flow Rate 5 5 5 Sepsis Recent Fever Within 48 Hours Sepsis New/Unexplained Change in Mental Status Sepsis Action Taken by Nursing 06/17/20 17:40 06/17/20 17:50 06/17/20 18:00 Temperature Temperature Source Pulse Rate 74 77 68 Pulse Rate from SpO2 Sensor 74 81 73 Respiratory Rate 21 21 25 H Respiratory Depth Blood Pressure 142/87 H Blood Pressure Mean 105 Pulse Oximetry 92 93 90 Oxygen Delivery Method Nasal Cannula Nasal Cannula Nasal Cannula Oxygen Flow Rate 5 5 5 Sepsis Recent Fever Within 48 Hours Sepsis New/Unexplained Change in Mental Status Sepsis Action Taken by Nursing 06/17/20 18:10 Temperature Temperature Source Pulse Rate 82 Pulse Rate from SpO2 Sensor 77 Respiratory Rate 24 Respiratory Depth Blood Pressure Blood Pressure Mean Pulse Oximetry 93 Oxygen Delivery Method Nasal Cannula Oxygen Flow Rate 5 Sepsis Recent Fever Within 48 Hours Sepsis New/Unexplained Change in Mental Status Sepsis Action Taken by Nursing Laboratory Data Result diagrams: 06/17/20 15:32 06/17/20 15:32 Lab Results 06/17/20 06/17/20 06/17/20 Range/Units 15:32 15:32 15:32 WBC 11.10 H (4.8-10.8) K/uL RBC 4.39 L (4.7-6.1) M/uL Hgb 14.0 (14.0-18.0) g/dL Hct 42.8 (42-52) % MCV 97.5 (80-100) fL MCH 31.9 (25-34) pg MCHC 32.7 (32-36) g/dL RDW Std Deviation 57.8 H (36.4-46.3) fL RDW Coeff of Prieto 16.2 H (11.5-14.5) % Plt Count 258 (130-400) K/uL MPV 10.3 (7.4-10.4) fL Immature Gran % (Auto) 0.4 % Neut % (Auto) 83.9 % Lymph % (Auto) 9.7 % Walton % (Auto) 4.1 % Eos % (Auto) 1.6 % Baso % (Auto) 0.3 % Neut # (Auto) 9.32 H (1.4-6.5) K/uL Lymph # (Auto) 1.08 L (1.2-3.4) K/uL Walton # (Auto) 0.45 (0.11-0.59) K/uL Eos # (Auto) 0.18 (0-0.5) K/uL Baso # (Auto) 0.03 (0-0.2) K/uL Immature Gran # (Auto) 0.04 H (0.00-0.02) K/uL VBG pH 7.36 (7.36-7.41) VBG pCO2 56 H (38-50) mmHg VBG pO2 30 mmHg VBG HCO3 31 mmol/L VBG O2 Saturation < 60.0 % VBG Base Excess 3.9 mEq/L Barometric Pressure 724.3 mm/Hg Sodium 141 (136-145) mmol/L Potassium 3.8 (3.5-5.1) mmol/L Chloride 105 (98-107) mmol/L Carbon Dioxide 29 (21-32) mmol/L Anion Gap 7.0 (3-11) BUN 23 H (7-18) mg/dl Creatinine 1.44 H (0.6-1.4) mg/dl Est Cr Clr Drug Dosing 40.1 ml/min Est GFR ( Amer) 51.7 Est GFR (Non-Af Amer) 44.6 BUN/Creatinine Ratio 16.1 (10-20) Glucose 114 H (70-99) mg/dl Calcium 9.7 (8.5-10.1) mg/dl Total Bilirubin 0.8 (0.2-1) mg/dl AST 27 (15-37) U/L ALT 34 (12-78) U/L Alkaline Phosphatase 179 H (45-117) U/L Troponin I < 0.015 (0-0.045) ng/ml NT-Pro-B Natriuret Pep 5459 H (0-1800) pg/ml Total Protein 8.6 H (6.4-8.2) gm/dl Albumin 3.1 L (3.4-5.0) gm/dl Globulin 5.5 H (2.5-4.0) gm/dl Albumin/Globulin Ratio 0.6 L (0.9-2) Lipase 143 (73-393) U/L Procalcitonin (0-0.5) ng/ml COVID-19 Eval Order SARS-CoV-2 (PCR) (Negative) Influenza Type A (PCR) (Neg) Influenza Type B (PCR) (Neg) RSV (RT-PCR) (Neg) 06/17/20 06/17/20 06/17/20 Range/Units 15:32 15:51 15:51 WBC (4.8-10.8) K/uL RBC (4.7-6.1) M/uL Hgb (14.0-18.0) g/dL Hct (42-52) % MCV (80-100) fL MCH (25-34) pg MCHC (32-36) g/dL RDW Std Deviation (36.4-46.3) fL RDW Coeff of Prieto (11.5-14.5) % Plt Count (130-400) K/uL MPV (7.4-10.4) fL Immature Gran % (Auto) % Neut % (Auto) % Lymph % (Auto) % Walton % (Auto) % Eos % (Auto) % Baso % (Auto) % Neut # (Auto) (1.4-6.5) K/uL Lymph # (Auto) (1.2-3.4) K/uL Walton # (Auto) (0.11-0.59) K/uL Eos # (Auto) (0-0.5) K/uL Baso # (Auto) (0-0.2) K/uL Immature Gran # (Auto) (0.00-0.02) K/uL VBG pH (7.36-7.41) VBG pCO2 (38-50) mmHg VBG pO2 mmHg VBG HCO3 mmol/L VBG O2 Saturation % VBG Base Excess mEq/L Barometric Pressure mm/Hg Sodium (136-145) mmol/L Potassium (3.5-5.1) mmol/L Chloride (98-107) mmol/L Carbon Dioxide (21-32) mmol/L Anion Gap (3-11) BUN (7-18) mg/dl Creatinine (0.6-1.4) mg/dl Est Cr Clr Drug Dosing ml/min Est GFR ( Amer) Est GFR (Non-Af Amer) BUN/Creatinine Ratio (10-20) Glucose (70-99) mg/dl Calcium (8.5-10.1) mg/dl Total Bilirubin (0.2-1) mg/dl AST (15-37) U/L ALT (12-78) U/L Alkaline Phosphatase (45-117) U/L Troponin I (0-0.045) ng/ml NT-Pro-B Natriuret Pep Cancelled (0-1800) pg/ml Total Protein (6.4-8.2) gm/dl Albumin (3.4-5.0) gm/dl Globulin (2.5-4.0) gm/dl Albumin/Globulin Ratio (0.9-2) Lipase (73-393) U/L Procalcitonin (0-0.5) ng/ml COVID-19 Eval Order CovFluRsv at [facility] SARS-CoV-2 (PCR) NEGATIVE (Negative) Influenza Type A (PCR) Negative (Neg) Influenza Type B (PCR) Negative (Neg) RSV (RT-PCR) Negative (Neg) 06/17/20 Range/Units 17:33 WBC (4.8-10.8) K/uL RBC (4.7-6.1) M/uL Hgb (14.0-18.0) g/dL Hct (42-52) % MCV (80-100) fL MCH (25-34) pg MCHC (32-36) g/dL RDW Std Deviation (36.4-46.3) fL RDW Coeff of Prieto (11.5-14.5) % Plt Count (130-400) K/uL MPV (7.4-10.4) fL Immature Gran % (Auto) % Neut % (Auto) % Lymph % (Auto) % Walton % (Auto) % Eos % (Auto) % Baso % (Auto) % Neut # (Auto) (1.4-6.5) K/uL Lymph # (Auto) (1.2-3.4) K/uL Walton # (Auto) (0.11-0.59) K/uL Eos # (Auto) (0-0.5) K/uL Baso # (Auto) (0-0.2) K/uL Immature Gran # (Auto) (0.00-0.02) K/uL VBG pH (7.36-7.41) VBG pCO2 (38-50) mmHg VBG pO2 mmHg VBG HCO3 mmol/L VBG O2 Saturation % VBG Base Excess mEq/L Barometric Pressure mm/Hg Sodium (136-145) mmol/L Potassium (3.5-5.1) mmol/L Chloride (98-107) mmol/L Carbon Dioxide (21-32) mmol/L Anion Gap (3-11) BUN (7-18) mg/dl Creatinine (0.6-1.4) mg/dl Est Cr Clr Drug Dosing ml/min Est GFR ( Amer) Est GFR (Non-Af Amer) BUN/Creatinine Ratio (10-20) Glucose (70-99) mg/dl Calcium (8.5-10.1) mg/dl Total Bilirubin (0.2-1) mg/dl AST (15-37) U/L ALT (12-78) U/L Alkaline Phosphatase (45-117) U/L Troponin I (0-0.045) ng/ml NT-Pro-B Natriuret Pep (0-1800) pg/ml Total Protein (6.4-8.2) gm/dl Albumin (3.4-5.0) gm/dl Globulin (2.5-4.0) gm/dl Albumin/Globulin Ratio (0.9-2) Lipase (73-393) U/L Procalcitonin 0.07 (0-0.5) ng/ml COVID-19 Eval Order SARS-CoV-2 (PCR) (Negative) Influenza Type A (PCR) (Neg) Influenza Type B (PCR) (Neg) RSV (RT-PCR) (Neg) Administered Medications Discontinued Medications Azithromycin (Azithromycin 250 Mg Tab) 500 mg PO NOW ONE Stop: 06/17/20 17:01 Last Admin: 06/17/20 19:03 Dose: 500 mg Documented by: [id number] Ceftriaxone Sodium (Rocephin) 1,000 mg in 50 mls @ 100 mls/hr IV NOW STA Stop: 06/17/20 17:29 Last Infusion: 06/17/20 19:45 Dose: 0 mls/hr Documented by: [id number] Admin: 06/17/20 19:03 Dose: 100 mls/hr Documented by: [id number] Discharge Plan Visit Data Chief Complaint: Head Injury, Minor Stated Complaint: HIT HEAD, WEAKNESS ED Provider: Jonathan Elder Discharge Problem: Hypoxia, Pleural effusion, CHF (congestive heart failure) Patient Disposition: Admitted As Inpatient Discharge Instructions Interventions: ED Discharge Assessment Last Done: 06/17/20 18:57 Discharge Problem: CHF (congestive heart failure) Qualifiers: Heart failure type: unspecified Heart failure chronicity: unspecified Qualified Code(s): I50.9 - Heart failure, unspecified
[2020-06-17 15:48] LABS: Basophils # (auto) 0.03 K/uL (0-0.2); Basophils % (auto) 0.3 %; Eosinophils # (auto) 0.18 K/uL (0-0.5); Eosinophils % (auto) 1.6 %; Hematocrit (blood only) 42.8 % (42-52); Immature Granulocytes # (auto) 0.04 K/uL (0.00-0.02); Immature Granulocytes % (auto) 0.4 %; Lymphocytes # (auto) 1.08 K/uL (1.2-3.4); Lymphocytes % (auto) 9.7 %; Mean Corpuscular Hemoglobin 31.9 pg (25-34); Mean Corpuscular Hgb Conc 32.7 g/dL (32-36); Mean Corpuscular Volume 97.5 fL (80-100); Mean Platelet Volume 10.3 fL (7.4-10.4); Monocytes # (auto) 0.45 K/uL (0.11-0.59); Monocytes % (auto) 4.1 %; Neutrophils # (auto) 9.32 K/uL (1.4-6.5); Neutrophils % (auto) 83.9 %; Platelet Count 258 K/uL (130-400); RDW Coefficient of Variation 16.2 % (11.5-14.5); RDW Standard Deviation 57.8 fL (36.4-46.3); Red Blood Count 4.39 M/uL (4.7-6.1)
[2020-06-17 15:54] LABS: Base Excess VBG 3.9 mEq/L; HCO3 VBG 31 mmol/L; PCO2 VBG 56 mmHg (38-50); PO2 VBG 30 mmHg; pH VBG 7.36 (7.36-7.41)
[2020-06-17 16:00] LABS: Oxygen Saturation VBG < 60.0 %
[2020-06-17 16:08] LABS: Alanine Aminotransferase 34 U/L (12-78); Albumin Level 3.1 gm/dl (3.4-5.0); Aspartate Aminotransferase 27 U/L (15-37); BUN Creatinine Ratio 16.1 (10-20); Blood Urea Nitrogen 23 mg/dl (7-18); Calcium 9.7 mg/dl (8.5-10.1); Carbon Dioxide 29 mmol/L (21-32); Chloride 105 mmol/L (98-107); Creatinine Clr Calc Pharmacy 40.1 ml/min; Est GFR (African American) 51.7; Est GFR (Non-African American) 44.6; Glucose 114 mg/dl (70-99); Lipase 143 U/L (73-393); Potassium 3.8 mmol/L (3.5-5.1); Sodium 141 mmol/L (136-145)
[2020-06-17 16:13] LABS: Albumin Globulin Ratio 0.6 (0.9-2); Alkaline Phosphatase 179 U/L (45-117); Bilirubin,Total 0.8 mg/dl (0.2-1); Globulin 5.5 gm/dl (2.5-4.0); Total Protein 8.6 gm/dl (6.4-8.2); Troponin I < 0.015 ng/ml (0-0.045)
--- NOTE | 2020-06-17 16:22 | Electrocardiogram Report ---
Test Reason : Blood Pressure : / mmHG Vent. Rate : 083 BPM Atrial Rate : 060 BPM P-R Int : 000 ms QRS Dur : 194 ms QT Int : 454 ms P-R-T Axes : 000 254 -15 degrees QTc Int : 533 ms Atrial fibrillation with premature ventricular or aberrantly conducted complexes Right bundle branch block Abnormal ECG When compared with ECG of 01-OCT-2018 15:28, T wave inversion now evident in Inferior leads Confirmed by George Rogel ([id number]) on 06/17/2020 4:22:26 PM Referred By: Confirmed By:George Rogel
[2020-06-17 16:40] LABS: Influenza A virus by PCR Negative (Neg); Influenza B virus by PCR Negative (Neg); RSV by PCR Negative (Neg); SARS CoV2 RNA(COVID-19) InHosp NEGATIVE (Negative)
--- NOTE | 2020-06-17 16:56 | XRay Report ---
SINGLE VIEW CHEST CLINICAL HISTORY: Atypical chest pain. FINDINGS: 2 AP, portable, upright chest radiographs are compared to study dated 04/17/2018. The examin ation is degraded by portable technique and patient rotation. The heart is enlarged noting atheroscle rotic calcification of the thoracic aorta. There is pulmonary vasculature congestion. There is patchy airspace consolidation throughout both lungs, left greater than right. A small left pleural effusion is noted. No pneumothorax is seen. The skeletal structures are osteopenic. The bony thorax is grossl y intact. Advanced arthritic change is seen in the right shoulder. IMPRESSION: 1. Cardiomegaly with pulmonary vascular congestion. 2. Multifocal airspace consolidation is seen throughout both lungs, greatest in the left mid to lower lung. The appearance favors multifocal pneumonia. Clinical correlation will be required and radiogra [facility] follow-up to resolution is recommended. 3. Left pleural effusion. ACT 112: Negative or not required by law. Electronically signed by: Kevin Walker M.D. 06/17/2020 4:55 PM
[2020-06-17] MEDS ORDERED: cefTRIAXone SODIUM 1,000 MG/50 ML BAG IV STA (17:00)
[2020-06-17] MEDS ORDERED: AZITHROMYCIN 250 MG TAB PO ONE (17:00)
--- NOTE | 2020-06-17 17:38 | CT Scan Report ---
CT OF THE HEAD WITHOUT CONTRAST CLINICAL HISTORY: fall COMPARISON STUDY: No previous studies for comparison. CT DOSE: 614.27 mGy.cm TECHNIQUE: Helical axial images of the head were obtained without IV contrast. Automated exposure con trol was utilized for the study. A dose lowering technique was utilized adhering to the principles o f ALARA. FINDINGS: No acute intracranial hemorrhage, midline shift or mass effect is present. Ventricular syst em is unremarkable. Basal cisterns are patent. There are no extra-axial collections. Exam is mildly c ompromised due to difficulty positioning. No calvarial fracture is identified. There is moderate ethm oid sinus mucosal thickening. A suspected small amount of venous gas within the right aspect of the c avernous sinus and right infratemporal fossa. IMPRESSION: 1. No acute intracranial findings. 2. No calvarial fracture. 3. Moderate ethmoid sinus mucosal thickening. ACT 112: Negative or not required by law. Electronically signed by: Arun Robert M.D. 06/17/2020 5:37 PM
--- NOTE | 2020-06-17 17:58 | History & Physical Report ---
Date of Service June 17, 2020 Assessment & Plan (1) Acute respiratory failure with hypoxia: Secondary to pneumonia and pulmonary edema Aim O2 sats > 90%. (2) Community acquired pneumonia: Continue ceftriaxone 2 g IV daily Switch azithromycin to doxycycline due to QTC prolongation (this would also cover possible ethmoid sinusitis noted on CT although patient has not noticed any symptoms regarding this) (3) Acute on chronic heart failure with preserved ejection fraction: Preserved ejection fraction on echocardiogram in 2018 -patient reports having echocardiogram in clinic more recently than this although not available on admission. Given asymmetrical findings on chest x-ray, stable weight I suspect the majority of his hypoxia is due to community-acquired pneumonia. However JVD elevated, fluid in horizontal fissure and pulmonary vascular congestion noted on chest x-ray suggest he has a degree hypervolemia that can be optimized. Lasix 20 mg IV now, will continue 40 mg IV daily. Repeat BMP in a.m. Consult his supervisor beam department Dr. Kirkland. (4) Atrial fibrillation: Continue anticoagulation with Eliquis 5 mg p.o. twice daily Continue rate control with metoprolol succinate 50 mg p.o. twice daily (5) Type 2 diabetes mellitus: HbA1c 7.1 in September 2018. We will repeat with a.m. labs. Hold metformin. BSG ACHS with NovoLog for correction only, will add basal dosing if requiring NovoLog frequently. (6) Enlarged prostate with lower urinary tract symptoms (LUTS): History of urinary retention Continue tamsulosin 0.8 milligrams p.o. daily and finasteride 5 mg p.o. daily UA pending to rule out as potential source of infection. Bladder scan every shift, call provider if > 400ml (7) Gout: No acute flare. Continue allopurinol 300 mg p.o. daily (8) Hearing loss: Noted Admission and Anticipated Discharge Date Admission Date: June 17, 2020 History of Present Illness Primary Care Provider: DO João García Fabrizio is an 85-year-old male who presents to the ER with generalized weakness and fatigue. History taken from the patient and at bedside. He reports symptoms for the last 2 weeks. No change in salt intake and has been taking his Lasix as prescribed (60 mg MWF, 40 mg all other days). Leg edema at baseline and he reports his weight is stable. However he has been having shortness of breath much worse on exertion or lying flat. Also reports nonproductive coughing much worse on lying down for the past week. Reports having dry mouth although this is not unusual for him. He denies any fever, chills, loss of taste or smell, myalgias, headache, sore throat, diarrhea, naus ea/vomiting, chest or abdominal pain. No known exposure to COVID-19. In the ER chest x-ray concerning for pulmonary vascular congestion with mainly left lower lobe pneumonia. WBC elevated however procalcitonin negative. He was suspected to have pneumonia and given ceftriaxone and azithromycin in the ER. He denies any history of aspirations, choking or coughing after eating. In addition he was significantly hypoxic requiring 5LPM nasal cannula to maintain O2 sats > 90%. He was referred to medicine for admission and ongoing management of pneumonia and hypoxia. Allergies Allergy/AdvReac Type Severity Reaction Status Date / Time No Known Drug Allergies Allergy Verified 06/17/20 18:05 Home Medications Medication Instructions Recorded Confirmed Type allopurinol 300 mg tablet 300 mg PO QAM 01/10/18 06/17/20 History melatonin 3 mg tablet 6 mg PO HS 01/10/18 06/17/20 History multivitamin 1 tab PO QDL 01/10/18 06/17/20 History tamsulosin 0.4 mg capsule 0.8 mg PO QDL cap 01/10/18 06/17/20 History PreserVision AREDS 1 tab PO BIDM 07/04/18 06/17/20 History furosemide 40 mg PO QAM 07/04/18 06/17/20 History metformin 850 mg PO QAM 07/04/18 06/17/20 History omega 1-mye-hax-fish oil [Fish Oil] 1 cap PO TIDM 07/04/18 06/17/20 History simvastatin 20 mg PO HS 07/04/18 06/17/20 History Eliquis 5 mg PO BID 09/25/18 06/17/20 History acetaminophen [Tylenol] 650 mg PO HS 09/25/18 06/17/20 History lorazepam 0.5 mg PO HS 09/25/18 06/17/20 History nitrofurantoin macrocrystal 50 mg 50 mg PO HS #90 cap 01/31/19 06/17/20 Rx capsule aspirin [Enteric Coated Aspirin] 81 mg PO AMHS 10/27/19 06/17/20 History clindamycin HCl 600 mg PO ONCE PRN 10/27/19 06/17/20 History docusate sodium [Stool Softener] 500 mg PO HS 10/27/19 06/17/20 History metoprolol succinate 50 mg PO AMHS 10/27/19 06/17/20 History triamcinolone acetonide 1 applic TOPICAL DIRECTED PRN 10/27/19 06/17/20 History finasteride 5 mg tablet 5 mg PO DAILY #90 tab 04/24/20 06/17/20 Rx Past Med/Surg History Medical History A-fib DX 2017 - NO CARDIOVERSION Anemia Chronic heart failure Diabetes Enlarged prostate Gout Hearing loss Hearing Aid History of skin cancer PRECANCEROUS LESIONS S/P EXCISION History of transesophageal echocardiography (LISA) Hyperlipidemia Hypertension Macular degeneration Mitral valve prolapse [place] [place] [facility] [place] Osteoarthritis RBBB Stage III pressure ulcer of sacral region Surgical History History of colonoscopy x2 History of hernia repair X3 (Umbilical x 1, Right Inguinal x 2) History of hip surgery HARDWARE FROM HIP REVISION REMOVED - RIGHT 09/18/17 - MAC #3, ETT #7.5, HiLo Oral, Grade 1 View History of revision of total replacement of right hip joint 05/30/17 - MAC #4, ETT #7.5, HiLo, Grade 1 View 07/13/17 - MAC #4, ETT #7.5, HiLo Oral, Grade 1 View History of total left hip arthroplasty History of total right hip arthroplasty 06/21/12 - MAC #3, ETT #8.0, Grade 1 View Hx of tonsillectomy S/P cardiac cath 09/2018= MVP CLIP PLACED Family History Mother Cancer Social History Smoking Status: Former smoker Tobacco Type: Cigarettes, Pipe and Cigars Cigarettes Per Day: 1/2 - 1 ppd x 42 years; Hx Alcohol Use: No Hx Substance Use: No Preferred Language: Chilean Communication Ability: Effective Hole Filler Required: No Beliefs That Will Affect Care: None Current Living Situation: Spouse Feels Safe at Home: Yes Assistive Devices: Denture - Upper, Denture - Lower, Glasses, Hearing Aid - Bilateral and Walker Review of Systems Review of Systems: All systems reviewed & are unremarkable except as noted in HPI & below Physical Exam Constitutional: well developed, well nourished and + acute distress (Respiratory) ENMT: Ears: + hearing impairment Respiratory: + respiratory distress, + labored breathing, + uses accessory muscles and able to speak in complete sentences; no retractions, no cough, not tachypneic and expiratory phase not prolonged Auscultation: + crackles (Coarse bibasal L > R); no wheezes Cardiovascular: Rate/Rhythm: regular rate and + irregularly irregular Heart Sounds: + murmur (5/6 systolic throughout, loudest LUSB) Vessels: + JVD (midway from clavicle to jaw at 30 degrees) Extremities: normal capillary refill and + pedal edema (1+ equal b/l to knees ( reports at his baseline)); no calf tenderness Gastrointestinal (Abdomen): normal bowel sounds, soft, nontender, no hepatosplenomegaly Musculoskeletal: no cyanosis or clubbing, extremities motor strength 5/5 Skin: no rashes, warm and dry Neurologic: moves all extremities and awake; no focal motor deficits and not confused Speech / Cognition: normal speech Motor/Sensory: no tremor Psychiatric: A+Ox3, euthymic affect Genitourinary: no CVA tenderness Results & Data Results & Data ([facility]) Vital Signs (Past 12 Hours) Vital Signs Temp Pulse Resp BP Pulse Ox 06/17/20 15:03 36.3 C L 89 20 129/80 83 L Diagnostic Findings SINGLE VIEW CHEST IMPRESSION: 1. Cardiomegaly with pulmonary vascular congestion. 2. Multifocal airspace consolidation is seen throughout both lungs, greatest in the left mid to lower lung. The appearance favors multifocal pneumonia. Clinical correlation will be required and radiographic follow-up to resolution is recommended. 3. Left pleural effusion. CT OF THE HEAD WITHOUT CONTRAST IMPRESSION: 1. No acute intracranial findings. 2. No calvarial fracture. 3. Moderate ethmoid sinus mucosal thickening. Medications Administered ER medications given: Ceftriaxone 1 g IV Azithromycin 500 mg p.o. ECG Indication: SOB/dyspnea Rate (beats per minute): 83 Rhythm: atrial fibrillation Findings: + PVC, + RBBB and + T-wave inversion (Inferior) Comparison ECG Date: from (October 09, 2018) Change: the following changes noted (T wave inversion inferior leads appears new) Code Status & VTE Plan Code Status Full as discussed with the patient VTE Prophylaxis Plan VTE Prophylaxis will be ordered: Yes PG Care Time/CCT Total # of Minutes Spent Total Time Spent with Patient: Total time spent is greater than 50% in coordination of care (as documented) at patient's floor/unit and/or counseling patient: Coding Level of Care Code 14370 Initial Inpt Care Lvl 3 Diagnoses Acute respiratory failure with hypoxia J96.01 Community acquired pneumonia J18.9 Acute on chronic heart failure with preserved ejection fraction I50.33 Atrial fibrillation I48.91 Type 2 diabetes mellitus E11.9 Enlarged prostate with lower urinary tract symptoms (LUTS) N40.1 Gout M10.9 Hearing loss H91.93 Hearing loss type: unspecified Laterality: bilateral (1) Hearing loss Hearing loss type: unspecified Laterality: bilateral Qualified Code(s): H91.93 - Unspecified hearing loss, bilateral
[2020-06-17 18:18] LABS: NT Pro B Type Natriuretic Pept 5459 pg/ml (0-1800)
[2020-06-17] MEDS ORDERED: ACETAMINOPHEN 325 MG TAB PO PRN (19:42)
[2020-06-17] MEDS ORDERED: GLUCOSE 40% GEL 15 GM TUBE PO PRN (19:42)
[2020-06-17] MEDS ORDERED: DEXTROSE 50% 50 ML SYRINGE IV PRN (19:42)
[2020-06-17] MEDS ORDERED: GLUCOSE 10 TABS/TUBE PO PRN (19:42)
[2020-06-17] MEDS ORDERED: ONDANSETRON INJ 2 MG/ML 2 ML VIAL IV PRN (19:42)
[2020-06-17] MEDS ORDERED: GLUCAGON FOR INJ 1 MG VIAL SQ PRN (19:42)
[2020-06-17] MEDS ORDERED: ALUMINUM/MAGNESIUM SUSP 30 ML UDC PO PRN (19:42)
[2020-06-17] MEDS ORDERED: CARBOHYDRATES FOR HYPOGLYCEMIA PO PRN (19:42)
[2020-06-17] MEDS ORDERED: POLYETHYLENE (MIRALAX) 17 GM PACK PO PRN (19:42)
[2020-06-17] MEDS ORDERED: cefTRIAXone SODIUM 1,000 MG in DEXTROSE 5% 50 ML IV ONE (20:00)
[2020-06-17] MEDS ORDERED: FUROSEMIDE 20 MG in SYRINGE 0 ML IV ONE (20:30)
[2020-06-17] MEDS: INSULIN ASPART 100 UNITS/ML 3 ML PEN SC SCH (20:31)
[2020-06-17] MEDS: DOCUSATE CALCIUM 240 MG CAPSULE PO SCH (21:56)
[2020-06-17] MEDS: SIMVASTATIN 20 MG TAB PO SCH (21:57)
[2020-06-17] MEDS: APIXABAN 5 MG TABLET PO SCH (21:57)
[2020-06-17] MEDS: MELATONIN 3 MG TAB PO SCH (21:57)
[2020-06-17] MEDS: ACETAMINOPHEN 325 MG TAB PO SCH (21:57)
[2020-06-17] MEDS: ASPIRIN 81 MG ECTAB PO SCH (21:57)
[2020-06-17] MEDS: METOPROLOL SUCC 50MG EXT REL TAB PO SCH (21:57)
[2020-06-17] MEDS: LORazepam 0.5 MG TAB PO SCH (21:58)
[2020-06-18 06:27] LABS: Basophils # (auto) 0.05 K/uL (0-0.2); Basophils % (auto) 0.5 %; Hematocrit (blood only) 42.2 % (42-52); Hemoglobin 13.3 g/dL (14.0-18.0); Immature Granulocytes # (auto) 0.04 K/uL (0.00-0.02); Immature Granulocytes % (auto) 0.4 %; Lymphocytes # (auto) 0.79 K/uL (1.2-3.4); Mean Corpuscular Hemoglobin 31.6 pg (25-34); Mean Corpuscular Hgb Conc 31.5 g/dL (32-36); Mean Corpuscular Volume 100.2 fL (80-100); Mean Platelet Volume 10.2 fL (7.4-10.4); Monocytes # (auto) 1.13 K/uL (0.11-0.59); Monocytes % (auto) 11.5 %; Neutrophils # (auto) 7.65 K/uL (1.4-6.5); Neutrophils % (auto) 77.6 %; Platelet Count 205 K/uL (130-400); RDW Coefficient of Variation 16.2 % (11.5-14.5); RDW Standard Deviation 58.2 fL (36.4-46.3); Red Blood Count 4.21 M/uL (4.7-6.1); White Blood Count 9.86 K/uL (4.8-10.8)
[2020-06-18 06:35] LABS: Estimated Average Glucose 157 mg/dl; Hemoglobin A1C 7.1 % (4.5-5.6)
[2020-06-18 07:06] LABS: BUN Creatinine Ratio 17.4 (10-20); Creatinine Clr Calc Pharmacy 43.1 ml/min; Est GFR (African American) 56.4; Est GFR (Non-African American) 48.6; Potassium 3.7 mmol/L (3.5-5.1)
[2020-06-18] MEDS ORDERED: NON-FORMULARY MEDICATION (Vitamins A,C,E-Zinc-Copper [Preservision Areds] 7,160-113-100 u PO SCH (08:00)
[2020-06-18] MEDS: ASPIRIN 81 MG ECTAB PO SCH ×2 (08:41→20:10)
[2020-06-18] MEDS: APIXABAN 5 MG TABLET PO SCH ×2 (08:41→20:10)
[2020-06-18] MEDS: OMEGA-3 (PURIFIED FISH OIL) 1 GM CAP PO SCH ×3 (08:41→16:32)
[2020-06-18] MEDS: FUROSEMIDE 40 MG in SYRINGE 0 ML IV SCH ×2 (08:41→21:17)
[2020-06-18] MEDS: FINASTERIDE 5 MG TAB PO SCH (08:41)
[2020-06-18] MEDS: DOXYCYCLINE HYCLATE 100 MG CAP PO SCH ×2 (08:42→20:17)
[2020-06-18] MEDS: METOPROLOL SUCC 50MG EXT REL TAB PO SCH ×2 (08:42→20:17)
[2020-06-18] MEDS: allopurinoL 300 MG TAB PO SCH (08:42)
[2020-06-18] MEDS ORDERED: FUROSEMIDE 40 MG in SYRINGE 0 ML IV SCH (09:00)
[2020-06-18] MEDS: INSULIN ASPART 100 UNITS/ML 3 ML PEN SC SCH ×4 (09:00→20:48)
[2020-06-18] MEDS ORDERED: FUROSEMIDE 40 MG TAB PO SCH (09:00)
--- NOTE | 2020-06-18 09:17 | Cardiology Consultation ---
Date of Consultation He was admitted to the hospital with increasing shortness of breath fatigue early satiety and notes that at home he just felt like he could not take a deep breath and he was short of breath. Once his oxygen was placed in the emergency room he notes he started feeling better. He has been losing weight at home he thinks some of that is related to the fact that he is not eating as much. He denies any chest pain or chest pressure. He has chronic atrial fibrillation denies any palpitations. He denies any falls. He denies any orthopnea at home. He does note that he felt he was more short of breath with ambulation with his walker as well. He denies any fevers chills or sweats. He denies any sick contacts at home. He denies any sputum production. June 18, 2020 History of Present Illness Attending Physician: Jake Vaughan MD Allergies Allergy/AdvReac Type Severity Reaction Status Date / Time No Known Drug Allergies Allergy Verified 06/17/20 18:05 Home Medications Medication Instructions Recorded Confirmed Type allopurinol 300 mg tablet 300 mg PO QAM 01/10/18 06/17/20 History melatonin 3 mg tablet 6 mg PO HS 01/10/18 06/17/20 History multivitamin 1 tab PO QDL 01/10/18 06/17/20 History tamsulosin 0.4 mg capsule 0.8 mg PO QDL cap 01/10/18 06/17/20 History PreserVision AREDS 1 tab PO BIDM 07/04/18 06/17/20 History furosemide 40 mg PO QAM 07/04/18 06/17/20 History metformin 850 mg PO QAM 07/04/18 06/17/20 History omega 8-rpy-ytk-fish oil [Fish Oil] 1 cap PO TIDM 07/04/18 06/17/20 History simvastatin 20 mg PO HS 07/04/18 06/17/20 History Eliquis 5 mg PO BID 09/25/18 06/17/20 History acetaminophen [Tylenol] 650 mg PO HS 09/25/18 06/17/20 History lorazepam 0.5 mg PO HS 09/25/18 06/17/20 History nitrofurantoin macrocrystal 50 mg 50 mg PO HS #90 cap 01/31/19 06/17/20 Rx capsule aspirin [Enteric Coated Aspirin] 81 mg PO AMHS 10/27/19 06/17/20 History clindamycin HCl 600 mg PO ONCE PRN 10/27/19 06/17/20 History docusate sodium [Stool Softener] 500 mg PO HS 10/27/19 06/17/20 History metoprolol succinate 50 mg PO AMHS 10/27/19 06/17/20 History triamcinolone acetonide 1 applic TOPICAL DIRECTED PRN 10/27/19 06/17/20 History finasteride 5 mg tablet 5 mg PO DAILY #90 tab 04/24/20 06/17/20 Rx Patient History Medical History A-fib DX 2017 - NO CARDIOVERSION Anemia Chronic heart failure Diabetes Enlarged prostate Gout Hearing loss Hearing Aid History of skin cancer PRECANCEROUS LESIONS S/P EXCISION History of transesophageal echocardiography (LISA) Hyperlipidemia Hypertension Macular degeneration Mitral valve prolapse S/P CLIP 09/12/2018 [place] [place] Osteoarthritis RBBB Stage III pressure ulcer of sacral region Surgical History History of colonoscopy x2 History of hernia repair X3 (Umbilical x 1, Right Inguinal x 2) History of hip surgery HARDWARE FROM HIP REVISION REMOVED - RIGHT 09/18/17 - MAC #3, ETT #7.5, HiLo Oral, Grade 1 View History of revision of total replacement of right hip joint 05/30/17 - MAC #4, ETT #7.5, HiLo, Grade 1 View 07/13/17 - MAC #4, ETT #7.5, HiLo Oral, Grade 1 View History of total left hip arthroplasty History of total right hip arthroplasty 06/21/12 - MAC #3, ETT #8.0, Grade 1 View Hx of tonsillectomy S/P cardiac cath 09/2018= MVP CLIP PLACED Family History Mother Cancer Social History Smoking Status: Former smoker Tobacco Type: Cigarettes, Pipe and Cigars Cigarettes Per Day: 1/2 - 1 ppd x 42 years; Hx Alcohol Use: No Hx Substance Use: No Preferred Language: Micronesian Communication Ability: Effective Sludge Control Attendant Required: No Beliefs That Will Affect Care: None Current Living Situation: Spouse Feels Safe at Home: Yes Assistive Devices: Denture - Upper, Denture - Lower, Glasses, Hearing Aid - Bilateral and Walker Results & Data ([facility]) Vital Signs (Past 12 Hours) Vital Signs Temp Pulse Pulse Resp BP BP Pulse Ox 06/18/20 07:34 36.3 C L 66 18 153/91 H 95 06/18/20 07:20 62 06/18/20 03:36 35.8 C L 69 20 115/72 95 06/18/20 00:39 36.5 C 72 20 123/77 90 he is awake alert and oriented x3 he appeared mildly short of breath talking in sentences. HEENT: Mildly reduced carotid upstrokes Lungs: Coarse breath sounds bilaterally with decreased breath sounds in the bases Heart: Irregular rate and rhythm he has a soft crescendo decrescendo murmur which is mid to late peaking he has a soft holosystolic murmur at the apex Abdomen: Soft nontender distended positive bowel sounds Extremities: No clubbing cyanosis or edema Psychiatric affect appeared appropriate All of his laboratory studies including his elevated BNP were reviewed in addition his chest x-ray was personally reviewed Impressions: #1 acute on chronic systolic and valvular heart failure with hypoxia 2. Chronic atrial fibrillation on anticoagulation 3. 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 History of an infected right hip 5. Echocardiogram 03/2020 with an ejection fraction range of 45% moderate to severe aortic stenosis and moderate eccentric mitral regurgitation status post mitral clip 6. Status post mitral clip August 2018 secondary to severe mitral regurgitation 7. Hypertension 8. Hyperlipidemia At home he alternates his diuretics with 60 mg of Lasix and 40 mg of Lasix. It definitely sounds like heart failure based on his chest x-ray, BNP, and clinical exam. It also may explain some of his early satiety. I did give him an additional 20 mg for a total of 60 mg of IV Lasix this morning and he will receive an additional 40 mg this evening. Hopefully his urine output will shredder picker and his breathing will continue to improve he feels comfortable on oxygen but does not normally wear oxygen at home. With regards to his atrial fibrillation his rates are relatively well controlled he denies any anginal symptoms. He did undergo echocardiography as an outpatient March 2020 with moderate mitral regurgitation and an EF in the range of 45% unfortunately his degree of aortic stenosis appears to be more progressive in the looks like he has low flow moderate to severe if not severe aortic stenosis. If he continues to have worsening heart failure symptoms we may need to consider evaluation for a TAVR if he would want to go through another surgical procedure. He should remain on the rest of his medical regiment.
[2020-06-18] MEDS ORDERED: FUROSEMIDE 20 MG in SYRINGE 0 ML IV ONE (09:30)
[2020-06-18 10:05] LABS: Appearance Urine Clear (Clear); Bacteria Urine Automated Negative (Negative); Bilirubin Urine Negative (Negative); Blood Urine 1+ (Negative); Color Urine Yellow; Glucose Urine UA Negative (Negative); Ketones Urine Negative (Negative); Leukocyte Esterase Urine Negative (Negative); Nitrite Urine Negative (Negative); Protein Urine 1+ (Negative); Specific Gravity Urine 1.011 (1.000-1.030); Urobilinogen Urine Negative (Negative); WBC Urine Automated 0 /hpf (0-5)
--- NOTE | 2020-06-18 11:03 | XCELERA ---
[id number]
[2020-06-18] MEDS: TAMSULOSIN HCL 0.4 MG CAP PO SCH (12:11)
[2020-06-18] MEDS: MULTIVITAMIN TAB PO SCH (12:11)
--- NOTE | 2020-06-18 12:38 | Hospitalist Progress Note ---
Date of Service June 18, 2020 Assessment & Plan (1) Acute respiratory failure with hypoxia: Secondary to pneumonia and pulmonary edema Aim O2 sats > 90%. Wean O2 off as tolerated (2) Community acquired pneumonia: Continue ceftriaxone and doxycycline, day 2. Sputum culture if sputum is produced (3) Acute on chronic heart failure with preserved ejection fraction: Preserved ejection fraction on echocardiogram in 2018 -patient reports having echocardiogram in clinic more recently than this although not available on admission. Parenteral Lasix uptitrated to every 12 hour dosing today, June 18. Serial labs . Cardiology consultation pending. (4) Atrial fibrillation: Continue anticoagulation with Eliquis 5 mg p.o. twice daily Continue rate control with metoprolol succinate 50 mg p.o. twice daily (5) Type 2 diabetes mellitus: HbA1c 7.1 in September 2018. Hold metformin. BSG ACHS with NovoLog for correction only, will add basal dosing if requiring NovoLog frequently. (6) Enlarged prostate with lower urinary tract symptoms (LUTS): History of urinary retention Continue tamsulosin 0.8 milligrams p.o. daily and finasteride 5 mg p.o. daily UA pending to rule out as potential source of infection. Bladder scan every shift, call provider if > 400ml (7) Gout: No acute flare. Continue allopurinol 300 mg p.o. daily (8) Hearing loss: Noted Disposition: Eventual discharge to home Admission and Anticipated Discharge Date Admission Date: June 17, 2020 Subjective Alert and pleasant. He is aware he will need Buenrostro catheter for accurate urine output measurements. OT and PT assessments requested. He has not had a recent cardiac echo and this has been ordered. Parenteral Lasix uptitrated to every 12 hour dosing. Review of Systems Review of Systems: Constitutional-no fever or chills ENT-no blurred vision, no double vision, no epistaxis, no sore throat Respiratory-nonproductive cough. Dyspnea with exertion Cardiac-no palpitations, no chest pain, no syncope GI-no nausea, vomiting, diarrhea, melena, hematochezia -no urinary retention, no urinary incontinence, no dysuria, no hematuria Musculoskeletal-no joint pain, no muscle tenderness Skin-no bruising, no rashes, no pruritus Neuro-no isolated weakness, no paresthesia, no weakness Psych-no depression, no anxiety Physical Exam Physical Exam: General-alert and oriented x3, no fevers, no chills HEENT-head atraumatic and normocephalic, TMs intact bilaterally, pupils equal and reactive to light, extraocular muscles intact Neck-no lymphadenopathy or thyromegaly, trachea midline Chest-bilateral coarse inspiratory rales. No wheezing. Cardiac-irregular rhythm, normal S1 and S2 Abdomen-normal bowel sounds, nontender, no hepatosplenomegaly Extremities-no cyanosis, clubbing, or edema Neuro-cranial nerves II through XII intact, motor and sensory function within normal limits, strength symmetrical , no focal deficits Psych-normal affect, normal mood Results & Data Results & Data ([facility]) Vital Signs (Past 12 Hours) Vital Signs Temp Pulse Pulse Resp BP BP Pulse Ox 06/18/20 11:29 36.8 C 79 20 119/61 93 06/18/20 07:34 36.3 C L 66 18 153/91 H 95 06/18/20 07:20 62 06/18/20 03:36 35.8 C L 69 20 115/72 95 06/18/20 00:39 36.5 C 72 20 123/77 90 Laboratory Results 06/18/20 05:38 06/18/20 05:38 PG Care Time/CCT Total # of Minutes Spent Total Time Spent with Patient: Total time spent is greater than 50% in coordination of care (as documented) at patient's floor/unit and/or counseling patient: Coding Level of Care Code 06997 Subseq Hosp Care Lvl 3 Diagnoses Acute respiratory failure with hypoxia J96.01 Community acquired pneumonia J18.9 Acute on chronic heart failure with preserved ejection fraction I50.33 Atrial fibrillation I48.91 Type 2 diabetes mellitus E11.9 Enlarged prostate with lower urinary tract symptoms (LUTS) N40.1 Gout M10.9 Hearing loss H91.93 Hearing loss type: unspecified Laterality: bilateral (1) Hearing loss Hearing loss type: unspecified Laterality: bilateral Qualified Code(s): H91.93 - Unspecified hearing loss, bilateral
[2020-06-18] MEDS: LORazepam 0.5 MG TAB PO SCH (20:07)
[2020-06-18] MEDS: cefTRIAXone SODIUM 2,000 MG in DEXTROSE 5% 50 ML IV SCH (20:08)
[2020-06-18] MEDS: MELATONIN 3 MG TAB PO SCH (20:11)
[2020-06-18] MEDS: DOCUSATE CALCIUM 240 MG CAPSULE PO SCH (20:13)
[2020-06-18] MEDS: ACETAMINOPHEN 325 MG TAB PO SCH (20:15)
[2020-06-18] MEDS: SIMVASTATIN 20 MG TAB PO SCH (20:19)
[2020-06-19 06:31] LABS: Basophils # (auto) 0.02 K/uL (0-0.2); Basophils % (auto) 0.2 %; Eosinophils # (auto) 0.26 K/uL (0-0.5); Eosinophils % (auto) 2.2 %; Hemoglobin 12.7 g/dL (14.0-18.0); Immature Granulocytes # (auto) 0.05 K/uL (0.00-0.02); Immature Granulocytes % (auto) 0.4 %; Lymphocytes # (auto) 0.81 K/uL (1.2-3.4); Lymphocytes % (auto) 6.8 %; Mean Corpuscular Hemoglobin 31.3 pg (25-34); Mean Corpuscular Hgb Conc 31.8 g/dL (32-36); Mean Corpuscular Volume 98.5 fL (80-100); Monocytes # (auto) 1.23 K/uL (0.11-0.59); Monocytes % (auto) 10.3 %; Neutrophils # (auto) 9.62 K/uL (1.4-6.5); Neutrophils % (auto) 80.1 %; Platelet Count 219 K/uL (130-400); RDW Standard Deviation 57.2 fL (36.4-46.3); Red Blood Count 4.06 M/uL (4.7-6.1); White Blood Count 11.99 K/uL (4.8-10.8)
[2020-06-19 07:05] LABS: BUN Creatinine Ratio 18.4 (10-20); Calcium 8.6 mg/dl (8.5-10.1); Creatinine Clr Calc Pharmacy 39.6 ml/min; Est GFR (African American) 50.8; Est GFR (Non-African American) 43.9; Potassium 3.3 mmol/L (3.5-5.1)
[2020-06-19] MEDS: FUROSEMIDE 40 MG in SYRINGE 0 ML IV SCH ×2 (07:56→20:22)
[2020-06-19] MEDS: OMEGA-3 (PURIFIED FISH OIL) 1 GM CAP PO SCH ×3 (07:59→17:21)
[2020-06-19] MEDS: APIXABAN 5 MG TABLET PO SCH ×2 (07:59→20:23)
[2020-06-19] MEDS: ASPIRIN 81 MG ECTAB PO SCH ×2 (07:59→20:23)
[2020-06-19] MEDS: METOPROLOL SUCC 50MG EXT REL TAB PO SCH ×2 (08:00→20:23)
[2020-06-19] MEDS: DOXYCYCLINE HYCLATE 100 MG CAP PO SCH ×2 (08:00→20:22)
[2020-06-19] MEDS: allopurinoL 300 MG TAB PO SCH (08:00)
[2020-06-19] MEDS: FINASTERIDE 5 MG TAB PO SCH (08:00)
--- NOTE | 2020-06-19 09:22 | Cardiology Progress Note ---
Date of Service He is sleeping soundly this morning. I did not wake him. History is obtained from the nursing staff. June 19, 2020 Assessment & Plan Admission and Anticipated Discharge Date Admission Date: June 17, 2020 Results & Data ([facility]) Vital Signs (Past 12 Hours) Vital Signs Temp Pulse Pulse Resp BP BP Pulse Ox 06/19/20 08:58 88 06/19/20 07:48 86 L 06/19/20 07:34 36.8 C 88 20 146/68 H 89 L 06/19/20 02:55 36.6 C 75 18 128/68 91 06/19/20 00:32 72 06/19/20 00:03 36.6 C 79 18 135/76 91 HEENT: Mildly reduced carotid upstrokes Lungs: Coarse breath sounds bilaterally with decreased breath sounds in the bases Heart: Irregular rate and rhythm he has a soft crescendo decrescendo murmur which is mid to late peaking he has a soft holosystolic murmur at the apex Abdomen: Soft nontender distended positive bowel sounds Extremities: No clubbing cyanosis or edema Psychiatric affect appeared appropriate All of his laboratory studies including his elevated BNP were reviewed in addition his chest x-ray was personally reviewed Impressions: #1 acute on chronic systolic and valvular heart failure with hypoxia 2. Chronic atrial fibrillation on anticoagulation 3. 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 History of an infected right hip 5. Echocardiogram 03/2020 with an ejection fraction range of 45% moderate to severe aortic stenosis and moderate eccentric mitral regurgitation status post mitral clip 6. Status post mitral clip August 2018 secondary to severe mitral regurgitation 7. Hypertension 8. Hyperlipidemia Based on his laboratory studies he is prerenal. In addition he is -2-1/2 L after IV diuretics yesterday which does not explain why he remains hypoxemic this morning. His blood pressure is reasonable his heart rate with atrial fibrillation is reasonably well controlled. He has some mild bruising but denies any bleeding on apixaban. His inpatient echocardiogram is not significantly different than his outpatient echo revealing mild LV dysfunction with moderate mitral regurgitation and what is at least moderate aortic stenosis. With him remaining hypoxemic with an adequate diuresis and an elevated white count repeat chest imaging should be considered. If he diuresis well again today he can be switched back to his outpatient dosing of 60 mg of furosemide alternating with 40 mg.
[2020-06-19] MEDS: INSULIN ASPART 100 UNITS/ML 3 ML PEN SC SCH ×4 (09:49→21:08)
[2020-06-19] MEDS: POTASSIUM CHLORIDE CRTAB 20 MEQ TABCR PO SCH ×2 (10:42→20:23)
[2020-06-19] MEDS: lisinopril 5 MG TAB PO SCH (10:42)
[2020-06-19] MEDS ORDERED: SODIUM CHLORIDE 0.65% NA SOLN 45 ML (OCEAN) PRN (10:54)
[2020-06-19] MEDS: TAMSULOSIN HCL 0.4 MG CAP PO SCH (12:18)
[2020-06-19] MEDS: MULTIVITAMIN TAB PO SCH (12:18)
--- NOTE | 2020-06-19 12:48 | Hospitalist Progress Note ---
Date of Service June 19, 2020 Assessment & Plan (1) Acute respiratory failure with hypoxia: Secondary to pneumonia and pulmonary edema Aim O2 sats > 90%. Wean O2 off as tolerated-was requiring 2 L nasal cannula with exertion only at the time of discharge, no oxygen needed at rest CXR noted for ongoing PNA, treated for bacterial pneumonia, but may have been viral? Was treated with antibiotics as well as IV diuresis with much improvement Much improved at the time of discharge Follow-up with PCP (2) Community acquired pneumonia: With multifocal pneumonia left greater than right on chest x-ray. He had hypoxia and leukocytosis on admission, but never had a fever. Procalcitonin was normal. Covid-19/RSV/influenza all negative on admission Treated for bacterial pneumonia but could have been viral pneumonia Completed a 7 day course of ceftriaxone and doxycycline Needs to follow chest x-ray as an outpatient until resolution in 3 to 4 weeks (3) Acute on chronic heart failure with preserved ejection fraction: Actually this is acute on chronic combined systolic and diastolic congestive heart failure. Ejection fraction 35 to 40% on cardiac echo which is lower than previous study in 2018. Lisinopril started by cardiology. Was diuresed with IV Lasix and had -3.6 on net I's/O's on the day of discharge Was much improved Appreciate cardiology input Cards c/s feels more related to PNA than CHF Resumed home lasix dosing 40mg alternating with 60mg PO once daily Continue home metoprolol Follow-up with cardiology as an outpatient (4) Atrial fibrillation: Continue anticoagulation with Eliquis 5 mg p.o. twice daily Continue rate control with metoprolol succinate 50 mg p.o. twice daily (5) Type 2 diabetes mellitus: HbA1c 7.1 in September 2018. Hold metformin but can restart as an outpatient. SSI coverage was utilized (6) Enlarged prostate with lower urinary tract symptoms (LUTS): History of urinary retention and did require Buenrostro catheter placement here Continue tamsulosin 0.8 milligrams p.o. daily and finasteride 5 mg p.o. daily UA here negative (7) Gout: No acute flare. Continue allopurinol 300 mg p.o. daily (8) Hearing loss: Noted (9) Elevated transaminase level: likely 2/2 abx use TBili normal, no abd pain, no nausea, no tenderness No imaging needed dc all abx pt anxious for discharge to home plan to check LFTs in 1 day as outpt and follow as outpt--> most likely will resolve over the next week off abx (10) Acute urinary retention: has a h/o retention, required Buenrostro catheter placement for retention and failed a trial of void on the day of discharge Buenrostro catheter was replaced on the day of discharge and should remain in place until follow-up with urology in 1 to 2 weeks Continue Flomax, finasteride f/u with Urology (11) Pleural effusion: secondary to CHF, possibly pneumonia afebrile diuresed this stay follow with repeat CXR in 3-4 weeks to ensure effusion improving and PNA resolved (12) Hypertension: Blood pressures controlled Continue metoprolol, lisinopril (13) DVT prophylaxis: Eliquis Disposition PT/OT recs for HHPT and home health OT with / care Per , pt lives with her and son. Son works and is gone during the day. Another son lives about 5 minutes away. Stable for discharge to home with close follow-up with PCP Admission and Anticipated Discharge Date Admission Date: June 17, 2020 Results & Data Results & Data ([facility]) Vital Signs (Past 12 Hours) Vital Signs Temp Pulse Pulse Resp BP BP Pulse Ox 06/19/20 11:14 36.7 C 88 20 131/81 94 06/19/20 08:58 88 06/19/20 07:48 86 L 06/19/20 07:34 36.8 C 88 20 146/68 H 89 L 06/19/20 02:55 36.6 C 75 18 128/68 91 PG Care Time/CCT Total # of Minutes Spent Total Time Spent with Patient: Total time spent is greater than 50% in coordination of care (as documented) at patient's floor/unit and/or counseling patient: Coding Level of Care Code 34290 Subseq Hosp Care Lvl 3 Diagnoses Acute respiratory failure with hypoxia J96.01 Community acquired pneumonia J18.9 Acute on chronic heart failure with preserved ejection fraction I50.33 Atrial fibrillation I48.91 Type 2 diabetes mellitus E11.9 Enlarged prostate with lower urinary tract symptoms (LUTS) N40.1 Gout M10.9 Hearing loss H91.93 Hearing loss type: unspecified Laterality: bilateral Elevated transaminase level R74.01 Acute urinary retention R33.8 Pleural effusion J90 Hypertension I10 Hypertension type: unspecified DVT prophylaxis Z29.9 (1) Hearing loss Hearing loss type: unspecified Laterality: bilateral Qualified Code(s): H91.93 - Unspecified hearing loss, bilateral (2) Hypertension Hypertension type: unspecified Qualified Code(s): I10 - Essential (primary) hypertension
--- NOTE | 2020-06-19 12:54 | Hospitalist Progress Note ---
Date of Service June 19, 2020 Assessment & Plan (1) Acute respiratory failure with hypoxia: Secondary to pneumonia and pulmonary edema Aim O2 sats > 90%. Wean O2 off as tolerated (2) Community acquired pneumonia: Continue ceftriaxone and doxycycline, day 3. Could be viral since he has a bilateral presentation. Covid test negative. Sputum culture if sputum is produced (3) Acute on chronic heart failure with preserved ejection fraction: Actually this is combined systolic and diastolic congestive heart failure. Ejection fraction 35 to 40% on cardiac echo which is lower than previous study in 2018. Cardiology consultation requested. Lisinopril started. Will follow renal function. Good diuretic response so far with parenteral Lasix. Serial labs . (4) Atrial fibrillation: Continue anticoagulation with Eliquis 5 mg p.o. twice daily Continue rate control with metoprolol succinate 50 mg p.o. twice daily (5) Type 2 diabetes mellitus: HbA1c 7.1 in September 2018. Hold metformin. SSUI coverage (6) Enlarged prostate with lower urinary tract symptoms (LUTS): History of urinary retention Continue tamsulosin 0.8 milligrams p.o. daily and finasteride 5 mg p.o. daily UA pending to rule out as potential source of infection. Bladder scan every shift, call provider if > 400ml (7) Gout: No acute flare. Continue allopurinol 300 mg p.o. daily (8) Hearing loss: Noted Disposition: Eventual discharge to home Admission and Anticipated Discharge Date Admission Date: June 17, 2020 Subjective Alert and oriented. I spoke to his by phone and she states that he is somewhat anxious. Lorazepam ordered every 4 hours as needed. Cardiac echo reveals ejection fraction of 35 to 40% which is lower than previous echo done in 2018. Cardiology consultation requested with Dr. Leos given. Lisinopril added. Potassium replacement underway. Good urine output with parenteral Lasix. Pneumonia could be viral since it is bilateral or atypical. He remains on doxycycline and Rocephin. Creatinine 1.4 today. Will trend Review of Systems Review of Systems: Constitutional-no fever or chills ENT-no blurred vision, no double vision, no epistaxis, no sore throat Respiratory-nonproductive cough . No wheezing. Shortness of breath with minimal exertion Cardiac-no palpitations, no chest pain, no syncope GI-no nausea, vomiting, diarrhea, melena, hematochezia -no urinary retention, no urinary incontinence, no dysuria, no hematuria Musculoskeletal-no joint pain, no muscle tenderness Skin-no bruising, no rashes, no pruritus Neuro-no isolated weakness, no paresthesia, no weakness Psych-anxiety noted. Physical Exam Physical Exam: General-alert and oriented x3, no fevers, no chills HEENT-head atraumatic and normocephalic, TMs intact bilaterally, pupils equal and reactive to light, extraocular muscles intact Neck-no lymphadenopathy or thyromegaly, trachea midline Chest-bibasilar inspiratory rales. No dullness to percussion. No wheezing. Midline rhonchi noted with forced coughing Cardiac-irregular rhythm. Controlled rate. Normal S1 and S2. Abdomen-normal bowel sounds, nontender, no hepatosplenomegaly Extremities-no cyanosis, clubbing, or edema Neuro-cranial nerves II through XII intact, motor and sensory function within normal limits, no focal deficits Psych-normal affect, normal mood Results & Data Results & Data ([facility]) Vital Signs (Past 12 Hours) Vital Signs Temp Pulse Pulse Resp BP BP Pulse Ox 06/19/20 11:14 36.7 C 88 20 131/81 94 06/19/20 08:58 88 06/19/20 07:48 86 L 06/19/20 07:34 36.8 C 88 20 146/68 H 89 L 06/19/20 02:55 36.6 C 75 18 128/68 91 Laboratory Results 06/19/20 06:14 06/19/20 06:14 PG Care Time/CCT Total # of Minutes Spent Total Time Spent with Patient: Total time spent is greater than 50% in coordination of care (as documented) at patient's floor/unit and/or counseling patient: Coding Level of Care Code 29006 Subseq Hosp Care Lvl 3 Diagnoses Acute respiratory failure with hypoxia J96.01 Community acquired pneumonia J18.9 Acute on chronic heart failure with preserved ejection fraction I50.33 Atrial fibrillation I48.91 Type 2 diabetes mellitus E11.9 Enlarged prostate with lower urinary tract symptoms (LUTS) N40.1 Gout M10.9 Hearing loss H91.93 Hearing loss type: unspecified Laterality: bilateral (1) Hearing loss Hearing loss type: unspecified Laterality: bilateral Qualified Code(s): H91.93 - Unspecified hearing loss, bilateral
[2020-06-19] MEDS: cefTRIAXone SODIUM 2,000 MG in DEXTROSE 5% 50 ML IV SCH (18:07)
[2020-06-19] MEDS: MELATONIN 3 MG TAB PO SCH (20:22)
[2020-06-19] MEDS: SIMVASTATIN 20 MG TAB PO SCH (20:23)
[2020-06-19] MEDS: ACETAMINOPHEN 325 MG TAB PO SCH (20:23)
[2020-06-19] MEDS: DOCUSATE CALCIUM 240 MG CAPSULE PO SCH (20:24)
[2020-06-20 06:42] LABS: Basophils # (auto) 0.02 K/uL (0-0.2); Basophils % (auto) 0.2 %; Eosinophils # (auto) 0.07 K/uL (0-0.5); Eosinophils % (auto) 0.6 %; Hematocrit (blood only) 40.3 % (42-52); Hemoglobin 12.9 g/dL (14.0-18.0); Immature Granulocytes # (auto) 0.05 K/uL (0.00-0.02); Immature Granulocytes % (auto) 0.5 %; Lymphocytes # (auto) 1.26 K/uL (1.2-3.4); Lymphocytes % (auto) 11.6 %; Mean Corpuscular Hemoglobin 31.6 pg (25-34); Mean Corpuscular Volume 98.8 fL (80-100); Monocytes # (auto) 0.46 K/uL (0.11-0.59); Monocytes % (auto) 4.2 %; Neutrophils # (auto) 8.98 K/uL (1.4-6.5); Neutrophils % (auto) 82.9 %; Platelet Count 232 K/uL (130-400); RDW Standard Deviation 57.4 fL (36.4-46.3); Red Blood Count 4.08 M/uL (4.7-6.1); White Blood Count 10.84 K/uL (4.8-10.8)
[2020-06-20 07:35] LABS: BUN Creatinine Ratio 21.1 (10-20); Calcium 8.5 mg/dl (8.5-10.1); Creatinine Clr Calc Pharmacy 39.6 ml/min; Est GFR (African American) 50.8; Est GFR (Non-African American) 43.9; Potassium 3.8 mmol/L (3.5-5.1)
[2020-06-20] MEDS: FUROSEMIDE 40 MG in SYRINGE 0 ML IV SCH ×2 (08:15→20:38)
[2020-06-20] MEDS: OMEGA-3 (PURIFIED FISH OIL) 1 GM CAP PO SCH ×3 (08:15→16:50)
[2020-06-20] MEDS: DOXYCYCLINE HYCLATE 100 MG CAP PO SCH ×2 (08:16→20:39)
[2020-06-20] MEDS: METOPROLOL SUCC 50MG EXT REL TAB PO SCH ×2 (08:16→20:40)
[2020-06-20] MEDS: APIXABAN 5 MG TABLET PO SCH ×2 (08:16→20:38)
[2020-06-20] MEDS: POTASSIUM CHLORIDE CRTAB 20 MEQ TABCR PO SCH ×2 (08:16→20:39)
[2020-06-20] MEDS: FINASTERIDE 5 MG TAB PO SCH (08:16)
[2020-06-20] MEDS: ASPIRIN 81 MG ECTAB PO SCH ×2 (08:16→20:40)
[2020-06-20] MEDS: lisinopril 5 MG TAB PO SCH (08:16)
[2020-06-20] MEDS: allopurinoL 300 MG TAB PO SCH (08:17)
[2020-06-20] MEDS: INSULIN ASPART 100 UNITS/ML 3 ML PEN SC SCH ×4 (09:20→20:38)
[2020-06-20] MEDS: TAMSULOSIN HCL 0.4 MG CAP PO SCH (12:37)
[2020-06-20] MEDS: MULTIVITAMIN TAB PO SCH (12:37)
--- NOTE | 2020-06-20 16:47 | Hospitalist Progress Note ---
Date of Service June 20, 2020 Assessment & Plan (1) Acute respiratory failure with hypoxia: Secondary to pneumonia and pulmonary edema Aim O2 sats > 90%. Wean O2 off as tolerated Feels improved but still with O2 req (2) Community acquired pneumonia: Continue ceftriaxone and doxycycline, day 3. Could be viral since he has a bilateral presentation. Covid test negative. Sputum culture if sputum is produced (3) Acute on chronic heart failure with preserved ejection fraction: Actually this is combined systolic and diastolic congestive heart failure. Ejection fraction 35 to 40% on cardiac echo which is lower than previous study in 2018. Lisinopril started. Will follow renal function. Good diuretic response so far with parenteral Lasix. Serial labs . Cards c/s feels more related to PNA than CHF (4) Atrial fibrillation: Continue anticoagulation with Eliquis 5 mg p.o. twice daily Continue rate control with metoprolol succinate 50 mg p.o. twice daily (5) Type 2 diabetes mellitus: HbA1c 7.1 in September 2018. Hold metformin. SSUI coverage (6) Enlarged prostate with lower urinary tract symptoms (LUTS): History of urinary retention Continue tamsulosin 0.8 milligrams p.o. daily and finasteride 5 mg p.o. daily UA pending to rule out as potential source of infection. Bladder scan every shift, call provider if > 400ml (7) Gout: No acute flare. Continue allopurinol 300 mg p.o. daily (8) Hearing loss: Noted Disposition: Eventual discharge to home PT/OT Admission and Anticipated Discharge Date Admission Date: June 17, 2020 Subjective Pt states he feels better than [employer]. Denies SOB in bed or with ambulation. Ongoing O2 use. States he is eating without issue. Pt denies fever, chest pain, abd pain, n/v/c/d, LE pain or swelling. Review of Systems Review of Systems: Pertinent positives and negatives reviewed in HPI--all others negative Physical Exam Constitutional: WD/WN, vitals as above Eyes: normal visual villavicencio by confrontation and + anicteric sclerae Neck: normal visual inspection and trachea midline Respiratory: normal respiratory effort; no respiratory distress Auscultation: + crackles; no wheezes Cardiovascular: Rate/Rhythm: regular rate and regular rhythm Extremities: no edema Gastrointestinal (Abdomen): Inspection/Auscultation: abdomen not distended Percussion/Palpation: abdomen soft; abdomen nontender Musculoskeletal: Head/Neck/Chest: normocephalic and head atraumatic peripheral pulses intact Skin: no rashes, warm and dry Neurologic: awake; not confused Speech / Cognition: normal speech Psychiatric: A+Ox3, euthymic affect Results & Data Results & Data ([facility]) Vital Signs (Past 12 Hours) Vital Signs Temp Pulse Pulse Resp BP Pulse Ox 06/20/20 16:18 95 06/20/20 16:17 99/64 L 06/20/20 15:34 36.7 C 81 17 82/56 L 95 06/20/20 15:12 78 06/20/20 11:12 36.5 C 76 18 108/58 L 97 06/20/20 08:35 86 06/20/20 08:15 131/70 06/20/20 07:18 37 C 91 H 16 94/61 L 95 PG Care Time/CCT Total # of Minutes Spent Total Time Spent with Patient: Total time spent is greater than 50% in coordination of care (as documented) at patient's floor/unit and/or counseling patient: Coding Level of Care Code 71085 Subseq Hosp Care Lvl 3 Diagnoses Acute respiratory failure with hypoxia J96.01 Community acquired pneumonia J18.9 Acute on chronic heart failure with preserved ejection fraction I50.33 Atrial fibrillation I48.91 Type 2 diabetes mellitus E11.9 Enlarged prostate with lower urinary tract symptoms (LUTS) N40.1 Gout M10.9 Hearing loss H91.93 Hearing loss type: unspecified Laterality: bilateral (1) Hearing loss Hearing loss type: unspecified Laterality: bilateral Qualified Code(s): H 91.93 - Unspecified hearing loss, bilateral
[2020-06-20] MEDS: cefTRIAXone SODIUM 2,000 MG in DEXTROSE 5% 50 ML IV SCH (18:15)
[2020-06-20] MEDS: DOCUSATE CALCIUM 240 MG CAPSULE PO SCH (20:39)
[2020-06-20] MEDS: SIMVASTATIN 20 MG TAB PO SCH (20:39)
[2020-06-20] MEDS: ACETAMINOPHEN 325 MG TAB PO SCH (20:39)
[2020-06-20] MEDS: MELATONIN 3 MG TAB PO SCH (20:40)
[2020-06-21] MEDS: LORazepam 0.5 MG TAB PO PRN ×2 (01:21→23:14)
[2020-06-21 06:19] LABS: Basophils # (auto) 0.02 K/uL (0-0.2); Basophils % (auto) 0.2 %; Eosinophils # (auto) 0.08 K/uL (0-0.5); Eosinophils % (auto) 0.7 %; Hematocrit (blood only) 40.8 % (42-52); Hemoglobin 12.8 g/dL (14.0-18.0); Immature Granulocytes # (auto) 0.07 K/uL (0.00-0.02); Immature Granulocytes % (auto) 0.6 %; Lymphocytes # (auto) 0.71 K/uL (1.2-3.4); Lymphocytes % (auto) 5.9 %; Mean Corpuscular Hemoglobin 31.4 pg (25-34); Mean Corpuscular Hgb Conc 31.4 g/dL (32-36); Mean Corpuscular Volume 100.2 fL (80-100); Monocytes # (auto) 1.46 K/uL (0.11-0.59); Monocytes % (auto) 12.2 %; Neutrophils # (auto) 9.62 K/uL (1.4-6.5); Neutrophils % (auto) 80.4 %; Platelet Count 203 K/uL (130-400); RDW Coefficient of Variation 15.8 % (11.5-14.5); RDW Standard Deviation 57.9 fL (36.4-46.3); Red Blood Count 4.07 M/uL (4.7-6.1); White Blood Count 11.96 K/uL (4.8-10.8)
[2020-06-21 06:50] LABS: BUN Creatinine Ratio 22.5 (10-20); Calcium 8.6 mg/dl (8.5-10.1); Creatinine Clr Calc Pharmacy 33.2 ml/min; Est GFR (African American) 41.1; Est GFR (Non-African American) 35.5; Potassium 4.2 mmol/L (3.5-5.1)
[2020-06-21] MEDS: INSULIN ASPART 100 UNITS/ML 3 ML PEN SC SCH ×4 (08:19→20:40)
[2020-06-21] MEDS: OMEGA-3 (PURIFIED FISH OIL) 1 GM CAP PO SCH ×3 (08:21→16:44)
[2020-06-21] MEDS: FUROSEMIDE 40 MG in SYRINGE 0 ML IV SCH (08:21)
[2020-06-21] MEDS: APIXABAN 5 MG TABLET PO SCH ×2 (08:22→20:41)
[2020-06-21] MEDS: FINASTERIDE 5 MG TAB PO SCH (08:22)
[2020-06-21] MEDS: ASPIRIN 81 MG ECTAB PO SCH ×2 (08:22→20:41)
[2020-06-21] MEDS: POTASSIUM CHLORIDE CRTAB 20 MEQ TABCR PO SCH ×2 (08:22→20:41)
[2020-06-21] MEDS: METOPROLOL SUCC 50MG EXT REL TAB PO SCH ×2 (08:23→20:40)
[2020-06-21] MEDS: lisinopril 5 MG TAB PO SCH (08:23)
[2020-06-21] MEDS: DOXYCYCLINE HYCLATE 100 MG CAP PO SCH ×2 (08:23→20:41)
[2020-06-21] MEDS: allopurinoL 300 MG TAB PO SCH (08:24)
[2020-06-21] MEDS: TAMSULOSIN HCL 0.4 MG CAP PO SCH (12:05)
[2020-06-21] MEDS: MULTIVITAMIN TAB PO SCH (12:05)
--- NOTE | 2020-06-21 13:41 | Hospitalist Progress Note ---
Date of Service June 21, 2020 Assessment & Plan (1) Acute respiratory failure with hypoxia: Secondary to pneumonia and pulmonary edema Aim O2 sats > 90%. Wean O2 off as tolerated Feels improved but still with O2 req CXR pending (2) Community acquired pneumonia: Continue ceftriaxone and doxycycline started on 06/17. Could be viral since he has a bilateral presentation. Covid test negative. Sputum culture if sputum is produced (3) Acute on chronic heart failure with preserved ejection fraction: Actually this is combined systolic and diastolic congestive heart failure. Ejection fraction 35 to 40% on cardiac echo which is lower than previous study in 2018. Lisinopril started. Will follow renal function. Good diuretic response so far with parenteral Lasix. Serial labs . Cards c/s feels more related to PNA than CHF Resume home lasix dosing 40mg alternating with 60mg PO (4) Atrial fibrillation: Continue anticoagulation with Eliquis 5 mg p.o. twice daily Continue rate control with metoprolol succinate 50 mg p.o. twice daily (5) Type 2 diabetes mellitus: HbA1c 7.1 in September 2018. Hold metformin. SSI coverage (6) Enlarged prostate with lower urinary tract symptoms (LUTS): History of urinary retention Continue tamsulosin 0.8 milligrams p.o. daily and finasteride 5 mg p.o. daily UA pending to rule out as potential source of infection. Bladder scan every shift, call provider if > 400ml (7) Gout: No acute flare. Continue allopurinol 300 mg p.o. daily (8) Hearing loss: Noted Disposition: Eventual discharge to home PT/OT recs for HHPT and home health OT with 05/12 care Admission and Anticipated Discharge Date Admission Date: June 17, 2020 Subjective Pt again denies any SOB, even with ambulation. Nursing states he was put on a facemask while sleeping due to mouth breathing and some desats. He is tolerating PO without issue. Pt denies fever, chest pain, abd pain, n/v/c/d, LE pain or swelling. Review of Systems Review of Systems: Pertinent positives and negatives reviewed in HPI--all others negative Physical Exam Constitutional: WD/WN, vitals as above Eyes: normal visual villavicencio by confrontation and + anicteric sclerae Neck: normal visual inspection and trachea midline Respiratory: normal respiratory effort; no respiratory distress Auscultation: + crackles (improving); no wheezes Cardiovascular: Rate/Rhythm: regular rate and regular rhythm Extremities: no edema Gastrointestinal (Abdomen): Inspection/Auscultation: abdomen not distended Percussion/Palpation: abdomen soft; abdomen nontender Musculoskeletal: Head/Neck/Chest: normocephalic and head atraumatic Skin: no rashes, warm and dry Neurologic: awake; not confused Speech / Cognition: normal speech Psychiatric: A+Ox3, euthymic affect Results & Data Results & Data ([facility]) Vital Signs (Past 12 Hours) Vital Signs Temp Pulse Pulse Resp BP BP Pulse Ox 06/21/20 10:57 36.5 C 69 20 110/69 93 06/21/20 07:15 84 06/21/20 06:52 36.6 C 77 18 108/70 92 06/21/20 03:54 36.5 C 86 16 117/56 L 95 PG Care Time/CCT Total # of Minutes Spent Total Time Spent with Patient: Total time spent is greater than 50% in coordination of care (as documented) at patient's floor/unit and/or counseling patient: Coding Level of Care Code 13025 Subseq Hosp Care Lvl 3 Diagnoses Acute respiratory failure with hypoxia J96.01 Community acquired pneumonia J18.9 Acute on chronic heart failure with preserved ejection fraction I50.33 Atrial fibrillation I48.91 Type 2 diabetes mellitus E11.9 Enlarged prostate with lower urinary tract symptoms (LUTS) N40.1 Gout M10.9 Hearing loss H91.93 Hearing loss type: unspecified Laterality: bilateral (1) Hearing loss Hearing loss type: unspecified Laterality: bilateral Qualified Code(s): H91.93 - Unspecified hearing loss, bilateral
--- NOTE | 2020-06-21 15:11 | XRay Report ---
XR chest 2V PA/lateral HISTORY: 85 years-old Male ongoing O2 requirement acute shortness of breath with hypoxia COMPARISON: Chest radiograph 06/17/2020 TECHNIQUE: PA and lateral views of the chest FINDINGS: Cardiomegaly with pulmonary vascular congestion and mildly progressed reticular opacities. No pneumot horax. Small left pleural effusion with persistent left midlung and left lung base alveolar opacities . Slightly improved aeration of the right lung base. Degenerative changes of the shoulders and spine. IMPRESSION: 1. Cardiomegaly and pulmonary vascular congestion with mildly progressed interstitial opacities sugge stive of pulmonary edema versus interstitial pneumonia. 2. Small left pleural effusion with persistent left midlung and left lung base consolidation. ACT 112: Negative or not required by law. The above report was generated using voice recognition software. It may contain grammatical, syntax o r spelling errors. Electronically signed by: Giles Conner M.D. 06/21/2020 3:10 PM
[2020-06-21] MEDS: cefTRIAXone SODIUM 2,000 MG in DEXTROSE 5% 50 ML IV SCH (18:43)
[2020-06-21] MEDS: DOCUSATE CALCIUM 240 MG CAPSULE PO SCH (20:40)
[2020-06-21] MEDS: ACETAMINOPHEN 325 MG TAB PO SCH (20:40)
[2020-06-21] MEDS: MELATONIN 3 MG TAB PO SCH (20:40)
[2020-06-21] MEDS: SIMVASTATIN 20 MG TAB PO SCH (20:41)
[2020-06-22] MEDS ORDERED: FUROSEMIDE 40 MG TAB PO SCH (09:00)
--- NOTE | 2020-06-22 09:10 | Cardiology Progress Note ---
Date of Service June 22, 2020 Assessment & Plan Admission and Anticipated Discharge Date Admission Date: June 17, 2020 Subjective He did not appear short of breath talking in sentences. He denied feeling short of breath. He notes sleeping at night last night he was relatively flat and did not feel dyspneic. He denies any chest pain or chest pressure. Denies any palpitations. He has no lightheadedness or dizziness. His appetite is stable. He has no increased abdominal distention or lower extremity edema. He denies any fevers or chills. He denies any home sick contacts. He looks relatively well and states he wishes to go home as he does not want to be in the hospital any longer Results & Data ([facility]) Vital Signs (Past 12 Hours) Vital Signs Temp Pulse Resp BP Pulse Ox 06/22/20 07:06 36.5 C 82 20 120/77 98 06/22/20 04:35 36.5 C 87 22 120/68 92 06/21/20 23:24 36.7 C 71 18 100/65 93 HEENT: Mildly reduced carotid upstrokes Lungs: Coarse breath sounds L>R especially mid left lung field with decreased breath sounds in the left bases Heart: Irregular rate and rhythm he has a very soft crescendo decrescendo murmur which is mid to late peaking he has a soft holosystolic murmur at the apex Abdomen: Soft nontender distended positive bowel sounds Extremities: No clubbing cyanosis or edema, decreased skin turgor Psychiatric affect appeared appropriate All of his laboratory studies including were reviewed in addition his chest x- ray was personally reviewed Impressions: #1 acute on chronic systolic and valvular heart failure with hypoxia 2. Chronic atrial fibrillation on anticoagulation 3. 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 History of an infected right hip 5. Echocardiogram 03/2020 with an ejection fraction range of 45% moderate to severe aortic stenosis and moderate eccentric mitral regurgitation status post mitral clip 6. Status post mitral clip August 2018 secondary to severe mitral regurgitation 7. Hypertension 8. Hyperlipidemia In reviewing his laboratories he still has a white count. He is prerenal and his creatinine is significantly higher than his baseline outpatient creatinine. He is currently back on his home diuretic regiment overall for the hospitalization he is down about 3 L. He has coarse breath sounds especially in the left midlung and decreased breath sounds in the left base. I do not think the effusion in the left base is large enough but it can be ultrasound to determine if there is enough fluid for a therapeutic thoracentesis. Even with aggressive diuresis he continues to remain hypoxic. He requires 5 L of oxygen. He is talking in sentences without being dyspneic. He is currently on antibiotics for potential pneumonia. I do know emotionally he is having a hard time staying in the hospital. The challenge will be maintaining his oxygen level at home with his current oxygen requirement. He is known to have low flow aortic stenosis at least by echo in the fall in the office it was not severe. At this point I do not think it is the cause for his ongoing hypoxemia. His Covid PCR was negative. 1 may want to consider retesting him to make sure he did not get it in the hospital.
[2020-06-22] MEDS: lisinopril 5 MG TAB PO SCH (09:14)
[2020-06-22] MEDS: DOXYCYCLINE HYCLATE 100 MG CAP PO SCH ×2 (09:14→20:54)
[2020-06-22] MEDS: allopurinoL 300 MG TAB PO SCH (09:14)
[2020-06-22] MEDS: FINASTERIDE 5 MG TAB PO SCH (09:14)
[2020-06-22] MEDS: ASPIRIN 81 MG ECTAB PO SCH ×2 (09:15→20:50)
[2020-06-22] MEDS: APIXABAN 5 MG TABLET PO SCH ×2 (09:15→20:50)
[2020-06-22] MEDS: OMEGA-3 (PURIFIED FISH OIL) 1 GM CAP PO SCH ×3 (09:15→17:01)
[2020-06-22] MEDS: METOPROLOL SUCC 50MG EXT REL TAB PO SCH ×2 (09:15→20:55)
[2020-06-22] MEDS: POTASSIUM CHLORIDE CRTAB 20 MEQ TABCR PO SCH ×2 (09:15→20:51)
[2020-06-22] MEDS: INSULIN ASPART 100 UNITS/ML 3 ML PEN SC SCH ×4 (09:16→20:53)
[2020-06-22] MEDS: ALBUT/IPRATROP 3MG/0.5MG NEB 3 ML VIAL NEB SCH ×2 (11:05→19:15)
[2020-06-22] MEDS: ACETYLCYSTEINE 20% INHAL SOLN 4ML ***DISPENSED BY RESP. INH SCH ×2 (11:06→19:15)
[2020-06-22] MEDS: TAMSULOSIN HCL 0.4 MG CAP PO SCH (12:17)
[2020-06-22] MEDS: MULTIVITAMIN TAB PO SCH (12:17)
--- NOTE | 2020-06-22 15:20 | Hospitalist Progress Note ---
Date of Service June 22, 2020 Assessment & Plan (1) Acute respiratory failure with hypoxia: Secondary to pneumonia and pulmonary edema Aim O2 sats > 90%. Wean O2 off as tolerated Feels improved but still with O2 req CXR noted for ongoing PNA, seems more likely viral at this point given CXR Nursing attempted to d/c O2. Pt was asx at rest. Did have some issues with ambulation was noted to be around 84%. Did improve to 88% after about 30 minutes of replaced O2. Add nebs with mucomyst to attempt to break up PNA Unable to obtain CT chest due to elevated cr Pt would like to go home, however hesitant if he is dropping to the mid-80s still (2) Community acquired pneumonia: Continue ceftriaxone and doxycycline started on 06/17. Could be viral since he has a bilateral presentation. Covid test negative. Sputum culture if sputum is produced (3) Acute on chronic heart failure with preserved ejection fraction: Actually this is combined systolic and diastolic congestive heart failure. Ejection fraction 35 to 40% on cardiac echo which is lower than previous study in 2018. Lisinopril started. Will follow renal function. Good diuretic response so far with parenteral Lasix. Serial labs . Cards c/s feels more related to PNA than CHF Resume home lasix dosing 40mg alternating with 60mg PO (4) Atrial fibrillation: Continue anticoagulation with Eliquis 5 mg p.o. twice daily Continue rate control with metoprolol succinate 50 mg p.o. twice daily (5) Type 2 diabetes mellitus: HbA1c 7.1 in September 2018. Hold metformin. SSI coverage (6) Enlarged prostate with lower urinary tract symptoms (LUTS): History of urinary retention Continue tamsulosin 0.8 milligrams p.o. daily and finasteride 5 mg p.o. daily UA pending to rule out as potential source of infection. Bladder scan every shift, call provider if > 400ml (7) Gout: No acute flare. Continue allopurinol 300 mg p.o. daily (8) Hearing loss: Noted Disposition: Eventual discharge to home PT/OT recs for HHPT and home health OT with 24/7 care Per , pt lives with her and son. Son works and is gone during the day. Another son lives about 5 minutes away. Admission and Anticipated Discharge Date Admission Date: June 17, 2020 Subjective Pt is requesting d/c home today. He denies any SOB with the O2 in place at rest or with ambulation, however he is at 7L today. Per nursing, prior attempts at weaning have caused desats. Pt denies fever, chest pain, abd pain, n/v/c/d, LE pain or swelling. Nursing attempted to d/c O2. Pt was asx at rest. Did have some issues with ambulation was noted to be around 84%. Did improve to 88% after about 30 minutes of replaced O2. Review of Systems Review of Systems: Pertinent positives and negatives reviewed in HPI--all others negative Physical Exam Constitutional: WD/WN, vitals as above Eyes: normal visual villavicencio by confrontation and + anicteric sclerae Neck: normal visual inspection and trachea midline Respiratory: normal respiratory effort; no respiratory distress Auscultation: + crackles (improving); no wheezes Cardiovascular: Rate/Rhythm: regular rate and regular rhythm Extremities: no edema Gastrointestinal (Abdomen): Inspection/Auscultation: abdomen not distended Percussion/Palpation: abdomen soft; abdomen nontender Musculoskeletal: Head/Neck/Chest: normocephalic and head atraumatic Skin: no rashes, warm and dry Neurologic: awake; not confused Speech / Cognition: normal speech Psychiatric: A+Ox3, euthymic affect Results & Data Results & Data ([facility]) Vital Signs (Past 12 Hours) Vital Signs Temp Pulse Pulse Resp BP BP Pulse Ox 06/22/20 14:57 36.9 C 76 20 112/70 97 06/22/20 11:43 36.4 C L 84 20 111/73 92 06/22/20 11:11 86 20 91 06/22/20 08:00 78 06/22/20 07:06 36.5 C 82 20 120/77 98 06/22/20 04:35 36.5 C 87 22 120/68 92 PG Care Time/CCT Total # of Minutes Spent Total Time Spent with Patient: Total time spent is greater than 50% in coordination of care (as documented) at patient's floor/unit and/or counseling patient: Coding Level of Care Code 25953 Subseq Hosp Care Lvl 3 Diagnoses Acute respiratory failure with hypoxia J96.01 Community acquired pneumonia J18.9 Acute on chronic heart failure with preserved ejection fraction I50.33 Atrial fibrillation I48.91 Type 2 diabetes mellitus E11.9 Enlarged prostate with lower urinary tract symptoms (LUTS) N40.1 Gout M10.9 Hearing loss H91.93 Hearing loss type: unspecified Laterality: bilateral (1) Hearing loss Hearing loss type: unspecified Laterality: bilateral Qualified Code(s): H91.93 - Unspecified hearing loss, bilateral
[2020-06-22] MEDS ORDERED: MAGNESIUM HYDROXIDE SUSP 30 ML UDC PO ONE (17:34)
[2020-06-22] MEDS: cefTRIAXone SODIUM 2,000 MG in DEXTROSE 5% 50 ML IV SCH (19:57)
[2020-06-22] MEDS: MELATONIN 3 MG TAB PO SCH (20:52)
[2020-06-22] MEDS: ACETAMINOPHEN 325 MG TAB PO SCH (20:55)
[2020-06-22] MEDS: DOCUSATE CALCIUM 240 MG CAPSULE PO SCH (20:57)
[2020-06-22] MEDS: LORazepam 0.5 MG TAB PO PRN (21:27)
[2020-06-22] MEDS: SIMVASTATIN 20 MG TAB PO SCH (21:29)
[2020-06-23] MEDS: ALBUT/IPRATROP 3MG/0.5MG NEB 3 ML VIAL NEB SCH (07:15)
[2020-06-23] MEDS: ACETYLCYSTEINE 20% INHAL SOLN 4ML ***DISPENSED BY RESP. INH SCH (07:15)
[2020-06-23] MEDS: FINASTERIDE 5 MG TAB PO SCH (07:59)
[2020-06-23] MEDS: ASPIRIN 81 MG ECTAB PO SCH (07:59)
[2020-06-23] MEDS: METOPROLOL SUCC 50MG EXT REL TAB PO SCH (07:59)
[2020-06-23] MEDS: APIXABAN 5 MG TABLET PO SCH (07:59)
[2020-06-23] MEDS: lisinopril 5 MG TAB PO SCH (07:59)
[2020-06-23] MEDS: DOXYCYCLINE HYCLATE 100 MG CAP PO SCH (07:59)
[2020-06-23] MEDS: OMEGA-3 (PURIFIED FISH OIL) 1 GM CAP PO SCH ×2 (08:00→11:52)
[2020-06-23] MEDS: POTASSIUM CHLORIDE CRTAB 20 MEQ TABCR PO SCH (08:00)
[2020-06-23] MEDS: allopurinoL 300 MG TAB PO SCH (08:00)
[2020-06-23] MEDS: INSULIN ASPART 100 UNITS/ML 3 ML PEN SC SCH ×2 (08:01→11:53)
--- NOTE | 2020-06-23 08:41 | Cardiology Progress Note ---
Date of Service June 23, 2020 Assessment & Plan Admission and Anticipated Discharge Date Admission Date: June 17, 2020 Subjective He looks better this morning. He denies any shortness of breath. He denies a cough fevers chills or sweats. He denies any lightheadedness or dizziness. He has no chest pain. Denies any palpitations or fluttering. He looks a lot better than yesterday. He is hoping to go home today. His oxygen needs have also dramatically improved in the last 18 hours. Results & Data ([facility]) Vital Signs (Past 12 Hours) Vital Signs Temp Pulse Pulse Resp BP Pulse Ox 06/23/20 07:37 37.0 C 80 18 113/70 93 06/23/20 07:26 80 06/23/20 07:16 77 16 93 06/23/20 03:37 36.8 C 85 20 113/68 95 06/22/20 23:48 37.0 C 67 18 104/59 L 93 06/22/20 22:45 89 HEENT: Mildly reduced carotid upstrokes Lungs: Mild coarse breath sounds worse on the left compared to the right with decreased breath sounds in the left bases much improved from yesterday. Heart: Irregular rate and rhythm he has a very soft crescendo decrescendo murmur which is mid to late peaking he has a soft holosystolic murmur at the apex Abdomen: Soft nontender distended positive bowel sounds Extremities: No clubbing cyanosis or edema, decreased skin turgor Psychiatric affect appeared appropriate All of his laboratory studies including were reviewed in addition his chest x- ray was personally reviewed Impressions: #1 acute on chronic systolic and valvular heart failure with hypoxia 2. Chronic atrial fibrillation on anticoagulation 3. 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 History of an infected right hip 5. Echocardiogram 03/2020 with an ejection fraction range of 45% moderate to severe aortic stenosis and moderate eccentric mitral regurgitation status post mitral clip 6. Status post mitral clip August 2018 secondary to severe mitral regurgitation 7. Hypertension 8. Hyperlipidemia Based on his I's and O's he appears euvolemic. His blood pressure is well controlled his heart rate in atrial fibrillation is well controlled he is on anticoagulation. He can be discharged home on his home diuretic regiment. In addition he should remain on his apixaban and his AV valentin blockers. We will arrange for 2-week follow-up in the office to make sure that he is stable from a heart failure standpoint. He should be discharged on his appropriate antibiotics.
[2020-06-23] MEDS ORDERED: FUROSEMIDE 20 MG TAB PO SCH (09:00)
[2020-06-23] MEDS ORDERED: MAGNESIUM HYDROXIDE SUSP 30 ML UDC PO SCH (09:00)
[2020-06-23 11:02] LABS: Basophils # (auto) 0.03 K/uL (0-0.2); Basophils % (auto) 0.3 %; Eosinophils # (auto) 0.15 K/uL (0-0.5); Eosinophils % (auto) 1.6 %; Hematocrit (blood only) 39.1 % (42-52); Hemoglobin 12.7 g/dL (14.0-18.0); Immature Granulocytes # (auto) 0.03 K/uL (0.00-0.02); Immature Granulocytes % (auto) 0.3 %; Lymphocytes # (auto) 0.96 K/uL (1.2-3.4); Lymphocytes % (auto) 10.1 %; Mean Corpuscular Hemoglobin 31.6 pg (25-34); Mean Corpuscular Hgb Conc 32.5 g/dL (32-36); Mean Corpuscular Volume 97.3 fL (80-100); Mean Platelet Volume 10.3 fL (7.4-10.4); Monocytes # (auto) 0.23 K/uL (0.11-0.59); Monocytes % (auto) 2.4 %; Neutrophils # (auto) 8.14 K/uL (1.4-6.5); Neutrophils % (auto) 85.3 %; Platelet Count 274 K/uL (130-400); RDW Coefficient of Variation 15.5 % (11.5-14.5); RDW Standard Deviation 54.9 fL (36.4-46.3); Red Blood Count 4.02 M/uL (4.7-6.1); White Blood Count 9.54 K/uL (4.8-10.8)
[2020-06-23 11:34] LABS: Albumin Level 2.6 gm/dl (3.4-5.0); Calcium 8.6 mg/dl (8.5-10.1); Creatinine Clr Calc Pharmacy 47.8 ml/min; Est GFR (African American) 63.8; Magnesium 2.2 mg/dl (1.8-2.4); Potassium 4.7 mmol/L (3.5-5.1)
[2020-06-23 11:36] LABS: Albumin Globulin Ratio 0.5 (0.9-2); Bilirubin,Total 0.6 mg/dl (0.2-1); Globulin 5.2 gm/dl (2.5-4.0); Total Protein 7.8 gm/dl (6.4-8.2)
[2020-06-23] MEDS: MULTIVITAMIN TAB PO SCH (11:52)
[2020-06-23] MEDS: TAMSULOSIN HCL 0.4 MG CAP PO SCH (11:52)
--- NOTE | 2020-06-23 12:19 | Discharge Summary ---
Date of Service June 23, 2020 Admission HPI Per Admitting Provider João Dinh is an 85-year-old male who presents to the ER with generalized weakness and fatigue. History taken from the patient and at bedside. He reports symptoms for the last 2 weeks. No change in salt intake and has been taking his Lasix as prescribed (60 mg MWF, 40 mg all other days). Leg edema at baseline and he reports his weight is stable. However he has been having shortness of breath much worse on exertion or lying flat. Also reports nonproductive coughing much worse on lying down for the past week. Reports having dry mouth although this is not unusual for him. He denies any fever, chills, loss of taste or smell, myalgias, headache, sore throat, diarrhea, nausea/vomiting, chest or abdominal pain. No known exposure to COVID-19. In the ER chest x-ray concerning for pulmonary vascular congestion with mainly left lower lobe pneumonia. WBC elevated however procalcitonin negative. He was suspected to have pneumonia and given ceftriaxone and azithromycin in the ER. He denies any history of aspirations, choking or coughing after eating. In addition he was significantly hypoxic requiring 5LPM nasal cannula to maintain O2 sats > 90%. He was referred to medicine for admission and ongoing management of pneumonia and hypoxia. Principal Diagnosis Community-acquired pneumonia, acute respiratory failure with hypoxia, acute on chronic systolic CHF, urinary retention, elevated transaminases Discharge Exam Constitutional WD/WN, vitals as above Eyes + anicteric sclerae; no conjunctival abnormality Neck trachea midline, no thyromegaly Respiratory normal respiratory effort Auscultation: + crackles (At left base) and + rhonchi (At left base); no wheezes Cardiovascular Rate/Rhythm: regular rate and + irregularly irregular Heart Sounds: + murmur Extremities: no edema Chest (Breasts) Chest: normal inspection of chest Gastrointestinal (Abdomen) normal bowel sounds, soft, nontender, no hepatosplenomegaly Musculoskeletal Extremities: extremities normal to inspection; no cyanosis and no clubbing Skin no rashes, warm and dry Neurologic moves all extremities and awake; no focal motor deficits Psychiatric A+Ox3, euthymic affect Lymphatic no lymphedema Discharge Data Allergies Allergy/AdvReac Type Severity Reaction Status Date / Time No Known Drug Allergies Allergy Verified 06/17/20 18:05 Consultations 06/17/20 17:01 ED Decision to Admit Stat 06/17/20 23:57 Consult Cardiology Routine 06/19/20 09:24 Consult Cardiology Routine Ordered Studies 06/17/20 16:07 CT head/brain wo con Stat Echocardiogram Chest x-ray x2 Hospital Course (1) Acute respiratory failure with hypoxia: Secondary to pneumonia and pulmonary edema Aim O2 sats > 90%. Wean O2 off as tolerated-was requiring 2 L nasal cannula with exertion only at the time of discharge, no oxygen needed at rest CXR noted for ongoing PNA, treated for bacterial pneumonia, but may have been viral? Was treated with antibiotics as well as IV diuresis with much improvement Much improved at the time of discharge Follow-up with PCP (2) Community acquired pneumonia: With multifocal pneumonia left greater than right on chest x-ray. He had hypoxia and leukocytosis on admission, but never had a fever. Procalcitonin was normal. Covid-19/RSV/influenza all negative on admission Treated for bacterial pneumonia but could have been viral pneumonia Completed a 7 day course of ceftriaxone and doxycycline Needs to follow chest x-ray as an outpatient until resolution in 3 to 4 weeks (3) Acute on chronic heart failure with preserved ejection fraction: Actually this is acute on chronic combined systolic and diastolic conges tive heart failure. Ejection fraction 35 to 40% on cardiac echo which is lower than previous study in 2018. Lisinopril started by cardiology. Was diuresed with IV Lasix and had -3.6 on net I's/O's on the day of discharge Was much improved Appreciate cardiology input Cards c/s feels more related to PNA than CHF Resumed home lasix dosing 40mg alternating with 60mg PO once daily Continue home metoprolol Follow-up with cardiology as an outpatient (4) Elevated transaminase level: likely 2/2 abx use TBili normal, no abd pain, no nausea, no tenderness No imaging needed dc all abx pt anxious for discharge to home plan to check LFTs in 1 day as outpt and follow as outpt--> most likely will resolve over the next week off abx (5) Atrial fibrillation: Continue anticoagulation with Eliquis 5 mg p.o. twice daily Continue rate control with metoprolol succinate 50 mg p.o. twice daily (6) Type 2 diabetes mellitus: HbA1c 7.1 in September 2018. Hold metformin but can restart as an outpatient. SSI coverage was utilized (7) Enlarged prostate with lower urinary tract symptoms (LUTS): History of urinary retention and did require Buenrostro catheter placement here Continue tamsulosin 0.8 milligrams p.o. daily and finasteride 5 mg p.o. daily UA here negative (8) Acute urinary retention: has a h/o retention, required Buenrostro catheter placement for retention and failed a trial of void on the day of discharge Buenrostro catheter was replaced on the day of discharge and should remain in place until follow-up with urology in 1 to 2 weeks Continue Flomax, finasteride f/u with Urology (9) Gout: No acute flare. Continue allopurinol 300 mg p.o. daily (10) Hearing loss: Noted (11) Pleural effusion: secondary to CHF, possibly pneumonia afebrile diuresed this stay follow with repeat CXR in 3-4 weeks to ensure effusion improving and PNA resolved (12) Hypertension: Blood pressures controlled Continue metoprolol, lisinopril (13) DVT prophylaxis: Eliquis Disposition PT/OT recs for HHPT and home health OT with / care Per , pt lives with her and son. Son works and is gone during the day. Another son lives about 5 minutes away. Stable for discharge to home with close follow-up with PCP Total Time Total Time Spent Total Time Spent (In Minutes): 40 minutes Total Time Includes: Examination of the Patient, Discharge Planning and Medication Reconciliation Discharge Plan Discharge Items Patient Disposition: Home - Home Health Services Reason For Visit: ACUTE HYPOXIC RESP. FAILURE, COMMUNITY ACQUIRED Discharge Diagnosis: Community acquired Pneumonia, Acute respiratory failure with hypoxia, Acute on chronic systolic CHF, Urinary retention, Elevated liver enzymes Condition on Discharge: Fair Activity: As commented below Lifting: Gradually increase as tolerated Bathing: No limitations Exercise/Sports: Gradually increase as tolerated Non-emergency contact: Primary Care Provider, Canoe Inspector Final and Urologist Call non-emergency contact if: you have any medication questions, your symptoms worsen, your pain is not controlled and you have a fever Follow-up/Referrals: Anoop Sanchez DO [Physician] - (Follow up for urinary retention in 1-2 weeks.) Bobby Schuler DO [Primary Care Provider] - 07/01/20 10:30 am (You have an appt on 07/01 @ 1030. Please arrive 15 minutes proir to your appt. It is important that you keep this appt, if for any reason this appt does not fit your schedule, please call [phone] to reschedule. ) Finn Kirkland, DO [Physician] - (Please follow up in 1-2 weeks for your heart failure.) Diet: Carb Consistent or DM2 and Low Sodium (2gm) Fluids: 1500ml (6 cups) Ambulatory Orders: Hepatic Function (Liver) Panel (Routine) Timeframe: 1 Day Location: Determined by Patient Ordered By: Tere Juarez Attending Provider Instructions: You were admitted and treated for pneumonia with antibiotics. You were requiring oxygen as well, but this was weaned down prior to discharge--> you will only need to wear 2L of oxygen via the nasal cannula anytime you get up and move around. You finished your course of antibiotics. You were also treated for some excessive fluid in the lungs from congestive heart failure with IV lasix. You can continue on your usual doses of oral lasix upon return home. Dr. Kirkland did add on a new medication for your heart called LISINOPRIL. This lowers blood pressure and helps improve congestive heart failure. You were having issues with urine retention and had a Buenrostro catheter placed in your bladder. This was removed on the day of discharge. If you are not able to void a full amount or have increasing lower abdominal fullness or pressure, urinary frequency, then please call your Urologist, Dr. Sanchez, for further evaluation. Your liver enzymes were elevated on the day of discharge--> you had no symptoms of liver problems and this is likely due to a side effect of the antibiotics you took for your pneumonia. Please have repeat blood work drawn on 06/24 with the results to be sent to Dr. Schuler for review. If they are the same or improving, then Dr. Schuler will continue to follow these until they have normalized. If they are significantly worse, you may need an urgent referral to a [facility]. In the meantime, please DO NOT TAKE your SIMVASTATIN until your liver tests improve. Follow up with Drs. Schuler and Isael as scheduled for you. Pending Studies at Discharge: No Stand-Alone Forms: My [employer] Medications and DC Order Prescriptions: New lisinopril [Zestril] 5 mg Tablet 5 mg PO QAM Qty: 30 RF: 0 Continued allopurinol 300 mg tablet 300 mg PO QAM RF: 0 melatonin 3 mg tablet 6 mg PO HS RF: 0 multivitamin [Daily Multi-Vitamin] tablet 1 tab PO QDL RF: 0 tamsulosin [Flomax] 0.4 mg capsule 0.8 mg PO QDL RF: 0 nitrofurantoin macrocrystal 50 mg capsule 50 mg PO HS Qty: 90 RF: 0 finasteride 5 mg tablet 5 mg PO DAILY Qty: 90 RF: 3 metformin 850 mg tablet 850 mg PO QAM RF: 0 omega 0-asl-hhm-fish oil [Fish Oil] 1,000 mg (120 mg-180 mg) Capsule 1 cap PO TIDM RF: 0 PreserVision AREDS [id number] Tablet 1 tab PO BIDM RF: 0 acetaminophen [Tylenol] 325 mg Capsule 650 mg PO HS RF: 0 Eliquis 5 mg Tablet 5 mg PO BID RF: 0 metoprolol succinate 50 mg Tablet Extended Release 24 Hr 50 mg PO AMHS RF: 0 clindamycin HCl 150 mg capsule 600 mg PO ONCE PRN (Reason: PRIOR TO DENTAL APPOINTMENT) RF: 0 triamcinolone acetonide 0.1 % Cream 1 applic TOPICAL DIRECTED PRN (Reason: Skin Irritation) RF: 0 docusate sodium [Stool Softener] 250 mg Capsule 500 mg PO HS RF: 0 aspirin [Enteric Coated Aspirin] 81 mg tablet,delayed release (DR/EC) 81 mg PO AMHS RF: 0 Changed furosemide 40 mg tablet 40 mg PO Q OTHER DAY Qty: 0 RF: 0 lorazepam 0.5 mg Tablet 0.5 mg PO HS PRN (Reason: for sleep or anxiety) Qty: 0 RF: 0 Discontinued simvastatin 20 mg tablet 20 mg PO HS RF: 0 Discharge Orders: Discharge Order (Routine); Ordered 06/23/20 Ordered By: Tere Melo/Other Patient Handouts: High Blood Sugar (Hyperglycemia), Hypoglycemia (Low Blood Sugar), Managing Type 2 Diabetes Admission Data Admit Date/Time: 06/17/20 18:20 Attending Provider: Tere Larry Admit Provider: Surinder Campos Primary Care Provider: Bobby Schuler Other Providers: Surinder Campos ; Finn Kirkland ; [place] Other Interventions: Discharge Summary Assessment (RN) Last Done: 06/23/20 13:41 Coding Level of Care Code D/C Day Management >30 mins Diagnoses Acute respiratory failure with hypoxia J96.01 Community acquired pneumonia J18.9 Acute on chronic heart failure with preserved ejection fraction I50.33 Elevated transaminase level R74.01 Atrial fibrillation I48.91 Type 2 diabetes mellitus E11.9 Enlarged prostate with lower urinary tract symptoms (LUTS) N40.1 Acute urinary retention R33.8 Gout M10.9 Hearing loss H91.93 Hearing loss type: unspecified Laterality: bilateral Pleural effusion J90 Hypertension I10 Hypertension type: unspecified DVT prophylaxis Z29.9
== END 2020-06-23 17:36 | disposition home health service (06) | DRG 291 ==
LOC: ED 14:59 → 2W 18:20 → SUATTDRO 18:20 → 2W 18:57

== ENCOUNTER 2022-08-09 06:36 | Inpatient (IN) ==
--- NOTE | 2022-08-09 06:52 | Emergency Department Note ---
Impression & Plan Respiratory failure, Hypoxia, Cardiac arrest, Broken ribs ED Provider Note NAME: CAROLE COY AGE: 87 SEX: M : 1935 ARRIVES VIA: Ambulance INFORMANT: Patient, Son, ED PROVIDER(S): Jonathan Elder DO CHIEF COMPLAINT: cardiac arrest HPI: Patient is a 57-year-old male with a past medical history of CHF, A-fib, diabetes, chronically hypoxic on 8 L nasal cannula on hospice that presents to the ER. He was here earlier for a Buenrostro change. Son took him home without his required 8 L of oxygen which he typically wears and when he got home he collapsed. Per report he did not have a pulse. They performed CPR for about 4 to 5 minutes as both family and police performed CPR. He was brought in by EMS. He was on nonrebreather. He denies all complaints at this time. PAST MEDICAL HISTORY:See Below PAST SURGICAL HISTORY:See Below FAMILY HISTORY:See Below SOCIAL HISTORY:See Below HOME MEDICATIONS:See Below ALLERGIES:See Below VITALS:See Below PHYSICAL EXAMINATION: GENERAL: Lying in bed on a nonrebreather in moderate distress HEAD: normal cephalic, atraumatic EYE EXAM: normal conjunctiva, PERRL and EOM's grossly intact OROPHARYNX: mucous membranes are moist NECK: supple, no nuchal rigidity, no adenopathy, non-tender CHEST: Mild bilateral chest wall pain on palpation LUNGS: clear to auscultation. Normal chest wall mechanics HEART: no murmurs, S1 normal and S2 normal ABDOMEN: abdomen soft, non-tender, normo-active bowel sounds, no masses, no rebound or guarding. PELVIS: stable to compression anteriorly and posteriorly BACK: Bruising on the entire back bilaterally UPPER EXTREMITIES: full active and passive range of motion of all joints without tenderness to palpation LOWER EXTREMITIES: full active and passive range of motion of all joints without tenderness to palpation NEURO EXAM: Normal sensorium, cranial nerves II-XII grossly intact, normal speech, no gross weakness of arms, no gross weakness of legs. GCS: 15. MEDICAL DECISION MAKING: Patient is an 87-year-old male on hospice who was initially a full code upon presentation. He received about 4 to 5 minutes of CPR as an outpatient. IV was established blood work was obtained. Labs show mild leukocytosis of 11,000. No significant anemia. VBG with a pH of 7.28 and CO2 of 56. BMP was fairly unremarkable with exception of creatinine 1.5. Troponin was elevated at 25. Lipase was normal. Uncertain if he had a cardiac arrest secondary to respiratory failure but had a protracted long conversation with both and son. They would like to make him a DNR/DNI. They would like to make him comfortable at this time. CT of the head, cervical spine, chest abdomen pelvis showed 2 rib fractures. Family was updated at bedside. Was admitted to the hospitalist as a DNR/DNI on comfort measures as he was at home on hospice. He was on BiPAP and remained on BiPAP the entire time he was in the ER. On a nonrebreather he was only 82%. On BiPAP he trended up to the mid 90s. Triage Nursing notes reviewed. Limited review of prior medical records performed Vital Signs: reviewed and remarkable for hypoxic Differential diagnosis: Differential diagnoses includes but is not limited to pneumonia, bronchitis, COPD/Asthma exacerbation, pneumothorax, pulmonary embolism, congestive heart failure, acute coronary syndrome ER treatment provided: See below Diagnostics interpreted by me include EKG and cardiac monitoring as listed below: -Cardiac Monitoring: An order was placed for continuous cardiac monitoring. The monitor shows a rate of 87 with afib rhythm. -ECG: A-fib rate 87 Right axis Right bundle branch block ST depressions and T wave inversions in V1 through V3 QTc 574 No significant change from previous -Laboratory studies:Interpreted by me as stated above in MDM and shown below. Imaging studies: Xrays: As interpreted by me: Portable AP upright 1 view of the chest shows no significant change from previous. Right upper lobe opacity which is increased in size CTs show: CTs as described above in MDM Consultation(s): Discussed with Dr. Surinder Campos for further evaluation management and treatment Procedures:none Critical Care: I have personally spent 75 minutes of critical care time in the direct management of this patient. This includes bedside care, interpretation of diagnostic studies, and testing, discussion with consultants, patient, and family members, and other required patient management activities. This 75 minutes is in excess of all separately billable procedures. Past Med/Surg History Medical History A-fib DX 2018 - NO CARDIOVERSION Anemia Cerumen impaction Chronic heart failure Chronic respiratory failure with hypoxia, on home O2 therapy Chronic systolic CHF (congestive heart failure) Diabetes Elevated transaminase level Enlarged prostate Gout Hearing loss Hearing Aid History of skin cancer PRECANCEROUS LESIONS S/P EXCISION History of transesophageal echocardiography (LISA) Hyperlipidemia Hypertension Infected orthopedic implant Interstitial lung disease Interstitial lung disease Macular degeneration Mitral valve prolapse S/P [place]IP 09[place]12/2018 [place] [place] Osteoarthritis RBBB Shortness of breath Stage III pressure ulcer of sacral region Surgical History History of colonoscopy x2 History of hernia repair X3 (Umbilical x 1, Right Inguinal x 2) History of hip surgery HARDWARE FROM HIP REVISION REMOVED - RIGHT 09/18/17 - MAC #3, ETT #7.5, HiLo Oral, Grade 1 View History of revision of total replacement of right hip joint 05/30/17 - MAC #4, ETT #7.5, HiLo, Grade 1 View 07/13/17 - MAC #4, ETT #7.5, HiLo Oral, Grade 1 View History of total left hip arthroplasty History of total right hip arthroplasty 06/21/12 - MAC #3, ETT #8.0, Grade 1 View Hx of tonsillectomy S/P cardiac cath 09/2018= MVP CLIP PLACED Family History Mother Cancer Social History Smoking Status: Former smoker Tobacco Type: Cigarettes Cigarettes Per Day: 1/2 - 1 ppd x 42 years; Hx Alcohol Use: No Hx Substance Use: No Preferred Language: Israeli Communication Ability: Effective Visual Impairment: No Limitations Chemical Machine Tender Required: No Beliefs That Will Affect Care: None marital status: Current Living Situation: Spouse Feels Safe at Home: Yes Assistive Devices: Walker Allergies Allergies Allergy/AdvReac Type Severity Reaction Status Date / Time No Known Drug Allergies Allergy Verified 05/20/22 14:00 Home Meds Home Medications Medication Instructions Recorded Confirmed allopurinol 300 mg tablet 300 mg PO QAM 01/10/18 05/20/22 melatonin 3 mg tablet 6 mg PO HS 01/10/18 05/20/22 multivitamin (Daily Multi-Vitamin 1 tab PO QDL 01/10/18 05/20/22 tablet) tamsulosin 0.4 mg capsule (Flomax) 0.8 mg PO QDL 01/10/18 05/20/22 metformin 850 mg tablet 850 mg PO QAM 07/04/18 05/20/22 omega 8-sre-vio-fish oil 1,000 mg 1 cap PO TIDM 07/04/18 05/20/22 (120 mg-180 mg) capsule (Fish Oil) vitamins A,C,P-brmh-nttskf 2,148 1 tab PO BIDM 07/04/18 05/20/22 mcg-113 mg-45 mg-17.4 mg tablet (PreserVision AREDS) acetaminophen 325 mg capsule 650 mg PO HS 09/25/18 05/20/22 (Tylenol) apixaban 5 mg tablet (Eliquis) 5 mg PO BID 09/25/18 05/20/22 docusate sodium 250 mg capsule 500 mg PO HS 10/27/19 05/20/22 (Stool Softener) metoprolol succinate 50 mg 50 mg PO AMHS 10/27/19 05/20/22 tablet,extended release 24 hr triamcinolone acetonide 0.1 % 1 applic topical DIRECTED PRN 10/27/19 05/20/22 topical cream Skin Irritation Previous Rx's Medication Instructions Recorded furosemide 40 mg tablet 40 mg PO Q OTHER DAY #0 tabs 06/23/20 lisinopril 5 mg tablet (Zestril) 5 mg PO QAM #30 tabs 06/23/20 lorazepam 0.5 mg tablet 0.5 mg PO HS PRN for sleep or 06/23/20 anxiety #0 tabs ipratropium 20 mcg-albuterol 100 1 puff inhalation QID PRN 09/04/20 mcg/actuation mist for inhalation shortness of breath #4 grams (Combivent Respimat) ipratropium bromide 21 mcg (0.03 2 spray intranasal BID PRN nasal 10/21/20 %) nasal spray drainage #30 mL Oxygen Home #1 ea 04/22/21 finasteride 5 mg tablet 5 mg PO DAILY #90 tabs 06/06/22 cephalexin 500 mg capsule 500 mg PO Q8H 7 days #21 caps 08/09/22 Results & Data (ED) Vital Signs Vital Signs - 24 hr 08/09/22 06:41 08/09/22 06:45 08/09/22 06:57 Temperature 35.9 C L Temperature Source Temporal Artery Scan Pulse Rate 89 Pulse Rate [Apical] Pulse Rhythm [Apical] Respiratory Rate 20 Respiratory Effort / Characteristics Respiratory Depth Shallow Blood Pressure [Left Arm] Blood Pressure Mean [Left Arm] Pulse Oximetry 81 L 81 L 95 Oxygen Delivery Method Non-rebreather Non-rebreather BiPAP Oxygen Flow Rate 15 15 Fraction of Inspired Oxygen Sepsis Recent Fever Within 48 Hours No Sepsis New/Unexplained Change in Mental Status No Sepsis Action Taken by Nursing No Action Required Fraction of Inspired Oxygen - Titration 100 08/09/22 06:45 08/09/22 07:41 08/09/22 08:21 Temperature Temperature Source Pulse Rate 80 69 Pulse Rate [Apical] 77 Pulse Rhythm [Apical] Respiratory Rate 23 16 Respiratory Effort / Characteristics Spontaneous Respiratory Depth Blood Pressure [Left Arm] 113/78 Blood Pressure Mean [Left Arm] 89 Pulse Oximetry 95 97 Oxygen Delivery Method BiPAP Oxygen Flow Rate Fraction of Inspired Oxygen 100 Sepsis Recent Fever Within 48 Hours Sepsis New/Unexplained Change in Mental Status Sepsis Action Taken by Nursing Fraction of Inspired Oxygen - Titration 08/09/22 09:38 Temperature Temperature Source Pulse Rate Pulse Rate [Apical] 67 Pulse Rhythm [Apical] Regular Respiratory Rate 19 Respiratory Effort / Characteristics Respiratory Depth Blood Pressure [Left Arm] 101/69 Blood Pressure Mean [Left Arm] 79 Pulse Oximetry 99 Oxygen Delivery Method Oxygen Flow Rate Fraction of Inspired Oxygen Sepsis Recent Fever Within 48 Hours Sepsis New/Unexplained Change in Mental Status Sepsis Action Taken by Nursing Fraction of Inspired Oxygen - Titration Laboratory Data 08/09/22 06:50 08/09/22 06:50 Lab Results 08/09/22 08/09/22 08/09/22 Range/Units 06:50 06:50 06:50 WBC 11.96 H (4.8-10.8) K/ul RBC 4.16 L (4.70-6.10) M/uL Hgb 13.6 L (14.0-18.0) g/dl POC Hgb (14.0-18.0) g/dl Hct 42.4 (42.0-52.0) % POC Hct (42-52) % MCV 101.9 H (80.0-100.0) fL MCH 32.7 (25.0-34.0) pg MCHC 32.1 (32.0-36.0) g/dL RDW Std Deviation 63.6 H (36.4-46.3) fL RDW Coeff of Prieto 17.2 H (11.5-14.5) % Plt Count 185 (130-400) K/uL MPV 10.8 (9.4-12.4) fL Immature Gran % (Auto) 1.2 % Neut % (Auto) 82.2 % Lymph % (Auto) 7.4 % Forrest % (Auto) 8.0 % Eos % (Auto) 0.9 % Baso % (Auto) 0.3 % Neut # (Auto) 9.82 H (1.40-6.50) K/uL Lymph # (Auto) 0.89 L (1.2-3.4) K/uL Forrest # (Auto) 0.96 H (0.11-0.59) K/uL Eos # (Auto) 0.11 (0-0.50) K/uL Baso # (Auto) 0.04 (0-0.2) K/uL Immature Gran # (Auto) 0.14 (0.01-0.20) K/uL Absolute Nucleated RBC 0.02 (0-0.12) K/uL Nucleated RBC % (auto) 0.2 % POC pH (7.35-7.45) POC pCO2 (35-46) mmHg POC pO2 (80-95) mmHg POC HCO3 (19-24) stephan/L POC Base Excess (-9-1.8) stephan/L POC ABG O2 Sat (90-95) % POC Sodium (135-144) mmol/L Sodium 141 (136-145) mmol/L POC Potassium (3.3-5.0) mmol/L Potassium 4.1 (3.5-5.1) mmol/L POC Chloride (101-112) mmol/L Chloride 102 (98-107) mmol/L Carbon Dioxide 29 (21-32) mmol/L POC Total CO2 (24-31) mmol/L Anion Gap 10 (3-11) POC Anion Gap (16-25) mmol/L POC BUN (7-18) mg/dl BUN 42 H (6-23) mg/dl Creatinine 1.52 H (0.6-1.4) mg/dl POC Creatinine (0.6-1.3) mg/dl Est Cr Clr Drug Dosing 39.6 ml/min Est GFR ( Amer) 47.7 ml/min Est GFR (Non-Af Amer) 41.2 ml/min BUN/Creatinine Ratio 27.6 H (10-20) Glucose 206 H (70-99(Fasting)) mg/dl POC Glucose (other) (70-99) mg/dl Calcium 9.0 (8.6-10.3) mg/dl POC Ioniz Calcium Ashley (1.12-1.32) mmol/l Total Bilirubin 2.1 H (0.2-1.0) mg/dl AST 27 (13-39) U/L ALT 15 (7-52) U/L Alkaline Phosphatase 198 H (34-104) U/L Troponin I High Sens 25.5 H (0-20) pg/ml Total Protein 7.0 (6.0-8.3) gm/dl Albumin 3.4 (3.4-5.0) gm/dl Globulin 3.6 (2.5-4.0) gm/dl Albumin/Globulin Ratio 0.9 (0.9-2) Lipase 24 (11-82) U/L SARS-CoV-2, RNA, NAAT NEGATIVE (NEGATIVE) 08/09/22 08/09/22 Range/Units 06:54 06:55 WBC (4.8-10.8) K/ul RBC (4.70-6.10) M/uL Hgb (14.0-18.0) g/dl POC Hgb 15.6 15.0 (14.0-18.0) g/dl Hct (42.0-52.0) % POC Hct 46 44 (42-52) % MCV (80.0-100.0) fL MCH (25.0-34.0) pg MCHC (32.0-36.0) g/dL RDW Std Deviation (36.4-46.3) fL RDW Coeff of Prieto (11.5-14.5) % Plt Count (130-400) K/uL MPV (9.4-12.4) fL Immature Gran % (Auto) % Neut % (Auto) % Lymph % (Auto) % Forrest % (Auto) % Eos % (Auto) % Baso % (Auto) % Neut # (Auto) (1.40-6.50) K/uL Lymph # (Auto) (1.2-3.4) K/uL Forrest # (Auto) (0.11-0.59) K/uL Eos # (Auto) (0-0.50) K/uL Baso # (Auto) (0-0.2) K/uL Immature Gran # (Auto) (0.01-0.20) K/uL Absolute Nucleated RBC (0-0.12) K/uL Nucleated RBC % (auto) % POC pH 7.28 L (7.35-7.45) POC pCO2 56 H (35-46) mmHg POC pO2 91 (80-95) mmHg POC HCO3 27 H (19-24) stephan/L POC Base Excess 0.0 (-9-1.8) stephan/L POC ABG O2 Sat 96.0 H (90-95) % POC Sodium 142 141 (135-144) mmol/L Sodium (136-145) mmol/L POC Potassium 4.0 4.1 (3.3-5.0) mmol/L Potassium (3.5-5.1) mmol/L POC Chloride 101 (101-112) mmol/L Chloride (98-107) mmol/L Carbon Dioxide (21-32) mmol/L POC Total CO2 29 28 (24-31) mmol/L Anion Gap (3-11) POC Anion Gap 18.0 (16-25) mmol/L POC BUN 41 H (7-18) mg/dl BUN (6-23) mg/dl Creatinine (0.6-1.4) mg/dl POC Creatinine 1.5 H (0.6-1.3) mg/dl Est Cr Clr Drug Dosing ml/min Est GFR ( Amer) ml/min Est GFR (Non-Af Amer) ml/min BUN/Creatinine Ratio (10-20) Glucose (70-99(Fasting)) mg/dl POC Glucose (other) 202 H (70-99) mg/dl Calcium (8.6-10.3) mg/dl POC Ioniz Calcium Ashley 1.16 (1.12-1.32) mmol/l Total Bilirubin (0.2-1.0) mg/dl AST (13-39) U/L ALT (7-52) U/L Alkaline Phosphatase (34-104) U/L Troponin I High Sens (0-20) pg/ml Total Protein (6.0-8.3) gm/dl Albumin (3.4-5.0) gm/dl Globulin (2.5-4.0) gm/dl Albumin/Globulin Ratio (0.9-2) Lipase (11-82) U/L SARS-CoV-2, RNA, NAAT (NEGATIVE) Administered Medications Discontinued Medications Ceftriaxone Sodium (Rocephin) 2,000 mg in 70 mls @ 140 mls/hr IV NOW STA Stop: 08/09/22 09:12 Last Infusion: 08/09/22 09:39 Dose: 0 mls/hr Documented By: Admin: 08/09/22 09:09 Dose: 140 mls/hr Documented By: KV Ioversol (Optiray 350 100ml) 94 ml IV ONCE ONE Stop: 08/09/22 07:16 Last Admin: 08/09/22 07:16 Dose: 94 ml Documented By: SEJ Imaging Data Radiologist's Impression: Chest X-Ray 08/09/22 06:39 XR chest 1V portable HISTORY: Postcardiac arrest. Chest pain, nonspecific COMPARISON: Chest 03/02/2022. FINDINGS: No pneumothorax. No pleural effusions. There are low lung volumes. The cardiac silhouette remains mildly enlarged. Vascular and interstitial thickening suggestive of mild congestive change. This is similar to the prior study. Right midlung zone focal airspace opacity has increased in size and now measures 4.2 cm. IMPRESSION: 1. Cardiomegaly with mild congestive change. 2. Increase in size in a 4.2 cm right midlung zone density. This may represent a pulmonary lesion. This will be better assessed on the same day chest CT. ACT 112: Negative or not required by law. Electronically signed by: Gilbert Guidry M.D. 08/09/2022 7:11 AM Abdomen/Pelvis CT 08/09/22 06:[address] WITH IV CONTRAST CT DOSE: HISTORY: syncope/ams/fall TECHNIQUE: Multiaxial CT images of the abdomen and pelvis were performed following the use of intravenous contrast. A dose lowering technique was utilized adhering to the principles of ALARA. COMPARISON STUDY: None. FINDINGS: The lung bases will be reported on the same day chest CT. There are small bilateral pleural effusions. The heart is enlarged. There are patchy bibasilar densities, left greater than right. No pneumoperitoneum. No pneu matosis. There is a left total hip arthroplasty. The right femoral head is absent and there is chronic dislocation/deformity of the proximal right femur/hip. There are displaced left posterior ninth and 10th rib fractures. Fat and fluid containing left inguinal hernia is noted. There is moderate body wall edema. The gallbladder is distended and contains a few punctate gallstones. Nodular contour to the liver consistent with cirrhosis. The spleen enhances normally. The adrenal glands and pancreas unremarkable. Moderate bilateral cortical renal thinning is noted. There are multiple right renal cysts with the largest in the lower pole measuring 5.2 cm. Small amount of ascites is seen throughout the abdomen. The main portal vein is patent. No retroperitoneal lymphadenopathy or retroperitoneal hematoma. Calcified plaque within the normal caliber abdominal aorta. Prostate gland is enlarged. There is a Buenrostro catheter within the bladder. Small amount of gas within the bladder lumen. There is d iffuse bladder wall thickening with adjacent fat stranding. Small amount of hyperdense material within the bladder lumen which could be due to blood products. There is a subacute/healing mild superior endplate compression fracture at T8. No bowel wall thickening or obstruction. IMPRESSION: 1. Displaced left posterior ninth and 10th rib fractures. 2. Subacute/healing mild superior endplate compression fracture at T8. 3. Cirrhotic liver with a small amount of ascites. 4. Bladder wall thickening with adjacent fat stranding. There is also a Buenrostro catheter within the bladder. This may represent a cystitis. 5. Hyperdense material within the bladder lumen suggesting blood products. 6. Moderate body wall edema. 7. Cholelithiasis. The gallbladder is also distended. 8. Additional findings as described above. 9. The lung bases will be reported on the same day chest CT. ACT 112: Negative or not required by law. Electronically signed by: Gilbert Guidry M.D. 08/09/2022 8:[address] 08/09/22 06:[address] WITH CONTRAST HISTORY: Acute syncope with chest trauma syncope/ams/fall TECHNIQUE: Multiaxial CT images of the chest were performed following the IV administration of 94 cc of Optiray. A dose lowering technique was utilized adhering to the principles of ALARA. COMPARISON: CT abdomen and pelvis of same day, chest CT 09/22/2020, thoracic spine radiographs 07/30/2021, chest CT 09/22/2020 FINDINGS: Study is degraded by respiratory motion artifact. Unremarkable visualized thyroid. No pathologically enlarged lymph nodes identified. Moderate to extensive cardiomegaly. Extensive coronary artery calcifications. No pericardial effusion. Mild fusiform dilation of the ascending thoracic aorta measures up to 4 cm. No dissection. Dilated main pulmonary artery redemonstrated . Small pleural effusions. Mild intralobular septal thickening. There is a 4.6 x 2.3 cm subpleural consolidation within the right upper lobe abutting the adjacent fissure. Mild dependent bibasilar atelectasis. There is improved aeration of the left lung with mild persistent subpleural groundglass and consolidative opacities suggestive of post inflammatory scarring/fibrosis with mild left lung volume loss. Decreased AP dimension of the trachea and bronchi may represent a component of tracheobronchial malacia. There is suggested cirrhotic morphology of the liver. Upper abdominal ascites. Mild generalized body wall edema. Degenerative changes of the shoulders and spine. Acute, comminuted and mildly displaced fractures of the posterior left 1 0th and 11th ribs. Questioned cortical irregularity involving the upper third of the sternal body seen best on the sagittal imaging it is likely secondary to motion artifact. Chronic appearing fracture involving the T8 vertebral body redemonstrated with only mild vertebral body height loss and no retropulsion. T1 spinous process fracture is new from the 2020 study demonstrates corticated margins. IMPRESSION: 1. Motion degraded exam. 2. Acute, comminuted mildly displaced fractures of the posterior left 10th and 11th ribs. No pneumothorax identified. 3. Cardiomegaly with small pleural effusions and mild intralobular septal thickening which may represent a component of mild pulmonary edema. 4. Dependent 4.6 cm consolidation within the right upper lobe is new from the prior study. 3 month follow-up chest CT recommended. 5. Pulmonary arterial hypertension. 6. Subacute to chronic appearing T8 vertebral body and T1 spinous process fractures. ACT 112: Negative or not required by law. Electronically signed by: Damian Conner M.D. 08/09/2022 8:[address] 08/09/22 06:[address] DOSE: HISTORY: syncope/ams/fall TECHNIQUE: Multiaxial CT images of the maxillofacial region were performed and reformatted in the coronal plane without the use of contrast. A dose lowering technique was utilized adhering to the principles of ALARA. COMPARISON: None. FINDINGS: The visualized cervical spine, skull base, pterygoid plates, nasal bones, lamina papyracea, orbital floors, mandible, and zygomatic arches are in tact. No fractures. The orbits are unremarkable. Partial opacification of the ethmoid air cells and mild mucosal thickening within the maxillary sinuses and left frontal sinus. IMPRESSION: No fractures within the maxillofacial region. ACT 112: Negative or not required by law. Electronically signed by: Gilbert Guidry M.D. 08/09/2022 8:[address] 08/09/22 06:[address] DOSE: HISTORY: Cardiac arrest. head injury TECHNIQUE: Multiaxial CT images of the head were performed without the use of intravenous contrast. Automated exposure control was utilized for this study. A dose lowering technique was utilized adhering to the principles of ALARA. Comparison: Head CT 06/17/2020. Findings: Mild mucosal thickening within the maxillary sinuses with partial opacification of the ethmoid air cells. The mastoid air cells are clear. The calvarium and skull base are intact. There is no mass, hematoma, midline shift, acute infarct. White matter hypodensity is nonspecific but suggestive of microvascular ischemic change. The ventricles and sulci demonstrate mild age- related involutional changes. Impression: No acute intracranial abnormality. Atrophy and microvascular ischemic changes. ACT 112: Negative or not required by law. Electronically signed by: Gilbert Guidry M.D. 08/09/2022 8:[address] 08/09/22 06:44 CT cervical spine wo con CT DOSE: 2638.67 mGy.cm CLINICAL HISTORY: 87 years-old Male with syncope/ams/fall. Acute neck injury status post fall COMPARISON: Head CT of same day TECHNIQUE: Multiple axial CT images of the cervical spine were obtained without contrast. A dose lowering technique was utilized adhering to the principles of ALARA. FINDINGS: Motion degraded exam. Multilevel degenerative changes. No definite acute fracture or subluxation is identified. The cervical soft tissues appear unremarkable. The visualized lung apices appear clear. IMPRESSION: Motion degraded exam. No definite acute fracture or subluxation identified. ACT 112: Negative or not required by law. The above report was generated using voice recognition software. It may contain grammatical, syntax or spelling errors. Electronically signed by: Damian Conner M.D. 08/09/2022 8:12 AM Discharge Plan Visit Data Chief Complaint: Syncope Stated Complaint: POST ARREST ED Provider: Jonathan Elder Discharge Problem: Respiratory failure, Hypoxia, Cardiac arrest, Broken ribs Patient Disposition: Admitted As Inpatient Discharge Instructions Interventions: ED Discharge Assessment Last Done: 08/09/22 12:56
[2022-08-09 07:06] LABS: iSTAT Creatinine 1.5 mg/dl (0.6-1.3); iSTAT Hemoglobin 15.6 g/dl (14.0-18.0); iSTAT Ionized Calcium 1.16 mmol/l (1.12-1.32)
[2022-08-09 07:08] LABS: iSTAT Arterial Blood Gas HCO3 27 meg/L (19-24); iSTAT Arterial Blood Gas pCO2 56 mmHg (35-46); iSTAT Arterial Blood Gas pH 7.28 (7.35-7.45); iSTAT Arterial Blood Gas pO2 91 mmHg (80-95); iSTAT Carbon Dioxide 28 mmol/L (24-31); iSTAT Hematocrit 44 % (42-52); iSTAT Potassium 4.1 mmol/L (3.3-5.0); iSTAT Sodium 141 mmol/L (135-144)
--- NOTE | 2022-08-09 07:13 | XRay Report ---
XR chest 1V portable HISTORY: Postcardiac arrest. Chest pain, nonspecific COMPARISON: Chest 03/02/2022. FINDINGS: No pneumothorax. No pleural effusions. There are low lung volumes. The cardiac silhouette r emains mildly enlarged. Vascular and interstitial thickening suggestive of mild congestive change. Th is is similar to the prior study. Right midlung zone focal airspace opacity has increased in size and now measures 4.2 cm. IMPRESSION: 1. Cardiomegaly with mild congestive change. 2. Increase in size in a 4.2 cm right midlung zone density. This may represent a pulmonary lesion. Th is will be better assessed on the same day chest CT. ACT 112: Negative or not required by law. Electronically signed by: Gilbert uGidry M.D. 08/09/2022 7:11 AM
[2022-08-09] MEDS ORDERED: OPTIRAY 350 100ml IV ONE (07:15)
[2022-08-09 07:30] LABS: Basophils # (auto) 0.04 K/uL (0-0.2); Basophils % (auto) 0.3 %; Eosinophils # (auto) 0.11 K/uL (0-0.50); Eosinophils % (auto) 0.9 %; Hematocrit (blood only) 42.4 % (42.0-52.0); Hemoglobin 13.6 g/dl (14.0-18.0); Immature Granulocytes # (auto) 0.14 K/uL (0.01-0.20); Immature Granulocytes % (auto) 1.2 %; Lymphocytes # (auto) 0.89 K/uL (1.2-3.4); Lymphocytes % (auto) 7.4 %; Mean Corpuscular Hemoglobin 32.7 pg (25.0-34.0); Mean Corpuscular Hgb Conc 32.1 g/dL (32.0-36.0); Mean Corpuscular Volume 101.9 fL (80.0-100.0); Mean Platelet Volume 10.8 fL (9.4-12.4); Monocytes # (auto) 0.96 K/uL (0.11-0.59); Neutrophils # (auto) 9.82 K/uL (1.40-6.50); Neutrophils % (auto) 82.2 %; Nucleated RBC # (auto) 0.02 K/uL (0-0.12); Nucleated RBC % (auto) 0.2 %; Platelet Count 185 K/uL (130-400); RDW Coefficient of Variation 17.2 % (11.5-14.5); RDW Standard Deviation 63.6 fL (36.4-46.3); Red Blood Count 4.16 M/uL (4.70-6.10); White Blood Count 11.96 K/ul (4.8-10.8)
[2022-08-09 07:49] LABS: Albumin Globulin Ratio 0.9 (0.9-2); Albumin Level 3.4 gm/dl (3.4-5.0); BUN Creatinine Ratio 27.6 (10-20); Bilirubin,Total 2.1 mg/dl (0.2-1.0); Creatinine Clr Calc Pharmacy 39.6 ml/min; Est GFR (African American) 47.7 ml/min; Est GFR (Non-African American) 41.2 ml/min; Globulin 3.6 gm/dl (2.5-4.0); Potassium 4.1 mmol/L (3.5-5.1)
[2022-08-09 07:55] LABS: Troponin I High Sensitivity 25.5 pg/ml (0-20)
--- NOTE | 2022-08-09 08:06 | CT Scan Report ---
HEAD CT NONCONTRAST CT DOSE: HISTORY: Cardiac arrest. head injury TECHNIQUE: Multiaxial CT images of the head were performed without the use of intravenous contrast. A utomated exposure control was utilized for this study. A dose lowering technique was utilized adheri ng to the principles of ALARA. Comparison: Head CT 06/17/2020. Findings: Mild mucosal thickening within the maxillary sinuses with partial opacification of the ethm oid air cells. The mastoid air cells are clear. The calvarium and skull base are intact. There is no mass, hematoma, midline shift, acute infarct. White matter hypodensity is nonspecific but suggestive of microvascular ischemic change. The ventricles and sulci demonstrate mild age-related involutional changes. Impression: No acute intracranial abnormality. Atrophy and microvascular ischemic changes. ACT 112: Negative or not required by law. Electronically signed by: Gilbert Guidry M.D. 08/09/2022 8:05 AM
--- NOTE | 2022-08-09 08:14 | CT Scan Report ---
CT cervical spine wo con CT DOSE: 2638.67 mGy.cm CLINICAL HISTORY: 87 years-old Male with syncope/ams/fall. Acute neck injury status post fall COMPARISON: Head CT of same day TECHNIQUE: Multiple axial CT images of the cervical spine were obtained without contrast. A dose low ering technique was utilized adhering to the principles of ALARA. FINDINGS: Motion degraded exam. Multilevel degenerative changes. No definite acute fracture or sublux ation is identified. The cervical soft tissues appear unremarkable. The visualized lung apices appea r clear. IMPRESSION: Motion degraded exam. No definite acute fracture or subluxation identified. ACT 112: Negative or not required by law. The above report was generated using voice recognition software. It may contain grammatical, syntax o r spelling errors. Electronically signed by: Damian Conner M.D. 08/09/2022 8:12 AM
--- NOTE | 2022-08-09 08:14 | CT Scan Report ---
MAXILLOFACIAL CT CT DOSE: HISTORY: syncope/ams/fall TECHNIQUE: Multiaxial CT images of the maxillofacial region were performed and reformatted in the cor onal plane without the use of contrast. A dose lowering technique was utilized adhering to the princ iplLinda. COMPARISON: None. FINDINGS: The visualized cervical spine, skull base, pterygoid plates, nasal bones, lamina papyracea, orbital floors, mandible, and zygomatic arches are intact. No fractures. The orbits are unremarkable . Partial opacification of the ethmoid air cells and mild mucosal thickening within the maxillary sin uses and left frontal sinus. IMPRESSION: No fractures within the maxillofacial region. ACT 112: Negative or not required by law. Electronically signed by: Gilbert Guidry M.D. 08/09/2022 8:12 AM
--- NOTE | 2022-08-09 08:36 | CT Scan Report ---
ABDOMEN AND PELVIS CT WITH IV CONTRAST CT DOSE: HISTORY: syncope/ams/fall TECHNIQUE: Multiaxial CT images of the abdomen and pelvis were performed following the use of intrave nous contrast. A dose lowering technique was utilized adhering to the principles of ALARA. COMPARISON STUDY: None. FINDINGS: The lung bases will be reported on the same day chest CT. There are small bilateral pleural effusions. The heart is enlarged. There are patchy bibasilar densities, left greater than right. No pneumoperitoneum. No pneumatosis. There is a left total hip arthroplasty. 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 There are displaced left posterior ninth and 10th rib fractures. Fat and fluid containing left inguinal hernia is noted. There is moderate body wall edema. The gallbladder is distended and contains a few punctate gallston es. Nodular contour to the liver consistent with cirrhosis. The spleen enhances normally. The adrenal glands and pancreas unremarkable. Moderate bilateral cortical renal thinning is noted. There are mul tiple right renal cysts with the largest in the lower pole measuring 5.2 cm. Small amount of ascites is seen throughout the abdomen. The main portal vein is patent. No retroperitoneal lymphadenopathy or retroperitoneal hematoma. Calcified plaque within the normal caliber abdominal aorta. Prostate gland is enlarged. There is a Buenrostro catheter within the bladder. Small amount of gas within the bladder ele men. There is diffuse bladder wall thickening with adjacent fat stranding. Small amount of hyperdense material within the bladder lumen which could be due to blood products. There is a subacute/healing mild superior endplate compression fracture at T8. No bowel wall thickening or obstruction. IMPRESSION: 1. Displaced left posterior ninth and 10th rib fractures. 2. Subacute/healing mild superior endplate compression fracture at T8. 3. Cirrhotic liver with a small amount of ascites. 4. Bladder wall thickening with adjacent fat stranding. There is also a Buenrostro catheter within the kerry dder. This may represent a cystitis. 5. Hyperdense material within the bladder lumen suggesting blood products. 6. Moderate body wall edema. 7. Cholelithiasis. The gallbladder is also distended. 8. Additional findings as described above. 9. The lung bases will be reported on the same day chest CT. ACT 112: Negative or not required by law. Electronically signed by: Gilbetr Guidry M.D. 08/09/2022 8:34 AM
[2022-08-09] MEDS ORDERED: cefTRIAXone SODIUM 2,000 MG/70 ML BAG IV STA (08:43)
--- NOTE | 2022-08-09 08:49 | CT Scan Report ---
CHEST CT WITH CONTRAST HISTORY: Acute syncope with chest trauma syncope/ams/fall TECHNIQUE: Multiaxial CT images of the chest were performed following the IV administration of 94 cc of Optiray. A dose lowering technique was utilized adhering to the principles of ALARA. COMPARISON: CT abdomen and pelvis of same day, chest CT 09/22/2020, thoracic spine radiographs 022, chest CT 09/22/2020 FINDINGS: Study is degraded by respiratory motion artifact. Unremarkable visualized thyroid. No path ologically enlarged lymph nodes identified. Moderate to extensive cardiomegaly. Extensive coronary ar desi calcifications. No pericardial effusion. Mild fusiform dilation of the ascending thoracic aorta measures up to 4 cm. No dissection. Dilated main pulmonary artery redemonstrated. Small pleural effusions. Mild intralobular septal thickening. There is a 4.6 x 2.3 cm subpleural cons olidation within the right upper lobe abutting the adjacent fissure. Mild dependent bibasilar atelect asis. There is improved aeration of the left lung with mild persistent subpleural groundglass and con solidative opacities suggestive of post inflammatory scarring/fibrosis with mild left lung volume los s. Decreased AP dimension of the trachea and bronchi may represent a component of tracheobronchial ma lacia. There is suggested cirrhotic morphology of the liver. Upper abdominal ascites. Mild generalized body wall edema. Degenerative changes of the shoulders and spine. Acute, comminuted and mildly displaced f ractures of the posterior left 10th and 11th ribs. Questioned cortical irregularity involving the upp er third of the sternal body seen best on the sagittal imaging it is likely secondary to motion artif act. Chronic appearing fracture involving the T8 vertebral body redemonstrated with only mild vertebr al body height loss and no retropulsion. T1 spinous process fracture is new from the 2020 study demon strates corticated margins. IMPRESSION: 1. Motion degraded exam. 2. Acute, comminuted mildly displaced fractures of the posterior left 10th and 11th ribs. No pneumoth orax identified. 3. Cardiomegaly with small pleural effusions and mild intralobular septal thickening which may repres ent a component of mild pulmonary edema. 4. Dependent 4.6 cm consolidation within the right upper lobe is new from the prior study. 3 month fo llow-up chest CT recommended. 5. Pulmonary arterial hypertension. 6. Subacute to chronic appearing T8 vertebral body and T1 spinous process fractures. ACT 112: Negative or not required by law. Electronically signed by: Damian Conner M.D. 08/09/2022 8:48 AM
--- NOTE | 2022-08-09 09:30 | History & Physical Report ---
Date of Service August 09, 2022 Assessment & Plan (1) Hospice care patient: Plan: presented after cruz catheter exchange and cardiac arrest-- on 8L chronically but dc from ER w/o his usual O2 ( states they didnt check O2 sat) end stage CHF, on hospice -- confirmed DNR/comfort w/ , Dr Campos also spoke w/ son who agreed to focus on comfort/no aggressive measures ABG w/ pH 7.28, COR 56, HCO 27, O2 91 Presently on BiPAP in ER, patient states breathing stable at present --> discontinue BiPAP, utilize supplemental O2 as needed for comfort Imaging w/ consolidative process -- was given dose of Ceftriaxone IV in ER and can cover some pulm and will defer any more abx if status improves as placing on comfort Weight up about 13kg from 2020, also w/ cirrhosis on imaging, likely hepatic congestion from volume overload -- told not to monitor weights at home by cards/focus on comfort Patient will require hospice to be revoked if inpatient and re-instate once discharged Comfort care orders while inpatient --> ativan, morphine available, glycopyrrolate Will place orders to flush cruz for any symptom control, placed eliquis and other home medications on hold Palliative consulted -- ?GIP depending course next 24 hours vs home vs [facility] w/ hospice depending if stable however suspect patient with limited time (2) Cardiac arrest: Plan: as above no further CPR/intubation per (3) Community acquired pneumonia: Plan: possible , consolidative process did get dose Ceftriaxone in ER, defer any further to tomorrow if patient makes significant turnaround (4) Pleural effusion: Plan: as above, likely 2nd to end stage CHF/cirrhosis/volume overload no aggressive treatments at present, moving to hospice (5) Hematuria: Plan: and urinary retention, cruz in place from ER, draining bloody urine (sample examiner pink urine in tubing) can flush if causing issues, 3way for comfort if needed (6) Acute on chronic systolic CHF (congestive heart failure): Plan: on hospice also w/ afib, on eliquis -- holding given hematuria/hospice as above (7) Interstitial lung disease: (8) Chronic respiratory failure with hypoxia, on home O2 therapy: Plan: BiPAP in ER --> transition to supplemental O2 as needed for symptoms/maintain sat/comfort (9) Type 2 diabetes mellitus: Plan: no longer on metformin therapy per comfort as above Plan admitting patient as unstable for d/c home on hospice comfort measures, monitoring status overnight dispo pending patient status in am History of Present Illness Chief Complaint: syncope/fall/CPR Primary Care Provider: Bobby Schuler DO 87yo male on hospice for end stage CHF presented to ER earlier this morning for cruz catheter removal/replacement after unable to inset by multifold operator and was discharged without oxygen and found to collapse when he got home. Family performed CPR for 4-5minutes and was brought in by EMS on nonrebreather. at bedside, confirms patient on Hospice and they have been great. Patient doing well at home, typically on 8L but her son forgot to bring it when he brought him home earlier and they couldn't get him through the door at home and he collapsed/cardiac arrest. Reported CPR for about 5 minutes, and put Oxygen back on and he responded. Brought back in and on BiPAP at present. notes issues w/ urinary retention and decreased urine output over the past week. She notes he hasn't been moving bowels much but either but reports decent appetite. Had reported calling hospice for this issue on /Monday last week and he drained 200cc on Monday upon placement of cruz and then 600cc during the day. 900cc on Monday, and yesterday issues with peeing/no drainage and brought to ER for cruz exchange as above. Follows w/ Dr Kirkland for end-stage CHF and she notes they have discussed not mon itoring his weight gain and focusing on comfort. When asked why she brought him back/wishes are, she confirms he is a DNR but has been taking all his usual medications with exception of Metformin, which was dc by Dr Kirkland. Patient states she has morphine/ativan at home and did give him some morphine this morning. Patient sleepy but arousable. Denies any chest pain at present, breathing stable on BiPAP and can consider transitioning to nasal cannula as tolerated for comfort. Discussed consultation w/ palliative medicine as well given discussion about perfusion/hypotension/CHF and likely low urine output potentially indicating nearing the end. She was unaware of these things and thankful for discussion. She notes while hospice has been great, they come 2x/week and that it is a lot for her at night to care for him, she may be interested inpatient hospice if continued decline however if able to get stable/remain stable, [facility] option so that she could move into less of caregiver role. She notes he has been stable sleeping in recliner w/ three pillows for comfort. ER Course: WBC elevated 11.9k, Hgb 13.6, ABG w/ pH 7.28, pCO2 56, pO2 91, HCO 27. Na 141, K 4.1. BUN/Cr 42/1.52. TB 2.1/ALP 198 UA w/ 3+ protein, 3+ blood, + nitrite, 1+ bili, 1+ leuk, >30 RBC, 10-20 epi, no bacteria COVID negative CXR, Head CT, Face CT, Chest CT, Cervical Spine CT CT chest w/ acute comminuted mildly displaced fractures posterior LEFT 10th/11th ribs, no PTX. Cardiomegaly w/ small pleural effusions and mild intralobular septal thickening which may represent component of mild pulmonary edema. Dep endent 4.6CM consolidation RUL, new from prior study. PAH. Subacute to chronic appearing T8 vertebral body/T1 spinous process fractures. CTAP w/ displaced posterior 9th/10th rib fractures, subacute/healing endplate comp fx T8. Cirrhotic liver w/ small amt ascites. Bladder wall thickening, ?cystitis. Hyperdense material w/i bladder lumen suggesting blood products. Moderate body wall edema. Cholelithiasis. GB also distended. Given Ceftriaxone 2gm IV x1 Allergies Allergy/AdvReac Type Severity Reaction Status Date / Time No Known Drug Allergies Allergy Verified 05/20/22 14:00 Home Medications Medication Instructions Recorded Confirmed Type allopurinol 300 mg tablet 300 mg PO QAM 01/10/18 08/09/22 History melatonin 3 mg tablet 6 mg PO HS 01/10/18 08/09/22 History multivitamin (Daily Multi-Vitamin 1 tab PO QDL 01/10/18 08/09/22 History tablet) tamsulosin 0.4 mg capsule (Flomax) 0.8 mg PO QDL 01/10/18 08/09/22 History metformin 850 mg tablet 850 mg PO QAM 07/04/18 08/09/22 History omega 2-fxg-opq-fish oil 1,000 mg 1 cap PO TIDM 07/04/18 08/09/22 History (120 mg-180 mg) capsule (Fish Oil) vitamins A,C,G-iiqy-ilkatw 2,148 1 tab PO BIDM 07/04/18 08/09/22 History mcg-113 mg-45 mg-17.4 mg tablet (PreserVision AREDS) acetaminophen 325 mg capsule 650 mg PO HS 09/25/18 08/09/22 History (Tylenol) apixaban 5 mg tablet (Eliquis) 5 mg PO BID 09/25/18 08/09/22 History docusate sodium 250 mg capsule 500 mg PO HS 10/27/19 08/09/22 History (Stool Softener) metoprolol succinate 50 mg 50 mg PO AMHS 10/27/19 08/09/22 History tablet,extended release 24 hr Oxygen Home #1 ea 04/22/21 08/09/22 Rx finasteride 5 mg tablet 5 mg PO DAILY #90 tabs 06/06/22 08/09/22 Rx bumetanide 1 mg tablet 2 mg PO DAILY 08/09/22 08/09/22 History cephalexin 500 mg capsule 500 mg PO Q8H 7 days #21 caps 08/09/22 08/09/22 Rx lorazepam 0.5 mg tablet 0.5 mg PO DAILY PRN Anxiety 08/09/22 08/09/22 History metolazone 2.5 mg tablet 2.5 mg PO UD 08/09/22 08/09/22 History potassium chloride 20 mEq 20 meq PO DAILY 08/09/22 08/09/22 History tablet,extended release Past Med/Surg History Medical History A-fib DX 2017 - NO CARDIOVERSION Anemia Cerumen impaction Chronic heart failure Chronic respiratory failure with hypoxia, on home O2 therapy Chronic systolic CHF (congestive heart failure) Diabetes Elevated transaminase level Enlarged prostate Gout Hearing loss Hearing Aid History of skin cancer PRECANCEROUS LESIONS S/P EXCISION History of transesophageal echocardiography (LISA) Hyperlipidemia Hypertension Infected orthopedic implant Interstitial lung disease Interstitial lung disease Macular degeneration Mitral valve prolapse S/P CLIP 09/12/2018 ([facility] [place]) Osteoarthritis RBBB Shortness of breath Stage III pressure ulcer of sacral region Surgical History History of colonoscopy x2 History of hernia repair X3 (Umbilical x 1, Right Inguinal x 2) History of hip surgery HARDWARE FROM HIP REVISION REMOVED - RIGHT 09/18/17 - MAC #3, ETT #7.5, HiLo Oral, Grade 1 View History of revision of total replacement of right hip joint 05/30/17 - MAC #4, ETT #7.5, HiLo, Grade 1 View 07/13/17 - MAC #4, ETT #7.5, HiLo Oral, Grade 1 View History of total left hip arthroplasty History of total right hip arthroplasty 06/21/12 - MAC #3, ETT #8.0, Grade 1 View Hx of tonsillectomy S/P cardiac cath 09/2018= MVP CLIP PLACED Family History Mother Cancer Social History Smoking Status: Unknown if ever smoked Tobacco Type: Cigarettes Cigarettes Per Day: 1/2 - 1 ppd x 42 years; Hx Alcohol Use: No Hx Substance Use: No Preferred Language: Croatian Communication Ability: Impaired Visual Impairment: No Limitations Nurse Wound Care Required: No Beliefs That Will Affect Care: None marital status: Current Living Situation: Spouse Current Living Situation Comment: hospice care at home Feels Safe at Home: Yes Assistive Devices: Denture - Upper, Denture - Lower, Glasses, Hearing Aid - Bilateral and Oxygen - Continuous Physical Exam Physical Exam: General: chronically ill appearing male laying in bed, BIPAP in place, at bedside patient sleeping upon entry, but able to be aroused. Speech able to be understood through mask, denies pain/shortness of breath, falls back asleep quickly Resp: nonlabored, diminished throughout, expiratory wheezing noted, on BiPAP, no accessory muscle use, +JVD CV: irregular, rate controlled, GI: +BS, edema, distension, nontender to palpation, no guarding/rebound : Cruz w/ bloody drainage present Psych: alert to person/, knows in hospital, not event/time, cooperative w/ exam Skin: b/l LE erythema/edema (denies pain on exam/palpation however) Results & Data Results & Data Vital Signs (Past 12 Hours) Vital Signs Temp Pulse Pulse Resp BP Pulse Ox O2 Del Method 08/09/22 08:21 69 08/09/22 07:41 77 16 113/78 97 BiPAP 08/09/22 06:45 80 23 95 08/09/22 06:57 95 BiPAP 08/09/22 06:45 81 L Non-rebreather 08/09/22 06:41 35.9 C L 89 20 81 L Non-rebreather O2 Flow Rate FiO2 08/09/22 08:21 08/09/22 07:41 08/09/22 06:45 100 08/09/22 06:57 08/09/22 06:45 15 08/09/22 06:41 15 Laboratory Results 08/09/22 08/09/22 08/09/22 Range/Units 06:55 06:54 06:50 WBC (4.8-10.8) K/ul RBC (4.70-6.10) M/uL Hgb (14.0-18.0) g/dl POC Hgb 15.0 15.6 (14.0-18.0) g/dl Hct (42.0-52.0) % POC Hct 44 46 (42-52) % MCV (80.0-100.0) fL MCH (25.0-34.0) pg MCHC (32.0-36.0) g/dL RDW Std Deviation (36.4-46.3) fL RDW Coeff of Prieto (11.5-14.5) % Plt Count (130-400) K/uL MPV (9.4-12.4) fL Immature Gran % (Auto) % Neut % (Auto) % Lymph % (Auto) % Wilbarger % (Auto) % Eos % (Auto) % Baso % (Auto) % Neut # (Auto) (1.40-6.50) K/uL Lymph # (Auto) (1.2-3.4) K/uL Wilbarger # (Auto) (0.11-0.59) K/uL Eos # (Auto) (0-0.50) K/uL Baso # (Auto) (0-0.2) K/uL Immature Gran # (Auto) (0.01-0.20) K/uL Absolute Nucleated RBC (0-0.12) K/uL Nucleated RBC % (auto) % POC pH 7.28 L (7.35-7.45) POC pCO2 56 H (35-46) mmHg POC pO2 91 (80-95) mmHg POC HCO3 27 H (19-24) stephan/L POC Base Excess 0.0 (-9-1.8) stephan/L POC ABG O2 Sat 96.0 H (90-95) % POC Sodium 141 142 (135-144) mmol/L Sodium (136-145) mmol/L POC Potassium 4.1 4.0 (3.3-5.0) mmol/L Potassium (3.5-5.1) mmol/L POC Chloride 101 (101-112) mmol/L Chloride (98-107) mmol/L Carbon Dioxide (21-32) mmol/L POC Total CO2 28 29 (24-31) mmol/L Anion Gap (3-11) POC Anion Gap 18.0 (16-25) mmol/L POC BUN 41 H (7-18) mg/dl BUN (6-23) mg/dl Creatinine (0.6-1.4) mg/dl POC Creatinine 1.5 H (0.6-1.3) mg/dl Est Cr Clr Drug Dosing ml/min Est GFR ( Amer) ml/min Est GFR (Non-Af Amer) ml/min BUN/Creatinine Ratio (10-20) Glucose (70-99(Fasting)) mg/dl POC Glucose (other) 202 H (70-99) mg/dl Calcium (8.6-10.3) mg/dl POC Ioniz Calcium Ashley 1.16 (1.12-1.32) mmol/l Total Bilirubin (0.2-1.0) mg/dl AST (13-39) U/L ALT (7-52) U/L Alkaline Phosphatase (34-104) U/L Troponin I High Sens (0-20) pg/ml Total Protein (6.0-8.3) gm/dl Albumin (3.4-5.0) gm/dl Globulin (2.5-4.0) gm/dl Albumin/Globulin Ratio (0.9-2) Lipase (11-82) U/L SARS-CoV-2, RNA, NAAT NEGATIVE (NEGATIVE) 08/09/22 08/09/22 Range/Units 06:50 06:50 WBC 11.96 H (4.8-10.8) K/ul RBC 4.16 L (4.70-6.10) M/uL Hgb 13.6 L (14.0-18.0) g/dl POC Hgb (14.0-18.0) g/dl Hct 42.4 (42.0-52.0) % POC Hct (42-52) % MCV 101.9 H (80.0-100.0) fL MCH 32.7 (25.0-34.0) pg MCHC 32.1 (32.0-36.0) g/dL RDW Std Deviation 63.6 H (36.4-46.3) fL RDW Coeff of Prieto 17.2 H (11.5-14.5) % Plt Count 185 (130-400) K/uL MPV 10.8 (9.4-12.4) fL Immature Gran % (Auto) 1.2 % Neut % (Auto) 82.2 % Lymph % (Auto) 7.4 % Wilbarger % (Auto) 8.0 % Eos % (Auto) 0.9 % Baso % (Auto) 0.3 % Neut # (Auto) 9.82 H (1.40-6.50) K/uL Lymph # (Auto) 0.89 L (1.2-3.4) K/uL Wilbarger # (Auto) 0.96 H (0.11-0.59) K/uL Eos # (Auto) 0.11 (0-0.50) K/uL Baso # (Auto) 0.04 (0-0.2) K/uL Immature Gran # (Auto) 0.14 (0.01-0.20) K/uL Absolute Nucleated RBC 0.02 (0-0.12) K/uL Nucleated RBC % (auto) 0.2 % POC pH (7.35-7.45) POC pCO2 (35-46) mmHg POC pO2 (80-95) mmHg POC HCO3 (19-24) stephan/L POC Base Excess (-9-1.8) stephan/L POC ABG O2 Sat (90-95) % POC Sodium (135-144) mmol/L Sodium 141 (136-145) mmol/L POC Potassium (3.3-5.0) mmol/L Potassium 4.1 (3.5-5.1) mmol/L POC Chloride (101-112) mmol/L Chloride 102 (98-107) mmol/L Carbon Dioxide 29 (21-32) mmol/L POC Total CO2 (24-31) mmol/L Anion Gap 10 (3-11) POC Anion Gap (16-25) mmol/L POC BUN (7-18) mg/dl BUN 42 H (6-23) mg/dl Creatinine 1.52 H (0.6-1.4) mg/dl POC Creatinine (0.6-1.3) mg/dl Est Cr Clr Drug Dosing 39.6 ml/min Est GFR ( Amer) 47.7 ml/min Est GFR (Non-Af Amer) 41.2 ml/min BUN/Creatinine Ratio 27.6 H (10-20) Glucose 206 H (70-99(Fasting)) mg/dl POC Glucose (other) (70-99) mg/dl Calcium 9.0 (8.6-10.3) mg/dl POC Ioniz Calcium Ashley (1.12-1.32) mmol/l Total Bilirubin 2.1 H (0.2-1.0) mg/dl AST 27 (13-39) U/L ALT 15 (7-52) U/L Alkaline Phosphatase 198 H (34-104) U/L Troponin I High Sens 25.5 H (0-20) pg/ml Total Protein 7.0 (6.0-8.3) gm/dl Albumin 3.4 (3.4-5.0) gm/dl Globulin 3.6 (2.5-4.0) gm/dl Albumin/Globulin Ratio 0.9 (0.9-2) Lipase 24 (11-82) U/L SARS-CoV-2, RNA, NAAT (NEGATIVE) Diagnostic Findings Chest X-Ray 08/09/22 06:39 XR chest 1V portable HISTORY: Postcardiac arrest. Chest pain, nonspecific COMPARISON: Chest 03/02/2022. FINDINGS: No pneumothorax. No pleural effusions. There are low lung volumes. The cardiac silhouette remains mildly enlarged. Vascular and interstitial thickening suggestive of mild congestive change. This is similar to the prior study. Right midlung zone focal airspace opacity has increased in size and now measures 4.2 cm. IMPRESSION: 1. Cardiomegaly with mild congestive change. 2. Increase in size in a 4.2 cm right midlung zone density. This may represent a pulmonary lesion. This will be better assessed on the same day chest CT. ACT 112: Negative or not required by law. Electronically signed by: Gilbert Guidry M.D. 08/09/2022 7:11 AM Abdomen/Pelvis CT 08/09/22 06:[address] WITH IV CONTRAST CT DOSE: HISTORY: syncope/ams/fall TECHNIQUE: Multiaxial CT images of the abdomen and pelvis were performed following the use of intravenous contrast. A dose lowering technique was utilized adhering to the principles of ALARA. COMPARISON STUDY: None. FINDINGS: The lung bases will be reported on the same day chest CT. There are small bilateral pleural effusions. The heart is enlarged. There are patchy bibasilar densities, left greater than right. No pneumoperitoneum. No pneumatosis. There is a left total hip arthroplasty. The right femoral head is absent and there is chronic dislocation/deformity of the proximal right femur/hip. There are displaced left posterior ninth and 10th rib fractures. Fat and fluid containing left inguinal hernia is noted. There is moderate body wall edema. The gallbladder is distended and contains a few punctate gallstones. Nodular contour to the liver consistent with cirrhosis. The spleen enhances normally. The adrenal glands and pancreas unremarkable. Moderate bilateral cortical renal thinning is noted. There are multiple right renal cysts with the largest in the lower pole measuring 5.2 cm. Small amount of ascites is seen throughout the abdomen. The main portal vein is patent. No retroperitoneal lymphadenopathy or retroperitoneal hematoma. Calcified plaque within the normal caliber abdominal aorta. Prostate gland is enlarged. There is a Cruz catheter within the bladder. Small amount of gas within the bladder lumen. There is diffuse bladder wall thickening with adjacent fat stranding. Small amount of hyp erdense material within the bladder lumen which could be due to blood products. There is a subacute/healing mild superior endplate compression fracture at T8. No bowel wall thickening or obstruction. IMPRESSION: 1. Displaced left posterior ninth and 10th rib fractures. 2. Subacute/healing mild superior endplate compression fracture at T8. 3. Cirrhotic liver with a small amount of ascites. 4. Bladder wall thickening with adjacent fat stranding. There is also a Cruz catheter within the bladder. This may represent a cystitis. 5. Hyperdense material within the bladder lumen suggesting blood products. 6. Moderate body wall edema. 7. Cholelithiasis. The gallbladder is also distended. 8. Additional findings as described above. 9. The lung bases will be reported on the same day chest CT. ACT 112: Negative or not required by law. Electronically signed by: Gilbert Guidry M.D. 08/09/2022 8:[address] 08/09/22 06:[address] WITH CONTRAST HISTORY: Acute syncope with chest trauma syncope/ams/fall TECHNIQUE: Multiaxial CT images of the chest were performed following the IV administration of 94 cc of Optiray. A dose lowering technique was utilized adhering to the principles of ALARA. COMPARISON: CT abdomen and pelvis of same day, chest CT 09/22/2020, thoracic spine radiographs 07/30/2021, chest CT 09/22/2020 FINDINGS: Study is degraded by respiratory motion artifact. Unremarkable visualized thyroid. No pathologically enlarged lymph nodes identified. Moderate to extensive cardiomegaly. Extensive coronary artery calcifications. No pericardial effusion. Mild fusiform dilation of the ascending thoracic aorta measures up to 4 cm. No dissection. Dilated main pulmonary artery redemonstrated. Small pleural effusions. Mild intralobular septal thickening. There is a 4.6 x 2.3 cm subpleural consolidation within the right upper lobe abutting the adjacent fissure. Mild dependent bibasilar atelectasis. There is improved aeration of the left lung with mild persistent subpleural groundglass and consolidative opacities suggestive of post inflammatory scarring/fibrosis with mild left lung volume loss. Decreased AP dimension of the trachea and bronchi may represent a component of tracheobronchial malacia. There is suggested cirrhotic morphology of the liver. Upper abdominal ascites. Mild generalized body wall edema. Degenerative changes of the shoulders and spine. Acute, comminuted and mildly displaced fractures of the posterior left 10th and 11th ribs. Questioned cortical irregularity involving the upper third of the sternal body seen best on the sagittal imaging it is likely secondary to motion artifact. Chronic appearing fracture involving the T8 vertebral body redemonstrated with only mild vertebral body height loss and no retropulsion. T1 spinous process fracture is new from the 2020 study demonstrates corticated margins. IMPRESSION: 1. Motion degraded exam. 2. Acute, comminuted mildly displaced fractures of the posterior left 10th and 11th ribs. No pneumothorax identified. 3. Cardiomegaly with small pleural effusions and mild intralobular septal thickening which may represent a component of mild pulmonary edema. 4. Dependent 4.6 cm consolidation within the right upper lobe is new from the prior study. 3 month follow-up chest CT recommended. 5. Pulmonary arterial hypertension. 6. Subacute to chronic appearing T8 vertebral body and T1 spinous process fractures. ACT 112: Negative or not required by law. Electronically signed by: Damian Conner M.D. 08/09/2022 8:[address] 08/09/22 06:[address] DOSE: HISTORY: syncope/ams/fall TECHNIQUE: Multiaxial CT images of the maxillofacial region were performed and reformatted in the coronal plane without the use of contrast. A dose lowering technique was utilized adhering to the principles of ALARA. COMPARISON: None. FINDINGS: The visualized cervical spine, skull base, pterygoid plates, nasal bones, lamina papyracea, orbital floors, mandible, and zygomatic arches are intact. No fractures. The orbits are unremarkable. Partial opacification of the ethmoid air cells and mild mucosal thickening within the maxillary sinuses and left frontal sinus. IMPRESSION: No fractures within the maxillofacial region. ACT 112: Negative or not required by law. Electronically signed by: Gilbert Guidry M.D. 08/09/2022 8:[address] 08/09/22 06:[address] DOSE: HISTORY: Cardiac arrest. head injury TECHNIQUE: Multiaxial CT images of the head were performed without the use of intravenous contrast. Automated exposure control was utilized for this study. A dose lowering technique was utilized adhering to the principles of ALARA. Comparison: Head CT 06/17/2020. Findings: Mild mucosal thickening within the maxillary sinuses with partial opacification of the ethmoid air cells. The mastoid air cells are clear. The calvarium and skull base are intact. There is no mass, hematoma, midline shift, acute infarct. White matter hypodensity is nonspecific but suggestive of microvascular ischemic change. The ventricles and sulci demonstrate mild age- related involutional changes. Impression: No acute intracranial abnormality. Atrophy and microvascular ischemic changes. ACT 112: Negative or not required by law. Electronically signed by: Gilbert Guidry M.D. 08/09/2022 8:[address] 08/09/22 06:44 CT cervical spine wo con CT DOSE: 2638.67 mGy.cm CLINICAL HISTORY: 87 years-old Male with syncope/ams/fall. Acute neck injury status post fall COMPARISON: Head CT of same day TECHNIQUE: Multiple axial CT images of the cervical spine were obtained without contrast. A dose lowering technique was utilized adhering to the principles of ALARA. FINDINGS: Motion degraded exam. Multilevel degenerative changes. No definite acute fracture or subluxation is identified. The cervical soft tissues appear unremarkable. The visualized lung apices appear clear. IMPRESSION: Motion degraded exam. No definite acute fracture or subluxation id entified. ACT 112: Negative or not required by law. The above report was generated using voice recognition software. It may contain grammatical, syntax or spelling errors. Electronically signed by: Damian Conner M.D. 08/09/2022 8:12 AM Supervising Physician Co-Signing Physician Notes I personally saw and examined the patient. I verified all baltazar points and agree with Cassie Lewis PA-C with the following exceptions and/or additions: 87 year old male on hospice care presents to the ER after not having oxygen for the trip home from the ER earlier this morning. Family concerned he did not have a pulse and started CPR. Stopped when EMS arrived. Placed on BiPAP in the ER due to concern for O/E Alert to noxious stimuli, chronically ill appearing, On BiPAP. Using accessory muscles. Rhonchi b/l. HS RRR, no murmurs, Abdo SNT A/P Acute hypoxic respiratory failure with possible cardiac arrest - CPR performed but unclear if true cardiac arrest, was not continued by EMS. Patient on hospice care but family essentially got scared and I don't think were fully prepared for him to . Discussed with his at bedside and son over the phone who request patient to just be kept comfortable at this stage. BiPAP will be removed. His recent problem has been urinary retention which may essentially be solved with the cruz catheter placed. hematuria likely due to traumatic insertion previously. Coming off Eliquis should help with this. His renal function is surprisingly ok. Comfort care orders placed as likely he will have some pain related to rib fractures from CPR. However, I would not be overtly surprised if he woke up and is much better tomorrow as likely the lisinopril and metoprolol were causing more harm than good at this stage, goal is comfort regardless and to hopefully go home on hospice if he improves enough to be transported but it would not be unreasonable to restart his diuretic if he does improve. I would not restart his Eliquis, lisinopril or metoprolol however. PG Care Time/CCT Total # of Minutes Spent Total Time Spent with Patient: Total time spent is greater than 50% in coordination of care (as documented) at patient's floor/unit and/or counseling patient: Coding Level of Care Code 54041 INT INP/OBS CARE 3/75MIN Diagnoses Hospice care patient Z51.5 Cardiac arrest I46.9 Community acquired pneumonia J18.9 Pleural effusion J90 Hematuria R31.9 Acute on chronic systolic CHF (congestive heart failure) I50.23 Interstitial lung disease J84.9 Chronic respiratory failure with hypoxia, on home O2 therapy J96.11; Z99.81 Type 2 diabetes mellitus E11.9
[2022-08-09] MEDS ORDERED: ONDANSETRON INJ 2 MG/ML 2 ML VIAL IV PRN (12:55)
[2022-08-09] MEDS ORDERED: MoRPHine SULFATE 10 MG/0.5 ML UDP PO PRN (12:55)
[2022-08-09] MEDS ORDERED: GLYCOPYRROLATE 0.2 MG/ML VIAL IV PRN (12:55)
[2022-08-09] MEDS ORDERED: ONDANSETRON 4 MG OD TAB SL PRN (12:55)
[2022-08-09] MEDS ORDERED: LORazepam 2 MG/1 ML VIAL IV PRN (12:55)
--- NOTE | 2022-08-09 13:40 | Electrocardiogram Report ---
Test Reason : Blood Pressure : / mmHG Vent. Rate : 087 BPM Atrial Rate : 090 BPM P-R Int : 000 ms QRS Dur : 192 ms QT Int : 476 ms P-R-T Axes : 000 140 -17 degrees QTc Int : 572 ms Atrial fibrillation Right bundle branch block Left posterior fascicular block Bifascicular block Possible Inferior infarct , age undetermined Anteroseptal infarct , age undetermined Abnormal ECG When compared with ECG of 02-MAR-2022 14:13, Atrial fibrillation has replaced Atrial flutter Anteroseptal infarct is now Present Confirmed by George Rogel ([id number]) on 08/09/2022 1:40:05 PM Referred By: REFERRED SELF Confirmed By:George Rogel
--- NOTE | 2022-08-09 16:08 | Palliative Care Consultation ---
Date of Consultation August 09, 2022 Assessment & Plan (1) Pain: with known rib fractures Morphine ordered prn. Monitor comfort at rest and with care May need routine dosing or premedication prior to care (2) Dyspnea: with chronic respiratory failure morphine as needed continue O2 for comfort rather than maintain goal sat (3) Palliative care encounter: I met with Mrs. Dinh and her sons who talked about the events of the last few days. They are grateful that he is awake and comfortable. All are in agreement that focus of care is comfort and symptom management. We discussed role of medications to manage symptoms and use as needed. Addressed questions from family and assured them that opioids will not be used to hasten his . We discussed what to expect as his condition declines and likely symptoms that he may have including pain, dyspnea, confusion, lethargy. We discussed normal changes in breathing pattern with dying. They would very much like to have him home on hospice again if possible. Monitor over the next day or two. Work with case management on discharge plan. History of Present Illness Reason for Consultation: comfort care Requesting Physician: SANJU Elkins Attending Physician: Surinder Campos MD History of Present Illness 87 yo gentleman with systolic heart failure, afib and chronic respiratory failure on baseline 6L at home. He has been on hospice care since April. He was seen in ER yesterday for urinary retention after hospice attempted Buenrostro at home which appeared to be obstructed with blood clots, and had been discharged back home but did not have oxygen for transport home. He was unresponsive at home and family called 911. They did perform CPR at home. He is currently awake and alert. He is somewhat confused with poor short term memory and frequently asks, "why am I here?". Per family he had progressive weakness with falls at home. He denies dyspnea but does complain of pain in his back when head of bed is elevated. He denies pain at rest. Family met with Cassie Lewis on admission and requests comfort care. Allergies Allergy/AdvReac Type Severity Reaction Status Date / Time No Known Drug Allergies Allergy Verified 05/20/22 14:00 Home Medications Medication Instructions Recorded Confirmed Type allopurinol 300 mg tablet 300 mg PO QAM 01/10/18 08/09/22 History melatonin 3 mg tablet 6 mg PO HS 01/10/18 08/09/22 History multivitamin (Daily Multi-Vitamin 1 tab PO QDL 01/10/18 08/09/22 History tablet) tamsulosin 0.4 mg capsule (Flomax) 0.8 mg PO QDL 01/10/18 08/09/22 History metformin 850 mg tablet 850 mg PO QAM 07/04/18 08/09/22 History omega 6-lxo-fqt-fish oil 1,000 mg 1 cap PO TIDM 07/04/18 08/09/22 History (120 mg-180 mg) capsule (Fish Oil) vitamins A,C,Q-xqhi-szaxym 2,148 1 tab PO BIDM 07/04/18 08/09/22 History mcg-113 mg-45 mg-17.4 mg tablet (PreserVision AREDS) acetaminophen 325 mg capsule 650 mg PO HS 09/25/18 08/09/22 History (Tylenol) apixaban 5 mg tablet (Eliquis) 5 mg PO BID 09/25/18 08/09/22 History docusate sodium 250 mg capsule 500 mg PO HS 10/27/19 08/09/22 History (Stool Softener) metoprolol succinate 50 mg 50 mg PO AMHS 10/27/19 08/09/22 History tablet,extended release 24 hr Oxygen Home #1 ea 04/22/21 08/09/22 Rx finasteride 5 mg tablet 5 mg PO DAILY #90 tabs 06/06/22 08/09/22 Rx bumetanide 1 mg tablet 2 mg PO DAILY 08/09/22 08/09/22 History cephalexin 500 mg capsule 500 mg PO Q8H 7 days #21 caps 08/09/22 08/09/22 Rx lorazepam 0.5 mg tablet 0.5 mg PO DAILY PRN Anxiety 08/09/22 08/09/22 History metolazone 2.5 mg tablet 2.5 mg PO UD 08/09/22 08/09/22 History potassium chloride 20 mEq 20 meq PO DAILY 08/09/22 08/09/22 History tablet,extended release Patient History Medical History A-fib DX 2017 - NO CARDIOVERSION Anemia Cerumen impaction Chronic heart failure Chronic respiratory failure with hypoxia, on home O2 therapy Chronic systolic CHF (congestive heart failure) Diabetes Elevated transaminase level Enlarged prostate Gout Hearing loss Hearing Aid History of skin cancer PRECANCEROUS LESIONS S/P EXCISION History of transesophageal echocardiography (LISA) Hyperlipidemia Hypertension Infected orthopedic implant Interstitial lung disease Interstitial lung disease Macular degeneration Mitral valve prolapse S/P CLIP 09/12/2018 ([facility] [place]) Osteoarthritis RBBB Shortness of breath Stage III pressure ulcer of sacral region Surgical History History of colonoscopy x2 History of hernia repair X3 (Umbilical x 1, Right Inguinal x 2) History of hip surgery HARDWARE FROM HIP REVISION REMOVED - RIGHT 09/18/17 - MAC #3, ETT #7.5, HiLo Oral, Grade 1 View History of revision of total replacement of right hip joint 05/30/17 - MAC #4, ETT #7.5, HiLo, Grade 1 View 07/13/17 - MAC #4, ETT #7.5, HiLo Oral, Grade 1 View History of total left hip arthroplasty History of total right hip arthroplasty 06/21/12 - MAC #3, ETT #8.0, Grade 1 View Hx of tonsillectomy S/P cardiac cath 09/2018= MVP CLIP PLACED Family History Mother Cancer Social History Smoking Status: Unknown if ever smoked Tobacco Type: Cigarettes Cigarettes Per Day: 1/2 - 1 ppd x 42 years; Hx Alcohol Use: No Hx Substance Use: No Preferred Language: Luxembourger Communication Ability: Impaired Visual Impairment: No Limitations Special Education Math Teacher Required: No Beliefs That Will Affect Care: None marital status: Current Living Situation: Spouse Current Living Situation Comment: hospice care at home Feels Safe at Home: Yes Assistive Devices: Denture - Upper, Denture - Lower, Glasses, Hearing Aid - Bilateral and Oxygen - Continuous Review of Systems Review of Systems: Pain 1/3 Dyspnea 0/3 Drowsiness0/3 Anxiety 1/3 Physical Exam Constitutional: + ill appearing; no acute distress Respiratory: normal respiratory effort; no labored breathing Skin: warm and dry Neurologic: awake and + confused Genitourinary: Buenrostro catheter Results & Data Vital Signs (Past 12 Hours) Vital Signs Temp Pulse Pulse Resp BP Pulse Ox O2 Del Method 08/09/22 14:48 72 16 101/69 91 Oxymask 08/09/22 14:39 16 98/82 L 95 Oxymask 08/09/22 12:22 65 08/09/22 11:16 65 18 100/79 97 BiPAP 08/09/22 09:38 67 19 101/69 99 08/09/22 08:21 69 08/09/22 07:41 77 16 113/78 97 BiPAP 08/09/22 06:45 80 23 95 08/09/22 06:57 95 BiPAP 08/09/22 06:45 81 L Non-rebreather 08/09/22 06:41 96.6 F L 89 20 81 L Non-rebreather O2 Flow Rate FiO2 08/09/22 14:48 10 08/09/22 14:39 10 08/09/22 12:22 08/09/22 11:16 08/09/22 09:38 08/09/22 08:21 08/09/22 07:41 08/09/22 06:45 100 08/09/22 06:57 08/09/22 06:45 15 08/09/22 06:41 15 PG Care Time/CCT Total # of Minutes Spent Total Time Spent: 72 Total Time Spent with Patient: Total time spent is greater than 50% in coordination of care (as documented) at patient's floor/unit and/or counseling patient:[id number] symptom management, goals of care, what to expect, family education and support Coding Level of Care Code 65938 INT INP/OBS CARE 2/55MIN Diagnoses Pain R52 Dyspnea R06.00 Palliative care encounter Z51.5
[2022-08-09] MEDS: MoRPHine SULFATE 2 MG/ML CARP IV PRN (20:47)
[2022-08-09] MEDS: LORazepam 0.5 MG TAB PO PRN (22:13)
[2022-08-10] MEDS: MoRPHine SULFATE 2 MG/ML CARP IV PRN (00:29)
--- NOTE | 2022-08-10 17:56 | Hospitalist Progress Note ---
Date of Service August 10, 2022 Assessment & Plan (1) Hospice care patient: Plan: Home, resuming hospicehopefully as soon as tomorrow. Pain appears to be under good control. (2) Hematuria: Plan: The main problem that led to the current hospitalization was Buenrostro obstruction due to hematuria/clotting. Discussed with risk/benefit of holding Eliquis for the foreseeable future, and how to manage ongoing hematuria. Given that the hematuria will not likely be as significant/unlikely to lead to clotting/obstruction off of Eliquiswill maintain off of Eliquis for now. Hopefully will need nothing more than Buenrostro drainage +/- occasional manual irrigation in the future, did discuss the role for continuous bladder irrigation should the need arise. (3) Cardiac arrest: Plan: Appears to been caused by hypoxia no further CPR/intubation per (4) Community acquired pneumonia: Plan: After further review, unlikely. Clinically not consistent with pneumonia at this time. Previous situation change, antibiotics. Otherwise continue supportive care. (5) Pleural effusion: Plan: as above, likely 2nd to end stage CHF/cirrhosis/volume overload no aggressive treatments at present, moving to hospice (6) Acute on chronic systolic CHF (congestive heart failure): Plan: on hospice also w/ afib, on eliquis -- holding given hematuria/hospice as above (7) Interstitial lung disease: (8) Chronic respiratory failure with hypoxia, on home O2 therapy: Plan: Supplemental O2 for comfort. (9) Type 2 diabetes mellitus: Plan: no longer on metformin therapy per comfort as above Plan Hopefully home, hospice tomorrow Admission and Anticipated Discharge Date Admission Date: August 09, 2022 Subjective Generally feeling better. Pain under good control. Some pain in right mid/lower back when coughing but no other complaints. present, extensive discussions, answered all to the best my ability and to her satisfaction. Review of Systems Review of Systems: All systems reviewed & are unremarkable except as noted in HPI & below Physical Exam Physical Exam: Awake and alert pleasant no distress. Breathing unlabored lungs are clear no rales rhonchi or wheezes with good effort. No focal neurodeficits. Results & Data Results & Data Vital Signs (Past 12 Hours) Vital Signs O2 Del Method O2 Flow Rate 08/10/22 07:40 High Flow Nasal Cannula 9 PG Care Time/CCT Total # of Minutes Spent Total Time Spent with Patient: Total time spent is greater than 50% in coordination of care (as documented) at patient's floor/unit and/or counseling patient: Coding Level of Care Code 45053 SUB INP/OBS CARE 50MIN Diagnoses Hospice care patient Z51.5 Hematuria R31.9 Cardiac arrest I46.9 Community acquired pneumonia J18.9 Pleural effusion J90 Acute on chronic systolic CHF (congestive heart failure) I50.23 Interstitial lung disease J84.9 Chronic respiratory failure with hypoxia, on home O2 therapy J96.11; Z99.81 Type 2 diabetes mellitus E11.9
[2022-08-10] MEDS: LORazepam 0.5 MG TAB PO PRN (22:09)
--- NOTE | 2022-08-11 10:25 | Palliative Care Progress Note ---
Date of Service August 11, 2022 Assessment & Plan (1) Dyspnea: Plan: Denies at rest. I spoke with his and reviewed use of oxygen for relief of air hunger rather than to maintain ideal saturation. They have concentrator at home that will go to 10L. He is comfortable at this time on 6L. If he has labored breathing or additional air hunger, morphine would be treatment of choice. She voices understanding. (2) Pain: Plan: With rib fractures after fall at home. Comfortable at rest. Continue prn morphine. He has also had discomfort with urinary retention. He does now have an indwelling cruz. (3) Palliative care encounter: Plan: I spoke with Mrs. Dinh who has had a difficult time after the events that lead to his admission. She tells me that she feels better today. She has good family support. She has been in communication with the hospice nurse and with case management in hospital. Hospital bed will be delivered to their home this morning to facilitate his care and comfort at home. We reviewed what to do if he has distress. She tells me that her head has not really been able to process everything but she understands that he is approaching his dying time and very much wants him to be at home. "I'm committed to this". She is aware that transport home has been arranged for 1530 today. Discussed with RN, case management and Dr. Mccall. Admission and Anticipated Discharge Date Admission Date: August 09, 2022 Subjective Awake, mild confusion. Trying to turn on TV. Tells me that he does not have pain and is comfortable. He has had two doses of morphine for pain in the last 24 hours. Review of Systems Review of Systems: ESAS Pain 0/3 Dyspnea 0/3 at rest Nausea 0/3 Drowsiness 0/3 Physical Exam Constitutional: + ill appearing; no acute distress Respiratory: normal respiratory effort; no labored breathing Skin: warm and dry Neurologic: awake; no focal motor deficits Results & Data Vital Signs (Past 12 Hours) Vital Signs Pulse Ox O2 Del Method O2 Flow Rate 08/11/22 07:15 Nasal Cannula 6 08/11/22 07:15 88 L Nasal Cannula 6 08/11/22 03:45 90 Nasal Cannula 6 08/11/22 01:48 91 Nasal Cannula 6 PG Care Time/CCT Total # of Minutes Spent Total Time Spent: 43 Total Time Spent with Patient: Total time spent is greater than 50% in coordination of care (as documented) at patient's floor/unit and/or counseling patient:symptom management, family education and support, coordination of care Coding Level of Care Code 51356 SUB INP/OBS CARE 2/35MIN Diagnoses Dyspnea R06.00 Pain R52 Palliative care encounter Z51.5
--- NOTE | 2022-08-11 17:31 | Discharge Summary ---
Date of Service August 11, 2022 Admission HPI Per Admitting Provider 87yo male on hospice for end stage CHF presented to ER earlier this morning for cruz catheter removal/replacement after unable to inset by school aide and was discharged without oxygen and found to collapse when he got home. Family performed CPR for 4-5minutes and was brought in by EMS on nonrebreather. at bedside, confirms patient on Hospice and they have been great. Patient doing well at home, typically on 8L but her son forgot to bring it when he brought him home earlier and they couldn't get him through the door at home and he collapsed/cardiac arrest. Reported CPR for about 5 minutes, and put Oxygen back on and he responded. Brought back in and on BiPAP at present. notes issues w/ urinary retention and decreased urine output over the past week. She notes he hasn't been moving bowels much but either but reports decent appetite. Had reported calling hospice for this issue on /Monday last week and he drained 200cc on Monday upon placement of cruz and then 600cc during the day. 900cc on Monday, and yesterday issues with peeing/no drainage and brought to ER for cruz exchange as above. Follows w/ Dr Kirkland for end-stage CHF and she notes they have discussed not monitoring his weight gain and focusing on comfort. When asked why she brought him back/wishes are, she confirms he is a DNR but has been taking all his usual medications with exception of Metformin, which was dc by Dr Kirkland. Patient states she has morphine/ativan at home and did give him some morphine this morning. Patient sleepy but arousable. Denies any chest pain at present, breathing stable on BiPAP and can consider transitioning to nasal cannula as tolerated for comfort. Discussed consultation w/ palliative medicine as well given discussion about perfusion/hypotension/CHF and likely low urine output potentially indicating nearing the end. She was unaware of these things and thankful for discussion. She notes while hospice has been great, they come 2x/week and that it is a lot for her at night to care for him, she may be interested inpatient hospice if continued decline however if able to get stable/remain stable, [facility] option so that she could move into less of caregiver role. She notes he has been stable sleeping in recliner w/ three pillows for comfort. ER Course: WBC elevated 11.9k, Hgb 13.6, ABG w/ pH 7.28, pCO2 56, pO2 91, HCO 27. Na 141, K 4.1. BUN/Cr 42/1.52. TB 2.1/ALP 198 UA w/ 3+ protein, 3+ blood, + nitrite, 1+ bili, 1+ leuk, >30 RBC, 10-20 epi, no bacteria COVID negative CXR, Head CT, Face CT, Chest CT, Cervical Spine CT CT chest w/ acute comminuted mildly displaced fractures posterior LEFT 10th/11th ribs, no PTX. Cardiomegaly w/ small pleural effusions and mild intralobular septal thickening which may represent component of mild pulmonary edema. Dependent 4.6CM consolidation RUL, new from prior study. PAH. Subacute to chronic appearing T8 vertebral body/T1 spinous process fractures. CTAP w/ displaced posterior 9th/10th rib fractures, subacute/healing endplate c omp fx T8. Cirrhotic liver w/ small amt ascites. Bladder wall thickening, ?cystitis. Hyperdense material w/i bladder lumen suggesting blood products. Moderate body wall edema. Cholelithiasis. GB also distended. Given Ceftriaxone 2gm IV x1 Principal Diagnosis rib fractures, urinary retention due to hematuria Discharge Exam In general he is awake and alert pleasant no distress. HEENT normocephalic atraumatic mucous membranes moist. Lungs coarse throughoutsimilar to yesterday, no focal findingsno rales rhonchi or wheezes good effort. Skin and what appears to be his baseline state of dusky appearance. Discharge Data Allergies Allergy/AdvReac Type Severity Reaction Status Date / Time No Known Drug Allergies Allergy Verified 05/20/22 14:00 Consultations 08/09/22 08:43 ED Decision to Admit Stat 08/09/22 12:55 Consult Palliative Care Routine Ordered Studies 08/09/22 06:43 CT abd pelvis IV con only Stat CT chest diagnostic w con Stat CT facial bones wo con Stat CT head/brain wo con Stat 08/09/22 06:44 CT cervical spine wo con Stat Hospital Course (1) Hospice care patient: Home, resuming hospicehome later todaypain under good control. (2) Hematuria: The main problem that led to the current hospitalization was Cruz obstruction due to hematuria/clotting. On 08/10, discussed with risk/benefit of holding Eliquis for the foreseeable future, and how to manage ongoing hematuria. Given that the hematuria will not likely be as significant/unlikely to lead to clotting/obstruction off of Eliquiswill maintain off of Eliquis for now. Hopefully will need nothing more than Cruz drainage +/- occasional manual irrigation in the future, did discuss the role for continuous bladder irrigation should the need arise. (3) Cardiac arrest: Appears to been caused by hypoxia no further CPR/intubation per (4) Community acquired pneumonia: After further review, unlikely. Clinically not consistent with pneumonia at this time. Previous situation change, antibiotics. Otherwise continue supportive care. (5) Pleural effusion: as above, likely 2nd to end stage CHF/cirrhosis/volume overload no aggressive treatments at present, moving to hospice (6) Acute on chronic systolic CHF (congestive heart failure): on hospice also w/ afib, chronically on eliquis -- holding given hematuria/hospice as above (7) Interstitial lung disease: (8) Chronic respiratory failure with hypoxia, on home O2 therapy: Supplemental O2 for comfort. (9) Type 2 diabetes mellitus: no longer on metformin therapy per comfort as above Plan Return home on hospice Total Time Total Time Spent Total Time Spent (In Minutes): Less than 30 Discharge Plan Discharge Items Patient Disposition: Hospice - Home Reason For Visit: CARDIAC ARREST, PALLIATIVE Discharge Diagnosis: cardiac arrest, rib fractures after CPR Activity: Resume your previous activity Non-emergency contact: Primary Care Provider Call non-emergency contact if: you have any medication questions and your symptoms worsen Follow-up/Referrals: Bobby Schuler, [Primary Care Provider] - Diet: Regular Addtl Attending Provider Instructions: you can use the morphine (5mg - 0.25ml -- it's very concentrated so a small amount of liquid is actually a reasonable sized dose) as needed for pain, and it works nicely to cut any kind of air hunger/respiratory symptoms. you can also try turning up the oxygen if needed as an alternate for respiratory symptoms/shortness of breath blood in urine/clotting - now that the eliquis is on hold, the severity of the bleeding should reduce. it might not totally go away, but most of the time when people have urinary bleeding, stopping the blood thinner really reduces the bleeding - and with less bleeding there is less total volume of blood to clot up and clog the catheter. with that in mind, a "rerun" of a clogged catheter and severe bladder pain is very unlikely (it could still happen, but is very unlikely). likewise, with less bleeding, even if the catheter clots up, it's more likely that the irrigation the nurses can do at home will alleviate the problem. that said, if all goes wrong and his catheter DOES clot again, and we're NOT able to flush it to get it open, a "washout" called continuous bladder irrigation almost always works. it's fairly simple - it just requires a catheter with multiple channels - we hang a bottle of irrigation water that almost looks like an IV hanging - and the water washes out the bladder and keeps the blood from being able to clot/clog up the catheter. i doubt that they'd be able to do this at home, but we've asked them if they're capable - just so that on the very remote chance of a repeat of what happened, if they can do it, they can be ready to get things set up. more than likely though, this would need to be carried out in the hospital. we're definitely hoping that's not going to be needed - and again by stopping the eliquis a huge majority of the time people's bladder bleeding reduces to where clotting like this is minimal - but that way you know what the backup plan is. as it relates to the atrial fibrillation and eliquis, blood thinners for atrial fibrillation to prevent strokes- but the risk of stroke is really more measured out over years - for example even people that are really high risk for stroke with afib are about a 10% chance each YEAR of a stroke if they're not on a blood thinner - so while being off the blood thinner does increase risk of stroke, the bladder bleeding/clotting situation that led to all this definitely takes precedence, and it's overall an OK risk/benefit balance to leave the eliquis on the shelf for the indefinite future. Pending Studies at Discharge: No Stand-Alone Forms: My [facility] Medications and DC Order Prescriptions: New morphine concentrate 100 mg/5 mL (20 mg/mL) solution 5 mg PO Q4H PRN (Reason: pain) Qty: 30 0RF Rx Instructions: 5mg - 1/4ml - q4H prn pain or dyspnea Continued allopurinol 300 mg tablet 300 mg PO QAM melatonin 3 mg tablet 6 mg PO HS multivitamin [Daily Multi-Vitamin] tablet 1 tab PO QDL tamsulosin [Flomax] 0.4 mg capsule 0.8 mg PO QDL (DME) Oxygen Home Liters Per Minute See Rx Instructions .Route Qty: 1 0RF Rx Instructions: Humidification for oxygen finasteride 5 mg tablet 5 mg PO DAILY Qty: 90 3RF metformin 850 mg tablet 850 mg PO QAM omega 5-stf-fmt-fish oil [Fish Oil] 1,000 mg (120 mg-180 mg) Capsule 1 cap PO TIDM PreserVision AREDS [id number] Tablet 1 tab PO BIDM acetaminophen [Tylenol] 325 mg Capsule 650 mg PO HS metoprolol succinate 50 mg Tablet Extended Release 24 Hr 50 mg PO AMHS docusate sodium [Stool Softener] 250 mg Capsule 500 mg PO HS cephalexin 500 mg capsule 500 mg PO Q8H 7 Days Qty: 21 0RF metolazone 2.5 mg tablet 2.5 mg PO UD lorazepam 0.5 mg Tablet 0.5 mg PO DAILY PRN (Reason: Anxiety) bumetanide 1 mg tablet 2 mg PO DAILY potassium chloride 20 mEq tablet extended release 20 meq PO DAILY Discontinued Eliquis 5 mg Tablet 5 mg PO BID Discharge Orders: Discharge Order (Routine); Ordered 08/11/22 Ordered By: Jonathan Mccall Admission Data Admit Date/Time: 08/09/22 10:43 Attending Provider: Jonathan Mccall Admit Provider: Surinder Campos Primary Care Provider: Bobby Schuler Other Providers: Tere Larry ; Mary Jones ; Surinder Campos Other Interventions: Discharge Summary Assessment (RN) Last Done: 08/11/22 14:43 Coding Level of Care Code 35821 IN/OBS DISCH 30 MIN/LESS Diagnoses Hospice care patient Z51.5 Hematuria R31.9 Cardiac arrest I46.9 Community acquired pneumonia J18.9 Pleural effusion J90 Acute on chronic systolic CHF (congestive heart failure) I50.23 Interstitial lung disease J84.9 Chronic respiratory failure with hypoxia, on home O2 therapy J96.11; Z99.81 Type 2 diabetes mellitus E11.9
== END 2022-08-11 16:46 | disposition hospice, home (50) | DRG 951 ==
LOC: ED 06:36 → EDINP 10:43 → SUATTDRO 10:43 → 3E 12:56